=== PATIENT | male | born 1940 | race Caucasian/White ===

== ENCOUNTER 2022-07-08 09:35 | Inpatient (IN) ==
[2022-07-08] MEDS ORDERED: SODIUM CHLORIDE 0.9% 1000ML 500 ML IV STA (10:20)
--- NOTE | 2022-07-08 10:36 | Emergency Department Note ---
Impression & Plan Acute metabolic encephalopathy, Complicated UTI (urinary tract infection), Syncope, Elevated troponin I level ED Provider Note INFORMANT: Patient and ED PROVIDER(S): Hany Linder MD CHIEF COMPLAINT: Illness PLAN: Disposition: Admitted Condition: Good Outpatient prescription management: none Referral: None MEDICAL DECISION MAKING: Patient presented to the emergency department because of of complaints of illness. His history was concerning for recent urologic procedure and UTI. The patient's culture results were obtained and record was reviewed from [facility] outpatient testing. He was found to have a Enterococcus with ampicillin sensitivity as well as vancomycin sensitivity. The patient had blood work, lactate, blood cultures and urinalysis with urine culture ordered here. His CBC did show a leukocytosis. Chemistry panel was unremarkable. Patient did have a mildly elevated troponin. His ECG showed a sinus rhythm without acute ischemia and he had no complaints of chest pain. Due to the syncope issue as well as the transient confusion he did undergo head CT imaging and this was negative. The patient had a benign abdominal examination no CVA tenderness. CT imaging of the abdomen pelvis was deferred. The patient was given IV ampicillin after discussion with the ED pharmacist and culture reviewed. Lactate was negative. Procalcitonin was minimally elevated. The patient was eventually able to produce a urine sample here. This was concerning for infection and in fact did show positive nitrite. Since Enterococcus does not typically produce nitrite his antibiotic coverage was expanded with Rocephin. His case was discussed with the [facility] hospitalist service. We did review the nitrate positive urinalysis and expanded antibiotic coverage as well. The patient was evaluated in the ER and admitted for further management. Patient and were in agreement and pleased with the treatment. After review of the information above and other included data, I feel the patient requires admission. Triage Nursing notes reviewed and agree them. Vital Signs: reviewed and remarkable for no significant abnormalities Prior /Outside records reviewed: Outpatient culture results as noted above. Differential diagnosis: Sepsis, UTI, pneumonia, metabolic, electrolyte abnormalities, cardiac sources, intracerebral event, toxicologic, neurologic, as well as other pathologies. Diagnostics, as interpreted by me: ECG: Twelve-lead ECG reveals a normal sinus rhythm at 91 bpm. Inferior Q waves present. Bifrontal branch block and left anterior fascicular block. No ST elevation. Cardiac Monitoring: Cardiac monitoring ordered by me: The patient was placed on continuous cardiac monitoring and observed. It revealed a normal sinus rhythm at 88 beats per minute without ectopy or evidence of dysrhythmia. Medical decision rules: none Imaging studies: Head CT: A noncontrast CT scan of the head was performed and was negative for tumor, fracture, intracranial hemorrhage, or other acute pathology. HPI: The patient is a 81 year old male with hx of BPH and prostate CA who presents to the Emergency Room with complaints of illness. This started 4 days ago and is worsening. Patient had cysto done last week and did well. Culture revealed enterococcus. The patient also notes the following associated symptoms, chills, confusion, weakness, myalgias, headache.He also had a brief syncopal episode 3 days ago. The patient has been started on macrobid for relieving factors. Current pain is rated as 0/10. Pt denies diaphoresis, visual changes, neck pain, chest pain, breathing difficulties, nausea, vomiting, abdominal pain, back pain, melena, hematochezia, numbness, lymphadenopathy, rash, or other complaints. PAST MEDICAL HISTORY: See Below, BPH, Prostate CA PAST SURGICAL HISTORY: See Below, cysto SOCIAL HISTORY: See Below, retired HOME MEDICATIONS: See Below ALLERGIES: See Below VITALS: See Below PHYSICAL EXAMINATION: GENERAL: Awake, tired-appearing, in no distress HENT: Normocephalic, atraumatic. Oropharynx unremarkable. EYES: Normal conjunctiva. Sclera non-icteric. NECK: Inspection normal. Non-tender. Supple. No nuchal rigidity. FROM. No masses. RESPIRATORY: Clear to auscultation. No wheezes. No rales. Normal respiratory effort. CARDIAC: Normal rate. Normal rhythm. No murmurs. No rubs. Extremities warm and well perfused. Pulses equal. No JVD. GI: Soft, non-distended. No tenderness to palpation. No rebound or guarding. No masses. RECTAL: Deferred. MUSCULOSKELETAL: Atraumatic. Chest examination reveals no tenderness. The back is symmetrical on inspection without obvious abnormality. There is no CVA tenderness to palpation. No joint edema. LOWER EXTREMITIES: Calves are equal size bilaterally and non-tender. No edema. No discoloration. NEURO: Normal sensorium. No sensory or motor deficits noted. SKIN: No rash or jaundice noted. Past Med/Surg History Medical History (Updated 07/08/22 @ 14:36 by Hany Linder MD) Acid reflux CVA (cerebral vascular accident) Per patient was a TIA 6 years ago, had some memory issues that resolved, no deficits GERD (gastroesophageal reflux disease) History of bladder cancer History of recent steroid use On prednisone for headaches for one week, last dose was last Thursday Hyperlipidemia Ischemic heart disease Kidney stone Nephrolithiasis CARMINA (obstructive sleep apnea) Use a dental TAP Pulmonary embolism 2010 after long car ride Right inguinal hernia Surgical History H/O lithotripsy History of biopsy of bladder 07/01/21 History of right knee joint replacement S/P right knee arthroscopy Family History Other Colorectal cancer Heart disease Social History Smoking Status: Former smoker Hx Alcohol Use: Yes Alcohol type: beer Hx Substance Use: No Preferred Language: Icelandic Communication Ability: Effective Safety Lamp Keeper Required: No Beliefs That Will Affect Care: None Current Living Situation: Spouse Feels Safe at Home: Yes Assistive Devices: Glasses Allergies Allergies Allergy/AdvReac Type Severity Reaction Status Date / Time No Known Allergies Allergy Verified 09/04/21 07:53 Home Meds Home Medications Medication Instructions Recorded Confirmed aspirin 81 mg tablet,delayed 2 tabs PO DAILY 02/25/18 07/08/22 release (Jelani Low Dose Aspirin) atorvastatin 40 mg tablet 40 mg PO DAILY 02/25/18 07/08/22 fluticasone propionate 50 2 spray intranasal DAILY PRN 02/25/18 07/08/22 mcg/actuation nasal Congestion spray,suspension multivitamin 1 tab PO DAILY 02/25/18 07/08/22 omeprazole 40 mg capsule,delayed 40 mg PO DAILY 02/25/18 07/08/22 release tamsulosin 0.4 mg capsule (Flomax) 4 mg PO DAILY 04/24/21 07/08/22 Results & Data (ED) Vital Signs Vital Signs - 24 hr 07/08/22 09:40 07/08/22 10:44 07/08/22 11:48 Temperature 36.9 C Temperature Source Temporal Artery Scan Pulse Rate 107 H Pulse Rate [Apical] 88 Respiratory Rate 20 16 Respiratory Effort / Characteristics Non-Labored Spontaneous Non-Labored Spontaneous Respiratory Depth Normal Normal Respiratory Pattern Regular Blood Pressure 113/68 Blood Pressure [Left Arm] 128/74 Blood Pressure Mean 83 Blood Pressure Mean [Left Arm] 92 Pulse Oximetry 96 98 97 Oxygen Delivery Method Room Air Room Air Room Air Sepsis Recent Fever Within 48 Hours No Sepsis New/Unexplained Change in Mental Status No Sepsis Action Taken by Nursing No Action Required 07/08/22 14:34 Temperature Temperature Source Pulse Rate Pulse Rate [Apical] 87 Respiratory Rate 20 Respiratory Effort / Characteristics Non-Labored Spontaneous Respiratory Depth Normal Respiratory Pattern Regular Blood Pressure Blood Pressure [Left Arm] 112/63 Blood Pressure Mean Blood Pressure Mean [Left Arm] 79 Pulse Oximetry 95 Oxygen Delivery Method Room Air Sepsis Recent Fever Within 48 Hours Sepsis New/Unexplained Change in Mental Status Sepsis Action Taken by Nursing Laboratory Data 07/08/22 10:40 07/08/22 10:40 Lab Results 07/08/22 07/08/22 07/08/22 Range/Units 10:40 10:40 10:40 WBC 13.72 H (4.8-10.8) K/ul RBC 5.15 (4.70-6.10) M/uL Hgb 16.0 (14.0-18.0) g/dl Hct 46.1 (42.0-52.0) % MCV 89.5 (80.0-100.0) fL MCH 31.1 (25.0-34.0) pg MCHC 34.7 (32.0-36.0) g/dL RDW Std Deviation 43.3 (36.4-46.3) fL RDW Coeff of Marvin 13.2 (11.5-14.5) % Plt Count 108 L (130-400) K/uL MPV 8.3 L (9.4-12.4) fL Immature Gran % (Auto) 0.4 % Neut % (Auto) 84.4 % Lymph % (Auto) 2.8 % [place] % (Auto) 8.2 % Eos % (Auto) 4.0 % Baso % (Auto) 0.2 % Neut # (Auto) 11.58 H (1.40-6.50) K/uL Lymph # (Auto) 0.38 L (1.2-3.4) K/uL [place] # (Auto) 1.12 H (0.11-0.59) K/uL Eos # (Auto) 0.55 H (0-0.50) K/uL Baso # (Auto) 0.03 (0-0.2) K/uL Immature Gran # (Auto) 0.06 (0.01-0.20) K/uL Sodium 137 (136-145) mmol/L Potassium 3.6 (3.5-5.1) mmol/L Chloride 105 (98-107) mmol/L Carbon Dioxide 25 (21-32) mmol/L Anion Gap 7 (3-11) BUN 23 (6-23) mg/dl Creatinine 1.13 (0.6-1.4) mg/dl Est Cr Clr Drug Dosing 62.9 ml/min Est GFR ( Amer) 71.3 ml/min Est GFR (Non-Af Amer) 61.5 ml/min BUN/Creatinine Ratio 20.4 H (10-20) Glucose 114 H (70-99(Fasting)) mg/dl Lactate (0.4-2.0) mmol/L Calcium 9.3 (8.5-10.1) mg/dl Total Bilirubin 0.8 (0.2-1.0) mg/dl AST 33 (13-39) U/L ALT 39 (7-52) U/L Alkaline Phosphatase 82 (34-104) U/L Troponin I High Sens 31.7 H (0-20) pg/ml Total Protein 5.9 L (6.0-8.3) gm/dl Albumin 3.3 L (3.4-5.0) gm/dl Globulin 2.6 (2.5-4.0) gm/dl Albumin/Globulin Ratio 1.3 (0.9-2) Procalcitonin 0.82 H (0-0.5) ng/ml Urine Color Urine Appearance (Clear) Urine pH (4.5-7.5) Ur Specific [place] (1.000-1.030) Urine Protein (Negative) Urine Glucose (UA) (Negative) Urine Ketones (Negative) Urine Blood (Negative) Urine Nitrite (Negative) Urine Bilirubin (Negative) Urine Urobilinogen (Negative) Ur Leukocyte Esterase (Negative) Urine WBC (Auto) (0-5) /hpf Urine RBC (Auto) (0-4) /hpf U Hyaline Cast (Auto) (0-5) /lpf U Epithel Cells (Auto) (0-5) /lpf Urine Bacteria (Auto) (Negative) Ur Renal Epithelial Cell Urine Mucus (None Prsent) SARS-CoV-2, RNA, NAAT (NEGATIVE) 07/08/22 07/08/22 07/08/22 Range/Units 10:59 11:50 Unknown WBC (4.8-10.8) K/ul RBC (4.70-6.10) M/uL Hgb (14.0-18.0) g/dl Hct (42.0-52.0) % MCV (80.0-100.0) fL MCH (25.0-34.0) pg MCHC (32.0-36.0) g/dL RDW Std Deviation (36.4-46.3) fL RDW Coeff of Marvin (11.5-14.5) % Plt Count (130-400) K/uL MPV (9.4-12.4) fL Immature Gran % (Auto) % Neut % (Auto) % Lymph % (Auto) % [place] % (Auto) % Eos % (Auto) % Baso % (Auto) % Neut # (Auto) (1.40-6.50) K/uL Lymph # (Auto) (1.2-3.4) K/uL [place] # (Auto) (0.11-0.59) K/uL Eos # (Auto) (0-0.50) K/uL Baso # (Auto) (0-0.2) K/uL Immature Gran # (Auto) (0.01-0.20) K/uL Sodium (136-145) mmol/L Potassium (3.5-5.1) mmol/L Chloride (98-107) mmol/L Carbon Dioxide (21-32) mmol/L Anion Gap (3-11) BUN (6-23) mg/dl Creatinine (0.6-1.4) mg/dl Est Cr Clr Drug Dosing ml/min Est GFR ( Amer) ml/min Est GFR (Non-Af Amer) ml/min BUN/Creatinine Ratio (10-20) Glucose (70-99(Fasting)) mg/dl Lactate 1.7 (0.4-2.0) mmol/L Calcium (8.5-10.1) mg/dl Total Bilirubin (0.2-1.0) mg/dl AST (13-39) U/L ALT (7-52) U/L Alkaline Phosphatase (34-104) U/L Troponin I High Sens (0-20) pg/ml Total Protein (6.0-8.3) gm/dl Albumin (3.4-5.0) gm/dl Globulin (2.5-4.0) gm/dl Albumin/Globulin Ratio (0.9-2) Procalcitonin (0-0.5) ng/ml Urine Color [place] Urine Appearance Cloudy A (Clear) Urine pH 5.0 (4.5-7.5) Ur Specific [place] 1.020 (1.000-1.030) Urine Protein 1+ H (Negative) Urine Glucose (UA) Negative (Negative) Urine Ketones Trace H (Negative) Urine Blood Negative (Negative) Urine Nitrite Positive A (Negative) Urine Bilirubin 1+ H (Negative) Urine Urobilinogen Negative (Negative) Ur Leukocyte Esterase 2+ H (Negative) Urine WBC (Auto) >30 H (0-5) /hpf Urine RBC (Auto) 5-10 H (0-4) /hpf U Hyaline Cast (Auto) 1-5 (0-5) /lpf U Epithel Cells (Auto) >30 H (0-5) /lpf Urine Bacteria (Auto) 1+ H (Negative) Ur Renal Epithelial Cell Not Reportable Urine Mucus Present A (None Prsent) SARS-CoV-2, RNA, NAAT NEGATIVE (NEGATIVE) Administered Medications Discontinued Medications Sodium Chloride (Nss 1000ml) 500 mls @ 999 mls/hr IV .Q31M STA Stop: 07/08/22 10:50 Last Infusion: 07/08/22 11:15 Dose: 0 mls/hr Documented By: Admin: 07/08/22 10:43 Dose: 999 mls/hr Documented By: ADRIANA Ampicillin Sodium 2,000 mg/ (Sodium Chloride) 100 mls @ 200 mls/hr IV ONE STA Stop: 07/08/22 11:14 Last Infusion: 07/08/22 12:09 Dose: 0 mls/hr Documented By: Admin: 07/08/22 11:39 Dose: 200 mls/hr Documented By: HS Ceftriaxone Sodium (Rocephin) 2,000 mg in 70 mls @ 140 mls/hr IV NOW STA Stop: 07/08/22 14:00 Last Infusion: 07/08/22 14:32 Dose: 0 mls/hr Documented By: Admin: 07/08/22 13:56 Dose: 140 mls/hr Documented By: HS Imaging Data Radiologist's Impression: Head CT 07/08/22 10:20 CT SCAN OF THE BRAIN WITHOUT IV CONTRAST CLINICAL HISTORY: Syncope. COMPARISON STUDY: CT of the brain dated 07/31/2011. TECHNIQUE: Unenhanced axial CT scan of the brain is performed from the vertex to the skull base. A dose lowering technique was utilized adhering to the principles of ALARA. CT DOSE: 614.27 mGy.cm FINDINGS: Brain parenchyma: There is age-related involutional change noting mild subcortical and periventricular microangiopathic disease. There is no hemorrhage, mass effect, or evidence of acute territorial ischemia by CT criteria. Peguero-white matter differentiation is preserved. No extra-axial fluid collection is seen. There is a small chronic infarct in the left cerebellar hemisphere. Ventricles, sulci, cisterns: Prominent secondary to involutional change. Intracranial vasculature: There is atherosclerotic calcification of the cavernous carotid and vertebral arteries. Calvarium: Unremarkable. Sinuses and mastoids: There is trace mucosal thickening and a 16 mm retention cyst in the left maxillary antrum. Trace mucosal thickening is also seen in the right maxillary sinus. The Remaining paranasal sinuses are clear. The mastoid air cells are well pneumatized. Orbits: The bony orbits are grossly intact. There are bilateral ocular lens implants. IMPRESSION: There is no hemorrhage, mass effect, or evidence of acute territorial ischemia by CT criteria. ACT 112: Negative or not required by law. Electronically signed by: Apolinar House M.D. 07/08/2022 11:15 AM Discharge Plan Visit Data Chief Complaint: Illness Stated Complaint: ANTIBITOIC CAUSING CONFUSION, FEVER, HEADACHE ED Provider: Hany Linder ED Midlevel Provider: Hardy Scales Discharge Problem: Acute metabolic encephalopathy, Complicated UTI (urinary tract infection), Syncope, Elevated troponin I level Forms Stand Alone Forms: My [facility] Prescriptions Prescriptions: No Action multivitamin Tablet 1 tab PO DAILY atorvastatin 40 mg Tablet 40 mg PO DAILY omeprazole 40 mg Capsule,Delayed Release(Dr/Ec) 40 mg PO DAILY aspirin [Jelani Low Dose Aspirin] 81 mg Tablet,Delayed Release (Dr/Ec) 2 tabs PO DAILY fluticasone propionate 50 mcg/actuation [place],Suspension 2 spray INTRANASAL DAILY PRN (Reason: Congestion) tamsulosin [Flomax] 0.4 mg Capsule 4 mg PO DAILY Referrals Referrals: Vahe Sahu MD [Primary Care Provider] -
--- NOTE | 2022-07-08 10:40 | Communication Note ---
Date of Service: July 08, 2022 Resident attestation: I saw the patient and participated in the care with Dr. Linder. Please see attending documentation. Resident Activity Tracking Resident Involvement: Resident Care Provided Care Provided: Adult ED
[2022-07-08] MEDS ORDERED: AMPICILLIN 2,000 MG in SODIUM CHLOR 0.9% AD-VAN 100 ML IV STA (10:45)
[2022-07-08 11:01] LABS: Basophils # (auto) 0.03 K/uL (0-0.2); Basophils % (auto) 0.2 %; Eosinophils # (auto) 0.55 K/uL (0-0.50); Hematocrit (blood only) 46.1 % (42.0-52.0); Immature Granulocytes # (auto) 0.06 K/uL (0.01-0.20); Immature Granulocytes % (auto) 0.4 %; Lymphocytes # (auto) 0.38 K/uL (1.2-3.4); Lymphocytes % (auto) 2.8 %; Mean Corpuscular Hemoglobin 31.1 pg (25.0-34.0); Mean Corpuscular Hgb Conc 34.7 g/dL (32.0-36.0); Mean Corpuscular Volume 89.5 fL (80.0-100.0); Mean Platelet Volume 8.3 fL (9.4-12.4); Monocytes # (auto) 1.12 K/uL (0.11-0.59); Monocytes % (auto) 8.2 %; Neutrophils # (auto) 11.58 K/uL (1.40-6.50); Neutrophils % (auto) 84.4 %; Platelet Count 108 K/uL (130-400); RDW Coefficient of Variation 13.2 % (11.5-14.5); RDW Standard Deviation 43.3 fL (36.4-46.3); Red Blood Count 5.15 M/uL (4.70-6.10); White Blood Count 13.72 K/ul (4.8-10.8)
--- NOTE | 2022-07-08 11:16 | CT Scan Report ---
CT SCAN OF THE BRAIN WITHOUT IV CONTRAST CLINICAL HISTORY: Syncope. COMPARISON STUDY: CT of the brain dated 07/31/2011. TECHNIQUE: Unenhanced axial CT scan of the brain is performed from the vertex to the skull base. A do se lowering technique was utilized adhering to the principles of ALARA. CT DOSE: 614.27 mGy.cm FINDINGS: Brain parenchyma: There is age-related involutional change noting mild subcortical and periventricula r microangiopathic disease. There is no hemorrhage, mass effect, or evidence of acute territorial isc hemia by CT criteria. Peguero-white matter differentiation is preserved. No extra-axial fluid collection is seen. There is a small chronic infarct in the left cerebellar hemisphere. Ventricles, sulci, cisterns: Prominent secondary to involutional change. Intracranial vasculature: There is atherosclerotic calcification of the cavernous carotid and vertebr al arteries. Calvarium: Unremarkable. Sinuses and mastoids: There is trace mucosal thickening and a 16 mm retention cyst in the left maxill elías antrum. Trace mucosal thickening is also seen in the right maxillary sinus. The Remaining paranas al sinuses are clear. The mastoid air cells are well pneumatized. Orbits: The bony orbits are grossly intact. There are bilateral ocular lens implants. IMPRESSION: There is no hemorrhage, mass effect, or evidence of acute territorial ischemia by CT christiano kennedy. ACT 112: Negative or not required by law. Electronically signed by: Apolinar House M.D. 07/08/2022 11:15 AM
[2022-07-08 11:19] LABS: Albumin Globulin Ratio 1.3 (0.9-2); Albumin Level 3.3 gm/dl (3.4-5.0); BUN Creatinine Ratio 20.4 (10-20); Bilirubin,Total 0.8 mg/dl (0.2-1.0); Calcium 9.3 mg/dl (8.5-10.1); Creatinine Clr Calc Pharmacy 62.9 ml/min; Est GFR (African American) 71.3 ml/min; Est GFR (Non-African American) 61.5 ml/min; Globulin 2.6 gm/dl (2.5-4.0); Potassium 3.6 mmol/L (3.5-5.1); Total Protein 5.9 gm/dl (6.0-8.3)
[2022-07-08 11:21] LABS: Troponin I High Sensitivity 31.7 pg/ml (0-20)
[2022-07-08 12:24] LABS: Appearance Urine Cloudy (Clear); Blood Urine Negative (Negative); Color Urine Orange; Epithelial Cell Urine Auto >30 /lpf (0-5); Glucose Urine UA Negative (Negative); Ketones Urine Trace (Negative); Leukocyte Esterase Urine 2+ (Negative); Nitrite Urine Positive (Negative); Protein Urine 1+ (Negative); Urobilinogen Urine Negative (Negative); WBC Urine Automated >30 /hpf (0-5)
[2022-07-08 12:31] LABS: Bilirubin Urine 1+ (Negative)
--- NOTE | 2022-07-08 12:37 | History & Physical Report ---
Date of Service July 08, 2022 Assessment & Plan (1) Acute metabolic encephalopathy: (2) Sepsis: (3) Complicated UTI (urinary tract infection): Plan: This is a 81-year-old male with PMH of bladder cancer (s/p resection and BCG treatment, now on surveillance) following with [facility] urology, interstitial lung disease, history of ischemic heart disease, h/o prostate cancer, abdominal aortic aneurysm without rupture, GERD, BPH, history of CVA, history of PE and other medical problems listed below who presents with ongoing urinary symptoms as well as chills and malaise for the past 4 days. Initial concern for confusion, likely mild metabolic encephalopathy - expect improvement with IV abx. CT head w/o acute abnormality Meeting sepsis criteria with HR 107, WBC 13.72, procal 0.82, abnormal UA and h/o 1/24 urine culture growing enterococcus, recent cystoscopy H/o bladder neck contracture requiring intermittent self cathing On day 4 of Macrobid with fever, chills, weakness 1/24 cx growing pansensitive Enterococcus but UA still abn- will broaden cover age and add Rocephin as well Repeat urine Cx and blood Cx pending Gentle fluids Bladder scan, self cath PRN (4) Elevated troponin I level: Plan: HS trop 31.7, ECG pending. No chest pain. Likely demand ischemia in setting of infection. Monitor on tele, repeat trop x1 ECG with NSR 91, RBBB and LAFB present, no acute changes (5) Syncope: Plan: Occurred in setting of infection with positional change, decreased oral intake of fluids, likely orthostatic Orthostatic vital signs, monitor on tele, 2D echocardiogram (6) History of bladder cancer: Plan: S/p resection and BCG treatment, now on surveillance since December 2021, following with [facility] urology (7) GERD (gastroesophageal reflux disease): Plan: Continue PPI (8) CVA (cerebral vascular accident): Plan: Continue asa, statin (9) Swelling of left lower extremity: Plan: Left leg swelling >R, chronic per patient but h/o PE previously. Left doppler to r/o PE (10) Thrombocytopenia: Plan: Plt 108 (at baseline) DVT Ppx: SCDs for now given thrombocytopenia, infection Code status: FULL PCP: Adelina Dispo: Admitted to [place] [facility] Patient seen in collaboration with Dr. Aggarwal. Please see addendum. A total of 80 minutes were spent with greater than 50% of that time face to face with the patient, personally reviewing all current laboratories, imaging studies, past medication reconciliation, outpatient chart review, and discussion with specialists to collaborate care for the patient with attending and utilization of translation services. Please see attending documentation for corrections and/or additions. History of Present Illness Chief Complaint: Malaise, chills, complicated UTI Primary Care Provider: Vahe Sahu MD This is a 81-year-old male with PMH of bladder cancer (s/p resection and BCG treatment, now on surveillance) following with [facility] urology, interstitial lung disease, history of ischemic heart disease, h/o prostate cancer, abdominal aortic aneurysm without rupture, GERD, BPH, history of CVA, history of PE and other medical problems listed below who presents with ongoing urinary symptoms as well as chills and malaise for the past 4 days. Patient underwent cystoscopy last week due to history of bladder cancer. Had been experiencing urinary hesitancy and decreased flow, but was not sure if that was due to infection or BPH. Had a urine culture on 07/01 which revealed Enterococcus. Has been on Macrobid for 4 days and while urinary symptoms have improved, patient has been having intermittent fevers (T-max 102 F), chills, malaise, muscle aches, generalized weakness, decreased appetite and mental fogginess. He has been taking ibuprofen consistently to help with fever and chills. Was coming back to his bed from the bathroom late Thursday evening and felt weak and lightheaded, with witnessing a brief syncopal event as he made it back to the bed, landing on the mattress. He came to in a few seconds and has not recurred. Denies any chest pain or palpitations. Has not recurred since Thursday night. Denies any vertigo, chest pain, palpitations, nausea, vomiting, abdominal pain, dysuria, diarrhea or constipation. Allergies Allergy/AdvReac Type Severity Reaction Status Date / Time No Known Allergies Allergy Verified 09/04/21 07:53 Home Medications Medication Instructions Recorded Confirmed Type aspirin 81 mg tablet,delayed 2 tabs PO DAILY 02/25/18 07/08/22 History release (Jelani Low Dose Aspirin) atorvastatin 40 mg tablet 40 mg PO DAILY 02/25/18 07/08/22 History fluticasone propionate 50 2 spray intranasal DAILY PRN 02/25/18 07/08/22 History mcg/actuation nasal Congestion spray,suspension multivitamin 1 tab PO DAILY 02/25/18 07/08/22 History omeprazole 40 mg capsule,delayed 40 mg PO DAILY 02/25/18 07/08/22 History release tamsulosin 0.4 mg capsule (Flomax) 4 mg PO DAILY 04/24/21 07/08/22 History Past Med/Surg History Medical History (Updated 07/08/22 @ 14:36 by Hany Linder MD) Acid reflux CVA (cerebral vascular accident) Per patient was a TIA 6 years ago, had some memory issues that resolved, no deficits GERD (gastroesophageal reflux disease) History of bladder cancer History of recent steroid use On prednisone for headaches for one week, last dose was last Thursday Hyperlipidemia Ischemic heart disease Kidney stone Nephrolithiasis CARMINA (obstructive sleep apnea) Use a dental TAP Pulmonary embolism 2010 after long car ride Right inguinal hernia Surgical History H/O lithotripsy History of biopsy of bladder 07/01/21 History of right knee joint replacement S/P right knee arthroscopy Family History Other Colorectal cancer Heart disease Social History Smoking Status: Never smoker Hx Alcohol Use: No Hx Substance Use: No Preferred Language: Estonian Communication Ability: Effective Bridge Manager Required: No Beliefs That Will Affect Care: None Current Living Situation: Spouse Other Information That Helps Us Care for You: No Feels Safe at Home: Yes Assistive Devices: Glasses Review of Systems Review of Systems: At least ten systems reviewed and negative except as noted in the HPI. Physical Exam Physical Exam: General Appearance: WD/WN, vitals as above, NAD, sitting up in bed, pleasant, conversing easily Head: normocephalic, atraumatic Eyes: normal inspection, PERRL, conjunctivae normal, anicteric sclerae ENT: external ear and nose normal, oropharynx normal Neck: normal visual inspection, trachea midline, no thyromegaly Respiratory: normal respiratory effort, lungs clear to auscultation, no wheeze, rales, rhonchi. No accessory muscle use Cardiovascular: regular rate, rhythm, no murmur, normal peripheral pulses, no BLE edema. Vessels: no JVD Chest: normal inspection of chest Abdomen/GI: normal bowel sounds, soft, nontender, no hepatosplenomegaly Extremities/Musculoskeletal: + L leg 1-2+ edema, non-tender. No cyanosis or clu bbing, extremities motor strength 5/5 Neurologic: PERRL, EOMI, accommodation nl, no face palsy, no dysarthria, CN's II-XI intact bilaterally and moves all extremities Psychiatric: A+Ox3, euthymic affect Skin: no rashes, normal color, warm/dry Results & Data Results & Data ([facility]) Vital Signs (Past 12 Hours) Vital Signs Temp Pulse Pulse Resp BP BP Pulse Ox 07/08/22 11:48 88 16 128/74 97 07/08/22 10:44 98 07/08/22 09:40 36.9 C 107 H 20 113/68 96 O2 Del Method 07/08/22 11:48 Room Air 07/08/22 10:44 Room Air 07/08/22 09:40 Room Air Laboratory Results Short CBC 07/08/22 Range/Units 10:40 WBC 13.72 H (4.8-10.8) K/ul Hgb 16.0 (14.0-18.0) g/dl Hct 46.1 (42.0-52.0) % Plt Count 108 L (130-400) K/uL BMP 07/08/22 10:40 Sodium 137 Potassium 3.6 Chloride 105 Carbon Dioxide 25 BUN 23 Creatinine 1.13 Glucose 114 H Calcium 9.3 Liver Function 07/08/22 Range/Units 10:40 Total Bilirubin 0.8 (0.2-1.0) mg/dl AST 33 (13-39) U/L ALT 39 (7-52) U/L Alkaline Phosphatase 82 (34-104) U/L Albumin 3.3 L (3.4-5.0) gm/dl Urine 07/08/22 Range/Units Unknown Urine Color [place] Urine Appearance Cloudy A (Clear) Urine pH 5.0 (4.5-7.5) Ur Specific [place] 1.020 (1.000-1.030) Urine Protein 1+ H (Negative) Urine Glucose (UA) Negative (Negative) Diagnostic Findings Head CT 07/08/22 10:20 CT SCAN OF THE BRAIN WITHOUT IV CONTRAST CLINICAL HISTORY: Syncope. COMPARISON STUDY: CT of the brain dated 07/31/2011. TECHNIQUE: Unenhanced axial CT scan of the brain is performed from the vertex to the skull base. A dose lowering technique was utilized adhering to the principles of ALARA. CT DOSE: 614.27 mGy.cm FINDINGS: Brain parenchyma: There is age-related involutional change noting mild subcortical and periventricular microangiopathic disease. There is no hemorrhage, mass effect, or evidence of acute territorial ischemia by CT criteria. Peguero-white matter differentiation is preserved. No extra-axial fluid collection is seen. There is a small chronic infarct in the left cerebellar hemisphere. Ventricles, sulci, cisterns: Prominent secondary to involutional change. Intracranial vasculature: There is atherosclerotic calcification of the cavernous carotid and vertebral arteries. Calvarium: Unremarkable. Sinuses and mastoids: There is trace mucosal thickening and a 16 mm retention cyst in the left maxillary antrum. Trace mucosal thickening is also seen in the right maxillary sinus. The Remaining paranasal sinuses are clear. The mastoid air cells are well pneumatized. Orbits: The bony orbits are grossly intact. There are bilateral ocular lens implants. IMPRESSION: There is no hemorrhage, mass effect, or evidence of acute territorial ischemia by CT criteria. ACT 112: Negative or not required by law. Electronically signed by: Apolinar House M.D. 07/08/2022 11:15 AM ECG Additional Comments: ECG independently reviewed- ECG with NSR 91, RBBB and LAFB present, no acute changes Code Status & VTE Plan VTE Prophylaxis Plan VTE Prophylaxis will be ordered: Yes Supervising Physician Co-Signing Physician Notes Patient was seen and evaluated independently. Chart reviewed. Case discussed with PASTORA. Agree with assessment and plan as outlined above. Follow up blood culture.
[2022-07-08 12:47] LABS: Mucus Urine Present (None Prsent)
[2022-07-08 12:48] LABS: Bacteria Urine Automated 1+ (Negative)
[2022-07-08] MEDS ORDERED: cefTRIAXone SODIUM 2,000 MG/70 ML BAG IV STA (13:31)
[2022-07-08] MEDS ORDERED: FLUTICASONE PROPIONATE NA SPR 16 GM BTL NAE PRN (15:06)
[2022-07-08] MEDS ORDERED: POLYETHYLENE (MIRALAX) 17 GM PACK PO PRN (15:06)
[2022-07-08] MEDS ORDERED: ACETAMINOPHEN 325 MG TAB PO PRN (15:06)
[2022-07-08] MEDS ORDERED: ONDANSETRON INJ 2 MG/ML 2 ML VIAL IV PRN (15:06)
[2022-07-08] MEDS: TAMSULOSIN HCL 0.4 MG CAP PO SCH (16:15)
--- NOTE | 2022-07-08 16:21 | Ultrasound Report ---
BILATERAL LOWER EXTREMITY VENOUS DOPPLER HISTORY: Leg edema L>R COMPARISON STUDY: Venous Doppler 03/27/2013. FINDINGS: There is normal compressibility, flow, and augmentation within the bilateral lower extremit y deep venous systems. 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 IMPRESSION: 1. No DVT within the right or left lower extremity. 2. 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 Electronically signed by: Rigo Wilson M.D. 07/08/2022 4:19 PM
[2022-07-08] MEDS: AMPICILLIN 2,000 MG in SODIUM CHLOR 0.9% AD-VAN 100 ML IV SCH ×2 (18:44→23:30)
[2022-07-09] MEDS: AMPICILLIN 2,000 MG in SODIUM CHLOR 0.9% AD-VAN 100 ML IV SCH ×3 (05:43→17:31)
[2022-07-09] MEDS: TAMSULOSIN HCL 0.4 MG CAP PO SCH (08:17)
[2022-07-09] MEDS: ASPIRIN 81 MG ECTAB PO SCH (08:17)
[2022-07-09] MEDS: PANTOprazole 40 MG TAB PO SCH (08:17)
[2022-07-09] MEDS: MULTIVITAMIN TAB PO SCH (08:17)
[2022-07-09] MEDS: ATORVASTATIN 40 MG TAB PO SCH (08:17)
[2022-07-09] MEDS ORDERED: cefTRIAXone SODIUM 2,000 MG in DEXTROSE 5% 50 ML IV SCH (09:00)
[2022-07-09 09:11] LABS: Hematocrit (blood only) 41.6 % (42.0-52.0); Hemoglobin 14.5 g/dl (14.0-18.0); Mean Corpuscular Hemoglobin 30.9 pg (25.0-34.0); Mean Corpuscular Hgb Conc 34.9 g/dL (32.0-36.0); Mean Corpuscular Volume 88.7 fL (80.0-100.0); Mean Platelet Volume 8.5 fL (9.4-12.4); Platelet Count 105 K/uL (130-400); RDW Standard Deviation 41.8 fL (36.4-46.3); Red Blood Count 4.69 M/uL (4.70-6.10); White Blood Count 7.51 K/ul (4.8-10.8)
[2022-07-09 09:43] LABS: BUN Creatinine Ratio 21.8 (10-20); Calcium 8.6 mg/dl (8.5-10.1); Creatinine Clr Calc Pharmacy 65.4 ml/min; Est GFR (African American) 73.6 ml/min; Est GFR (Non-African American) 63.5 ml/min; Potassium 3.6 mmol/L (3.5-5.1)
--- NOTE | 2022-07-09 14:04 | Hospitalist Progress Note ---
Date of Service July 09, 2022 Assessment & Plan (1) Acute metabolic encephalopathy: (2) Sepsis: (3) Complicated UTI (urinary tract infection): Plan: Patient is a 81 yr male with H/O Bladder cancer (s/p resection and BCG treatment, now on surveillance) following with [facility] urology, interstitial lung disease, history of ischemic heart disease, h/o prostate cancer, abdominal aortic aneurysm without rupture, GERD, BPH, history of CVA, history of PE and other medical problems listed below who presents with ongoing urinary symptoms as well as chills and malaise for the past 4 days. Complicated urinary tract infection Acute metabolic encephalopathy--Resolved Sepsis --CT Head:There is no hemorrhage, mass effect, or evidence of acute territorial ischemia by CT criteria. Outpatient urine culture grew Enterococcus Failed Macrobid treatment --Blood cultures negative to date --Urine culture negative as well--? Reliability as partially treated prior to admission Bladder scan as needed, self cath as needed Continue ampicillin Received gentle IV fluids (4) Elevated troponin I level: Plan: Likely demand ischemia Troponin trended down Denies chest pain, dyspnea Less likely ACS (5) Syncope: Plan: Secondary to orthostatic hypotension Positive orthostatics ECHO: Mild concentric LVH. Left ventricle wall motion is normal. EF 60 to 65%. Mild tricuspid regurgitation. Borderline to mild pulmonary hypertension is present. The pulmonary artery systolic pressure is estimated to be 38 mmHg. Not on any antihypertensives Received IV fluids Compression stockings (6) History of bladder cancer: Plan: S/p resection and BCG treatment Currently on surveillance since December 2021 Follows with [facility] urology (7) GERD (gastroesophageal reflux disease): Plan: Continue PPI (8) CVA (cerebral vascular accident): Plan: Continue asa, statin (9) Swelling of left lower extremity: Plan: Left leg swelling >Right Venous Doppler:No DVT within the right or left lower extremity. 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 --Needs follow sup as outpatient for further management (10) Thrombocytopenia: Plan: Chronic thrombocytopenia No bleeding issues Monitor DVT Px: SCDs for now Code status: FULL CODE Admission and Anticipated Discharge Date Admission Date: July 08, 2022 Subjective Patient is seen and examined at bedside Confusion resolved States feeling much better today Denies any chest pain, shortness of breath, dizziness, nausea, abdominal pain, dysuria, hematuria No other complaints Review of Systems Review of Systems: All systems reviewed & are unremarkable except as noted in Subjective Physical Exam Constitutional: Physical Exam: Vitals signs as noted above General Appearance:Moderately built and nourished, no apparent distress Head: normocephalic, Atraumatic Eyes: normal inspection, EOMI Neck: supple, Trachea midline Respiratory/Chest: Normal breath sounds, CTA, No accessory muscle use Cardiovascular: S1, S2, No murmur Abdomen/GI:Soft, Non tender, Bowel sounds present Extremities/Musculoskeletal:normal inspection, L> R LE edema--chronic per patient Neurologic/Psych:AAOX3, grossly no focal neurological deficits Skin: normal color, warm Results & Data Results & Data ([facility]) Vital Signs (Past 12 Hours) Vital Signs Temp Pulse Pulse Resp BP Pulse Ox O2 Del Method 07/09/22 11:07 36.7 C 78 18 133/74 96 Room Air 07/09/22 07:25 79 07/09/22 06:21 36.5 C 75 18 117/67 94 Room Air 07/09/22 02:19 36.8 C 82 18 118/61 95 Room Air Laboratory Results Short CBC 07/09/22 Range/Units 08:19 WBC 7.51 (4.8-10.8) K/ul Hgb 14.5 (14.0-18.0) g/dl Hct 41.6 L (42.0-52.0) % Plt Count 105 L (130-400) K/uL BMP 07/09/22 08:19 Sodium 138 Potassium 3.6 Chloride 109 H Carbon Dioxide 24 BUN 24 H Creatinine 1.10 Glucose 136 H Calcium 8.6
--- NOTE | 2022-07-09 15:21 | Electrocardiogram Report ---
Test Reason : Blood Pressure : / mmHG Vent. Rate : 091 BPM Atrial Rate : 091 BPM P-R Int : 206 ms QRS Dur : 138 ms QT Int : 372 ms P-R-T Axes : 037 -52 025 degrees QTc Int : 457 ms Normal sinus rhythm Right bundle branch block Left anterior fascicular block Bifascicular block Abnormal ECG When compared with ECG of 26-FEB-2018 16:31, (RBBB and left anterior fascicular block) is now Present Confirmed by Maged Avendaño ([id number]) on 07/09/2022 3:21:13 PM Referred By: NO PCP Confirmed By:Maged Avendaño
--- NOTE | 2022-07-09 15:32 | Electrocardiogram Report ---
Test Reason : Blood Pressure : / mmHG Vent. Rate : 083 BPM Atrial Rate : 083 BPM P-R Int : 206 ms QRS Dur : 138 ms QT Int : 386 ms P-R-T Axes : 035 -44 020 degrees QTc Int : 453 ms Normal sinus rhythm Left axis deviation Right bundle branch block Abnormal ECG When compared with ECG of 08-JUL-2022 10:30, (unconfirmed) No significant change was found Confirmed by Maged Avendaño ([id number]) on 07/09/2022 3:32:36 PM Referred By: NO PCP Confirmed By:Maged Avendaño
[2022-07-10] MEDS: AMPICILLIN 2,000 MG in SODIUM CHLOR 0.9% AD-VAN 100 ML IV SCH ×3 (00:46→12:24)
[2022-07-10 06:50] LABS: Hematocrit (blood only) 40.1 % (42.0-52.0); Mean Corpuscular Hemoglobin 31.5 pg (25.0-34.0); Mean Corpuscular Hgb Conc 34.9 g/dL (32.0-36.0); Mean Corpuscular Volume 90.3 fL (80.0-100.0); Mean Platelet Volume 8.7 fL (9.4-12.4); Platelet Count 100 K/uL (130-400); RDW Coefficient of Variation 12.9 % (11.5-14.5); RDW Standard Deviation 42.7 fL (36.4-46.3); Red Blood Count 4.44 M/uL (4.70-6.10); White Blood Count 6.41 K/ul (4.8-10.8)
[2022-07-10] MEDS: ATORVASTATIN 40 MG TAB PO SCH (07:58)
[2022-07-10] MEDS: PANTOprazole 40 MG TAB PO SCH (07:58)
[2022-07-10] MEDS: TAMSULOSIN HCL 0.4 MG CAP PO SCH (07:58)
[2022-07-10] MEDS: MULTIVITAMIN TAB PO SCH (07:58)
[2022-07-10] MEDS: ASPIRIN 81 MG ECTAB PO SCH (07:58)
[2022-07-10 08:16] LABS: Anion Gap 4 (3-11); BUN Creatinine Ratio 21.2 (10-20); Blood Urea Nitrogen 22 mg/dl (6-23); Calcium 8.8 mg/dl (8.5-10.1); Carbon Dioxide 29 mmol/L (21-32); Chloride 108 mmol/L (98-107); Est GFR (African American) 78.8 ml/min; Glucose 87 mg/dl (70-99(Fasting)); Magnesium 1.8 mg/dl (1.7-2.4); Sodium 141 mmol/L (136-145)
--- NOTE | 2022-07-10 13:07 | Hospitalist Progress Note ---
Date of Service July 10, 2022 Assessment & Plan (1) Acute metabolic encephalopathy: (2) Sepsis: (3) Complicated UTI (urinary tract infection): Plan: Patient is a 81 yr male with H/O Bladder cancer (s/p resection and BCG treatment, now on surveillance) following with [facility] urology, interstitial lung disease, history of ischemic heart disease, h/o prostate cancer, abdominal aortic aneurysm without rupture, GERD, BPH, history of CVA, history of PE and other medical problems listed below who presents with ongoing urinary symptoms as well as chills and malaise for the past 4 days. Complicated urinary tract infection Acute metabolic encephalopathy--Resolved Sepsis --CT Head:There is no hemorrhage, mass effect, or evidence of acute territorial ischemia by CT criteria. Outpatient urine culture grew Enterococcus Failed Macrobid treatment --Blood cultures: No growth to date --Urine culture negative as well--? Reliability as partially treated prior to admission Bladder scan as needed, self cath as needed Continue ampicillin Received gentle IV fluids Plan to discharge on Amoxicillin to complete the course on discharge (4) Elevated troponin I level: Plan: Likely demand ischemia Troponin trended down Denies chest pain, dyspnea Less likely ACS (5) Syncope: Plan: Secondary to orthostatic hypotension Positive orthostatics ECHO: Mild concentric LVH. Left ventricle wall motion is normal. EF 60 to 65%. Mild tricuspid regurgitation. Borderline to mild pulmonary hypertension is present. The pulmonary artery systolic pressure is estimated to be 38 mmHg. Not on any antihypertensives Received IV fluids Compression stockings (6) History of bladder cancer: Plan: S/p resection and BCG treatment Currently on surveillance since December 2021 Follows with [facility] urology (7) GERD (gastroesophageal reflux disease): Plan: Continue PPI (8) CVA (cerebral vascular accident): Plan: Continue asa, statin (9) Swelling of left lower extremity: Plan: Left leg swelling >Right Venous Doppler:No DVT within the right or left lower extremity. 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 --Advised to follow up with PCP as outpatient for further management (10) Thrombocytopenia: Plan: Chronic thrombocytopenia No bleeding issues Monitor DVT Px: SCDs for now Code status: FULL CODE Disposition Home Admission and Anticipated Discharge Date Admission Date: July 08, 2022 Subjective Patient is seen and examined at bedside States feeling well today No new complaints Eager to be discharged Denies any chest pain, dyspnea, dizziness, nausea, abdominal pain, dysuria, hematuria Plan to discharge home today Review of Systems Review of Systems: All systems reviewed & are unremarkable except as noted in Subjective Physical Exam Physical Exam: Physical Exam: Vitals signs as noted above General Appearance:Moderately built and nourished, no apparent distress Head: normocephalic, Atraumatic Eyes: normal inspection, EOMI Neck: supple, Trachea midline Respiratory/Chest: Normal breath sounds, CTA, No accessory muscle use Cardiovascular: S1, S2, No murmur Abdomen/GI:Soft, Non tender, Bowel sounds present Extremities/Musculoskeletal:normal inspection, L> R LE edema--chronic per patient Neurologic/Psych:AAOX3, grossly no focal neurological deficits Skin: normal color, warm Results & Data Results & Data ([facility]) Vital Signs (Past 12 Hours) Vital Signs Temp Pulse Pulse Resp BP Pulse Ox O2 Del Method 07/10/22 11:28 36.5 C 20 153/84 H 95 Room Air 07/10/22 08:05 36.7 C 73 20 144/79 H 95 Room Air 07/10/22 07:23 69 07/10/22 04:50 36.6 C 78 20 132/62 94 Room Air Laboratory Results Short CBC 07/10/22 Range/Units 06:14 WBC 6.41 (4.8-10.8) K/ul Hgb 14.0 (14.0-18.0) g/dl Hct 40.1 L (42.0-52.0) % Plt Count 100 L (130-400) K/uL BMP 07/10/22 06:14 Sodium 141 Potassium TNP Chloride 108 H Carbon Dioxide 29 BUN 22 Creatinine 1.04 Glucose 87 Calcium 8.8
--- NOTE | 2022-07-10 13:24 | Discharge Summary ---
Date of Service July 10, 2022 Admission HPI Per Admitting Provider This is a 81-year-old male with PMH of bladder cancer (s/p resection and BCG treatment, now on surveillance) following with [facility] urology, interstitial lung disease, history of ischemic heart disease, h/o prostate cancer, abdominal aortic aneurysm without rupture, GERD, BPH, history of CVA, history of PE and other medical problems listed below who presents with ongoing urinary symptoms as well as chills and malaise for the past 4 days. Patient underwent cystoscopy last week due to history of bladder cancer. Had been experiencing urinary hesitancy and decreased flow, but was not sure if that was due to infection or BPH. Had a urine culture on 07/01 which revealed Enterococcus. Has been on Macrobid for 4 days and while urinary symptoms have improved, patient has been having intermittent fevers (T-max 102 F), chills, malaise, muscle aches, generalized weakness, decreased appetite and mental fogginess. He has been taking ibuprofen consistently to help with fever and chills. Was coming back to his bed from the bathroom late Thursday evening and felt weak and lightheaded, with witnessing a brief syncopal event as he made it back to the bed, landing on the mattress. He came to in a few seconds and has not recurred. Denies any chest pain or palpitations. Has not recurred since Thursday night. Denies any vertigo, chest pain, palpitations, nausea, vomiting, abdominal pain, dysuria, diarrhea or constipation. Admission Exam Per Admitting Provider Physical Exam Physical Exam: General Appearance:WD/WN, vitals as above, NAD, sitting up in bed, pleasant, conversing easily Head: normocephalic, atraumatic Eyes:normal inspection, PERRL, conjunctivae normal, anicteric sclerae ENT: external ear and nose normal, oropharynx normal Neck: normal visual inspection, trachea midline, no thyromegaly Respiratory:normal respiratory effort, lungs clear to auscultation, no wheeze, rales, rhonchi. No accessory muscle use Cardiovascular: regular rate, rhythm, no murmur, normal peripheral pulses, no BLE edema. Vessels: no JVD Chest: normal inspection of chest Abdomen/GI: normal bowel sounds, soft, nontender, no hepatosplenomegaly Extremities/Musculoskeletal:+ L leg 1-2+ edema, non-tender. No cyanosis or clubbing, extremities motor strength 5/5 Neurologic: PERRL, EOMI, accommodation nl, no face palsy, no dysarthria, CN's II-XI intact bilaterally and moves all extremities Psychiatric:A+Ox3, euthymic affect Skin: no rashes, normal color, warm/dry Principal Diagnosis Complicated urinary tract infection Acute metabolic encephalopathy Sepsis Syncope Chronic lower extremity edema Discharge Data Allergies Allergy/AdvReac Type Severity Reaction Status Date / Time No Known Allergies Allergy Verified 09/04/21 07:53 Consultations 07/08/22 12:17 ED Decision to Admit Stat Procedures Performed Laboratory Results WBC 6.41 K/ul (4.8-10.8) 07/10/22 06:14 RBC 4.44 M/uL (4.70-6.10) L 07/10/22 06:14 Hgb 14.0 g/dl (14.0-18.0) 07/10/22 06:14 Hct 40.1 % (42.0-52.0) L 07/10/22 06:14 MCV 90.3 fL (80.0-100.0) 07/10/22 06:14 MCH 31.5 pg (25.0-34.0) 07/10/22 06:14 MCHC 34.9 g/dL (32.0-36.0) 07/10/22 06:14 RDW Std Deviation 42.7 fL (36.4-46.3) 07/10/22 06:14 RDW Coeff of Marvin 12.9 % (11.5-14.5) 07/10/22 06:14 Plt Count 100 K/uL (130-400) L 07/10/22 06:14 MPV 8.7 fL (9.4-12.4) L 07/10/22 06:14 Immature Gran % (Auto) 0.4 % 07/08/22 10:40 Neut % (Auto) 84.4 % 07/08/22 10:40 Lymph % (Auto) 2.8 % 07/08/22 10:40 [place] % (Auto) 8.2 % 07/08/22 10:40 Eos % (Auto) 4.0 % 07/08/22 10:40 Baso % (Auto) 0.2 % 07/08/22 10:40 Neut # (Auto) 11.58 K/uL (1.40-6.50) H 07/08/22 10:40 Lymph # (Auto) 0.38 K/uL (1.2-3.4) L 07/08/22 10:40 [place] # (Auto) 1.12 K/uL (0.11-0.59) H 07/08/22 10:40 Eos # (Auto) 0.55 K/uL (0-0.50) H 07/08/22 10:40 Baso # (Auto) 0.03 K/uL (0-0.2) 07/08/22 10:40 Immature Gran # (Auto) 0.06 K/uL (0.01-0.20) 07/08/22 10:40 Sodium 141 mmol/L (136-145) 07/10/22 06:14 Potassium TNP 07/10/22 06:14 Chloride 108 mmol/L (98-107) H 07/10/22 06:14 Carbon Dioxide 29 mmol/L (21-32) 07/10/22 06:14 Anion Gap 4 (3-11) 07/10/22 06:14 BUN 22 mg/dl (6-23) 07/10/22 06:14 Creatinine 1.04 mg/dl (0.6-1.4) 07/10/22 06:14 Est Cr Clr Drug Dosing 69.0 ml/min 07/10/22 06:14 Est GFR ( Amer) 78.8 ml/min 07/10/22 06:14 Est GFR (Non-Af Amer) 68.0 ml/min 07/10/22 06:14 BUN/Creatinine Ratio 21.2 (10-20) H 07/10/22 06:14 Glucose 87 mg/dl (70-99(Fasting)) 07/10/22 06:14 Lactate 1.7 mmol/L (0.4-2.0) 07/08/22 10:59 Calcium 8.8 mg/dl (8.5-10.1) 07/10/22 06:14 Magnesium 1.8 mg/dl (1.7-2.4) 07/10/22 06:14 Total Bilirubin 0.8 mg/dl (0.2-1.0) 07/08/22 10:40 AST 33 U/L (13-39) 07/08/22 10:40 ALT 39 U/L (7-52) 07/08/22 10:40 Alkaline Phosphatase 82 U/L (34-104) 07/08/22 10:40 Troponin I High Sens 19.9 pg/ml (0-20) D 07/08/22 16:18 Total Protein 5.9 gm/dl (6.0-8.3) L 07/08/22 10:40 Albumin 3.3 gm/dl (3.4-5.0) L 07/08/22 10:40 Globulin 2.6 gm/dl (2.5-4.0) 07/08/22 10:40 Albumin/Globulin Ratio 1.3 (0.9-2) 07/08/22 10:40 Procalcitonin 0.82 ng/ml (0-0.5) H 07/08/22 10:40 Urine Color [place] 07/08/22 Unknown Urine Appearance Cloudy (Clear) A 07/08/22 Unknown Urine pH 5.0 (4.5-7.5) 07/08/22 Unknown Ur Specific [place] 1.020 (1.000-1.030) 07/08/22 Unknown Urine Protein 1+ (Negative) H 07/08/22 Unknown Urine Glucose (UA) Negative (Negative) 07/08/22 Unknown Urine Ketones Trace (Negative) H 07/08/22 Unknown Urine Blood Negative (Negative) 07/08/22 Unknown Urine Nitrite Positive (Negative) A 07/08/22 Unknown Urine Bilirubin 1+ (Negative) H 07/08/22 Unknown Urine Urobilinogen Negative (Negative) 07/08/22 Unknown Ur Leukocyte Esterase 2+ (Negative) H 07/08/22 Unknown Urine WBC (Auto) >30 /hpf (0-5) H 07/08/22 Unknown Urine RBC (Auto) 5-10 /hpf (0-4) H 07/08/22 Unknown U Hyaline Cast (Auto) 1-5 /lpf (0-5) 07/08/22 Unknown U Epithel Cells (Auto) >30 /lpf (0-5) H 07/08/22 Unknown Urine Bacteria (Auto) 1+ (Negative) H 07/08/22 Unknown Ur Renal Epithelial Cell Not Reportable 07/08/22 Unknown Urine Mucus Present (None Prsent) A 07/08/22 Unknown SARS-CoV-2, RNA, NAAT NEGATIVE (NEGATIVE) 07/08/22 11:[address] 07/08/22 10:20 CT SCAN OF THE BRAIN WITHOUT IV CONTRAST CLINICAL HISTORY: Syncope. COMPARISON STUDY: CT of the brain dated 07/31/2011. TECHNIQUE: Unenhanced axial CT scan of the brain is performed from the vertex to the skull base. A dose lowering technique was utilized adhering to the principles of ALARA. CT DOSE: 614.27 mGy.cm FINDINGS: Brain parenchyma: There is age-related involutional change noting mild subcortical and periventricular microangiopathic disease. There is no hemorrhage, mass effect, or evidence of acute territorial ischemia by CT criteria. Peguero-white matter differentiation is preserved. No extra-axial fluid collection is seen. There is a small chronic infarct in the left cerebellar hemisphere. Ventricles, sulci, cisterns: Prominent secondary to involutional change. Intracranial vasculature: There is atherosclerotic calcification of the cavernous carotid and vertebral arteries. Calvarium: Unremarkable. Sinuses and mastoids: There is trace mucosal thickening and a 16 mm retention cyst in the left maxillary antrum. Trace mucosal thickening is also seen in the right maxillary sinus. The Remaining paranasal sinuses are clear. The mastoid air cells are well pneumatized. Orbits: The bony orbits are grossly intact. There are bilateral ocular lens implants. IMPRESSION: There is no hemorrhage, mass effect, or evidence of acute territorial ischemia by CT criteria. ACT 112: Negative or not required by law. Electronically signed by: Apolinar House M.D. 07/08/2022 11:15 AM Venous Doppler Study 07/08/22 14:18 BILATERAL LOWER EXTREMITY VENOUS DOPPLER HISTORY: Leg edema L>R COMPARISON STUDY: Venous Doppler 03/27/2013. FINDINGS: There is normal compressibility, flow, and augmentation within the bilateral lower extremity deep venous systems. 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 IMPRESSION: 1. No DVT within the right or left lower extremity. 2. 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 Electronically signed by: Rigo Wilson M.D. 07/08/2022 4:19 PM Ordered Studies 07/08/22 10:20 CT head/brain wo con Urgent 07/08/22 14:18 US venous doppler LE BI Routine Hospital Course (1) Acute metabolic encephalopathy: (2) Sepsis: (3) Complicated UTI (urinary tract infection): Patient is a 81 yr male with H/O Bladder cancer (s/p resection and BCG treatment, now on surveillance) following with [facility] urology, interstitial lung disease, history of ischemic heart disease, h/o prostate cancer, abdominal aortic aneurysm without rupture, GERD, BPH, history of CVA, history of PE and other medical problems listed below who presents with ongoing urinary symptoms as well as chills and malaise for the past 4 days. Complicated urinary tract infection Acute metabolic encephalopathy--Resolved Sepsis --CT Head:There is no hemorrhage, mass effect, or evidence of acute territorial ischemia by CT criteria. Outpatient urine culture grew Enterococcus Failed Macrobid treatment --Blood cultures: No growth to date --Urine culture negative as well--? Reliability as partially treated prior to admission Bladder scan as needed, self cath as needed Continue ampicillin Received gentle IV fluids Plan to discharge on Amoxicillin to complete the course on discharge (4) Elevated troponin I level: Likely demand ischemia Troponin trended down Denies chest pain, dyspnea Less likely ACS (5) Syncope: Secondary to orthostatic hypotension Positive orthostatics ECHO: Mild concentric LVH. Left ventricle wall motion is normal. EF 60 to 65%. Mild tricuspid regurgitation. Borderline to mild pulmonary hypertension is present. The pulmonary artery systolic pressure is estimated to be 38 mmHg. Not on any antihypertensives Received IV fluids Compression stockings (6) History of bladder cancer: S/p resection and BCG treatment Currently on surveillance since December 2021 Follows with [facility] urology (7) GERD (gastroesophageal reflux disease): Continue PPI (8) CVA (cerebral vascular accident): Continue asa, statin (9) Swelling of left lower extremity: Left leg swelling >Right Venous Doppler:No DVT within the right or left lower extremity. 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 --Advised to follow up with PCP as outpatient for further management (10) Thrombocytopenia: Chronic thrombocytopenia No bleeding issues Monitor DVT Px: SCDs for now Code status: FULL CODE Disposition Home Total Time Total Time Spent Total Time Spent (In Minutes): 49 minutes Discharge Plan Discharge Items Patient Disposition: Home - Self-Care Reason For Visit: COMPLICATED UTI, SYNCOPAL EVENT Discharge Diagnosis: Complicated urinary tract infection Acute metabolic encephalopathy Sepsis Syncope Chronic lower extremity edema Activity: Per Instructions section Exercise/Sports: Gradually increase as tolerated Non-emergency contact: Primary Care Provider Call non-emergency contact if: you have any medication questions, your symptoms worsen, your pain is concerning for you and you have a fever Follow-up/Referrals: Vahe Sahu MD [Primary Care Provider] - (Date & Time 07/16/2022 10:40 AM Provider Debra Boykin MD Department General Internal Medicine [facility] ) Roseanne Olivas CRNP [Outside Practitioners] - (Date & Time 07/14/2022 1:30 PM Provider DANO Ramsey Department Pulmonary Medicine, [facility] ) Diet: Regular Diet Texture: Easy to Chew Addtl Attending Provider Instructions: Follow-up with your primary care physician Dr. Sahu on 07/16/2022 10:40 AM Follow-up with the urologist Roseanne MATSON on 07/14/2022 1:30 PM as scheduled --- Complete antibiotic course amoxicillin 500 mg 3 times a day as prescribed. -- Final blood cultures are pending at the time of discharge. Follow-up with your physician for results. --Discussed with your primary care physician for further management of leg edema as advised. Seek immediate medical attention if your symptoms reoccur or worsen Please take all medications as instructed on discharge list below. Please call if you have any questions or problems. You can reach a [facility] hospitalist on duty at [facility] 24 hours a day by calling [phone] Pending Studies at Discharge: Yes Studies:: Blood culture Stand-Alone Forms: My [facility], Smoking Cessation Medications and DC Order Prescriptions: New amoxicillin 500 mg tablet 500 mg PO TID 5 Days Qty: 15 0RF Continued multivitamin Tablet 1 tab PO DAILY atorvastatin 40 mg Tablet 40 mg PO DAILY omeprazole 40 mg Capsule,Delayed Release(Dr/Ec) 40 mg PO DAILY aspirin [Jelani Low Dose Aspirin] 81 mg Tablet,Delayed Release (Dr/Ec) 2 tabs PO DAILY fluticasone propionate 50 mcg/actuation [place],Suspension 2 spray INTRANASAL DAILY PRN (Reason: Congestion) tamsulosin [Flomax] 0.4 mg Capsule 4 mg PO DAILY Discharge Orders: Discharge Order (Routine); Ordered 07/10/22 Ordered By: Harvey Sparrow Admission Data Admit Date/Time: 07/08/22 12:33 Attending Provider: Harvey Sparrow Admit Provider: Zahraa Aggarwal Primary Care Provider: Vahe Sahu Other Providers: Zahraa Aggarwal
== END 2022-07-10 15:58 | disposition home or self-care (01) | DRG 871 ==
LOC: ED 09:35 → SUATTDRO 12:33 → EDINP 12:33 → 2N 15:05

== ENCOUNTER 2023-09-24 21:31 | Inpatient (IN) ==
[2023-09-24 22:12] LABS: Basophils # (auto) 0.04 K/uL (0.00-0.20); Basophils % (auto) 0.3 %; Eosinophils # (auto) 0.34 K/uL (0.00-0.50); Eosinophils % (auto) 2.8 %; Hematocrit (blood only) 48.3 % (42.0-52.0); Hemoglobin 16.3 g/dl (14.0-18.0); Immature Granulocytes # (auto) 0.09 K/uL (0.01-0.20); Immature Granulocytes % (auto) 0.7 %; Lymphocytes # (auto) 1.31 K/uL (1.20-3.40); Lymphocytes % (auto) 10.9 %; Mean Corpuscular Hemoglobin 30.4 pg (25.0-34.0); Mean Corpuscular Hgb Conc 33.7 g/dL (32.0-36.0); Mean Corpuscular Volume 90.1 fL (80.0-100.0); Mean Platelet Volume 8.6 fL (9.4-12.4); Monocytes % (auto) 15.8 %; Neutrophils # (auto) 8.33 K/uL (1.40-6.50); Neutrophils % (auto) 69.5 %; Platelet Count 123 K/uL (130-400); RDW Coefficient of Variation 13.7 % (11.5-14.5); Red Blood Count 5.36 M/uL (4.70-6.10); White Blood Count 12.01 K/ul (4.8-10.8)
--- NOTE | 2023-09-24 22:20 | XRay Report ---
SINGLE VIEW CHEST CLINICAL HISTORY: Atypical chest pain. FINDINGS: A PA chest radiograph is compared to study dated 10/10/2022. The heart is enlarged noting ath erosclerotic calcification of the thoracic aorta. The pulmonary vasculature is noncontrast. Chronic i nterstitial thickening is similar to previous. There is bibasilar airspace consolidation. No large pl eural effusion or pneumothorax is seen. The skeletal structures are osteopenic. The bony thorax is gr ossly intact. IMPRESSION: 1. Cardiomegaly without radiographic evidence of congestive failure. 2. There is bibasilar airspace consolidation. Correlate clinically for evidence of pneumonia/aspirati on pneumonitis. Radiographic follow-up to resolution is recommended. ACT 112: Negative or not required by law. Electronically signed by: Apolinar House M.D. 09/24/2023 10:19 PM
[2023-09-24 22:29] LABS: Albumin Globulin Ratio 1.2 (0.9-2); Albumin Level 3.5 gm/dl (3.4-5.0); BUN Creatinine Ratio 21.1 (10-20); Bilirubin,Total 0.7 mg/dl (0.2-1.0); Calcium 8.8 mg/dl (8.6-10.3); Creatinine Clr Calc Pharmacy 68.1 ml/min; Est GFR (African American) 87.3 ml/min; Est GFR (Non-African American) 75.3 ml/min; Total Protein 6.5 gm/dl (6.0-8.3)
[2023-09-24 22:34] LABS: Troponin I High Sensitivity 12.7 pg/ml (0-20)
[2023-09-24 22:40] LABS: INR 1.1 (0.9-1.1); Partial Thromboplastin Ratio 1.1; Partial Thromboplastin Time 30 Seconds (21-31); Prothrombin Time 12.2 Seconds (9.0-12.0)
[2023-09-24] MEDS: fentaNYL citrate PF 100 MCG/2 ML VIAL IV STA (23:01)
--- NOTE | 2023-09-24 23:14 | Emergency Department Note ---
Impression & Plan Pulmonary emboli, Acute right-sided thoracic back pain, Bilateral pneumonia ED Provider Note HISTORY OF PRESENT ILLNESS: Patient is an 82-year-old male presenting with right-sided chest pain. Patient reports symptoms started yesterday but have gotten progressively worse. He locates the pain to the right mid chest. He states the pain is present when he tries to take a deep breath. Describes it as sharp in nature. 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 He takes 160 mg of aspirin daily. He reports he recently traveled by car to [place]. Denies any recent surgery. He does report a recent cough and had been on prednisone and steroids in the last 2 weeks. He was recently diagnosed with urinary tract infection a few days ago and started on Macrobid. He denies any notable fevers at home. He denies any history of cardiac stents. Denies any nausea or vomiting. ROS: as above PHYSICAL EXAM: Constitutional: Patient appears in no acute distress. HENT: Head: Normocephalic and atraumatic. Eyes: EOMI, PERRL Mouth/Throat: Mucous membranes moist. Neck: Trachea midline. Neck supple. Cardiovascular: RRR, No murmurs, rubs or gallops. Intact distal pulses. Pulmonary/Chest: No respiratory distress. Breath sounds clear and equal bilaterally. No wheezes or rales. Abdominal: Abdomen soft, no tenderness, rebound or guarding. Musculoskeletal: No edema, tenderness or deformity noted. Skin: Warm and dry. No rash, erythema, pallor or cyanosis Psychiatric: Appropriate mood and affect for situation. Neurological: Alert and keenly responsive. CN II-XII grossly intact, moving all extremities equally and fully. MDM: - Vitals signs showed tachycardia - History obtained via patient. History as above. - Chronic conditions affecting care: PE; CVA; HLD; ischemic heart disease - Differential diagnoses include, but are not limited to: Acute coronary syndrome; pulmonary embolism; dissection; tension pneumothorax; esophageal rupture; pneumonia - Order placed for continuous cardiac monitoring. At this time, monitor showed rate of 95 bpm with normal sinus rhythm, per my interpretation. - External medical records reviewed. Discharge summary dated 07/10/2022 was reviewed. Patient was admitted at that time for complicated UTI and acute metabolic encephalopathy and sepsis. - EKG interpreted by myself showed normal sinus rhythm. Rate tachycardic at 104 bpm. QT 334. No acute ischemic changes. - Laboratory workup interpreted by myself showed leukocytosis (WBC 12.01) with left shift; thrombocytopenia (plt 123); normal troponin; stable electrolytes - CXR noted to have bibasilar airspace consolidations, per my interpretation. - Patient given 50 mcg IV fentanyl for pain control. However, his saturations decreased to 89% after fentanyl and was started on 2 L nasal cannula. - Given patient's pleuritic chest pain and history of PE, CT PE was obtained and showed pulmonary emboli to the right lower lobe. Also noted to have some infiltrates within the mid to lower lungs bilaterally consistent with pneumonia or edema. - BNP and blood cultures added to workup. - Heparin drip with no bolus ordered. Discussed initiation of this with hospitalist prior to starting, given patient's thrombocytopenia - Discussion was had with egg caser about patient's case and need for admission - Hospitalist consulted for admission - Patient admitted to [facility] for further evaluation and management. ASSESSMENT AND PLAN: Diagnosis: right-sided chest pain; pulmonary emboli; bilateral pneumonia Plan: admit Past Med/Surg History Medical History Acid reflux CVA (cerebral vascular accident) Per patient was a TIA 6 years ago, had some memory issues that resolved, no deficits Failed total right knee replacement GERD (gastroesophageal reflux disease) History of bladder cancer History of recent steroid use On prednisone for headaches for one week, last dose was last Thursday Hyperlipidemia Ischemic heart disease Kidney stone Nephrolithiasis CARMINA (obstructive sleep apnea) Use a dental TAP Pulmonary embolism 2010 after long car ride Right inguinal hernia Surgical History H/O lithotripsy History of biopsy of bladder 07/01/21 History of right knee joint replacement S/P right knee arthroscopy Family History Other Colorectal cancer Heart disease Social History Smoking Status: Former smoker Hx Alcohol Use: No Hx Substance Use: No Preferred Language: Croatian Communication Ability: Effective Microfiche Duplicator Required: No Beliefs That Will Affect Care: None Current Living Situation: Spouse Feels Safe at Home: Yes Assistive Devices: None Allergies Allergies Allergy/AdvReac Type Severity Reaction Status Date / Time pollen extracts Allergy Intermediate ITCHY Verified 10/10/22 19:12 EYES, SNEEZING, CONGESTION Home Meds Home Medications Medication Instructions Recorded Confirmed aspirin 81 mg tablet,delayed 2 tabs PO DAILY 02/25/18 10/10/22 release (Jelani Low Dose Aspirin) atorvastatin 40 mg tablet 40 mg PO DAILY 02/25/18 10/10/22 fluticasone propionate 50 2 spray intranasal DAILY PRN 02/25/18 10/10/22 mcg/actuation nasal Congestion spray,suspension multivitamin 1 tab PO DAILY 02/25/18 10/10/22 omeprazole 40 mg capsule,delayed 40 mg PO DAILY 02/25/18 10/10/22 release tamsulosin 0.4 mg capsule (Flomax) 4 mg PO DAILY 04/24/21 10/10/22 acetaminophen 500 mg tablet 1,000 mg PO DIRECTED PRN 10/10/22 10/10/22 (Tylenol Extra Strength) PAIN/FEVER ampicillin 500 mg capsule 500 mg PO QID 10/10/22 10/10/22 naproxen sodium 220 mg tablet 220 mg PO BID PRN Pain 10/10/22 10/10/22 nitrofurantoin 100 mg PO BID 10/10/22 10/10/22 monohydrate/macrocrystals 100 mg capsule triamcinolone acetonide 0.1 % 1 applic mucous membrane 10/10/22 10/10/22 dental paste DIRECTED PRN NEEDED trospium 60 mg capsule,extended 60 mg PO DAILY 10/10/22 10/10/22 release 24 hr Results & Data (ED) Vital Signs Vital Signs - 24 hr 09/24/23 21:34 09/24/23 22:18 09/24/23 22:30 Temperature 37.4 C Temperature Source Temporal Artery Scan Pulse Rate 111 H 97 H Pulse Rate [Left Apical] 101 H Pulse Rhythm Regular Pulse Strength Normal Respiratory Rate 18 24 Respiratory Effort / Characteristics Non-Labored Spontaneous Labored Respiratory Depth Normal Respiratory Pattern Regular Blood Pressure 171/74 H Blood Pressure [Right Arm] 125/90 Blood Pressure Mean 106 Blood Pressure Mean [Right Arm] 101 Blood Pressure Position Sitting Pulse Oximetry 92 94 92 Oxygen Delivery Method Room Air Room Air Room Air Sepsis Recent Fever Within 48 Hours No Sepsis New/Unexplained Change in Mental Status N/A Sepsis Action Taken by Nursing No Action Required 09/24/23 23:04 Temperature Temperature Source Pulse Rate Pulse Rate [Left Apical] 96 H Pulse Rhythm Pulse Strength Respiratory Rate 24 Respiratory Effort / Characteristics Labored Respiratory Depth Respiratory Pattern Blood Pressure Blood Pressure [Right Arm] 137/85 Blood Pressure Mean Blood Pressure Mean [Right Arm] 102 Blood Pressure Position Pulse Oximetry 91 Oxygen Delivery Method Room Air Sepsis Recent Fever Within 48 Hours Sepsis New/Unexplained Change in Mental Status Sepsis Action Taken by Nursing Laboratory Data 09/24/23 21:54 09/24/23 21:54 Lab Results 09/24/23 09/25/23 Range/Units 21:54 01:31 WBC 12.01 H (4.8-10.8) K/ul RBC 5.36 (4.70-6.10) M/uL Hgb 16.3 (14.0-18.0) g/dl Hct 48.3 (42.0-52.0) % MCV 90.1 (80.0-100.0) fL MCH 30.4 (25.0-34.0) pg MCHC 33.7 (32.0-36.0) g/dL RDW Std Deviation 45.0 (36.4-46.3) fL RDW Coeff of Marvin 13.7 (11.5-14.5) % Plt Count 123 L (130-400) K/uL MPV 8.6 L (9.4-12.4) fL Immature Gran % (Auto) 0.7 % Neut % (Auto) 69.5 % Lymph % (Auto) 10.9 % [place] % (Auto) 15.8 % Eos % (Auto) 2.8 % Baso % (Auto) 0.3 % Neut # (Auto) 8.33 H (1.40-6.50) K/uL Lymph # (Auto) 1.31 (1.20-3.40) K/uL [place] # (Auto) 1.90 H (0.11-0.59) K/uL Eos # (Auto) 0.34 (0.00-0.50) K/uL Baso # (Auto) 0.04 (0.00-0.20) K/uL Immature Gran # (Auto) 0.09 (0.01-0.20) K/uL PT 12.2 H (9.0-12.0) Seconds INR 1.1 (0.9-1.1) APTT 30 (21-31) Seconds PTT Ratio 1.1 Sodium 135 L (136-145) mmol/L Potassium 4.0 (3.5-5.1) mmol/L Chloride 106 (98-107) mmol/L Carbon Dioxide 23 (21-32) mmol/L Anion Gap 6 (3-11) BUN 20 (6-23) mg/dl Creatinine 0.95 (0.6-1.4) mg/dl Est Cr Clr Drug Dosing 68.1 ml/min Est GFR ( Amer) 87.3 ml/min Est GFR (Non-Af Amer) 75.3 ml/min BUN/Creatinine Ratio 21.1 H (10-20) Glucose 115 H (70-99(Fasting)) mg/dl Calcium 8.8 (8.6-10.3) mg/dl Total Bilirubin 0.7 (0.2-1.0) mg/dl AST 21 (13-39) U/L ALT 25 (7-52) U/L Alkaline Phosphatase 95 (34-104) U/L Troponin I High Sens 12.7 14.3 (0-20) pg/ml Total Protein 6.5 (6.0-8.3) gm/dl Albumin 3.5 (3.4-5.0) gm/dl Globulin 3.0 (2.5-4.0) gm/dl Albumin/Globulin Ratio 1.2 (0.9-2) Administered Medications Discontinued Medications Fentanyl Citrate (Fentanyl Citrate Pf 100 Mcg/2 Ml Vial) 50 mcg IV NOW STA Stop: 09/24/23 22:52 Last Admin: 09/24/23 23:01 Dose: 50 mcg Documented By: [facility] Ioversol (Optiray 320 125ml) 118 ml IV ONCE ONE Stop: 09/25/23 00:15 Last Admin: 09/25/23 00:14 Dose: 118 ml Documented By: [facility] Imaging Data Radiologist's Impression: Chest X-Ray 09/24/23 21:38 SINGLE VIEW CHEST CLINICAL HISTORY: Atypical chest pain. FINDINGS: A PA chest radiograph is compared to study dated 10/10/2022. The heart is enlarged noting atherosclerotic calcification of the thoracic aorta. The pulmonary vasculature is noncontrast. Chronic interstitial thickening is similar to previous. There is bibasilar airspace consolidation. No large pleural effusion or pneumothorax is seen. The skeletal structures are osteopenic. The bony thorax is grossly intact. IMPRESSION: 1. Cardiomegaly without radiographic evidence of congestive failure. 2. There is bibasilar airspace consolidation. Correlate clinically for evidence of pneumonia/aspiration pneumonitis. Radiographic follow-up to resolution is recommended. ACT 112: Negative or not required by law. Electronically signed by: Apolinar House M.D. 09/24/2023 10:19 PM Chest CTA 09/24/23 22:43 CR Exam(s): CTA CHEST IV Amt: 118 cc opit 320 EXAM: CT Angiography Chest With Intravenous Contrast CLINICAL HISTORY: Reason for exam: PE; chest pain; hx of PE. TECHNIQUE: Axial computed tomographic angiography images of the chest with intravenous contrast. CTDI is 25.55 mGy and DLP is 767.61 mGy-cm. Automated exposure control was utilized for the study. A dose lowering technique was utilized adhering to the principles of ALARA. MIP reconstructed images were created and reviewed. COMPARISON: Chest x-ray from September 24, 2023 FINDINGS: Pulmonary arteries: The pulmonary arterial tree is well opacified with contrast. There are filling defects in the lower lobe pulmonary artery branches, mostly on the right consistent with pulmonary emboli, blurred by motion. The clot burden is low. The RV/LV ratio is within normal limits measuring 0.82. Aorta: The thoracic aorta is mildly calcified but nondilated. There is no aneurysm or dissection. Lungs: Reticular and streaky infiltrates throughout the mid to lower lungs bilaterally consistent with pneumonia or edema. No pneumothorax or pleural effusion is seen. No mass. Pleural space: See above. Heart: The heart is mildly enlarged with mild coronary calcification. No pericardial effusion. No evidence of RV dysfunction. Bones/joints: Mild to moderate multilevel degenerative changes throughout the spine. There are several old compression fractures. No acute fracture or spinal stenosis is seen. No dislocation. Soft tissues: Unremarkable. Lymph nodes: Unremarkable. No enlarged lymph nodes. IMPRESSION: 1. The pulmonary arterial tree is well opacified with contrast. There are filling defects in the lower lobe pulmonary artery branches, mostly on the right consistent with pulmonary emboli, blurred by motion. The clot burden is low. The RV/LV ratio is within normal limits measuring 0. 82. 2. Reticular and streaky infiltrates throughout the mid to lower lungs bilaterally consistent with pneumonia or edema. No pneumothorax or pleural effusion is seen. Communications: Call Doctor Pulmonary Embolism Electronically signed by: Jaylen Snyder MD 09/25/23 02:14 AM Discharge Plan Visit Data Chief Complaint: Chest Pain Stated Complaint: CHEST PAIN, RT LUNG PAIN, SOB ED Provider: Fabby Tam Discharge Problem: Pulmonary emboli, Acute right-sided thoracic back pain, Bilateral pneumonia Forms Stand Alone Forms: My [facility] Prescriptions Prescriptions: No Action multivitamin Tablet 1 tab PO DAILY atorvastatin 40 mg Tablet 40 mg PO DAILY omeprazole 40 mg Capsule,Delayed Release(Dr/Ec) 40 mg PO DAILY aspirin [Jelani Low Dose Aspirin] 81 mg Tablet,Delayed Release (Dr/Ec) 2 tabs PO DAILY fluticasone propionate 50 mcg/actuation [place],Suspension 2 spray INTRANASAL DAILY PRN (Reason: Congestion) tamsulosin [Flomax] 0.4 mg Capsule 4 mg PO DAILY ampicillin 500 mg capsule 500 mg PO QID Rx Instructions: STARTED 10/07/22 FOR 7 DAYS acetaminophen [Tylenol Extra Strength] 500 mg Tablet 1,000 mg PO DIRECTED PRN (Reason: PAIN/FEVER) naproxen sodium 220 mg Tablet 220 mg PO BID PRN (Reason: Pain) nitrofurantoin monohyd/m-cryst 100 mg capsule 100 mg PO BID Rx Instructions: STARTED 10/09/22 FOR 7 DAYS trospium 60 mg capsule,extended release 24hr 60 mg PO DAILY triamcinolone acetonide 0.1 % paste 1 applic mucous membrane DIRECTED PRN (Reason: NEEDED) Referrals Referrals: Vahe Sahu MD [Primary Care Provider] -
[2023-09-25] MEDS: OPTIRAY 320 125ml IV ONE (00:14)
[2023-09-25 02:16] LABS: Troponin I High Sensitivity 14.3 pg/ml (0-20)
--- NOTE | 2023-09-25 02:16 | CT Scan Report ---
Exam(s): CTA CHEST IV Amt: 118 cc opit 320 EXAM: CT Angiography Chest With Intravenous Contrast CLINICAL HISTORY: Reason for exam: PE; chest pain; hx of PE. TECHNIQUE: Axial computed tomographic angiography images of the chest with intravenous contrast. CTDI is 25.55 mGy and DLP is 767.61 mGy-cm. Automated exposure control was utilized for the study. A dose lowering technique was utilized adhering to the principles of ALARA. MIP reconstructed images were created and reviewed. COMPARISON: Chest x-ray from September 24, 2023 FINDINGS: Pulmonary arteries: The pulmonary arterial tree is well opacified with contrast. There are filling defects in the lower lobe pulmonary artery branches, mostly on the right consistent with pulmonary emboli, blurred by motion. The clot burden is low. The RV/LV ratio is within normal limits measuring 0.82. Aorta: The thoracic aorta is mildly calcified but nondilated. There is no aneurysm or dissection. Lungs: Reticular and streaky infiltrates throughout the mid to lower lungs bilaterally consistent with pneumonia or edema. No pneumothorax or pleural effusion is seen. No mass. Pleural space: See above. Heart: The heart is mildly enlarged with mild coronary calcification. No pericardial effusion. No evidence of RV dysfunction. Bones/joints: Mild to moderate multilevel degenerative changes throughout the spine. There are several old compression fractures. No acute fracture or spinal stenosis is seen. No dislocation. Soft tissues: Unremarkable. Lymph nodes: Unremarkable. No enlarged lymph nodes. IMPRESSION: 1. The pulmonary arterial tree is well opacified with contrast. There are filling defects in the lower lobe pulmonary artery branches, mostly on the right consistent with pulmonary emboli, blurred by motion. The clot burden is low. The RV/LV ratio is within normal limits measuring 0. 82. 2. Reticular and streaky infiltrates throughout the mid to lower lungs bilaterally consistent with pneumonia or edema. No pneumothorax or pleural effusion is seen. Communications: Call Doctor Pulmonary Embolism Electronically signed by: Jaylen Snyder MD 09/25/23 02:14 AM
[2023-09-25] MEDS ORDERED: Heparin IV Adult Wt-Based Low-Dose *NO* INITIAL Bolus Protocol IV STA (02:20)
[2023-09-25 03:12] LABS: Magnesium 1.7 mg/dl (1.7-2.4)
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
[2023-09-25] MEDS ORDERED: PROMETHAZINE HCL 6.25 MG in SODIUM CHLORIDE 0.9% 50 ML IV PRN (03:57)
[2023-09-25 04:17] LABS: Basophils # (auto) 0.03 K/uL (0.00-0.20); Basophils % (auto) 0.2 %; Eosinophils % (auto) 2.5 %; Hematocrit (blood only) 46.8 % (42.0-52.0); Immature Granulocytes # (auto) 0.11 K/uL (0.01-0.20); Immature Granulocytes % (auto) 0.9 %; Lymphocytes # (auto) 1.39 K/uL (1.20-3.40); Lymphocytes % (auto) 11.5 %; Mean Corpuscular Hemoglobin 30.9 pg (25.0-34.0); Mean Corpuscular Hgb Conc 34.2 g/dL (32.0-36.0); Mean Corpuscular Volume 90.5 fL (80.0-100.0); Mean Platelet Volume 8.8 fL (9.4-12.4); Monocytes # (auto) 1.97 K/uL (0.11-0.59); Monocytes % (auto) 16.3 %; Neutrophils # (auto) 8.31 K/uL (1.40-6.50); Neutrophils % (auto) 68.6 %; Platelet Count 110 K/uL (130-400); RDW Coefficient of Variation 13.7 % (11.5-14.5); RDW Standard Deviation 45.3 fL (36.4-46.3); Red Blood Count 5.17 M/uL (4.70-6.10); White Blood Count 12.11 K/ul (4.8-10.8)
[2023-09-25] MEDS: cefTRIAXone SODIUM 2,000 MG/50 ML BAG IV STA (04:18)
[2023-09-25] MEDS: HEPARIN SODIUM/DEXTROSE 25,000 UNITS/500 ML BAG IV SCH (04:23)
[2023-09-25 04:28] LABS: Calcium 8.8 mg/dl (8.6-10.3); Creatinine Clr Calc Pharmacy 78.9 ml/min; Est GFR (African American) 96.8 ml/min; Est GFR (Non-African American) 83.5 ml/min; Potassium 4.2 mmol/L (3.5-5.1)
[2023-09-25] MEDS ORDERED: ACETAMINOPHEN 325 MG TAB PO PRN (04:30)
[2023-09-25] MEDS: SODIUM CHLORIDE 0.9% 1,000 ML IV ONE (04:56)
[2023-09-25] MEDS: MAGNESIUM SULFATE / D5W 1 GM/100 ML BAG IV SCH (04:56)
[2023-09-25 07:22] LABS: Estimated Average Glucose 123 mg/dl; Hemoglobin A1C 5.9 % (4.5-5.6)
[2023-09-25] MEDS: FLUTICASONE PROPIONATE NA SPR 16 GM BTL SCH (09:36)
[2023-09-25] MEDS: ATORVASTATIN 40 MG TAB PO SCH (09:38)
[2023-09-25] MEDS: MULTIVITAMIN TAB PO SCH (09:38)
[2023-09-25] MEDS: PANTOprazole 40 MG TAB PO SCH (09:38)
[2023-09-25] MEDS: ASPIRIN 81 MG ECTAB PO SCH (09:39)
[2023-09-25] MEDS: NITROFURANTOIN MONOHYDRATE 100 MG CAP PO SCH (09:39)
[2023-09-25 11:14] LABS: ANTI-Xa, UFH(UnfractionatedHep 0.22 IU/ml (0.3-0.7)
--- NOTE | 2023-09-25 12:00 | Ultrasound Report ---
BILATERAL LOWER EXTREMITY VENOUS DOPPLER CLINICAL HISTORY: leg swelling COMPARISON STUDY: Bilateral lower extremity venous Doppler ultrasound July 08, 2022. TECHNIQUE: Sonography of the deep venous system of the bilateral lower extremities was performed. Co mpression and augmentation were evaluated. FINDINGS: There is no deep venous thrombus within the right lower extremity. Nonocclusive deep venous thrombus within the left popliteal vein is present. This was not evident on ultrasound of June. 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 IMPRESSION: 1. Deep venous thrombus within the left popliteal vein. 2. 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 ACT 112: Negative or not required by law. Electronically signed by: Good Nguyen M.D. 09/25/2023 11:57 AM
[2023-09-25] MEDS: OXYBUTYNIN CHLORIDE XL 5 MG TABCR PO SCH (12:18)
[2023-09-25] MEDS: TAMSULOSIN HCL 0.4 MG CAP PO SCH (12:18)
[2023-09-25] MEDS: traMADol HCL 50 MG TABLET PO PRN (12:45)
[2023-09-25] MEDS: MoRPHine SULFATE 2 MG/ML CARP IV PRN (13:04)
--- NOTE | 2023-09-25 15:44 | Hospitalist Progress Note ---
Date of Service September 25, 2023 Assessment & Plan (1) Pulmonary emboli: Plan: Recurrent pulmonary embolism Acute left lower extremity DVT--POA Likely multifactorial--recent travel, COVID-19 infection, H/O malignancy --CTA:The pulmonary arterial tree is well opacified with contrast. There are filling defects in the lower lobe pulmonary artery branches, mostly on the right consistent with pulmonary emboli, blurred by motion. The clot burden is low. The RV/LV ratio is within normal limits measuring 0. 82. Reticular and streaky infiltrates throughout the mid to lower lungs bilaterally consistent with pneumonia or edema. No pneumothorax or pleural effusion is seen. --Venous Doppler:Deep venous thrombus within the left popliteal vein. 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 --ECHO: Left ventricle is normal in size. Mild concentric LVH. Left ventricle wall motion is normal. EF 60 to 65%. Grade 1 diastolic dysfunction. Aortic valve sclerosis mild, without significant stenosis. No significant aortic regurgitation. Mild aortic root dilatation. -- Patient admits to have recent infection and completed antibiotic course and currently denies any cough, fever --Continue IV heparin, transition to Eliquis as able --Supplemental oxygen as needed Pain control Known history of left popliteal artery aneurysm Follows with vascular as outpatient Recent COVID-19 illness S/P Paxlovid 5 day course Recent UTI Complete Macrobid course H/O prostate cancer BPH H/O bladder cancer S/P BCG, surgery Continue home medications Chronic thrombocytopenia Monitor platelet count No acute bleeding issues currently H/O CAD S/P stent PVD/CVA Decrease aspirin to 81 mg daily given patient requirement for anticoagulation Continue atorvastatin H/O DVT, PE Previously on Coumadin Prediabetes HbA1c 5.9 Other chronic conditions: Hypertension hyperlipidemia GERD Past tobacco abuse Continue home medications DVT Px: IV Heparin CODE STATUS Full code Admission and Anticipated Discharge Date Admission Date: September 25, 2023 Subjective Patient is seen and examined at bedside Dyspnea better when compared to yesterday Still has intermittent pleuritic chest discomfort Denies any nausea, vomiting, dizziness, abdominal pain No bleeding issues while on IV heparin No other complaints Saturating low 90s on room air Review of Systems Review of Systems: All systems reviewed & are unremarkable except as noted in Subjective Physical Exam Physical Exam: Physical Exam: Vitals signs as noted above General Appearance:Moderately built and nourished, no apparent distress Head: normocephalic, Atraumatic Eyes: normal inspection, EOMI Neck: supple, Trachea midline Respiratory/Chest: Decreased breath sounds, minimal basal crackles, No accessory muscle use Cardiovascular: S1, S2, No murmur Abdomen/GI:Soft, Non tender, Bowel sounds present Extremities/Musculoskeletal:normal inspection, LE L> R edema Neurologic/Psych:AAOX3, grossly no focal neurological deficits Skin: normal color, warm Results & Data Results & Data Vital Signs (Past 12 Hours) Vital Signs Temp Pulse Pulse Resp BP Pulse Ox O2 Del Method 09/25/23 11:48 37.1 C 93 H 16 152/83 H 93 Room Air 09/25/23 07:30 Room Air 09/25/23 07:30 93 H 09/25/23 06:37 36.4 C L 95 H 17 157/89 H 91 Room Air 09/25/23 06:20 Room Air 09/25/23 05:51 Room Air 09/25/23 05:51 107 H 18 113/79 95 Room Air 09/25/23 04:45 106 H Laboratory Results Short CBC 09/24/23 09/25/23 Range/Units 21:54 03:12 WBC 12.01 H 12.11 H (4.8-10.8) K/ul Hgb 16.3 16.0 (14.0-18.0) g/dl Hct 48.3 46.8 (42.0-52.0) % Plt Count 123 L 110 L (130-400) K/uL BMP 09/24/23 09/25/23 21:54 03:12 Sodium 135 L 135 L Potassium 4.0 4.2 Chloride 106 106 Carbon Dioxide 23 23 BUN 20 18 Creatinine 0.95 0.82 Glucose 115 H 104 H Calcium 8.8 8.8 Liver Function 09/24/23 Range/Units 21:54 Total Bilirubin 0.7 (0.2-1.0) mg/dl AST 21 (13-39) U/L ALT 25 (7-52) U/L Alkaline Phosphatase 95 (34-104) U/L Albumin 3.5 (3.4-5.0) gm/dl
[2023-09-25 18:25] LABS: Partial Thromboplastin Time 57 Seconds (21-31)
[2023-09-25] MEDS: DOCUSATE SODIUM/SENNA 50/8.6MG TAB PO SCH (21:38)
[2023-09-25] MEDS: POLYETHYLENE (MIRALAX) 17 GM PACK PO PRN (21:38)
--- OUTSIDE RECORDS SUMMARY | 2023-09-25 22:24 | External Medical Summary | Summary of Care ---
Author Name Unknown Organization [facility] Address [address] [place] [address] Phone [phone] Care Team Providers Care Electric Frying Pan Repairer Name Role Phone Vahe Sahu MD Primary Care Provider + Reason for Visit * Reason Onset Date Comments Test Results 09/15/2023 Encounter Details Date Type Department Care Team (Late st Contact Info) Description 09/15/2023 Telephone General Internal Medicine [facility] [address] [place] [address] Vahe Sahu MD [address] [place] [address] Test Results Allergies Active Allergy Reactions Criticality Noted Date Comments Pollen Other (Please comment) 11/15/2018 Runny nose documented as of this encounter (statuses as of 09/15/2023) Medications Medication Sig Dispensed Refills Start Date End Date Status MULTIVITAMINS PO CAPS 1 capsule daily 0 4 Active aspirin enteric coated 81 MG TBECIndications:Ischemic heart disease Take 2 tablets daily 30 Tab 5 5 Active Naproxen Sodium 220 MG Oral Tablet Take by mouth 2 times a day as needed for Pain. 2 or 3 times a day with food 60 Tab 5 8 Active fluticasone (FLONASE) 50 MCG/ACT nasal sprayIndications:Runny nose Administer 2 Sprays into each nostril daily. 1 Bottle 3 9 Active Additional Information Patient taking differently:2 [place] Each Nostril Daily(AM),Using as needed, Reported on 06/19/2022 Triamcinolone Acetonide 0.1 % Mouth/Throat Paste (Kenalog In Orabase) 0 2 Active Omeprazole 40 MG Oral Capsule Delayed Release (PriLOSEC)Indications:KAREEM D (gastroesophageal reflux disease) TAKE 1 CAPSULE DAILY 90 Capsule 3 3 Active Atorvastatin Calcium 40 MG Oral Tablet (Lipitor)Indications:Pure hypercholesterolemia Take 1 Tablet by mouth in the morning. 90 Tablet 3 3 Active Tamsulosin HCl 0.4 MG Oral Capsule (Flomax) Take 1 Capsule by mouth in the morning. 90 Capsule 3 3 Active Trospium Chloride ER 60 MG Oral Capsule Extended Release 24 Hour (Sanctura ER) Take 1 Capsule by mouth in the morning. In the morning.. 90 Capsule 3 3 Active Albuterol Sulfate HFA 108 (90 Base) MCG/ACT Inhalation Aerosol SolutionIndications:Bronc hitis due to COVID-19 virus Inhale 2 Puffs by mouth every 4 hours as needed for Cough or Wheezing. 20.1 g 1 4 Active predniSONE 20 MG Oral Tablet (Deltasone)Indications:Br onchitis due to COVID-19 virus Take 2 Tablets by mouth in the morning for 5 days. 10 Tablet 0 4 09/19/19 24 Active Spacer/Aero-Holding Chambers DeviceIndications:Bronchi tis due to COVID-19 virus Use with inhaler. 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),History of pulmonary embolism 2.5 mg NEBULIZER PRN 10/22/2022 10/22/2023 Active Albuterol Sulfate (Proventil) (2.5 MG/3ML) 0.083% inhalation solution 2.5 mgIndications:ILD (interstitial lung disease) (HCC),History of pulmonary embolism 2.5 mg NEBULIZER PRN 10/22/2022 10/22/2023 Act yrn documented as of this encounter (statuses as of 09/15/2023) Active Problems Problem Noted Date Diagnosed Date 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 Malignant neoplasm of prostate 07/19/2021 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 Transitional cell carcinoma of prostate 03/19/20 21 Malignant neoplasm of lateral wall of urinary bl adder 03/19/2021 History of kidney stones 11/20/2020 ILD (interstitial lung disease) 05/29/2020 History of pulmonary embolism 11/18/2019 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 11/15 S/P right inguinal hernia repair 11/15/2018 Abdominal aortic aneurysm (AAA) without rupture 03/03/2018 History of lacunar cerebrovascular accident 11/2017 GERD (gastroesophageal reflux disease) 4 Hyperlipidemia 08/05/2013 Ischemic heart disease 06/13/2013 documented as of this encounter (statuses as of 09/15/2023) Resolved Problems Problem Noted Date Diagnosed Date Resolved Date Thrombocytopenia 03/03/2018 11/18/2019 Right inguinal hernia 11/11/20172018 Pulmonary embolus 06/13/2013 11/10/2016 Dyslipidemia, goal to be determined 06/13/2013 08/05/2013 Edema 06/13/2013 11/15/2018 Lacunar infarction 8 documented as of this encounter (statuses as of 09/15/2023) Immunizations Name Administration Dates Next Due COVID-19 mRNA, LNP-s, No Pre serve, 2-Dose Series (Moderna) 08/09/2020,07/12/2020 COVID-19, mRNA, LNP-s, PF, B ooster, 100mcg/0.5mg (Moderna) 08/09/2021,05/18/2021 Pneumococcal Conjugate Vacc, 13 Valent (Prevnar) 10/23/2014 Pneumococcal Polysaccharide PPV23 (Pneumovax) 08/03/2018,05/09/2008 Season Influenza, Quad, PF, Adjuvanted, 65+ Yrs, IM (FLUAD) 02/16/2020 Seasonal Influenza Virus Vac cine, Unspecified Formulation 03/15/2019,03/08/2018 Seasonal Influenza, PF, 6 M & above, IM , (FluLaval or Fluzone) 03/02/2023,02/16/2020,03/24/2019,03/03 Seasonal Influenza, Quadriva lent Hd (Fluzone Hd) 03/24/2022 Seasonal Influenza, Quadriva lent Hd, 65+ Yrs 02/21/2021 Seasonal Influenza, Split, I IV3, With Preserve, Inj 03/06/2016,02/27/2015,04/10/2014,05/25 Seasonal Influenza, Trivalen t, Adjuvanted, 65+ yrs 03/24/2019 Seasonal Influenza, Trivalen t, High Dose, No Preserve, IM 02/18/2017 TDAP (age 10 and older)(Boostrix) 11/16/2012 Varicella Zoster Vaccine (Adult) 05/21/2010 Zoster Vaccine Recombinant (Shingrix) 03/22/2018 ,11/12/2017 documented as of this encounter Social History Tobacco Use Types Packs/Day Years Used Date Smoking Tobacco: Former Pipe Smokeless Tobacco: Never Comments:2 years pipe tobacc o Alcohol Use Standard Drinks/Week Comments Yes 0 (1 standard drink = 0.6 oz pur e alcohol) Occasional/social PHQ-2 Answer Date Recorded PHQ Adult Total Score 0 03/25/2023 Hunger Vital Sign Answer Date Recorded Within the past 12 months, y ou worried that your food would run out before you got the money to buy more. Never true 07/17/19 23 Within the past 12 months, t he food you bought just didn't last and you didn't have money to get more. Never true 07/17/2022 Sex and Gender Information Value Date Recorded Sex Assigned at Male 11/15/2018 8:54 AM EDT Gender Identity Male 11/15/2018 8:54 AM EDT Sexual Orientation Straight 11/15/2018 8: 54 AM EDT Job Start Date Occupation Industry Not on file Not on file Not on file documented as of this encounter Miscellaneous Notes * Telephone Encounter - Dc Zayas RN - 09/15/2023 10:51 AM EDT Message sent via [employer]. Provider to address: n/a Reason for Call: Test Results Contact: My [facility] Contact Type: Test Results Outcome: See above Face to face time spent with Patient (minutes): 0 Total Time including non face to face (minutes): 10 Dc Zayas RN BSN [facility] Primary Care Nurse Coordinator [facility] (Helping out) * Telephone Encounter - Dc Zayas RN - 09/15/2023 10:50 AM EDT ----- Message from Vahe Sahu MD sent at 09/15/2023 8:18 AM EDT ----- Has a aaa, it is still small, but slightly bigger then last year. Keep vascular visit this week to discuss further . documented in this encounter Plan of Treatment Upcoming Encounters Date Type Department Care Team (Late st Contact Info) Description 09/16/2023 10:15 AM EDT Procedure Only Urology, [facility] [address] [facility] [place] [address] Wilfred Reilly MD [address] [place] [address] [place] [address] 09/16/2023 1:10 PM EDT Office Visit Vascular Surgery, [facility] 132 [facility] [place] [address] Hany Torres MD [address] [place] [address] 10/14/2023 9:15 AM EDT Appointment Radiology, [address] [place] [address] 10/14/2023 10:00 AM EDT PulmDiagnostic Pulmonary Function Lab, [address] [address] Gl, Pulm Function Room [address] [place], [place] [address] [address] 03/22/2024 9:20 AM EDT Office Visit General Internal Medicine [facility] [place] [address] [facility] [place] [address] Vahe Sahu MD [address] [facility] [place] [address] Scheduled Procedures Name Priority Associated Diagnoses Date/Ti me COLONOSCOPY FLEXIBLE PROXIMA L DIAGNOSTIC Recall History of colonic polyps Health Maintenance Due Date Last Done Comments DTaP,Tdap,and Td Vaccines (2 - Td or Tdap) 11/16/2022 11/16/2012 COVID-19 Vaccine (2022- season) 2023 08/09/2021, 05/18/2021, 08/09/2020, Additional history exists Depression Screening 03/25/2024 03/25/2023 COLONOSCOPY-EVERY 5 YRS AGES 18-100 04/17/2026 04/17/2021, 04/17/2021, 02/20/2016, Additional history exists Zoster Vaccines Completed 03/22/2018, 12/2017, 05/21/2010 Pneumococcal Vaccine: 65+ Years Completed 08/03/2018, 10/23/2014, 05/09/2008 Influenza Vaccine (FLU shot) Completed , 03/24/2022, 02/21/2021, Additional history exists GARDASIL-HPV IMMUNIZATION SERIES Aged Out No longer eligible based on patient's age to complete this topic Hepatitis B Aged Out No longer eligi ble based on patient's age to complete this topic MENINGOCOCCAL (MENACTRA/MENVEO) Aged Out No longer eligible based on patient's age to complete this topic documented as of this encounter Medical Devices Implanted Type Area Fire Pilot Device Identifier Shelf Expiration Date Model / Serial / Lot Mesh Preshaped Large - [id number] Implanted:Qty: 1 on 06/15/2018 by Kevin Zee MD at OR [facility] Right: Groin CR BARD : DAVOL 07/05/2020 [id number] / / [id number] Description:13.7cm x 5.9cm Lens Intraoc 16.0 - [id number] - [id number] Implanted:Qty: 1 on 06/19/2020 by Sundeep Rodriguez MD at OR [facility] Left: Eye [employer] 12/05/2024 [id number] / [id number] / Lens Intraoc 15.5 - [id number] - [id number] Implanted:Qty: 1 on 06/26/2020 by Sundeep Rodriguez MD at OR [facility] Right: Eye [employer]OM[employer] 08/05/2024 [id number] / [id number] / [id number] documented as of this encounter Advance Directives Latest Code Status on File Code Status Date Activated Date Inactivated Comments Full Code 07/01/2021 1:12 PM 07/01/2021 6:27 PM This order reflects the patients wishes and were consensually agreed upon. Code Status History Code Status Date Activated Date Inactivated Comments Full Code 07/01/2021 11:53 AM 07/01/2021 1:12 PM This order reflects the patients wishes and were consensually agreed upon. Full Code 02/25/2021 8:38 AM 02/25/2021 2:14 PM This order reflects the patients wishes and were consensually agreed upon. Full Code 02/25/2021 6:41 AM 02/25/2021 8:38 AM This order reflects the patients wishes and were consensually agreed upon. Full Code 04/09/2018 11:45 AM 04/09/2018 6:40 PM This order reflects the patients wishes and were consensually agreed upon. Care Teams Electric Frying Pan Repairer Relationship Specialty Start Date End Date Vahe Sahu MD 200 [place] [address] PCP - General Internal Medicine 11/03/13 documented as of this encounter
--- OUTSIDE RECORDS SUMMARY | 2023-09-25 22:24 | External Medical Summary ---
Author Name Unknown Address Unknown Organization [id number]:[facility] - [address] [facility] [address] Laboratory Report Ordering Provider Test Date Status MARIE CARLSON 09/16/2023 10:40:07 Final Observation Date Value Abnormality Reference (Units ) Status Bacteria identified in Specimen by Culture 09/16/2023 10:40:07 [id number]^ESCHE RICHIA COLI Abnormal Final >100,000 colonies/mL Escheri sunitha coli Performing Location [facility] - [address] [place] [address] Ordering Provider Test Date Status MARIE CARLSON 09/16/2023 10:40:07 Final Observation Date Value Abnormality Reference (Units ) Status Ampicillin 09/16/2023 10:40:07 <=2 Susceptible Final Cefazolin 09/16/2023 10:40:07 <=4 Susceptible Final Cefepime susceptibility 09/16/2023 10:40:07 <=1 Susceptible Final Ceftriaxone suceptibility 09/16/2023 10:40:07 <=1 Susceptible Final Ciprofloxacin 09/16/2023 10:40:07 <=0.25 Susceptible Final Due to serious side effects, the FDA has advised against using Ciprofloxacin to treat uncomplicated UTIs and respiratory tract infections unless there are no alternative treatment options. Gentamicin susceptibility 09/16/2023 10:40:07 <=1 Susc eptible Final Nitrofurantoin susceptibility 09/16/2023 10:40:07 <=16 Susceptible Final Piperacillin + Tazobactamsusceptibility 09/16/2023 10:40:07 <=4 Susceptible Final TMP-SMZ susceptibility 09/16/2023 10:40:07 <=20 Suscept ible Final Test: Culture, Urine, Quanti tative
Specimen Source: Urine, Cystoscopy
Specimen Type: Urine
Specimen Date: 09/16/2023 10:40 AM
Result Date: 09/19/2023 7:22 AM
Result Status: Final result
Abnormal: Yes
Resulting Lab: [facility]
[address]
[facility] [address]

CULTURE

>100,000 colonies/mL Escherichia coli (Abnormal)

SUSCEPTIBILITY

Escherichia coli
METHOD MICROBROTH
DILUTIONS

AMPICILLIN <=2 Susceptible
CEFAZOLIN <=4 Susceptible
CEFEPIME <=1 Susceptible
CEFTRIAXONE <=1 Susceptible
CIPROFLOXACIN <=0.25 Susceptible
GENTAMICIN <=1 Susceptible
NITROFURANTOIN <=16 Susceptible
PIPERACILLIN TAZOBACTAM <=4 Susceptible
TRIMETH/SULFAMETHOXAZOLE <=20 Susceptible

null Performing Location [facility] - [address] [facility] [address]
--- OUTSIDE RECORDS SUMMARY | 2023-09-25 22:24 | External Medical Summary | Summary of Care ---
Author Name Unknown Organization [facility] Address [address] [place] [address] Phone [phone] Care Team Providers Care Molding And Trim Installer Name Role Phone Vahe Sahu MD Primary Care Provider + Reason for Visit * Reason Onset Date Comments Test Results 09/15/2023 Encounter Details Date Type Department Care Team (Late st Contact Info) Description 09/15/2023 Telephone General Internal Medicine [facility] [address] [place] [address] Vahe Sahu MD [address] [place] [address] Test Results Allergies Active Allergy Reactions Criticality [...] 9 Active Additional Information Patient taking differently:2 [place] Each Nostril Daily(AM),Using as needed, Reported on [...] 09/15/2023 10:51 AM EDT Message sent via [employer]. Provider to address: n/a Reason for Call: Test Results Contact: My [facility] Contact Type: Test Results Outcome: See above Face to face time spent with Patient (minutes): 0 Total Time including non face to face (minutes): 10 Dc Zayas RN BSN [facility] Primary Care Nurse Coordinator [facility] [...] 09/16/2023 10:15 AM EDT Procedure Only Urology, [facility] 132 [facility] [place] [address] Wilfred Reilly MD [address] [place] [address] [place] [address] 09/16/2023 1:10 PM EDT Office Visit Vascular Surgery, [facility] 132 [facility] [place] [address] Hany Torres MD 100 [place] [address] 10/14/2023 9:15 AM EDT Appointment Radiology, [address] [place] [address] 10/14/2023 10:00 AM EDT PulmDiagnostic Pulmonary Function Lab, [address] [address] Gl, Pulm Function Room [address] [place], [place] [address] [address] 03/22/2024 9:20 AM EDT Office Visit General Internal Medicine [facility] [place] [address] [facility] [place] [address] Vahe Sahu MD [address] [facility] [place] [address] Scheduled Procedures Name Priority Associated Diagnoses Date/Ti [...] this encounter Medical Devices Implanted Type Area Jet Dyeing Machine Tender Device Identifier Shelf Expiration Date Model / Serial / Lot Mesh Preshaped Large - [id number] Implanted:Qty: 1 on 06/15/2018 by Kevin Zee MD at OR [facility] Right: Groin CR BARD : DAVOL 07/05/2020 [id number] / / [id number] Description:13.7cm x 5.9cm Lens Intraoc 16.0 - [id number] - [id number] Implanted:Qty: 1 on 06/19/2020 by Sundeep Rodriguez MD at OR [facility] Left: Eye [employer]OM[employer] 12/05/2024 [id number] / [id number] / Lens Intraoc 15.5 - [id number] - [id number] Implanted:Qty: 1 on 06/26/2020 by Sundeep Rodriguez MD at OR [facility] Right: Eye BAUSCH [employer] LOMB 08/05/2024 [id number] / [id number] / [id number] documented as of this encounter Advance Directives [...] and were consensually agreed upon. Care Teams Molding And Trim Installer Relationship Specialty Start Date End Date Vahe Sahu MD 200 [place] [address] PCP - General Internal Medicine 11/03/13 documented as of this encounter
--- OUTSIDE RECORDS SUMMARY | 2023-09-25 22:24 | External Medical Summary | Summary of Care ---
Author Name Unknown Organization [facility] Address [address] [place] [address] Phone [phone] Care Team Providers Care Ceramic Capacitor Processor Name Role Phone Vahe Sahu MD Primary Care Provider + Reason for Referral * Precert (Within 10 days (routine)) - Authorized Specialty Diagnoses / Procedures Referred By Nury thomas Referred To Contact Radiology Diagnoses Transitional cell carcinoma of prostate (HCC) Procedures CT UROGRAPHY W WO CONTRAST Wilfred Reilly MD [address] [place] [address] Referral ID Status Reason Start Date Expiration Date V isits Requested Visits Authorized [id number] Authorized 03/17/2024 [id number] Reason for Visit * Reason Comments Cystoscopy Encounter Details Date Type Department Care Team (Latest Contact Info) Description 09/16/2023 10:15 AM EDT Procedure Only Urology, [facility] [address] [facility] [place] [address] Wilfred Reilly MD [address] [place] [address] Transitional cell carcinoma of prostate (HCC)*; Prostate cancer (HCC); Bladder neck contracture; BPH with obstruction/lower urinary tract symptoms; Complex renal cyst; Other abnormal findings in urine Allergies Active Allergy Reactions Criticality Noted Date Comments Pollen Other (Please comment) 11/15/2018 Runny nose documented as of this encounter (statuses as of 09/16/2023) Medications Medication Sig Dispensed Refills Start Date [...] 9 Active Additional Information Patient taking differently:2 [place] Each Nostril Daily(AM),Using as needed, Reported on [...] mg NEBULIZER PRN 10/22/2022 10/22/2023 Act yrn sulfamethoxazole-trimet hoprim DS (Bactrim DS) 800-160 MG 1 TabletIndications:Trans itional cell carcinoma of prostate (HCC) 1 Tablet OR ONCE 09/16/2023 09/16/2023 Ended documented as of this encounter (statuses as of 09/16/2023) Active Problems Problem Noted Date Diagnosed Date [...] as of this encounter (statuses as of 09/16/2023) Resolved Problems Problem Noted Date Diagnosed Date Resolved Date Thrombocytopenia 03/03/2018 11/18/2019 Right inguinal hernia 11/11/20172018 Pulmonary embolus 06/13/2013 11/10/2016 Dyslipidemia, goal to be determined 06/13/2013 08/05/2013 Edema 06/13/2013 11/15/2018 Lacunar infarction 8 documented as of this encounter (statuses as of 09/16/2023) Immunizations Name Administration Dates Next Due COVID-19 [...] on file documented as of this encounter Progress Notes * Wilfred Reilly MD - 09/16/2023 10:15 AM EDT [id number] PCP: VAHE SAHU [place], [place] [id number] Zurdo Mcfarland is a 82 year old male, who presents for Six-month cystoscopy for evaluation of His bladder cancer history. Patient's past notes reviewed. is present for visit today. Patient notes he stopped Flomax for over a week without worsened voiding. He denies recent UTI or bother. Bladder cancer: Presented February 2021. Initial transurethral resection February 2021. CT scan performed March 2021. 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 BCG Apr - May 2021. Rebiopsy Jun 2021 - no urothelial CA, + CAP Yaneth 3+4. Prophylactic BCG early 2021 x3 weeks with severe urinary symptoms. Cystoscopy October 2021: Bladder neck contracture and severe bladder inflammation. Office cystoscopy February 2022: Bladder neck contracture and bladder inflammation, dilated. CT scan January 2022 CT scan Feb 2023: IMPRESSION: 1. No evidence of metastatic disease in the abdomen/pelvis. 2. Underdistended, irregularly-shaped urinary bladder with urinary bladder wall thickening, not significantly changed in appearance compared to the prior exam. 3. Nonobstructing bilateral renal calculi and bilateral renal cysts including a right renal cyst with calcified internal septations, not significantly changed. 4. Fibrotic changes at the bilateral lung bases, not significantly changed. 5. Aneurysmal dilatation of the infrarenal abdominal aorta to 3.3 cm, not significantly changed. Ectasia of the right common iliac artery to 1.9 cm, not significantly changed. Focal aneurysmal dilatation of the right 2.5 cm, not significantly changed. BPH: Patient is being seen for BPH today. He has had the following symptoms: slow stream, inability to urinate, need for catheter placement and incomplete emptying. Severity is moderate. Transitional cell carcinoma the prostate present. He has tried tamsulosin and indwelling medina. He has previously had TURP done. Problem has been present for years. Problem is getting better. Kidney stones: Kidney stones noted on staging CT scan for bladder cancer up to 5 mm in size on right. Prostate cancer: pT1a Yaneth 3 + 4 prostate cancer. Found incidentally at the time of TURP June 2021. PSA Results: Lab Results Component Value Date/Time PSA - [facility] 2.37 01/21/2023 07:53 AM PSA - [facility] 1.84 07/16/2022 11:36 AM PSA - [facility] 1.68 12/23/2021 03:24 PM PSA - [facility] 2.00 11/11/2017 09:23 AM PSA - [facility] 3.39 11/12/2016 10:49 AM PSA SCREENING 0.96 08/05/2013 01:53 PM Current Outpatient Medications Medication Sig Dispense Refill MULTIVITAMINS PO CAPS 1 capsule daily aspirin enteric coated 81 MG TBEC Take 2 tablets daily 30 Tab 5 Naproxen Sodium 220 MG Oral Tablet Take by mouth 2 times a day as needed for Pain. 2 or 3 times a day with food 60 Tab 5 fluticasone (FLONASE) 50 MCG/ACT nasal spray Administer 2 Sprays into each nostril daily. (Patient taking differently: Administer 2 Sprays into each nostril in the morning. Using as needed.) 1 Bottle3 Triamcinolone Acetonide 0.1 % Mouth/Throat Paste (Kenalog In Orabase) Omeprazole 40 MG Oral Capsule Delayed Release (PriLOSEC) TAKE 1 CAPSULE DAILY 90 Capsule 3 Atorvastatin Calcium 40 MG Oral Tablet (Lipitor) Take 1 Tablet by mouth in the morning. 90 Tablet 3 Tamsulosin HCl 0.4 MG Oral Capsule (Flomax) Take 1 Capsule by mouth in the morning. 90 Capsule 3 Trospium Chloride ER 60 MG Oral Capsule Extended Release 24 Hour (Sanctura ER) Take 1 Capsule by mouth in the morning. In the morning.. 90 Capsule 3 Albuterol Sulfate HFA 108 (90 Base) MCG/ACT Inhalation Aerosol Solution Inhale 2 Puffs by mouth every 4 hours as needed for Cough or Wheezing. 20.1 g 1 predniSONE 20 MG Oral Tablet (Deltasone) Take 2 Tablets by mouth in the morning for 5 days. 10 Tablet 0 Spacer/Aero-Holding Chambers Device Use with inhaler. 1 Each 0 Current Facility-Administered Medications Medication Dose Route Frequency Provider Last Rate Last Admin Albuterol Sulfate (Proventil) (5 MG/ML) 0.5% *conc* inhalation solution 2.5 mg 2.5 mg Nebulizer Vincent Olivas MD Albuterol Sulfate (Proventil) (2.5 MG/3ML) 0.083% inhalation solution 2.5 mg 2.5 mg Nebulizer PRN Vincent Brar MD Review of patient's allergies indicates: Allergen Reactions Pollen Other (Please comment) Runny nose Social History: Social History Tobacco Use Smoking status: Former Types: Pipe Smokeless tobacco: Never Tobacco comments: 2 years pipe tobacco Substance Use Topics Alcohol use: Yes Comment: Occasional/social Vaping/E-Cigarette Use Vaping/E-Cigarette Use Never User Vaping/E-Cigarette Substances Vaping/E-Cigarette Devices Past Surgical History: Procedure Laterality Date ARTHROPLASTY KNEE TOTAL Right 08/2014 COLONOSCOPY, DIAGNOSTIC (RECTUM) 02/20/2016 adenomatous polyp, repeat 5 yrs/COLONOSCOPY FLEXIBLE PROXIMAL DIAGNOSTIC performed by Maged Rubio MD at ENDOSCOPY [facility] COLONOSCOPY, DIAGNOSTIC (RECTUM) 04/17/2021 adenomatous polyp, diverticulosis, repeat 5 yrs / COLONOSCOPY FLEXIBLE PROXIMAL DIAGNOSTIC performed by Linda Britt MD at ENDOSCOPY [facility] CYSTO/URETERO W/LITHOTRIPSY Left 04/04/2015 CYSTO/URETERO W/LITHOTRIPSY Left 04/09/2018 CYSTOURETHROSCOPY URETEROSCOPY WITH LITHOTRIPSY AND STENT INSERTION performed by Katherine Eli MD at OR [facility] CYSTOSCOPY/TREAT MINOR LESION(S) N/A 02/25/2021 CYSTOURETHROSCOPY WITH FULGURATION MINOR BLADDER TUMOR performed by Wilfred Reilly MD at OR [facility] CYSTOSCOPY/TREAT MINOR LESION(S) N/A 07/01/2021 CYSTOURETHROSCOPY WITH FULGURATION MINOR BLADDER TUMOR performed by Wilfred Reilly MD at OR [facility] REMOVAL OF KNEE CARTILAGE 1971 left REMOVAL OF PROSTATE (TURP) N/A 02/25/2021 TRANSURETHRAL RESECTION PROSTATE ELECTROSURGICAL performed by Wilfred Reilly MD at OR [facility] REMOVAL OF PROSTATE (TURP) N/A 07/01/2021 TRANSURETHRAL RESECTION PROSTATE ELECTROSURGICAL performed by Wilfred Reilly MD at OR [facility] REMOVE CATARACT, INSERT LENS PROSTH Left 06/19/2020 LEFT EXTRACAPSULAR CATARACT REMOVAL WITH INTRAOCULAR LENS performed by Sundeep Rodriguez MD at OR [facility] REMOVE CATARACT, INSERT LENS PROSTH Right 06/26/2020 RIGHT EXTRACAPSULAR CATARACT REMOVAL WITH INTRAOCULAR LENS performed by Sundeep Rodriguez MD at OR [facility] REPAIR INITIAL INGUINAL HERNIA REDUCIBLE AGE 5 OR MORE Right 06/15/2018 06/15/2018 REPAIR INITIAL INGUINAL HERNIA REDUCIBLE AGE 5 OR MORE performed by Kevin Zee MD at OR [facility] Past Medical History: Diagnosis Date DVT (deep venous thrombosis) ([facility]) Edema 06/13/2013 GERD (gastroesophageal reflux disease) History of lacunar cerebrovascular accident 11/11/2017 History of pulmonary embolism 11/18/2019 Hyperlipidemia 08/05/2013 ILD (interstitial lung disease) ([facility]) 05/29/2020 Inguinal hernia Right Lacunar infarction (HCC) 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 11/15/2018 Pulmonary embolism (HCC) 03/2013 Pulmonary embolus (HCC) 06/13/2013 Renal cyst Thrombocytopenia ([facility]) 03/03/2018 Patient Active Problem List Diagnosis Code Ischemic heart disease I25.9 Hyperlipidemia E78.5 GERD (gastroesophageal reflux disease) K21.9 History of lacunar cerebrovascular accident Z86.73 Abdominal aortic aneurysm (AAA) without rupture (HCC) I71.40 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 Z86.73 S/P right inguinal hernia repair Z98.890, Z87.19 History of pulmonary embolism Z86.711 ILD (interstitial lung disease) (HCC) J84.9 History of kidney stones Z87.442 Transitional cell carcinoma of prostate (HCC) C61 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 Exam conducted with a watershed program manager present. Constitutional: General: He is not in acute distress. Appearance: Normal appearance. He is not toxic-appearing. HENT: Head: Normocephalic and atraumatic. Right Ear: External ear normal. Left Ear: External ear normal. Nose: Nose normal. Mouth/Throat: Mouth: Mucous membranes are moist. Cardiovascular: Pulses: Normal pulses. Pulmonary: Effort: Pulmonary effort is normal. Abdominal: Palpations: Abdomen is soft. Tenderness: There is no abdominal tenderness. Genitourinary: Penis: Normal. Musculoskeletal: Cervical back: Normal range of motion and neck supple. Lymphadenopathy: Cervical: No cervical adenopathy. Skin: Coloration: Skin is not cyanotic or pale. Neurological: Mental Status: He is alert and oriented to person, place, and time. Psychiatric: Attention and Perception: Attention normal. Mood and Affect: Mood and affect normal. Cystoscopy Procedure Note: Patient was properly identified and appropriate consent was confirmed. Risks and benefits of the procedure were reviewed and the patient was prepped and draped in the standard fashion for the procedure. A well lubricated 16 Macedonian flexible cystoscope was introduced through the meatus into the urethra. Urethra demonstrated no abnormalities. Prostatic urethra demonstrated prior TUR defect, bladder neck contracture, and easily passable with scope, open . Bladder neck was visualized and bladder wasentered. Sterile saline irrigation was used to distend the bladder which was noted to have small amounts of mobile debris, mucosal erythema, and diffuse inflammation with no evidence of tumor with grade 3 trabeculation. Findings unchanged from previous, aliquot of urine taken for culture. Bladder was completely inspected including retroflexion of the scope. Ureteral orifices were noted to be in the normal anatomic position bilaterally. After this was completed the cystoscope was removed. Patient tolerated the procedure well without complications or difficulties. Electromechanical Inspector was present for entire procedure. Perioperative Bactrim was provided. Impression/Plan: 82 yo male with CAP, bladder cancer. We are pleased with lack of tumor. Patient is satisfied with his voiding. Will see in 6 months withCT urogram, PSA and cystoscopy. If he remains [facility] will move to yearly visits from there. Can try drug holiday from trospium as well, if no recurrent LUTS can hold meds. Above content is personally reviewed. Patient vocalizes good understanding of the treatment plan. Wilfred Reilly MD 7:49 AM 09/16/2023 documented in this encounter Nursing Notes * Hina Jarrell LPN - 09/16/2023 10:03 AM EDT 6 month repeat cystoscopy Hx urothelial malignancy Patient's skin was prepped with hibiclens, and 2% lidocaine jelly was inserted into urethra for cystoscopy. Patient tolerated well. PSA Results: Lab Results Component Value Date/Time PSA - [facility] 2.37 01/21/2023 07:53 AM PSA - [facility] 1.84 07/16/2022 11:36 AM PSA - [facility] 1.68 12/23/2021 03:24 PM PSA - [facility] 2.00 11/11/2017 09:23 AM PSA - [facility] 3.39 11/12/2016 10:49 AM PSA SCREENING 0.96 08/05/2013 01:53 PM C/o- blood in underwear over past couple of months, denied pain documented in this encounter Plan of Treatment Upcoming Encounters Date Type Department Care Team (Late st Contact Info) Description 09/16/2023 1:10 PM EDT Office Visit Vascular Surgery, [facility] [address] [facility] [place] [address] Hany Torres MD [address] [facility] [address] 10/14/2023 9:15 AM EDT Appointment Radiology, [facility] [address] [facility] [address] 10/14/2023 10:00 AM EDT PulmDiagnostic Pulmonary Function Lab, [facility] [address] [facility] [place] [address] Glh, [facility]m Function [facility] [address] [facility] [address] 03/15/2024 9:00 AM EDT Imaging Radiology [address] [place] [address] 03/22/2024 9:20 AM EDT Office Visit General Internal Medicine [facility] [address] [facility] [place] [address] Vahe Sahu MD [address] [facility] [address] 03/22/2024 10:30 AM EDT Office Visit Urology, [facility] [address] [facility] [place] [address] Wilfred Reilly MD [address] [place] [address] [place] [address] Scheduled Orders Name Type Priority Associated Diagnoses Orde r Schedule CULTURE, URINE, QUANTITATIVE Lab Routine Transitional cell carcinoma of prostate (HCC) Other abnormal findings in urine Expected: 09/16/2023, Expires: 09/15/2024 CYSTOSCOPY Procedures Routine Transitional cell carcinoma of prostate (HCC) Ordered: 09/16/2023 CT UROGRAPHY W WO CONTRAST Medical Imaging Routine Transitional cell carcinoma of prostate (HCC) Expected: 03/17/2024, Expires: 10/15/2024 PSA Lab Routine Prostate cancer (HCC) Expected: 03/17/2024, Expires: 09/15/2024 CREATININE Lab Routine Transitional cell carcinoma of prostate (HCC) Expected: 03/17/2024, Expires: 09/15/2024 Scheduled Procedures Name Priority Associated Diagnoses Date/Ti me COLONOSCOPY FLEXIBLE PROXIMA L DIAGNOSTIC Recall History of colonic polyps Health Maintenance Due Date Last Done Comments DTaP,Tdap,and Td Vaccines (2 - Td or Tdap) 11/16/2022 11/16/2012 COVID-19 Vaccine (5 - 2022- season) 2023 08/09/2021, 05/18/2021, 08/09/2020, Additional history [...] this encounter Medical Devices Implanted Type Area Marketing Segment Manager Device Identifier Shelf Expiration Date Model / Serial / Lot Mesh Preshaped Large - [id number] Implanted:Qty: 1 on 06/15/2018 by Kevin Zee MD at OR [facility] Right: Groin CR BARD : DAVOL 07/05/2020 [id number] / / [id number] Description:13.7cm x 5.9cm Lens Intraoc 16.0 - [id number] - [id number] Implanted:Qty: 1 on 06/19/2020 by Sundeep Rodriguez MD at OR [facility] Left: Eye [employer] 12/05/2024 [id number] / [id number] / Lens Intraoc 15.5 - [id number] - [id number] Implanted:Qty: 1 on 06/26/2020 by Sundeep Rodriguez MD at OR [facility] Right: Eye [employer] 08/05/2024 [id number] / [id number] / [id number] documented as of this encounter Visit Diagnoses Diagnosis Transitional cell carcinoma of prostate (HCC)- Primary Malignant neoplasm of prostate Prostate cancer (HCC) Malignant neoplasm of prostate Bladder neck contracture Bladder neck obstruction BPH with obstruction/lower urinary tract symptoms Hypertrophy of prostate with urinary obstruction and other lower urinary tract symptoms (LUTS) Complex renal cyst Other specified congenital cystic kidney disease Other abnormal findings in urine documented in this encounter Administered Medications Inactive Administered Medications - up to 3 most recent administrations Medication Order MAR Action Action Date Dose Rate Site sulfamethoxazole-trimethoprim DS (Bactrim DS) 800-160 MG 1 Tablet 1 Tablet, Oral, ONCE, On Thu09/16/23 at 1045, For 1 dose Given 09/16/2023 10:34 AM EDT 1 Tablet documented in this encounter Advance Directives Latest Code Status [...] and were consensually agreed upon. Care Teams Ceramic Capacitor Processor Relationship Specialty Start Date End Date Vahe Sahu MD [address] [place] [address], [place] [address] PCP - General Internal Medicine 11/03/13 documented as of this encounter
--- OUTSIDE RECORDS SUMMARY | 2023-09-25 22:24 | External Medical Summary | Summary of Care ---
Author Name Unknown Organization [facility] Address [address] [place] [address] Phone [phone] Care Team Providers Care Traveling Accountant Name Role Phone Vahe Sahu MD Primary Care Provider + Reason for Visit * Reason Onset Date Comments Test Results 09/15/2023 Encounter Details Date Type Department Care Team (Late st Contact Info) Description 09/15/2023 Telephone General Internal Medicine [facility] [address] [place] [address] Vahe Sahu MD [address] [place] [address] Test Results Allergies Active Allergy Reactions Criticality [...] 9 Active Additional Information Patient taking differently:2 [place] Each Nostril Daily(AM),Using as needed, Reported on [...] Miscellaneous Notes * Telephone Encounter - Dc aZyas RN - 09/15/2023 1:25 PM EDT Images from the original note were not included. [employer] User Last Read On Zurdo Mcfarland 09/15/2023 11:12 AM Patient read [employer] message. Closing; inbasket clean-up. Provider to address: n/a Reason for Call: Test Results Contact: [facility] Contact Type: Follow-up Outcome: See above Face to face time spent with Patient (minutes): 0 Total Time including non face to face (minutes): 10 Dc [facility] Primary Care Nurse Coordinator [facility] (Helping out) * Telephone Encounter - Dc Zayas RN - 09/15/2023 10:51 AM EDT Message sent via [employer]. Provider to address: n/a Reason for Call: Test Results Contact: Jessica CrockerYozio Contact Type: Test Results Outcome: See above Face to face time spent with Patient (minutes): 0 Total Time including non face to face (minutes): 10 Dc [facility] Primary Care Nurse Coordinator [facility] (Helping out) * Telephone Encounter - [...] 09/16/2023 10:15 AM EDT Procedure Only Urology, [facility] [address] [facility] [place] [address] Wilfred Reilly MD [address] [facility] [address] [place] [address] 09/16/2023 1:10 PM EDT Office Visit Vascular Surgery, [facility] [address] [facility] [place] [address] Hany Torres MD [address] [place] [address] 10/14/2023 9:15 AM EDT Appointment Radiology, [facility] [address] [place] [address] 10/14/2023 10:00 AM EDT PulmDiagnostic Pulmonary Function Lab, [facility] [address] [place] [address] [facility], Pulm Function Room 2 [address] [place] [address] 03/22/2024 9:20 AM EDT Office Visit General Internal Medicine [facility] [address] [place] [address] Vahe Sahu MD [address] [place] [address] Scheduled Procedures Name Priority Associated Diagnoses Date/Ti me COLONOSCOPY FLEXIBLE PROXIMA L DIAGNOSTIC Recall History of colonic polyps Health Maintenance Due Date Last Done Comments DTaP,Tdap,and Td Vaccines (2 - Td or Tdap) 11/16/2022 11/16/2012 COVID-19 Vaccine ( - 2022- season) 2023 08/09/2021, 05/18/2021, 08/09/2020, [...] this encounter Medical Devices Implanted Type Area High Pressure Cleaner Device Identifier Shelf Expiration Date Model / Serial / Lot Mesh Preshaped Large - [id number] Implanted:Qty: 1 on 06/15/2018 by Kevin Zee MD at OR [facility] Right: Groin CR BARD : DAVOL 07/05/2020 [id number] / / [id number] Description:13.7cm x 5.9cm Lens Intraoc 16.0 - [id number] - [id number] Implanted:Qty: 1 on 06/19/2020 by Sundeep Rodriguez MD at OR [facility] Left: Eye [employer] 12/05/2024 [id number] / [id number] / Lens Intraoc 15.5 - [id number] - [id number] Implanted:Qty: 1 on 06/26/2020 by Sundeep Rodriguez MD at OR [facility] Right: Eye [employer] 08/05/2024 [id number] / [id number] / [id number] documented as of this encounter Advance Directives [...] and were consensually agreed upon. Care Teams Traveling Accountant Relationship Specialty Start Date End Date Vahe Sahu MD [address] [place] [address] PCP - General Internal Medicine 11/03/13 documented as of this encounter
--- OUTSIDE RECORDS SUMMARY | 2023-09-25 22:24 | External Medical Summary | Summary of Care ---
Author Name Unknown Organization [facility] Address [address] [place] [address] Phone [phone] Care Team Providers Care Sleeve Bottom Feller Name Role Phone Vahe Sahu MD Primary Care Provider + Encounter Details Date Type Department Care Team (Late st Contact Info) Description 09/21/2023 Telephone Urology, [facility] 132 [facility] [place] [id number] Wilfred Reilly MD 27 [facility] [address] [place] [address] Allergies Active Allergy Reactions Criticality Noted Date Comments Pollen Other (Please comment) 11/15/2018 Runny nose documented as of this encounter (statuses as of 09/21/2023) Medications Medication Sig Dispensed Refills Start Date [...] 9 Active Additional Information Patient taking differently:2 Imperial Each Nostril Daily(AM),Using as needed, Reported on [...] or Wheezing. 20.1 g 1 4 Active Spacer/Aero-Holding Chambers DeviceIndications:Bronchi tis due to COVID-19 virus Use with inhaler. 1 Each 0 4 Active Nitrofurantoin Monohyd Macro 100 MG Oral Capsule (Macrobid) Take 1 Capsule by mouth in the morning and 1 Capsule before bedtime. With food.. 20 Capsule 0 4 Active Hospital, Clinic, or Other [...] as of this encounter (statuses as of 09/21/2023) Active Problems Problem Noted Date Diagnosed Date [...] as of this encounter (statuses as of 09/21/2023) Resolved Problems Problem Noted Date Diagnosed Date Resolved Date Thrombocytopenia 03/03/2018 11/18/2019 Right inguinal hernia 11/11/20172018 Pulmonary embolus 06/13/2013 11/10/2016 Dyslipidemia, goal to be determined 06/13/2013 08/05/2013 Edema 06/13/2013 11/15/2018 Lacunar infarction 8 documented as of this encounter (statuses as of 09/21/2023) Immunizations Name Administration Dates Next Due COVID-19 [...] encounter Miscellaneous Notes * Telephone Encounter - Hina Jarrell LPN - 09/21/2023 8:06 AM EDT My g sent to pt * Telephone Encounter - Wilfred Reilly MD - 09/21/2023 8:00 AM EDT Positive culture - Rx for Macrobid sent to pharmacy. Kyungx, HM documented in this encounter Plan of Treatment Upcoming Encounters Date Type Department Care Team (Late st Contact Info) Description 10/14/2023 9:15 AM EDT Appointment Radiology, [facility] [address] [place] [address] 10/14/2023 10:00 AM EDT PulmDiagnostic Pulmonary Function Lab, [facility] 400 [place] [address] Gl, Pulm Function Room 2 [address] [place] [address] 03/15/2024 9:00 AM EDT Imaging Radiology [address] [facility] [address] 03/22/2024 9:20 AM EDT Office Visit General Internal Medicine [facility] [address] [place] [address] Vahe Sahu MD 200 [facility] [place] [address] 03/22/2024 10:30 AM EDT Office Visit Urology, [facility] 132 [facility] [place] [address] Wilfred Reilly MD 27 [facility] [address] [place] [address] Scheduled Procedures Name Priority Associated Diagnoses Date/Ti [...] this encounter Medical Devices Implanted Type Area Reports Developer Device Identifier Shelf Expiration Date Model / Serial / Lot Mesh Preshaped Large - [id number] Implanted:Qty: 1 on 06/15/2018 by Kevin Zee MD at OR [facility] Right: Groin CR BARD : DAVOL 07/05/2020 [id number] / / [id number] Description:13.7cm x 5.9cm Lens Intraoc 16.0 - [id number] - [id number] Implanted:Qty: 1 on 06/19/2020 by Sundeep Rodriguez MD at OR [facility] Left: Eye [employer] 12/05/2024 [id number] / [id number] / Lens Intraoc 15.5 - [id number] - [id number] Implanted:Qty: 1 on 06/26/2020 by Sundeep Rodriguez MD at OR [facility] Right: Eye BAUSCH [employer] LOMB 08/05/2024 [id number] / [id number] / [id number] documented as of this encounter Visit Diagnoses Diagnosis History of UTI- Primary Personal history of urinary (tract) infection documented in this encounter Advance Directives Latest [...] and were consensually agreed upon. Care Teams Sleeve Bottom Feller Relationship Specialty Start Date End Date Vahe Sahu MD [address] [place] [address] PCP - General Internal Medicine 11/03/13 documented as of this encounter
--- OUTSIDE RECORDS SUMMARY | 2023-09-25 22:24 | External Medical Summary | Summary of Care ---
Author Name Unknown Organization [facility] Address [address] [place] [address] Phone [phone] Care Team Providers Care Chair Maker Name Role Phone Vahe Sahu MD Primary Care Provider + Reason for Referral * Precert (Within 10 days (routine)) - Authorized Specialty Diagnoses / Procedures Referred By Nury thomas Referred To Contact Radiology Diagnoses 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) Mixed hyperlipidemia Procedures CT ABD/PELVIS WO IV/ORAL CONTRAST Stiven Snowden PA-C [address] [place] [address] Referral ID Status Reason Start Date Expiration Date V isits Requested Visits Authorized [id number] Authorized 09/16/2023 999 999 Reason for Visit * Reason Comments Follow Up Encounter Details Date Type Department Care Team (Latest Contact Info) Description 09/16/2023 1:10 PM EDT Office Visit Vascular Surgery, [facility] 132 [facility] [place] [address] Hany Torres MD [address] [place] [address] 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)*; Popliteal aneurysm (HCC); Mixed hyperlipidemia Allergies Active Allergy Reactions Criticality Noted Date [...] 9 Active Additional Information Patient taking differently:2 [place] Each Nostril Daily(AM),Using as needed, Reported on [...] Smoking Tobacco: Former Pipe Smokeless Tobacco: Never Tobacco Cessation:Counseling Given: No Comments:2 years pipe tobacco Alcohol Use Standard Drinks/Week Comments Yes 0 [...] on file documented as of this encounter Last Filed Vital Signs Vital Sign Reading Time Taken Comments Blood Pressure 122/72 09/16/2023 1:23 PM EDT Pulse 91 09/16/2023 1:23 PM EDT Temperature 35.8 C (96.5 F) 09/16/2023 1:23 PM ED T Respiratory Rate - - Oxygen Saturation - - Inhaled Oxygen Concentration - - Weight 90.1 kg (198 lb 11.2 oz) 09/16/2023 1:23 PM EDT Height - - Body Mass Index 28.11 03/25/2023 9:51 AM EDT documented in this encounter Progress Notes * Stiven Snowden PA-C - 09/16/2023 12:50 PM EDT Date of Service: 09/16/2023 1:28 PM Zurdo Mcfarland is a 82 year old male. Patient being seen in consultation at the request of Vahe Sahu MD Chief Complaint: Return pt, AAA & left popliteal aneurysm Remains asymptomatic from his AAA Dedicated use of compression socks for venous insuff Present with his , Vicky HPI: Long time reformed smoker, referred 2022 for AAA ABDOMINAL AORTIC ANEURYSM: Patient denies any symptoms related to AAA. Patient denies new abdominal pain, flank pain and back pain. Size of aneurysm is 3.2 cm as detected by ultrasound. FAMILY HISTORY: No family history of aortic aneurysms. 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 Past Medical History: Diagnosis Date DVT (deep venous thrombosis) (HCC) Edema 06/13/2013 GERD (gastroesophageal reflux disease) History of lacunar cerebrovascular accident 11/11/2017 History of pulmonary embolism 11/18/2019 Hyperlipidemia 08/05/2013 ILD (interstitial lung disease) (HCC) 05/29/2020 Inguinal hernia Right Lacunar infarction (HCC) 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 11/15/2018 Pulmonary embolism (HCC) 03/2013 Pulmonary embolus (HCC) 06/13/2013 Renal cyst Thrombocytopenia (HCC) 03/03/2018 Past Surgical History: Procedure Laterality Date ARTHROPLASTY KNEE TOTAL Right 08/2014 COLONOSCOPY, DIAGNOSTIC (RECTUM) 02/20/2016 adenomatous polyp, repeat 5 yrs/COLONOSCOPY FLEXIBLE PROXIMAL DIAGNOSTIC performed by Maged Rubio MD at ENDOSCOPY [facility] COLONOSCOPY, DIAGNOSTIC (RECTUM) 04/17/2021 adenomatous polyp, diverticulosis, repeat 5 yrs / COLONOSCOPY FLEXIBLE PROXIMAL DIAGNOSTIC performed by Linda Britt MD at ENDOSCOPY [facility] CYSTO/URETERO W/LITHOTRIPSY Left 04/04/2015 CYSTO/URETERO W/LITHOTRIPSY Left 04/09/2018 CYSTOURETHROSCOPY URETEROSCOPY WITH LITHOTRIPSY AND STENT INSERTION performed by Katherine Eli MD at [facility] CYSTOSCOPY/TREAT MINOR LESION(S) N/A 02/25/2021 CYSTOURETHROSCOPY WITH FULGURATION MINOR BLADDER TUMOR performed by Wilfred Reilly MD at [facility] CYSTOSCOPY/TREAT MINOR LESION(S) N/A 07/01/2021 CYSTOURETHROSCOPY WITH FULGURATION MINOR BLADDER TUMOR performed by Wilfred Reilly MD at OR [facility] REMOVAL OF KNEE CARTILAGE 1971 left REMOVAL OF PROSTATE (TURP) N/A 02/25/2021 TRANSURETHRAL RESECTION PROSTATE ELECTROSURGICAL performed by Wilfred Reilly MD at [facility] REMOVAL OF PROSTATE (TURP) N/A 07/01/2021 TRANSURETHRAL RESECTION PROSTATE ELECTROSURGICAL performed by Wilfred Reilly MD at [facility] REMOVE CATARACT, INSERT LENS PROSTH Left 06/19/2020 LEFT EXTRACAPSULAR CATARACT REMOVAL WITH INTRAOCULAR LENS performed by Sundeep Rodriguez MD at OR [facility] REMOVE CATARACT, INSERT LENS PROSTH Right 06/26/2020 RIGHT EXTRACAPSULAR CATARACT REMOVAL WITH INTRAOCULAR LENS performed by Sundeep Rodriguez MD at OR [facility] REPAIR INITIAL INGUINAL HERNIA REDUCIBLE AGE 5 OR MORE Right 06/15/2018 06/15/2018 REPAIR INITIAL INGUINAL HERNIA REDUCIBLE AGE 5 OR MORE performed by Kevin Zee MD at OR [facility] Family History Problem Relation Age of Onset Heart Disorder Mother [place] Heart attack Mother Cancer Father prostate Heart Disorder Brother Coronary Artery disease Brother CABG x 4, s/p pacemaker Colon cancer Brother Heart Disorder Uncle (Unspecified) GA Social History Socioeconomic History Marital status: Spouse name: Not on file Number of children: 3 Years of education: Not on file Highest education level: Not on file Occupational History Occupation: retired - [employer] Employer: [employer] Occupation: [employer] 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 Tobacco Use Smoking status: Former Types: Pipe Smokeless tobacco: Never Tobacco comments: 2 years pipe tobacco Vaping Use Vaping Use: Never used Substance and Sexual Activity Alcohol use: Yes Comment: Occasional/social Drug use: No Sexual activity: Not Currently Other Topics Concern Not on file Social History Narrative One dog and 2 cats No mold Moon geothermal/heat pump Exposure to agent orange Social Determinants of Health Financial Resource Strain: Not on file Food Insecurity: No Food Insecurity (07/17/2022) Hunger Vital Sign Worried About Running Out of Food in the Last Year: Never true Ran Out of Food in the Last Year: Never true Transportation Needs: Not on file Physical Activity: Not on file Stress: Not on file Social Connections: Not on file Intimate Partner Violence: Not on file Housing Stability: Not on file COMPLETE REVIEW OF SYSTEMS: Cardiovascular: Negative for chest pain, shortness of breath, palpitations, angina or GA. Pulm: ILD, followed by Pulm Med. No FITCH. No need for supplemental O2. Remote DVT & PE w/ chronic swelling both legs, left more than right. Dedicated user of compression stockings. : H/O both bladder and prostate CA Neurological: Negative for TIA, amaurosis fugax. Yes for stroke GENERAL MULTI-SYSTEM PHYSICAL EXAM: VITAL SIGNS: BP 122/72 (BP Site: Left Arm, BP Position: Sitting, BP Cuff Size: Regular) | Pulse 91 | Temp 35.8 C (96.5 F) (Tympanic) | Wt 90.1 kg (198 lb 11.2 oz) | BMI 28.11 kg/m | BSA 2.12 m GENERAL MULTI-SYSTEM PHYSICAL EXAM: GENERAL: Normal grooming habits, no acute distress and appears stated age. NECK: No masses and Normal Thyroid. RESPIRATORY: respiratory effort normal and breath sounds normal. CARDIOVASCULAR: no heart murmurs and yes to BLE edema, below knee, left much more than right. Scattered spider veins B/L ankles GASTROINTESTINAL: no tenderness, protuberant and abdominal aorta not palpable. LYMPHATIC: cervical lymph nodes normal and inguinial lymph nodes normal. SKIN: no ulcers, no rash, no induration, capillary refill normal and no dependent rubor. PSYCHIATRIC: orientation to time, place and person normal and recent and remote memory normal. EYES: conjunctivae normal, eye lids normal, pupils normal and irises normal. NEUROLOGIC: Cranial nerves intact, Motor function intact and Sensory exam intact PULSE SCALE: Carotid Right:----Bruit: No Left:----Bruit: No Radial Right: 3 Left: 3 Femoral Right: 3 Left: 3 Popliteal Right: 4 Left: 2 Dorsalis Pedis Right: 3 Left: 3 Posterior Tibial Right: 2 Left: 2 PULSE SCALE: 4=Aneurysmal; 3=Normal; 2=Diminished; 1=Barely Palpable; 0=Absent DIAGNOSTIC STUDIES: 09/15/23 Abd Aor Duplex: 3.5 cm AAA (mid aorta), CIAs 1.4 cm 09/15/23 BLE Art Duplex: RCFA 1.4 cm, R Pop 1.3 cm, LCFA 1.4 cm, L Pop 2.3 cm The above diagnostic images were directly visualized and independently interpreted by me on 09/16/2023 with results as above 08/26/22 Abd Aortic Duplex: AAA 3.2 cm, CIAs 1.3 cm 08/26/22 BLE Art Duplex: No fem aneurysm. R pop 1.3 cm. 2.2 cm left pop aneurysm 01/07/22 CT Abd/Pelvis: AAA 3.3 cm, RCIAA 2.6 cm 10/10/21 Abd Aortic Duplex: AAA 3.1 cm 10/26/20 Abd Aortic Duplex: AAA 3.0 cm 11/02/19 Abd Aortic Duplex: AAA 3.1 cm 06/13/19 Carotid Duplex: PROSPER 110/25, LICA 70/21, ante verts LABS: Lab Results Component Value Date/Time CREATININE - [facility] 1.1 03/26/2023 09:37 AM CREATININE - [facility] 1.0 01/21/2023 07:53 AM CREATININE - [facility] 0.9 03/25/2022 09:19 AM CREATININE - [facility] 0.9 11/18/2019 09:33 AM CREATININE - [facility] 0.9 11/15/2018 09:34 AM CREATININE - [facility] 1.1 05/20/2018 04:19 PM CREATININE-OUTSIDE LAB 0.9 09/20/2020 12:00 AM CREATININE-OUTSIDE LAB 1.50 (A) 03/07/2015 12:00 AM CREATININE-OUTSIDE LAB 1.50 (A) 03/04/2015 12:00 AM Lab Results Component Value Date/Time LDL (CALCULATED)-OUTSIDE LAB 82 09/20/2020 12:00 AM LDL CHOLESTEROL (CALCULATED) - [facility] 75 03/26/2023 09:37 AM LDL CHOLESTEROL (CALCULATED) - [facility] 61 11/18/2019 09:33 AM LDL [facility]STEROL ([facility] MEASURE) [facility] 11/18/2019 09:33 AM The above clinical labs were reviewed by me on 09/16/23 IMPRESSIONS: 3.5 cm asymptomatic AAA. Remains under threshold for surgery; ~5.5 cm for men 2.6 cm asymptomatic RCIAA by [address] CT scan, 1.4 cm by 2023 duplex 2.3 cm asymptomatic L pop aneurysm, by 2023 duplex Less than 50% B/L carotid stenosis, on 2019 duplex H/O DVT left leg & PE 2010, currently not on systemic anticoagulation H/O lacunar stroke ILD, following up with Pulm Med 09/09/22. No supplemental O2. HLD Thrombocytopenia H/O R TKA H/O bladder CA H/O prostate CA, S/P TURP PLAN: The patient was counseled regarding the pathophysiology and natural history of abdominal aortic aneurysms, as well as the signs of rupture and the need to initiate emergency medical attention in thatsituation. AAA & iliac aneurysm both remain under threshold for surgery. Continue annual surveillance The patient was counseled regarding the pathophysiology and the natural history of venous insufficiency, as well as the interventional and noninterventional treatment options including 20 - 30 mm knee high compression stockings, leg elevation, and a regular walking program. Continue ASA 81 mg for platelet inhibition Continue Lipitor 40 mg for HLD Continue to refrain from all nicotine products Follow yearly (more so due to iliac aneurysm that abd aortic aneurysm) w/ NC CT of abd/pelvis The patient was seen and examined with Richie Torres MD. Stiven Snowden PA-C Section of Vascular [place] [address] [phone] I have reviewed the advanced practitioner documentation and agree. I saw and evaluated the patient on date of service referenced in note and have performed the following medically appropriate historyand/or exam: Pleasant 82 yo gentleman returns for surveillance of small AAA and L Popliteal aneurysm. 09/15/23 Abd Aor Duplex: 3.5 cm AAA (mid aorta), CIAs 1.4 cm 09/15/23 BLE Art Duplex: RCFA 1.4 cm, R Pop 1.3 cm, LCFA 1.4 cm, L Pop 2.3 cm Plan to continue 81 mg ASA and 40 mg Lipitor. Discussed importance of compression therapy for PTS of the LLE (hx of DVT) We discussed signs and symptoms of symtomatic AAA and popliteal artery aneurysm. F/U 1 year with aortic duplex and BLE arterial duplex (fem/pop) Hany Torres MD Vascular Surgeon Department of Vascular Surgery [facility] documented in this encounter Nursing Notes * Yessica Godinez PHARM Tech - 09/16/2023 1:25 PM EDT Reviewed the option of transferring scripts to [facility] pharmacy with patient and / or family. LEANNA Johnson documented in this encounter Plan of Treatment Upcoming Encounters Date Type Department Care Team (Late st Contact Info) Description 10/14/2023 9:15 AM EDT Appointment Radiology, [facility] 400 [facility] [place] [address] 10/14/2023 10:00 AM EDT PulmDiagnostic Pulmonary Function Lab, [facility] [address] [facility] [address] Glh, Pulm Function Room 2 [address] [facility] [address] 03/15/2024 9:00 AM EDT Imaging Radiology [facility] [address] [facility] 132 [facility] [place] [address] 03/22/2024 9:20 AM EDT Office Visit General Internal Medicine [facility] 200 [facility] [place] [address] Vahe Sahu MD 200 [facility] [place] [address] 03/22/2024 10:30 AM EDT Office Visit Urology, [facility] [address] [place] [address] Wilfred Reilly MD [address] [place] [address] [place] [address] Scheduled Orders Name Type Priority Associated Diagnoses Orde r Schedule CT ABD/PELVIS WO IV/ORAL CONTRAST Medical Imaging Routine 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) Mixed hyperlipidemia Ordered: 09/16/2023 Scheduled Procedures Name Priority Associated Diagnoses Date/Ti [...] this encounter Medical Devices Implanted Type Area Histology Technologist Device Identifier Shelf Expiration Date Model / Serial / Lot Mesh Preshaped Large - [id number] Implanted:Qty: 1 on 06/15/2018 by Kevin Zee MD at OR [facility] Right: Groin CR BARD : DAVOL 07/05/2020 [id number] / / [id number] Description:13.7cm x 5.9cm Lens Intraoc 16.0 - [id number] - [id number] Implanted:Qty: 1 on 06/19/2020 by Sundeep Rodriguez MD at OR [facility] Left: Eye [employer]OM[employer] 12/05/2024 [id number] / [id number] / Lens Intraoc 15.5 - [id number] - [id number] Implanted:Qty: 1 on 06/26/2020 by Sundeep Rodriguez MD at OR [facility] Right: Eye [employer]USCH [employer] LOMB 08/05/2024 [id number] / [id number] / [id number] documented as of this encounter Visit Diagnoses Diagnosis 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)- Primary 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 Care Teams Chair Maker Relationship Specialty Start Date End Date Vahe Sahu MD 200 [place] [address] PCP - General Internal Medicine 11/03/13 documented as of this encounter"
--- OUTSIDE RECORDS SUMMARY | 2023-09-25 22:24 | External Medical Summary | Summary of Care ---
Author Name Unknown Organization [facility] Address [address] [place] [address] Phone [phone] Care Team Providers Care Quality Assurance Supervisor Body Name Role Phone Vahe Sahu MD Primary Care Provider + Reason for Visit * Reason Onset Date Comments STAIR AAA 09/16/2023 Encounter Details Date Type Department Care Team (Late st Contact Info) Description 09/16/2023 Telephone STAIR AAA [address] [place] [address] Program, Stair [address] [place] [address] STAIR AAA Allergies Active Allergy Reactions Criticality Noted Date [...] 9 Active Additional Information Patient taking differently:2 [place] Each Nostril Daily(AM),Using as needed, Reported on 06/19/2022 Triamcinolone Acetonide 0.1 % Mouth/Throat Paste (Kenalog In Orabase) 0 2 Active Omeprazole 40 MG Oral Capsule Delayed Release (PriLOSEC)Indications:KAREME D (gastroesophageal reflux disease) TAKE 1 CAPSULE [...] encounter Miscellaneous Notes * Telephone Encounter - Barbara Bae LPN - 09/16/2023 3:06 PM EDT AAA - Clinical Summary Name: Zurdo Mcfarland Age: [age] year old AAA Review: Follow-up Follow-up Encounter Provider: Hany Torres MD Patient Identified by: Problem List Report Imaging Interpretation: Duplex Type of Result: AAA 3.0 to 3.9 cm AAA Care Plan Imaging Recommendation: CT - details below Details: Abdomen/Pelvis in 1 year AAA Care Plan Visit Recommendation: Return visit in Vascular Surgery Details: in 1 year Next steps: No action needed at this time. Patient was seen by vascular surgery today. Next clinic visit with testing prior is due in one year. Will continue to track. Time spent: 10 minutes Barbara Bae LPN Coordinator STAIR (System to Track Abnormalities of Importance Reliably) [facility] A[facility]IC DUPLEX EVAL-COMPLETE 09/14/2023 Narrative VASCULAR LAB RESULTS DATE OF EXAM: 09/14/23 PRESENTING CONDITIONS: f/u AAA This [facility] PHYSICIAN REPORT: Abdominal Aorta Duplex Examination. Immediately before proceeding with the vascular lab procedure reported below, the identity of the patient, the correct exam and the correct procedural site were verified. Peguero scale, color flow and spectral doppler were performed for this examination. Spectral Doppler demonstrates evidence of normal waveforms of the abdominal aorta. Peak systolic velocity measurements of the aorta are 90.4 centimeters per second. The maximum diameter of the proximal abdominal aorta measures 2.4 centimeters by 2.4 centimeters. The maximum diameter of the mid abdominal aorta measures 3.5 centimeters by 3.5 centimeters. The maximum diameter of the distal abdominal aorta measures 1.9 centimeters by 1.9 centimeters. The maximum diameter of the proximal right common iliac artery measures 1.4 centimeters by 1.4 centimeters. The maximum diameter of the proximal left common iliac artery measures 1.4 centimeters by 1.4 centimeters. Impression : There is evidence of a 3.5 cm abdominal aortic aneurysm. Color Doppler imaging demonstrates flow consistent with a patent lumen at and distal to the aortic aneurysm. documented in this encounter Plan of Treatment Upcoming Encounters Date Type Department Care Team (Late st Contact Info) Description 10/14/2023 9:15 AM EDT Appointment Radiology, [facility] 400 [facility] [place] [address] 10/14/2023 10:00 AM EDT PulmDiagnostic Pulmonary Function Lab, [facility] [address] [place] [address] Glh, Pulm Function Room 2 400 [facility] [place] [address] 03/15/2024 9:00 AM EDT Imaging Radiology [facility] [address] [facility] 132 [facility] [place] [address] 03/22/2024 9:20 AM EDT Office Visit General Internal Medicine [facility] 200 [facility] [place] [address] Vahe Sahu MD 200 [facility] [place] [address] 03/22/2024 10:30 AM EDT Office Visit Urology, [facility] 132 [facility] [place] [address] Wilfred Reilly MD [address] [address] [place] [address] Scheduled Procedures Name Priority Associated Diagnoses Date/Ti me COLONOSCOPY FLEXIBLE PROXIMA L DIAGNOSTIC Recall History of colonic polyps Health Maintenance Due Date Last Done Comments DTaP,Tdap,and Td Vaccines (2 - Td or Tdap) 11/16/2022 11/16/2012 COVID-19 Vaccine (2022-24 season) 2023 08/09/2021, 05/18/2021, 08/09/2020, Additional history [...] this encounter Medical Devices Implanted Type Area Public Aid Eligibility Assistant Device Identifier Shelf Expiration Date Model / Serial / Lot Mesh Preshaped Large - [id number] Implanted:Qty: 1 on 06/15/2018 by Kevin Zee MD at OR [facility] Right: Groin CR BARD : DAVOL 07/05/2020 [id number] / / [id number] Description:13.7cm x 5.9cm Lens Intraoc 16.0 - [id number] - [id number] Implanted:Qty: 1 on 06/19/2020 by Sundeep Rodriguez MD at OR [facility] Left: Eye BAUSCH & LOMB 12/05/2024 [id number] / [id number] / Lens Intraoc 15.5 - [id number] - [id number] Implanted:Qty: 1 on 06/26/2020 by Sundeep Rodriguez MD at OR [facility] Right: Eye BAUSCH & LOMB 08/05/2024 [id number] / [id number] / [id number] documented as of this encounter Advance Directives [...] and were consensually agreed upon. Care Teams Quality Assurance Supervisor Body Relationship Specialty Start Date End Date Vahe Sahu MD 200 [facility] [place] [address] PCP - General Internal Medicine 11/03/13 documented as of this encounter
--- OUTSIDE RECORDS SUMMARY | 2023-09-25 22:25 | External Medical Summary | Summary of Care ---
Author Name Unknown Organization [facility] Address [address] [place] [address] Phone [phone] Care Team Providers Care Medicare Compliance Auditor Name Role Phone Vahe Sahu MD Primary Care Provider + Reason for Visit * Reason Onset Date Comments Appointment 06/15/2023 recall Encounter Details Date Type Department Care Team (Late st Contact Info) Description 06/15/2023 Telephone Vascular Surg [facility] [address], [place] [id number] Hany Torres MD [address], [place] [id number] Appointment (recall) Allergies Active Allergy Reactions Criticality Noted Date Comments Pollen Other (Please comment) 11/15/2018 Runny nose documented as of this encounter (statuses as of 06/15/2023) Medications Medication Sig Dispensed Refills Start Date [...] 9 Active Additional Information Patient taking differently:2 [place] Each Nostril Daily(AM),Using as needed, Reported on [...] the morning.. 90 Capsule 3 3 Active Hospital, Clinic, or Other Facility Administered Medication Ordered Dose Route Frequency Start Date End Date Status Albuterol Sulfate (Proventil) (5 MG/ML) 0.5% *conc* inhalation solution 2.5 mgIndications:ILD (interstitial lung disease) (HCC) 2.5 mg NEBULIZER PRN 09/09/2022 09/09/2023 Active Albuterol Sulfate (Proventil) (2.5 MG/3ML) 0.083% inhalation solution 2.5 mgIndications:ILD (interstitial lung disease) (HCC) 2.5 mg NEBULIZER PRN 09/09/2022 09/09/2023 Active Albuterol Sulfate (Proventil) (5 MG/ML) 0.5% *conc* [...] as of this encounter (statuses as of 06/15/2023) Active Problems Problem Noted Date Diagnosed Date [...] as of this encounter (statuses as of 06/15/2023) Resolved Problems Problem Noted Date Diagnosed Date Resolved Date Thrombocytopenia 03/03/2018 11/18/2019 Right inguinal hernia 11/11/20172018 Pulmonary embolus 06/13/2013 11/10/2016 Dyslipidemia, goal to be determined 06/13/2013 08/05/2013 Edema 06/13/2013 11/15/2018 Lacunar infarction 8 documented as of this encounter (statuses as of 06/15/2023) Immunizations Name Administration Dates Next Due COVID-19 [...] Years Used Date Smoking Tobacco: Former Pipe Q uit: 05/18/1965 Smokeless Tobacco: Never Comments:2 years pipe tobacc [...] encounter Miscellaneous Notes * Telephone Encounter - Valeri Howe OSA - 06/15/2023 4:11 PM EST Scheduled * Telephone Encounter - Valeri Howe OSA - 06/15/2023 2:28 PM EST F/U 1 year with aortic duplex and BLE arterial duplex (fem/pop) Called and left message for patient to schedule his year follow up [facility] documented in this encounter Plan of Treatment Upcoming Encounters Date Type Department Care Team (Late st Contact Info) Description 08/20/2023 8:00 AM EDT Office Visit Cardiology, [facility] 132 [facility] [place] [address] Юлия Jennings CRNP 132 [facility] [place] [address] 09/08/2023 9:30 AM EDT Imaging Vascular Lab, [facility] 2nd Floor, [place] 132 [facility] [place] [address] 09/08/2023 10:30 AM EDT Imaging Vascular Lab, [facility] 2nd [facility], [place] 132 [facility] [place] [address] 09/16/2023 10:15 AM EDT Procedure Only Urology, [facility] 132 [facility] [place] [address] Wilfred Reilly MD [address] [place] [address] [place] [address] 09/16/2023 12:50 PM EDT Office Visit Vascular Surgery, [facility] 132 [facility] [place] [address] Hany Torres MD 100 [facility] [address] 10/14/2023 9:15 AM EDT Appointment Radiology, [address] [place] [address] 10/14/2023 10:00 AM EDT PulmDiagnostic Pulmonary Function Lab, [facility] [address] [place] [address] [facility], Pulm Function Room 2 [address] [place] [address] 03/22/2024 9:20 AM EDT Office Visit General Internal Medicine Jena Berry [place] 200 [facility] [place] [address] Vahe Sahu MD 200 [facility] [place] [address] Scheduled Procedures Name Priority Associated Diagnoses Date/Ti me COLONOSCOPY FLEXIBLE PROXIMA L DIAGNOSTIC Recall History of colonic polyps Health Maintenance Due Date Last Done Comments DTaP,Tdap,and Td Vaccines (2 - Td or Tdap) 11/16/2022 11/16/2012 COVID-19 Vaccine ( - season) 2023 08/09/2021, 05/18/2021, 08/09/2020, Additional history [...] this encounter Medical Devices Implanted Type Area Metal Fitters And Machinists Device Identifier Shelf Expiration Date Model / Serial / Lot Mesh Preshaped Large - [id number] Implanted:Qty: 1 on 06/15/2018 by Kevin Zee MD at OR [facility] Right: Braden BANKS BARD : DAVOL 07/05/2020 [id number] / / [id number] Description:13.7cm x 5.9cm Lens Intraoc 16.0 - [id number] - [id number] Implanted:Qty: 1 on 06/19/2020 by Sundeep Rodriguez MD at OR [facility] Left: Eye BAUSCH & LOMB 12/05/2024 [id number] / [id number] / Lens Intraoc 15.5 - [id number] - [id number] Implanted:Qty: 1 on 06/26/2020 by Sundeep Rodriguez MD at OR [facility] Right: Eye BAUSCH & LOMB 08/05/2024 [id number] / [id number] / [id number] documented as of this encounter Advance Directives [...] and were consensually agreed upon. Care Teams Medicare Compliance Auditor Relationship Specialty Start Date End Date Vahe Sahu MD 200 [facility] [place], [place] [address] PCP - General Internal Medicine 11/03/13 documented as of this encounter
--- OUTSIDE RECORDS SUMMARY | 2023-09-25 22:25 | External Medical Summary ---
Author Name Unknown Address Unknown Organization [id number]:[facility] - [address] [place] [address] Laboratory Report Ordering Provider Test Date Status TARI TRIPATHI 06/25/2023 08:35:51 Final Observation Date Value Abnormality Reference (Units ) Status MYCODE SPECIMEN-SST 06/25/2023 08:35:51 Freezing of extracted DNA, whole blood and/or serum. Final Performing Location [facility] - [address] [place] [address]
--- OUTSIDE RECORDS SUMMARY | 2023-09-25 22:25 | External Medical Summary | Summary of Care ---
Author Name Unknown Organization [facility] Address [address] [place] [address] Phone [phone] Care Team Providers Care Credit Or Loans Officer Name Role Phone Vahe Sahu MD Primary Care Provider + Reason for Visit * Reason Onset Date Comments Test Results 03/27/2023 Encounter Details Date Type Department Care Team (Late st Contact Info) Description 03/27/2023 Telephone General Internal Medicine [facility] [address] [place] [address] Vahe Sahu MD 200 [place] [address] Test Results Allergies Active Allergy Reactions Criticality Noted Date Comments Pollen Other (Please comment) 11/15/2018 Runny nose documented as of this encounter (statuses as of 03/31/2023) Medications Medication Sig Dispensed Refills Start Date [...] 9 Active Additional Information Patient taking differently:2 [place] Each Nostril Daily(AM),Using as needed, Reported on 06/19/2022 Triamcinolone Acetonide 0.1 % Mouth/Throat Paste (Kenalog In Orabase) 0 2 Active Atorvastatin Calcium 40 MG Oral Tablet (Lipitor)Indications:Pure hypercholesterolemia TAKE 1 TABLET DAILY 90 Tablet 3 2 Active Tamsulosin HCl 0.4 MG Oral Capsule (Flomax) TAKE 1 CAPSULE DAILY 90 Capsule 3 3 Active Trospium Chloride ER 60 MG Oral Capsule Extended Release 24 Hour (Sanctura ER) TAKE 1 CAPSULE IN THE MORNING 90 Capsule 3 3 Active Omeprazole 40 MG Oral Capsule Delayed Release (PriLOSEC)Indications:KAREEM D (gastroesophageal reflux disease) TAKE 1 CAPSULE DAILY 90 Capsule 3 3 Active Hospital, Clinic, [...] as of this encounter (statuses as of 03/31/2023) Active Problems Problem Noted Date Diagnosed Date [...] as of this encounter (statuses as of 03/31/2023) Resolved Problems Problem Noted Date Diagnosed Date Resolved Date Thrombocytopenia 03/03/2018 11/18/2019 Right inguinal hernia 11/11/20172018 Pulmonary embolus 06/13/2013 11/10/2016 Dyslipidemia, goal to be determined 06/13/2013 08/05/2013 Edema 06/13/2013 11/15/2018 Lacunar infarction 8 documented as of this encounter (statuses as of 03/31/2023) Immunizations Name Administration Dates Next Due COVID-19 mRNA, LNP-s, No Pre serve, 2-Dose Series (Moderna) 08/09/2020,07/12/2020 COVID-19, mRNA, LNP-s, PF, B ooster, 100mcg/0.5mg (Moderna) 08/09/2021,05/18/2021 Pneumococcal Conjugate Vacc, 13 Valent (Prevnar) 10/23/2014 Pneumococcal Polysaccharide PPV23 (Pneumovax) 08/03/2018,05/09/2008 SEASONAL INFLUENZA, PF, 6 M & Above, IM , (FLULAVAL or FLUZONE) 03/02/2023,02/16/2020,03/24/2019,03/03 Season Influenza, Quad, PF, Adjuvanted, 65+ Yrs, IM (FLUAD) 02/16/2020 Seasonal Influenza Virus Vac cine, Unspecified Formulation 03/15/2019,03/08/2018 Seasonal Influenza, Quadriva lent Hd (Fluzone Hd) [...] the money to buy more. Never true 07/12/19 23 Within the past 12 months, t he food you bought just didn't last and you didn't have money to get more. Never true 07/12/2022 Sex and Gender Information Value Date Recorded Sex Assigned at Male 11/15/2018 8:54 AM EDT Gender Identity Male 11/15/2018 8:54 AM EDT Sexual Orientation Straight 11/15/2018 8: 54 AM EDT Job Start Date Occupation Industry Not on file Not on file Not on file documented as of this encounter Miscellaneous Notes * Telephone Encounter - Radha Kumar LPN - 03/31/2023 4:44 PM EDT Patient is aware and verbalizes understanding. Sent [employer] message per request * Telephone Encounter - Anastacia Vargas LPN - 03/31/2023 4:21 PM EDT Left message for pt to call back. * Telephone Encounter - Kale Kelly LPN - 03/27/2023 12:29 PM EDT Left message for patient to return call. * Telephone Encounter - Kale Kelly LPN - 03/27/2023 12:29 PM EDT ----- Message from Vahe Sahu MD sent at 03/27/2023 8:37 AM EDT ----- Labs ok except platelets, which help us clot, borderline low. Monitor for bleeding/bruising, recheck counts 3-4 months to follow documented in this encounter Plan of Treatment Upcoming Encounters Date Type Department Care Team (Late st Contact Info) Description 07/09/2023 11:30 AM EST Office Visit Cardiology, [facility] [address] [place] [address] Tawanda Aguilera O, DO 132 [place] [address] 09/16/2023 10:15 AM EDT Procedure Only Urology, [facility] 132 [place] [address] Wilfred Reilly MD [address] [place] [address] [place] [address] 10/14/2023 9:15 AM EDT Appointment Radiology, [address] [place] [address] 10/14/2023 10:00 AM EDT PulmDiagnostic Pulmonary Function Lab, [facility] [address] [place] [address] [facility], Pulm Function Room 2 400 [place] [address] 03/22/2024 9:20 AM EDT Office Visit General Internal Medicine [place] 200 [facility] [place] [address] Vahe Sahu MD 200 [facility] [place] [address] Scheduled Procedures Name Priority Associated Diagnoses Date/Ti [...] Additional history exists Zoster Vaccines Completed 03/22/2018, 0612/2017, 05/21/2010 Pneumococcal Vaccine: 65+ Years Completed 08/03/2018, [...] this encounter Medical Devices Implanted Type Area Binder And Box Builder Device Identifier Shelf Expiration Date Model / Serial / Lot Mesh Preshaped Large - [id number] Implanted:Qty: 1 on 06/15/2018 by Kevin Zee MD at OR [facility] Right: Braden BANKS BARD : DAVOL 07/05/2020 [id number] / / [id number] Description:13.7cm x 5.9cm Lens Intraoc 16.0 - [id number] - [id number] Implanted:Qty: 1 on 06/19/2020 by Sundeep Rodriguez MD at OR [facility] Left: Eye BAUSCH & LOMB 12/05/2024 [id number] / [id number] / Lens Intraoc 15.5 - [id number] - [id number] Implanted:Qty: 1 on 06/26/2020 by Sundeep Rodriguez MD at OR [facility] Right: Eye BAUSCH & LOMB 08/05/2024 [id number] / [id number] / [id number] documented as of this encounter Advance Directives [...] and were consensually agreed upon. Care Teams Credit Or Loans Officer Relationship Specialty Start Date End Date Vahe Sahu MD 200 [facility] [place] [address] PCP - General Internal Medicine 11/03/13 documented as of this encounter
--- OUTSIDE RECORDS SUMMARY | 2023-09-25 22:25 | External Medical Summary ---
Author Name Unknown Address Unknown Organization K01:[facility] [place] [address] [place] [address] Laboratory Report Ordering Provider Test Date Status TARI TRIPATHI 06/25/2023 08:35:51 Final Observation Date Value Abnormality Reference (Units ) Status MYCODE SPECIMEN-SST 06/25/2023 08:35:51 Freezing of extracted DNA, whole blood and/or serum. Final Performing Location [facility] [place] [address] [place] [address]
--- OUTSIDE RECORDS SUMMARY | 2023-09-25 22:25 | External Medical Summary | Summary of Care ---
Author Name Unknown Organization [facility] Address [address] [place] [address] Phone [phone] Care Team Providers Care Electric Accounting Machine Operator Name Role Phone Vahe Sahu MD Primary Care Provider + Reason for Visit * Reason Onset Date Comments Test Results 03/27/2023 Encounter Details Date Type Department Care Team (Late st Contact Info) Description 03/27/2023 Telephone General Internal Medicine [facility] [address] [place] [address] Vahe Sahu MD 200 [place] [address] Test Results Allergies Active Allergy Reactions Criticality [...] 9 Active Additional Information Patient taking differently:2 [place] Each Nostril Daily(AM),Using as needed, Reported on [...] encounter Miscellaneous Notes * Telephone Encounter - Anastacia Vargas LPN [...] 07/09/2023 11:30 AM EST Office Visit Cardiology, [facility] [address] [place] [address] Tawanda Aguilera DO [address] [place] [address] 09/16/2023 10:15 AM EDT Procedure Only Urology, [facility] [address] [place] [address] Wilfred Reilly MD 27 [facility] [address] [place] [address] 10/14/2023 9:15 AM EDT Appointment Radiology, [facility] 400 [facility] [place] [address] 10/14/2023 10:00 AM EDT PulmDiagnostic Pulmonary Function Lab, [facility] [address] Gl, Pulm Function [facility] 2 400 [facility] [address] 03/22/2024 9:20 AM EDT Office Visit General Internal Medicine [facility] [place] 200 [facility] [place], [place] [address] Vahe Sahu MD 200 [facility] [place] [address] Scheduled Procedures Name Priority Associated Diagnoses Date/Ti [...] this encounter Medical Devices Implanted Type Area Churn Operator Device Identifier Shelf Expiration Date Model / Serial / Lot Mesh Preshaped Large - [id number] Implanted:Qty: 1 on 06/15/2018 by Kevin Zee MD at OR [facility] Right: Groin CR BARD : DAVOL 07/05/2020 [id number] / / [id number] Description:13.7cm x 5.9cm Lens Intraoc 16.0 - [id number] - [id number] Implanted:Qty: 1 on 06/19/2020 by Sundeep Rodriguez MD at OR [facility] Left: Eye BAUSCH & LOMB 12/05/2024 [id number] / [id number] / Lens Intraoc 15.5 - [id number] - [id number] Implanted:Qty: 1 on 06/26/2020 by Sundeep Rodriguez MD at OR [facility] Right: Eye BAUSCH & LOMB 08/05/2024 [id number] / [id number] / [id number] documented as of this encounter Advance Directives [...] were consensually agreed upon. Care Teams Electric Accounting Machine Operator Relationship Specialty Start Date End Date Vahe Sahu MD 200 [place] [address] PCP - General Internal Medicine 11/03/13 documented as of this encounter
--- OUTSIDE RECORDS SUMMARY | 2023-09-25 22:25 | External Medical Summary | Summary of Care ---
Author Name Unknown Organization [facility] Address [address] [place] [address] Phone [phone] Care Team Providers Care Detective Lieutenant Name Role Phone Vahe Sahu MD Primary Care Provider + Reason for Visit * Reason Onset Date Comments Medication Refill 05/06/2023 Encounter Details Date Type Department Care Team (Late st Contact Info) Description 05/06/2023 Refill Urology, [facility] 132 [facility] [place] [address] Wilfred Salazar MD [address] [place] [address] [address] [place] [address] Allergies Active Allergy Reactions Criticality Noted Date Comments Pollen Other (Please comment) 11/15/2018 Runny nose documented as of this encounter (statuses as of 05/06/2023) Medications Medication Sig Dispensed Refills Start Date [...] 9 Active Additional Information Patient taking differently:2 [place] Each Nostril Daily(AM),Using as needed, Reported on 06/19/2022 Triamcinolone Acetonide 0.1 % Mouth/Throat Paste (Kenalog In Orabase) 0 2 Active Atorvastatin Calcium 40 MG Oral Tablet (Lipitor)Indications:Pur e hypercholesterolemia TAKE 1 TABLET DAILY 90 Tablet 3 2 Active Omeprazole 40 MG Oral Capsule Delayed Release (PriLOSEC)Indications:GE RD (gastroesophageal reflux disease) TAKE 1 CAPSULE DAILY 90 Capsule 3 3 Active Tamsulosin HCl 0.4 MG Oral Capsule (Flomax) Take 1 Capsule by mouth in the morning. 90 Capsule 3 3 Active Trospium Chloride ER 60 MG Oral Capsule Extended Release 24 Hour (Sanctura ER) Take 1 Capsule by mouth in the morning. In the morning.. 90 Capsule 3 3 Active Tamsulosin HCl 0.4 MG Oral Capsule (Flomax) TAKE 1 CAPSULE DAILY 90 Capsule 3 3 023 Discontin ued(Refil l) Trospium Chloride ER 60 MG Oral Capsule Extended Release 24 Hour (Sanctura ER) TAKE 1 CAPSULE IN THE MORNING 90 Capsule 3 3 023 Discontin ued(Refil l) Hospital, Clinic, or Other Facility Administered Medication [...] as of this encounter (statuses as of 05/06/2023) Active Problems Problem Noted Date Diagnosed Date [...] as of this encounter (statuses as of 05/06/2023) Resolved Problems Problem Noted Date Diagnosed Date Resolved Date Thrombocytopenia 03/03/2018 11/18/2019 Right inguinal hernia 11/11/20172018 Pulmonary embolus 06/13/2013 11/10/2016 Dyslipidemia, goal to be determined 06/13/2013 08/05/2013 Edema 06/13/2013 11/15/2018 Lacunar infarction 8 documented as of this encounter (statuses as of 05/06/2023) Immunizations Name Administration Dates Next Due COVID-19 [...] encounter Miscellaneous Notes * Telephone Encounter - Wilfred Salazar MD - 05/06/2023 2:37 PM ESTSigned Prescriptions: Disp Refills Tamsulosin HCl 0.4 MG Oral Capsule (Flomax)90 Cap*3 Sig: Take 1 Capsule by mouth in the morning. Authorizing Provider: WILFRED SALAZAR Trospium Chloride ER 60 MG Oral Capsule Ex*90 Cap*3 Sig: Take 1 Capsule by mouth in the morning. In the morning.. Authorizing Provider: WILFRED SALAZAR * Telephone Encounter - Sandy Gayle LPN - 05/06/2023 2:17 PM ESTPending Prescriptions: Disp Refills Tamsulosin HCl 0.4 MG Oral Capsule (Flomax)90 Cap*3 Sig: Take 1 Capsule by mouth in the morning. Trospium Chloride ER 60 MG Oral Capsule Ex*90 Cap*3 Sig: Take 1 Capsule by mouth. In the morning. * Telephone Encounter - Sandy Gayle LPN - 05/06/2023 2:17 PM EST Patient requesting refills of Tamsulosin and Trospium. 02/24/2023 09/16/2023 Review of patient's allergies indicates: Allergen Reactions Pollen Other (Please comment) Runny nose documented in this encounter Plan of Treatment Upcoming Encounters Date Type Department Care Team (Late st Contact Info) Description 07/09/2023 11:30 AM EST Office Visit Cardiology, [facility] 132 [facility] [place] [address] Tawanda Aguilera DO [address] [place] [address] 09/16/2023 10:15 AM EDT Procedure Only Urology, [facility] [address] [place] [address] Wilfred Salazar MD [address] [address] [place] [address] 10/14/2023 9:15 AM EDT Appointment Radiology, [facility] 400 [place] [address] 10/14/2023 10:00 AM EDT PulmDiagnostic Pulmonary Function Lab, [facility] [address] [place] [address] [facility], Pulm Function Room 2 [address] [place] [address] 03/22/2024 9:20 AM EDT Office Visit General Internal Medicine [facility] [place] [address] Vahe Sahu MD 200 [facility] [place] [address] Scheduled Procedures Name Priority Associated Diagnoses Date/Ti me COLONOSCOPY FLEXIBLE PROXIMA L DIAGNOSTIC Recall History of colonic polyps Health Maintenance Due Date Last Done Comments DTaP,Tdap,and Td Vaccines (2 - Td or Tdap) 11/16/2022 11/16/2012 COVID-19 Vaccine ( season) 2023 08/09/2021, 05/18/2021, 08/09/2020, Additional history [...] this encounter Medical Devices Implanted Type Area Director Of Medicare Device Identifier Shelf Expiration Date Model / Serial / Lot Mesh Preshaped Large - [id number] Implanted:Qty: 1 on 06/15/2018 by Kevin Zee MD at OR [facility] Right: Groin CR BARD : DAVOL 07/05/2020 [id number] / / [id number] Description:13.7cm x 5.9cm Lens Intraoc 16.0 - [id number] - [id number] Implanted:Qty: 1 on 06/19/2020 by Sundeep Rodriguez MD at OR [facility] Left: Eye BAUSCH & LOMB 12/05/2024 [id number] / [id number] / Lens Intraoc 15.5 - [id number] - [id number] Implanted:Qty: 1 on 06/26/2020 by Sundeep Rodriguez MD at OR [facility] Right: Eye BAUSCH & LOMB 08/05/2024 [id number] / [id number] / [id number] documented as of this encounter Advance Directives [...] and were consensually agreed upon. Care Teams Detective Lieutenant Relationship Specialty Start Date End Date Vahe Sahu MD [address] [place] [address] PCP - General Internal Medicine 11/03/13 documented as of this encounter
--- OUTSIDE RECORDS SUMMARY | 2023-09-25 22:25 | External Medical Summary | Summary of Care ---
Author Name Unknown Organization [facility] Address [address] [place] [address] Phone [phone] Care Team Providers Care Locomotive Firer/Fireman Name Role Phone Vahe Sahu MD Primary Care Provider + Reason for Visit * Reason Comments Follow Up Encounter Details Date Type Department Care Team (Late st Contact Info) Description 08/20/2023 8:00 AM EDT Office Visit Cardiology, [facility] 132 [place] [address] Юлия Jennings CRNP 132 [place] [address] Abdominal aortic aneurysm (AAA) without rupture, unspecified part (HCC)*; Dyslipidemia, goal LDL below 70; Asymmetric edema of both lower extremities Allergies Active Allergy Reactions Criticality Noted Date Comments Pollen Other (Please comment) 11/15/2018 Runny nose documented as of this encounter (statuses as of 08/20/2023) Medications Medication Sig Dispensed Refills Start Date [...] 9 Active Additional Information Patient taking differently:2 [place] Each Nostril Daily(AM),Using as needed, Reported on [...] as of this encounter (statuses as of 08/20/2023) Active Problems Problem Noted Date Diagnosed Date [...] as of this encounter (statuses as of 08/20/2023) Resolved Problems Problem Noted Date Diagnosed Date Resolved Date Thrombocytopenia 03/03/2018 11/18/2019 Right inguinal hernia 11/11/20172018 Pulmonary embolus 06/13/2013 11/10/2016 Dyslipidemia, goal to be determined 06/13/2013 08/05/2013 Edema 06/13/2013 11/15/2018 Lacunar infarction 8 documented as of this encounter (statuses as of 08/20/2023) Immunizations Name Administration Dates Next Due COVID-19 [...] Sign Reading Time Taken Comments Blood Pressure 126/74 08/20/2023 7:50 AM EDT Pulse 76 08/20/2023 7:50 AM EDT Temperature - - Respiratory Rate 14 08/20/2023 7:50 AM EDT Oxygen Saturation - - Inhaled Oxygen Concentration - - Weight 95.3 kg (210 lb) 08/20/2023 7:50 AM EDT Height - - Body Mass Index 29.71 03/25/2023 9:51 AM EDT documented in this encounter Progress Notes * Юлия Jennings CRNP - 08/20/2023 8:00 AM EDT 08/19/2023 Cardiology Follow Up Primary Shovel Engineer: Dr. Aguilera Cardiac Problems: Abdominal aortic aneursym Provoked PE/DVT 2012; negative hypercoagulable workup Dyslipidemia HPI: Zurdo Mcfarland is a 82 year old male that presents for routine cardiology follow up. Last seen in our office by Dr. Aguilera 06/19/22 feeling well from a cardiovascular perspective at that time. Patient presents today feeling well. Offers no cardiac questions or concerns. He remains active anddenies any change or decline in his functional capacity. Patient is getting ready to leave for a family Trip to [place]. He is always following closely with Dr. Wilfred Reilly, Urology due to a history of bladder cancer BP well controlled. Hx of AAA, last Abdominal duplex October 2021 stable at 3.1cm, due for surveillance scan Most recent lipid panel 03/26/23 which was stable. Typically monitored by PCP in routine labs Reports compliance on all medication therapies with no untoward effects REVIEW OF SYSTEMS: See HPI for pertinent positives. All others negative other than those noted in the HPI. CONSTITUTIONAL: No change in weight, No weakness, No fatigue and No fevers, No sweats or chills. PULMONARY: No cough, sputum, or hemoptysis, No wheezing, No shortness or breath and No recent change in breathing. CARDIOVASCULAR: No chest pain, No dyspnea on exertion, No edema, No palpitations and No syncope. GASTROINTESTINAL: No abdominal pain, No change in bowel habits, No significant heartburn, No nausea, No vomiting, No diarrhea, No constipation, No blood in stools or black tarry stools. No dysphagia. HEMATOLOGIC: No abnormal bleeding and No bruising. NEUROLOGICAL: Normal balance, No headaches and No weakness. Review of patient's allergies indicates: Allergen Reactions Pollen Other (Please comment) Runny nose Current Outpatient Medications Medication Sig Dispense Refill [...] morning. In the morning.. 90 Capsule 3 Current Facility-Administered Medications Medication Dose Route Frequency Provider Last Rate Last Admin Albuterol Sulfate (Proventil) (5 MG/ML) 0.5% *conc* inhalation solution 2.5 mg 2.5 mg Nebulizer PRRoseanne Joiner CRNP 2.5 mg at 10/10/22 0802 Albuterol Sulfate (Proventil) (2.5 MG/3ML) 0.083% inhalation solution 2.5 mg 2.5 mg Nebulizer Roseanne Jacobsen CRNP Albuterol Sulfate (Proventil) (5 MG/ML) 0.5% *conc* inhalation solution 2.5 mg 2.5 mg Nebulizer Vincent Olivas MD Albuterol Sulfate (Proventil) (2.5 MG/3ML) 0.083% inhalation solution 2.5 mg 2.5 mg Nebulizer Vincent Bermudez MD Past Medical History: Diagnosis Date DVT (deep venous thrombosis) ([facility]) Edema 06/13/2013 GERD (gastroesophageal reflux disease) History of lacunar cerebrovascular accident 11/11/2017 History of pulmonary embolism 11/18/2019 Hyperlipidemia 08/05/2013 ILD (interstitial lung disease) (HCC) 05/29/2020 Inguinal hernia Right Lacunar infarction (HCC) 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 11/15/2018 Pulmonary embolism (HCC) 03/2013 Pulmonary embolus (HCC) 06/13/2013 Renal cyst Thrombocytopenia ([facility]) 03/03/2018 Family History Problem Relation Age of Onset Heart Disorder Mother [place] Heart attack Mother Cancer Father prostate Heart Disorder Brother Coronary Artery disease Brother CABG x 4, s/p pacemaker Colon cancer Brother Heart Disorder Uncle (Unspecified) [place] Social History Socioeconomic History Marital status: Number of children: 3 Occupational History Occupation: retired - [employer] Employer: [employer] Occupation: [employer] 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 Tobacco Use Smoking status: Former Types: Pipe Smokeless tobacco: Never Tobacco comments: 2 years pipe tobacco Vaping Use Vaping Use: Never used Substance and Sexual Activity Alcohol use: Yes Comment: Occasional/social Drug use: No Sexual activity: Not Currently Social History Narrative One dog and 2 cats No mold 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 A+Ox3. HEENT: Normocephalic. Atraumatic. PERRL. EOMI. Conjunctiva and sclera clear. NECK: No carotid bruits. No JVD. Carotid upstrokes are brisk. Heart: RRR. S1 and S2 noted. No murmur. No rubs or gallops. PMI non displaced. Lungs: Clear to auscultation. No wheezes.No rhonchi. No rales. Abdomen: Normal bowel sounds. Soft. Nontender. No masses or organomegaly. No abdominal bruits. Extremities: No edema. No clubbing or cyanosis. Pulses: radial=2/4, posterior tibial=2/4, dorsalis pedis = 2/4. NEURO: No focal deficits. PSYCH: Appropriate affect and insight. DATA Labs & Imaging Reviewed Below: EKG 3/14/24: Self reviewed, SR with 1st degree AVB Left axis deviation Right BBB Lower extremity venous duplex report June 11, 2021: Left lower extremity with no evidence of acute deep venous thrombosis. CT of the abdomen and pelvis report summary March 25, 2021: IMPRESSION: 1. Nonspecific hyperattenuating structure in the base of the urinary bladder extending in to what appears to be a TURP defect. A urothelial neoplasm cannot be excluded.. Alternatively, this may represent blood products. Correlate with urinalysis. Recommend Urology consult/follow-up. 2. Enlarged prostate. 3. Diverticulosis. 4. Interstitial lung disease, with interval improvement. 5. Bilateral kidney stones. 6. Aneurysmal dilatation of the distal abdominal aorta, with maximum diameter of 2.9 cm. Follow-up imaging in 5 years is recommended. Abdominal aortic duplex report October 10, 2021: There is evidence of a 3.1 cm abdominal aortic aneurysm. Color Doppler imaging demonstrates flow consistent with a patent lumen at and distal to the aortic aneurysm. Abdominal aortic duplex 10/2019: There is evidence of a 3.1 cm x 3.1 cm abdominal aortic aneurysm. Color Doppler imaging demonstrates flow consistent with a patent lumen at and distal to the aortic aneurysm. Abdominal aortic duplex 09/2018 report: There is evidence of a 3.0 centimeter abdominal aortic aneurysm. Color Doppler imaging demonstratesflow consistent with a patent lumen at and distal to the aortic aneurysm. Since the most proximal aortic measurement above the renal arteries is greater than 3 cm, alternative imaging modality is recommended to exclude a more proximal thoracic aortic aneurysm. Carotid duplex report 06/2019: Right carotid artery duplex examination indicates evidence of less than 50% stenosis of the internal carotid artery. Left carotid artery duplex examination indicates evidence of less than 50% stenosis of the internalcarotid artery. Exercise stress echo report May 27, 2018: The stress echo is negative for inducible ischemia. No arrhythmias. Normal HR and BP response to exercise. Below average exercise tolerance. At rest, normal LV chamber size with mild concentric LVH. Normal LV systolic function without regional wall motion abnormality, EF 55-60%. Grade I diastolic dysfunction. No significant valvular pathology. The aortic root and proximal ascending aorta are borderline enlarged. ASSESSMENT/PLAN: 82 year old year old male 1. Abdominal aortic aneurysm (AAA) without rupture, unspecified part (HCC) -Last duplex 2021, stable. Denies any abdominal pain, back pain or changes in his functional capacity. -Keeping his blood pressure well controlled. -Continue on ASA and Statin therapy as per current regimen. - EKG - VASC AORTIC DUPLEX EVAL-COMPLETE; Future 2. Dyslipidemia, goal LDL below 70 -Most recent lipid panel is stable, repeat yearly -Continue ASA and Statin - EKG 3. Asymmetric edema of both lower extremities -Chronic -Left leg demonstrates trace edema, reports unchanged, does state that he has been watching his salt intake closely, and knows with his upcomming trip to take frequent rest breaks during travel to ambulate and stretch DISPOSITION: Follow up 1 year or if symptoms worsen/fail to improve. All questions were answered to the patients satisfaction. Patient advised to report to ED with any and all emergencies. The patient agrees to the above plan and will call with additional questions or concerns. DANO Aguilera Cardiology, [address] [address] I spent a total of 30 minutes on the date of service in preparation, delivery, and documentation ofthe care provided to Zurdo Mcfarland excluding any time spent in the performance of separately billed services. This chart was completed in part utilizing [employer] ([email or web address]) Speech Voice Recognition Software. Grammatical errors, random word insertions, pronoun errors, and incomplete sentences are an occasional consequence of this system due to software limitations, ambient noise, and hardware issues. Any formal questions or concerns about the content, text, or information contained within the body of this dictation should be directly addressed to the provider for clarification. documented in this encounter Nursing Notes * Lina Clark LPN - 08/20/2023 7:49 AM EDT Examination Room: 2 Name: Zurdo Mcfarland Date of : 1940 Reason for Visit: Follow up Problems/Concerns: denies Interim Hosp(s): denies Chest Pain/SOB: denies MyChart Discussed: ALREADY ACTIVE Patient was instructed to not get up on the exam table until directed and assisted by their provider; patient is to remain seated in the chair/ wheelchair/ exam table for fall prevention and safety reasons. Patient is aware staff will assist stepping down off exam table with personnel. documented in this encounter Plan of Treatment Upcoming Encounters Date Type Department Care Team (Late st Contact Info) Description 09/08/2023 9:30 AM EDT Imaging Vascular Lab, [facility] 2nd Floor, [address] [place] [address] 09/08/2023 10:30 AM EDT Imaging Vascular Lab, [facility] 2nd [facility] [place] 132 [facility] [place] [address] 09/16/2023 10:15 AM EDT Procedure Only Urology, [facility] 132 [facility] [place] [address] Wilfred Reilly MD [address] [place] [address] 09/16/2023 12:50 PM EDT Office Visit Vascular Surgery, [facility] 132 [facility] [place] [address] Hany Torres MD [address] [place] [address] 10/14/2023 9:15 AM EDT Appointment Radiology, [address] [address] 10/14/2023 10:00 AM EDT PulmDiagnostic Pulmonary Function Lab, [address] [place] [address] Gl, Pulm Function Room 2 400 [facility] [place] [address] 03/22/2024 9:20 AM EDT Office Visit General Internal Medicine [facility] 200 [facility] [place] [address] Vahe Sahu MD 200 [facility] [place] [address] Scheduled Orders Name Type Priority Associated Diagnoses Orde r Schedule EKG EKG Routine Abdominal aortic aneurysm (AAA) without rupture, unspecified part (HCC) Dyslipidemia, goal LDL below 70 Ordered: 08/20/2023 VASC AORTIC DUPLEX EVAL-COMPLETE Medical Imaging Routine Abdominal aortic aneurysm (AAA) without rupture, unspecified part (HCC) Expected: 10/07/2023, Expires: 09/19/2024 Scheduled Procedures Name Priority Associated Diagnoses Date/Ti [...] this encounter Medical Devices Implanted Type Area Material Requisitioner Device Identifier Shelf Expiration Date Model / Serial / Lot Mesh Preshaped Large - [id number] Implanted:Qty: 1 on 06/15/2018 by Kevin Zee MD at OR [facility] Right: Groin CR BARD : DAVOL 07/05/2020 [id number] / / [id number] Description:13.7cm x 5.9cm Lens Intraoc 16.0 - [id number] - [id number] Implanted:Qty: 1 on 06/19/2020 by Sundeep Rodriguez MD at OR [facility] Left: Eye BAUSCH [employer] LOMB 12/05/2024 [id number] / [id number] / Lens Intraoc 15.5 - [id number] - [id number] Implanted:Qty: 1 on 06/26/2020 by Sundeep Rodriguez MD at OR [facility] Right: Eye BAUSCH & LOMB 08/05/2024 [id number] / [id number] / [id number] documented as of this encounter Visit Diagnoses Diagnosis Abdominal aortic aneurysm (AAA) without rupture, unspecified part (HCC)- Primary Dyslipidemia, goal LDL below 70 Other and unspecified hyperlipidemia Asymmetric edema of both lower extremities documented in this encounter Advance Directives Latest [...] and were consensually agreed upon. Care Teams Locomotive Firer/Fireman Relationship Specialty Start Date End Date Vahe Sahu MD 200 [facility] [place] [address] PCP - General Internal Medicine 11/03/13 documented as of this encounter"
--- OUTSIDE RECORDS SUMMARY | 2023-09-25 22:25 | External Medical Summary | Summary of Care ---
Author Name Unknown Organization [facility] Address [address] [place] [address] Phone [phone] Care Team Providers Care Dietary Aide Name Role Phone Vahe Sahu MD Primary Care Provider + Encounter Details Date Type Department Care Team (Late st Contact Info) Description 03/31/2023 Orders Only Outcomes Research Department [address] [place], [place] [id number] Amy Simon CHRA MyCHighlighter Research Other*[id number] Allergies Active Allergy Reactions Criticality Noted Date [...] 9 Active Additional Information Patient taking differently:2 [place] Each Nostril Daily(AM),Using as needed, Reported on [...] on file documented as of this encounter Plan of Treatment Upcoming Encounters Date Type Department Care Team (Late st Contact Info) Description 07/09/2023 11:30 AM EST Office Visit Cardiology, [facility] [address] [employer] [place] [address] Tawanda Aguilera, [address] [place] [address] 09/16/2023 10:15 AM EDT Procedure Only Urology, [facility] [address] [employer] [place] [address] Wilfred Reilly MD [address] [facility] [address] [place] [address] 10/14/2023 9:15 AM EDT Appointment Radiology, [facility] 400 [facility], [place] [address] 10/14/2023 10:00 AM EDT PulmDiagnostic Pulmonary Function Lab, [facility] 400 [facility], [place] [address] Gl, Pulm Function Room 2 400 [place] [address] 03/22/2024 9:20 AM EDT Office Visit General Internal Medicine [facility] 200 [facility] [place] [address] Vahe Sahu MD 200 [facility] [place] [address] Scheduled Orders Name Type Priority Associated Diagnoses Orde r Schedule MYCODE SUBSEQUENT ADULT Lab Routine MyCode Research Other*[id number] Every 6 Months for 2 Occurrences starting 03/31/2023 until 04/19/2024 Scheduled Procedures Name Priority Associated Diagnoses Date/Ti [...] this encounter Medical Devices Implanted Type Area Fiberglass Tube Molder Device Identifier Shelf Expiration Date Model / Serial / Lot Mesh Preshaped Large - [id number] Implanted:Qty: 1 on 06/15/2018 by Kevin Zee MD at OR [facility] Right: Groin CR BARD : DAVOL 07/05/2020 [id number] / / [id number] Description:13.7cm x 5.9cm Lens Intraoc 16.0 - [id number] - [id number] Implanted:Qty: 1 on 06/19/2020 by Sundeep Rodriguez MD at OR [facility] Left: Eye BAUSCH [employer] LOMB 12/05/2024 [id number] / [id number] / Lens Intraoc 15.5 - [id number] - [id number] Implanted:Qty: 1 on 06/26/2020 by Sundeep Rodriguez MD at OR [facility] Right: Eye BAUSCH [employer] LOMB 08/05/2024 [id number] / [id number] / [id number] documented as of this encounter Visit Diagnoses Diagnosis MyCode Research Other*[id number] documented in this encounter Advance Directives Latest [...] and were consensually agreed upon. Care Teams Dietary Aide Relationship Specialty Start Date End Date Vahe Sahu MD [address] [place] [address] PCP - General Internal Medicine 11/03/13 documented as of this encounter
--- OUTSIDE RECORDS SUMMARY | 2023-09-25 22:25 | External Medical Summary ---
Author Name Unknown Address Unknown Organization K01:[facility] - [address] [facility] [address] Laboratory Report Ordering Provider Test Date Status NATALYA LADD 06/25/2023 08:35:51 Final Observation Date Value Abnormality Reference (Units ) Status WBC, Total 06/25/2023 08:35:51 8.14 4.00-10.80 (K/uL) Final RBC 06/25/2023 08:35:51 5.13 4.50-5.25 (M/uL) Final Hemoglobin 06/25/2023 08:35:51 15.9 14.0-16.8 (g/dL) Final HCT 06/25/2023 08:35:51 48.1 40.0-48.4 (%) Final MCV 06/25/2023 08:35:51 93.8 82.0-99.5 (fL) Final MCH 06/25/2023 08:35:51 31.0 27.0-34.0 (pg) Final MCHC 06/25/2023 08:35:51 33.1 32.0-36.0 (g/dL) Final RDW 06/25/2023 08:35:51 13.6 11.5-15.5 (%) Final Platelets 06/25/2023 08:35:51 138 Below low normal 140-400 (K/uL) Final MPV 06/25/2023 08:35:51 8.9 6.6-11.1 (fL) Final Nucleated erythrocytes/100 leukocytes [Ratio] in Blood by Automated count 06/25/2023 08:35:51 0 <=0 (/100 WBCs) Final Performing Location [facility] - [address] [place] [address]
--- OUTSIDE RECORDS SUMMARY | 2023-09-25 22:25 | External Medical Summary | Summary of Care ---
Author Name Unknown Organization [facility] Address [address] [place] [address] Phone [phone] Care Team Providers Care Manager Story Name Role Phone Vahe Hoang MD Primary Care Provider + Reason for Visit * Reason Onset Date Comments Medication Refill 05/06/2023 Encounter Details Date Type Department Care Team (Late st Contact Info) Description 05/06/2023 Refill General Internal Medicine [facility] [address] [place] [address] Vahe Hoang MD 200 [place] [address] Pure hypercholesterolemia; GERD (gastroesophageal reflux disease) Allergies Active Allergy Reactions Criticality Noted Date Comments Pollen Other (Please comment) 11/15/2018 Runny nose documented as of this encounter (statuses as of 05/07/2023) Medications Medication Sig Dispensed Refills Start Date [...] 9 Active Additional Information Patient taking differently:2 [place] Each Nostril Daily(AM),Using as needed, Reported on 06/19/2022 Triamcinolone Acetonide 0.1 % Mouth/Throat Paste (Kenalog In Orabase) 0 2 Active Omeprazole 40 MG Oral Capsule Delayed Release (PriLOSEC)Indications:GE RD (gastroesophageal reflux disease) TAKE 1 CAPSULE DAILY 90 Capsule 3 3 Active Atorvastatin Calcium 40 MG Oral Tablet (Lipitor)Indications:Pur e hypercholesterolemia Take 1 Tablet by mouth in the morning. 90 Tablet 3 3 Active Tamsulosin HCl 0.4 MG Oral Capsule (Flomax) Take 1 Capsule by mouth in the morning. 90 Capsule 3 3 Active Trospium Chloride ER 60 MG Oral Capsule Extended Release 24 Hour (Sanctura ER) Take 1 Capsule by mouth in the morning. In the morning.. 90 Capsule 3 3 Active Atorvastatin Calcium 40 MG Oral Tablet (Lipitor)Indications:Pur e hypercholesterolemia TAKE 1 TABLET DAILY 90 Tablet 3 2 023 Discontin ued(Refil l) Hospital, Clinic, or [...] as of this encounter (statuses as of 05/07/2023) Active Problems Problem Noted Date Diagnosed Date [...] as of this encounter (statuses as of 05/07/2023) Resolved Problems Problem Noted Date Diagnosed Date Resolved Date Thrombocytopenia 03/03/2018 11/18/2019 Right inguinal hernia 11/11/20172018 Pulmonary embolus 06/13/2013 11/10/2016 Dyslipidemia, goal to be determined 06/13/2013 08/05/2013 Edema 06/13/2013 11/15/2018 Lacunar infarction 8 documented as of this encounter (statuses as of 05/07/2023) Immunizations Name Administration Dates Next Due COVID-19 [...] encounter Miscellaneous Notes * Telephone Encounter - Coni Alfred, [facility] - 05/07/2023 5:54 AM ESTSigned Prescriptions: Disp Refills Atorvastatin Calcium 40 MG Oral Tablet (Li*90 Tab*3 Sig: Take 1Tablet by mouth in the morning.Authorizing Provider: VAHE HOANG User: CONI ALFREDRefused Prescriptions: Disp Refills Omeprazole 40 MG Oral Capsule Delayed Rele*90 Cap*3 Sig: Take 1 Capsule by mouth in the morning.Refused By: CONI ALFREDasonfor Refusal: Too soon documented in this encounter Plan of Treatment Upcoming Encounters Date Type Department Care Team (Late st Contact Info) Description 07/09/2023 11:30 AM EST Office Visit Cardiology, [facility] [address] [facility] [place] [address] Tawanda Aguilera, [address] [place] [address] 09/16/2023 10:15 AM EDT Procedure Only Urology, [facility] 132 [facility] [place] [address] Wilfred Reilly MD [address] [address] [place] [address] 10/14/2023 9:15 AM EDT Appointment [address]iology, [address] [address] 10/14/2023 10:00 AM EDT PulmDiagnostic Pulmonary Function Lab, [address] [place] [address] [facility], Pulm Function Room 2 [address] [place] [address] 03/22/2024 9:20 AM EDT Office Visit General Internal [facility] [place] 200 [facility] [place] [address] Vahe Hoang MD 200 [facility] [place] [address] Scheduled Procedures Name Priority Associated Diagnoses Date/Ti [...] this encounter Medical Devices Implanted Type Area Microsoft Bi Architect Device Identifier Shelf Expiration Date Model / Serial / Lot Mesh Preshaped Large - [id number] Implanted:Qty: 1 on 06/15/2018 by Kevin Zee MD at OR [facility] Right: Groin CR BARD : DAVOL 07/05/2020 [id number] / / [id number] Description:13.7cm x 5.9cm Lens Intraoc 16.0 - [id number] - [id number] Implanted:Qty: 1 on 06/19/2020 by Sundeep Rodriguez MD at OR [facility] Left: Eye [employer]USCH [employer] LOMB 12/05/2024 [id number] / [id number] / Lens Intraoc 15.5 - [id number] - [id number] Implanted:Qty: 1 on 06/26/2020 by Sundeep Rodriguez MD at OR [facility] Right: Eye BAUSCH & LOMB 08/05/2024 [id number] / [id number] / [id number] documented as of this encounter Visit Diagnoses Diagnosis Pure hypercholesterolemia GERD (gastroesophageal reflux disease) Esophageal reflux documented in this encounter Advance Directives Latest [...] and were consensually agreed upon. Care Teams Manager Story Relationship Specialty Start Date End Date Vahe Hoang MD 200 [facility] [place] [address] PCP - General Internal Medicine 11/03/13 documented as of this encounter
--- OUTSIDE RECORDS SUMMARY | 2023-09-25 22:25 | External Medical Summary ---
Author Name Unknown Address Unknown Organization K01:[facility] - [address] [facility] [address] Laboratory Report Ordering Provider Test Date Status NATALYA LADD 06/25/2023 08:35:51 Final Observation Date Value Abnormality Reference (Units ) Status SYNC LEUKOCYTES IN BLOOD BY AUTOMATED COUNT 06/25/2023 08:35:51 8.14 4.00-10.80 (K/uL) Final Segs 06/25/2023 08:35:51 48.9 40.0-75.0 (%) Final Lymphs % 06/25/2023 08:35:51 35.5 18.0-42.0 (%) Final Monos 06/25/2023 08:35:51 11.5 Above high normal 1.0-11.0 (%) Final Eosinophils 06/25/2023 08:35:51 3.2 0.0-6.0 (%) Final Basos 06/25/2023 08:35:51 0.7 0.0-2.0 (%) Final Immature Granulocyte, Percent 06/25/2023 08:35:51 0.2 0.0-2.0 (%) Final Absolute Segs 06/25/2023 08:35:51 3.97 1.80-7.70 (K/uL) Final Lymphs, absolute 06/25/2023 08:35:51 2.89 1.00-4.80 (K/ul) Final Monos, Abs 06/25/2023 08:35:51 0.94 0.00-1.10 (K/uL) Final Eos, Abs 06/25/2023 08:35:51 0.26 0.00-0.70 (K/uL) Final Basos, Abs 06/25/2023 08:35:51 0.06 0.00-0.20 (K/uL) Final Immature Granulocytes, Number 06/25/2023 08:35:51 0.02 0.00-0.20 (K/uL) Final Performing Location [facility] - [facility] [address] [facility] [address]
--- OUTSIDE RECORDS SUMMARY | 2023-09-25 22:25 | External Medical Summary | Summary of Care ---
Author Name Unknown Organization [facility] Address [address] [place] [address] Phone [phone] Care Team Providers Care Employee Relations Manager Name Role Phone Vahe Sahu MD Primary Care Provider + Reason for Visit * Reason Onset Date Comments Appointment 06/15/2023 recall Encounter Details Date Type Department Care Team (Late st Contact Info) Description 06/15/2023 Telephone Vascular Surg [facility] [address], [place] [phone] Hany Torres MD [address], [place] [phone] Appointment (recall) Allergies Active Allergy Reactions Criticality [...] 9 Active Additional Information Patient taking differently:2 [place] Each Nostril Daily(AM),Using as needed, Reported on [...] patient to schedule his year follow up rrh documented in this encounter Plan of Treatment Upcoming Encounters Date Type Department Care Team (Late st Contact Info) Description 08/20/2023 8:00 AM EDT Office Visit Cardiology, [facility] [place] [address] Юлия Jennings CRNP 132 [facility] [place] [address] 09/08/2023 9:30 AM EDT Imaging Vascular Lab, [facility] 2[facility], [place] 132 [facility] [place] [address] 09/08/2023 10:30 AM EDT Imaging Vascular Lab, [facility] 2nd Floor, [place] 132 [facility] [place] [address] 09/16/2023 10:15 AM EDT Procedure Only Urology, [facility] 132 [facility] [place] [address] Wilfred Reilly MD [address] [place] [address] [place] [address] 10/14/2023 9:15 AM EDT Appointment Radiology, [address] [address] 10/14/2023 10:00 AM EDT PulmDiagnostic Pulmonary Function Lab, [address] [address] Gl, Pulm Function Room 2 400 [facility] [place] [address] 03/22/2024 9:20 AM EDT Office Visit General Internal Medicine [facility] [place] [address] [place] [address] [place] [address] Vahe Sahu MD [address] [place] [address] Scheduled Procedures Name Priority Associated Diagnoses Date/Ti [...] this encounter Medical Devices Implanted Type Area Skip Miner Device Identifier Shelf Expiration Date Model / Serial / Lot Mesh Preshaped Large - [id number] Implanted:Qty: 1 on 06/15/2018 by Kevin Zee MD at OR [facility] Right: Groin CR BARD : DAVOL 07/05/2020 [id number] / / [id number] Description:13.7cm x 5.9cm Lens Intraoc 16.0 - [id number] - [id number] Implanted:Qty: 1 on 06/19/2020 by Sundeep Rodriguez MD at OR [facility] Left: Eye BAUSCH & LOMB 12/05/2024 [id number] / [id number] / Lens Intraoc 15.5 - [id number] - [id number] Implanted:Qty: 1 on 06/26/2020 by Sundeep Rodriguez MD at OR [facility] Right: Eye BAUSCH & LOMB 08/05/2024 [id number] / [id number] / [id number] documented as of this encounter Advance Directives [...] and were consensually agreed upon. Care Teams Employee Relations Manager Relationship Specialty Start Date End Date Vahe Sahu MD 200 [place] [address] PCP - General Internal Medicine 11/03/13 documented as of this encounter
--- OUTSIDE RECORDS SUMMARY | 2023-09-25 22:25 | External Medical Summary | Summary of Care ---
Author Name Unknown Organization [facility] Address [address] [place] [address] Phone [phone] Care Team Providers Care Hydraulic Controls Technician Name Role Phone Vahe Sahu MD Primary Care Provider + Reason for Visit * Reason Comments Outpatient Testing Encounter Details Date Type Department Care Team (Late st Contact Info) Description 06/25/2023 9:40 AM EST Laboratory Laboratory [facility] [address] [place] [id number] [facility] 200 [place] [address] Decreased platelet count (HCC); [employer] Other*[id number] Allergies Active Allergy Reactions Criticality Noted Date Comments Pollen Other (Please comment) 11/15/2018 Runny nose documented as of this encounter (statuses as of 06/25/2023) Medications Medication Sig Dispensed Refills Start Date [...] 9 Active Additional Information Patient taking differently:2 [place] Each Nostril Daily(AM),Using as needed, Reported on [...] as of this encounter (statuses as of 06/25/2023) Active Problems Problem Noted Date Diagnosed Date [...] as of this encounter (statuses as of 06/25/2023) Resolved Problems Problem Noted Date Diagnosed Date Resolved Date Thrombocytopenia 03/03/2018 11/18/2019 Right inguinal hernia 11/11/20172018 Pulmonary embolus 06/13/2013 11/10/2016 Dyslipidemia, goal to be determined 06/13/2013 08/05/2013 Edema 06/13/2013 11/15/2018 Lacunar infarction 8 documented as of this encounter (statuses as of 06/25/2023) Immunizations Name Administration Dates Next Due COVID-19 [...] 08/20/2023 8:00 AM EDT Office Visit Cardiology, [facility] [address] [place] [address] Юлия Jennings CRNP [facility] [place] [address] 09/08/2023 9:30 AM EDT Imaging Vascular Lab, [facility] 2nd Floor, [place] [facility] [place] [address] 09/08/2023 10:30 AM EDT Imaging Vascular Lab, [facility] 2nd [facility] 132 [facility] [place] [address] 09/16/2023 10:15 AM EDT Procedure Only Urology, [facility] 132 [facility] [place] [address] Wilfred Reilly MD [address] [address] 09/16/2023 12:50 PM EDT Office Visit Vascular Surgery, [facility] 132 [facility] [place] [address] Hany Torres MD 100 [place] [address] 10/14/2023 9:15 AM EDT Appointment Radiology, [address] [address] 10/14/2023 10:00 AM EDT PulmDiagnostic Pulmonary Function Lab, [address] [address] Gl, Pulm Function Room [address] [place] [address] 03/22/2024 9:20 AM EDT Office Visit General Internal Medicine [facility] [address] [place] [address] Vahe Sahu MD 200 [facility] [place] [address] Pending Results Name Type Priority Associated Diagnoses Date /Time CBC WITH WBC DIFFERENTIAL Lab Routine Decreased platelet count (HCC) 06/25/2023 8:35 AM EST MYCODE SUBSEQUENT ADULT Lab Routine [employer] Other*[id number] 06/25/2023 8:35 AM EST CBC Lab Routine Decreased platelet count (HCC) 06/25/2023 8:35 AM EST DIFFERENTIAL, AUTOMATED Lab Routine Decreased platelet count (HCC) 06/25/2023 8:35 AM EST MYCODE SST1 Lab Routine [employer] Other*[id number] 06/25/2023 8:35 AM EST MYCODE SST2 Lab Routine [employer] Other*[id number] 06/25/2023 8:35 AM EST Scheduled Procedures Name Priority Associated Diagnoses Date/Ti [...] this encounter Medical Devices Implanted Type Area Buckle Gluer Device Identifier Shelf Expiration Date Model / Serial / Lot Mesh Preshaped Large - [id number] Implanted:Qty: 1 on 06/15/2018 by Kevin Zee MD at OR [facility] Right: Braden BANKS BARD : DAVOL 07/05/2020 [id number] / / [id number] Description:13.7cm x 5.9cm Lens Intraoc 16.0 - [id number] - [id number] Implanted:Qty: 1 on 06/19/2020 by Sundeep Rodriguez MD at OR [facility] Left: Eye BAUSCH & LOMB 12/05/2024 [id number] / [id number] / Lens Intraoc 15.5 - [id number] - [id number] Implanted:Qty: 1 on 06/26/2020 by Sundeep Rodriguez MD at OR [facility] Right: Eye BAUSCH & LOMB 08/05/2024 [id number] / [id number] / [id number] documented as of this encounter Visit Diagnoses Diagnosis Decreased platelet count (HCC) Thrombocytopenia, unspecified [employer] Other*[id number] documented in this encounter Advance Directives Latest [...] and were consensually agreed upon. Care Teams Hydraulic Controls Technician Relationship Specialty Start Date End Date Vahe Sahu MD 200 [facility] [place] [address] PCP - General Internal Medicine 11/03/13 documented as of this encounter
--- OUTSIDE RECORDS SUMMARY | 2023-09-25 23:31 | External Medical Summary | Summary of Care ---
Author Name Unknown Organization [facility] Address [address] [place] [address] Phone [phone] Care Team Providers Care Fisher Dip Net Name Role Phone Vahe Sahu MD Primary Care Provider + Reason for Visit * Reason Comments Congestion Tested positive for covid on 09/07. Completed course of paxlovid on Thursday. He is feeling okay today but is concerned about chest congestion with a productive cough with a little bit of yellow mucus at times. Denies SOB, chest pain, fever. 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 2 or 3 times a day with food 60 Tab 5 02/20/20 18 Active fluticasone (FLONASE) 50 MCG/ACT nasal sprayIndications:Runny nose Administer 2 Sprays into each nostril daily. 1 Bottle 3 09/04/19 19 Active Additional Information Patient taking differently:2 [place] Each Nostril Daily(AM),Using as needed, Reported on 06/19/2022 Triamcinolone Acetonide 0.1 % Mouth/Throat Paste (Kenalog In Orabase) 0 01/24/20 22 Active Omeprazole 40 MG Oral Capsule Delayed Release (PriLOSEC)Indications:G ERD (gastroesophageal reflux disease) TAKE 1 CAPSULE DAILY 90 Capsule 3 03/06/20 23 Active Atorvastatin Calcium 40 MG Oral Tablet (Lipitor)Indications:Pu re hypercholesterolemia Take 1 Tablet by mouth in the morning. 90 Tablet 3 05/07/20 23 Active Tamsulosin HCl 0.4 MG Oral Capsule (Flomax) Take 1 Capsule by mouth in the morning. 90 Capsule 3 05/06/20 23 Active Trospium Chloride ER 60 MG Oral Capsule Extended Release 24 Hour (Sanctura ER) Take 1 Capsule by mouth in the morning. In the morning.. 90 Capsule 3 05/06/20 23 Active Albuterol Sulfate HFA 108 (90 Base) MCG/ACT Inhalation Aerosol SolutionIndications:Bro nchitis due to COVID-19 virus Inhale 2 Puffs by mouth every 4 hours as needed for Cough or Wheezing. 20.1 g 1 09/14/19 24 Active Spacer/Aero-Holding Chambers DeviceIndications:Bronc hitis due to COVID-19 virus Use with inhaler. 1 Each 0 09/14/19 24 Active Nirmatrelvir&Ritonavir 300/100 20 x 150 MG & 10 x 100MG Oral Tablet Therapy Pack (Paxlovid (300/100))Indications:C OVID-19 Take 2 pink tablets of Nirmatrelvir and 1 white tablet of Ritonavir two times a day by mouth. 30 Tablet 0 09/08/19 24 2023 Discontinued predniSONE 20 MG Oral Tablet (Deltasone)Indications: Bronchitis due to COVID-19 virus Take 2 Tablets by mouth in the morning for 5 days. 10 Tablet 0 09/14/19 24 2023 Hospital, Clinic, or Other Facility Administered Medication [...] as of this encounter (statuses as of 09/24/2023) Active Problems Problem Noted Date Diagnosed Date [...] as of this encounter (statuses as of 09/24/2023) Resolved Problems Problem Noted Date Diagnosed Date Resolved Date Thrombocytopenia 03/03/2018 11/18/2019 Right inguinal hernia 11/11/20172018 Pulmonary embolus 06/13/2013 11/10/2016 Dyslipidemia, goal to be determined 06/13/2013 08/05/2013 Edema 06/13/2013 11/15/2018 Lacunar infarction 8 documented as of this encounter (statuses as of 09/24/2023) Immunizations Name Administration Dates Next Due COVID-19 [...] Sign Reading Time Taken Comments Blood Pressure 128/72 09/14/2023 9:00 AM EDT Pulse 86 09/14/2023 9:00 AM EDT Temperature 36.6 C (97.8 F) 09/14/2023 9:00 AM ED T Respiratory Rate - - Oxygen Saturation 97% 09/14/2023 9:00 AM EDT Inhaled Oxygen Concentration - - Weight 89.4 kg (197 lb 1.6 oz) 09/14/2023 9:00 A M EDT Height - - Body Mass Index 27.88 03/25/2023 9:51 AM EDT documented in this encounter Progress Notes * Roseline Montoya MD - 09/14/2023 9:21 AM EDT Images from the original note were not included. History of Present Illness Zurdo Mcfarland is a 82 year old male that presents for Congestion (Tested positive for covid on 09/07. Completed course of paxlovid on Thursday. He is feeling okay today but is concerned about chestcongestion with a productive cough with a little bit of yellow mucus at times. Denies SOB, chest pain, fever. ) 82 year old YOmale with PMH as listed below presents here for evaluation of cough and chest congestion. Duration of illness: 1 week Symptoms present : Tested positive for covid on 09/07. Completed course of paxlovid on Thursday. He is feeling okay today but is concerned about chest congestion with a productive cough with a little bit of yellow mucus at times. Wheezing +ve intermittent and chest tightnes . Denies SOB, chest pain, fever. Symptoms not present: Denies Chest pain, SOB, palpitation. Diarrhea. F/c, change in snout Have same similar thing in past : no Since symptoms started things getting : worse Used anything for this illness: rest, paxlovid Other concerns or issues present : no Physical Exam Vitals: 09/14/23 0900 Temp: 36.6 C (97.8 F) Pulse: 86 SpO2: 97% BP: 128/72 Physical Exam Constitutional: General: He is not in acute distress. Appearance: Normal appearance. HENT: Head: Normocephalic. Right Ear: Ear canal and external ear normal. Left Ear: Ear canal and external ear normal. Nose: Congestion and rhinorrhea present. Mouth/Throat: Mouth: Mucous membranes are moist. Pharynx: Posterior oropharyngeal erythema present. No oropharyngeal exudate. Cardiovascular: Rate and Rhythm: Normal rate and regular rhythm. Heart sounds: No murmur heard. No gallop. Pulmonary: Effort: Pulmonary effort is normal. Breath sounds: No stridor. Wheezing (end exp occ) present. No rhonchi. Chest: Chest wall: No tenderness. Abdominal: General: There is no distension. Palpations: Abdomen is soft. There is no mass. Tenderness: There is no abdominal tenderness. Musculoskeletal: General: No swelling or tenderness. Cervical back: No rigidity or tenderness. Lymphadenopathy: Cervical: No cervical adenopathy. Neurological: Mental Status: He is alert. I have reviewed the following results: Assessment and Plan Bronchitis due to COVID-19 virus Mucinex bid - Albuterol Sulfate HFA 108 (90 Base) MCG/ACT Inhalation Aerosol Solution; Inhale 2 Puffs by mouth every 4 hours as needed for Cough or Wheezing. - predniSONE 20 MG Oral Tablet (Deltasone); Take 2 Tablets by mouth in the morning for 5 days. - Spacer/Aero-Holding Chambers Device; Use with inhaler. 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 documented in this encounter Nursing Notes * Liliya Burrell LPN - 09/14/2023 9:00 AM EDT Chief Complaint Patient presents with Congestion Tested positive for covid on 09/07. Completed course of paxlovid on Thursday. He is feeling okay today but is concerned about chest congestion with a productive cough with a little bit of yellow mucus at times. Denies SOB, chest pain, fever. documented in this encounter Plan of Treatment Upcoming Encounters Date Type Department Care Team (Late st Contact Info) Description 10/14/2023 9:15 AM EDT Appointment Radiology, [address] [address] 10/14/2023 10:00 AM EDT PulmDiagnostic Pulmonary Function Lab, [address] [address] Gl, Pulm Function Room [address] [place] [address] 03/15/2024 9:00 AM EDT Imaging Radiology [facility] [place] [address] [place] [address] 03/22/2024 9:20 AM EDT Office Visit General Internal Medicine [facility] [place] [address] [place] [address] Vahe Sahu MD 200 [facility] [place] [address] 03/22/2024 10:30 AM EDT Office Visit Urology, [facility] [address] [place] [address] Wilfred Reilly MD 27 [facility] [address] [place] [address] Scheduled Procedures Name Priority Associated Diagnoses Date/Ti [...] this encounter Medical Devices Implanted Type Area Avionics Mechanic Device Identifier Shelf Expiration Date Model / Serial / Lot Mesh Preshaped Large - [id number] Implanted:Qty: 1 on 06/15/2018 by Kevin Zee MD at OR [facility] Right: Groin CR BARD : DAVOL 07/05/2020 [id number] / / [id number] Description:13.7cm x 5.9cm Lens Intraoc 16.0 - [id number] - [id number] Implanted:Qty: 1 on 06/19/2020 by Sundeep Rodriguez MD at OR [facility] Left: Eye [employer] 12/05/2024 [id number] / [id number] / Lens Intraoc 15.5 - [id number] - [id number] Implanted:Qty: 1 on 06/26/2020 by Sundeep Rodriguez MD at OR [facility] Right: Eye [employer] 08/05/2024 [id number] / [id number] / [id number] documented as of this encounter Visit Diagnoses Diagnosis Bronchitis due to COVID-19 virus- Primary Transitional cell carcinoma of prostate (HCC) Malignant neoplasm of prostate Malignant neoplasm of prostate (HCC) Malignant neoplasm of prostate History of pulmonary embolism Personal history of pulmonary embolism Gastroesophageal reflux disease without esophagitis Esophageal reflux ILD (interstitial lung disease) (HCC) Postinflammatory pulmonary fibrosis Mixed hyperlipidemia 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 Care Teams Fisher Dip Net Relationship Specialty Start Date End Date Vahe Sahu MD [address] [place] [address], [place] [address] PCP - General Internal Medicine 11/03/13 documented as of this encounter
[2023-09-26 01:00] LABS: ANTI-Xa, UFH(UnfractionatedHep 0.28 IU/ml (0.3-0.7)
--- NOTE | 2023-09-26 06:04 | Electrocardiogram Report ---
Test Reason : Blood Pressure : / mmHG Vent. Rate : 104 BPM Atrial Rate : 104 BPM P-R Int : 198 ms QRS Dur : 092 ms QT Int : 334 ms P-R-T Axes : -17 -44 020 degrees QTc Int : 439 ms Sinus tachycardia with Incomplete right bundle branch block and complete right bundle branch block Left axis deviation Abnormal ECG Confirmed by Ernie Sagastume ([id number]) on 09/26/2023 6:03:29 AM Referred By: REFERRED SELF Confirmed By:Sergio Sagastume
[2023-09-26 07:33] LABS: Hematocrit (blood only) 44.3 % (42.0-52.0); Hemoglobin 14.7 g/dl (14.0-18.0); Mean Corpuscular Hemoglobin 30.3 pg (25.0-34.0); Mean Corpuscular Hgb Conc 33.2 g/dL (32.0-36.0); Mean Corpuscular Volume 91.3 fL (80.0-100.0); Mean Platelet Volume 8.4 fL (9.4-12.4); Platelet Count 102 K/uL (130-400); RDW Coefficient of Variation 13.6 % (11.5-14.5); Red Blood Count 4.85 M/uL (4.70-6.10); White Blood Count 10.07 K/ul (4.8-10.8)
[2023-09-26 07:40] LABS: ANTI-Xa, UFH(UnfractionatedHep 0.36 IU/ml (0.3-0.7)
[2023-09-26 07:47] LABS: Calcium 8.4 mg/dl (8.6-10.3); Est GFR (African American) 95.8 ml/min; Est GFR (Non-African American) 82.7 ml/min; Magnesium 1.8 mg/dl (1.7-2.4)
[2023-09-26] MEDS: TROSPIUM CHLORIDE PO SCH (08:44)
--- NOTE | 2023-09-26 16:54 | Hospitalist Progress Note ---
Date of Service September 26, 2023 Assessment & Plan (1) Pulmonary emboli: Plan: Recurrent pulmonary embolism Acute left lower extremity DVT--POA Likely multifactorial--recent travel, COVID-19 infection, H/O malignancy --CTA:The pulmonary arterial tree is well opacified with contrast. There are filling defects in the lower lobe pulmonary artery branches, mostly on the right consistent with pulmonary emboli, blurred by motion. The clot burden is low. The RV/LV ratio is within normal limits measuring 0. 82. Reticular and streaky infiltrates throughout the mid to lower lungs bilaterally consistent with pneumonia or edema. No pneumothorax or pleural effusion is seen. --Venous Doppler:Deep venous thrombus within the left popliteal vein. 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 --ECHO: Left ventricle is normal in size. Mild concentric LVH. Left ventricle wall motion is normal. EF 60 to 65%. Grade 1 diastolic dysfunction. Aortic valve sclerosis mild, without significant stenosis. No significant aortic regurgitation. Mild aortic root dilatation. -- Patient admits to have recent infection and completed antibiotic course and currently denies any cough, fever --Continue IV heparin, transition to Eliquis as able --Supplemental oxygen as needed Pain control Saturating well on room air Continue current management Constipation Continue bowel regimen Known history of left popliteal artery aneurysm Follows with vascular as outpatient Recent COVID-19 illness S/P Paxlovid 5 day course Recent UTI Complete Macrobid course H/O prostate cancer BPH H/O bladder cancer S/P BCG, surgery Continue home medications Chronic thrombocytopenia Monitor platelet count No acute bleeding issues currently H/O CAD S/P stent PVD/CVA Decrease aspirin to 81 mg daily given patient requirement for anticoagulation Continue atorvastatin H/O DVT, PE Previously on Coumadin Prediabetes HbA1c 5.9 Other chronic conditions: Hypertension hyperlipidemia GERD Past tobacco abuse Continue home medications DVT Px: IV Heparin CODE STATUS Full code Admission and Anticipated Discharge Date Admission Date: September 25, 2023 Subjective Patient is seen and examined at bedside Pleuritic pain much improved Reports constipation Discussed with patient's at bedside Saturating well on room air Denies any bleeding issues while on IV heparin Also denies any nausea, vomiting, abdominal pain No other complaints Review of Systems Review of Systems: All systems reviewed & are unremarkable except as noted in Subjective Physical Exam Physical Exam: Physical Exam: Vitals signs as noted above General Appearance:Moderately built and nourished, no apparent distress Head: normocephalic, Atraumatic Eyes: normal inspection, EOMI Neck: supple, Trachea midline Respiratory/Chest: Decreased breath sounds, minimal basal crackles, No accessory muscle use Cardiovascular: S1, S2, No murmur Abdomen/GI:Soft, Non tender, Bowel sounds present Extremities/Musculoskeletal:normal inspection, LE L> R edema Neurologic/Psych:AAOX3, grossly no focal neurological deficits Skin: normal color, warm Results & Data Results & Data Vital Signs (Past 12 Hours) Vital Signs Temp Pulse Pulse Resp BP Pulse Ox O2 Del Method 09/26/23 16:30 36.8 C 74 16 132/76 94 Room Air 09/26/23 15:33 85 09/26/23 11:42 36.6 C 83 16 128/78 90 Room Air 09/26/23 07:56 36.9 C 89 16 144/76 H 90 Room Air 09/26/23 07:25 90 Laboratory Results Short CBC 09/26/23 Range/Units 06:59 WBC 10.07 (4.8-10.8) K/ul Hgb 14.7 (14.0-18.0) g/dl Hct 44.3 (42.0-52.0) % Plt Count 102 L (130-400) K/uL BMP 09/26/23 06:59 Sodium 132 L Potassium 4.0 Chloride 103 Carbon Dioxide 25 BUN 16 Creatinine 0.84 Glucose 99 Calcium 8.4 L
[2023-09-27] MEDS: POLYETHYLENE (MIRALAX) 17 GM PACK PO SCH (07:34)
[2023-09-27 07:49] LABS: Hematocrit (blood only) 45.7 % (42.0-52.0); Hemoglobin 15.3 g/dl (14.0-18.0); Mean Corpuscular Hemoglobin 30.2 pg (25.0-34.0); Mean Corpuscular Hgb Conc 33.5 g/dL (32.0-36.0); Mean Corpuscular Volume 90.1 fL (80.0-100.0); Mean Platelet Volume 9.1 fL (9.4-12.4); Platelet Count 101 K/uL (130-400); RDW Coefficient of Variation 13.3 % (11.5-14.5); RDW Standard Deviation 43.8 fL (36.4-46.3); Red Blood Count 5.07 M/uL (4.70-6.10); White Blood Count 7.85 K/ul (4.8-10.8)
[2023-09-27 08:04] LABS: BUN Creatinine Ratio 18.2 (10-20); Creatinine Clr Calc Pharmacy 73.5 ml/min; Est GFR (Non-African American) 81.1 ml/min; Potassium 4.2 mmol/L (3.5-5.1)
[2023-09-27 08:08] LABS: ANTI-Xa, UFH(UnfractionatedHep 0.36 IU/ml (0.3-0.7)
[2023-09-27] MEDS: APIXABAN 5 MG TABLET PO SCH (09:54)
--- NOTE | 2023-09-27 12:05 | Hospitalist Progress Note ---
Date of Service September 27, 2023 Assessment & Plan (1) Pulmonary emboli: Plan: Recurrent pulmonary embolism Acute left lower extremity DVT--POA Likely multifactorial--recent travel, COVID-19 infection, H/O malignancy --CTA:The pulmonary arterial tree is well opacified with contrast. There are filling defects in the lower lobe pulmonary artery branches, mostly on the right consistent with pulmonary emboli, blurred by motion. The clot burden is low. The RV/LV ratio is within normal limits measuring 0. 82. Reticular and streaky infiltrates throughout the mid to lower lungs bilaterally consistent with pneumonia or edema. No pneumothorax or pleural effusion is seen. --Venous Doppler:Deep venous thrombus within the left popliteal vein. 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 --ECHO: Left ventricle is normal in size. Mild concentric LVH. Left ventricle wall motion is normal. EF 60 to 65%. Grade 1 diastolic dysfunction. Aortic valve sclerosis mild, without significant stenosis. No significant aortic regurgitation. Mild aortic root dilatation. -- Patient admits to have recent infection and completed antibiotic course and currently denies any cough, fever --Continue IV heparin, transitioned to Eliquis --Supplemental oxygen as needed Pain control Saturating well on room air 2 Step: Did not qualify for oxygen Plan to be discharged home today Constipation Continue bowel regimen Resolved Known history of left popliteal artery aneurysm Follows with vascular as outpatient Recent COVID-19 illness S/P Paxlovid 5 day course Recent UTI Completed Macrobid course H/O prostate cancer BPH H/O bladder cancer S/P BCG, surgery Continue home medications Chronic thrombocytopenia Monitor platelet count No acute bleeding issues currently H/O CAD S/P stent PVD/CVA Decrease aspirin to 81 mg daily given patient requirement for anticoagulation Continue atorvastatin H/O DVT, PE Previously on Coumadin Prediabetes HbA1c 5.9 Other chronic conditions: Hypertension hyperlipidemia GERD Past tobacco abuse Continue home medications DVT Px: Eliquis CODE STATUS Full code Disposition Home Admission and Anticipated Discharge Date Admission Date: September 25, 2023 Subjective Patient is seen and examined at bedside Pleuritic pain resolved No new complaints No bleeding issues while on IV heparin Had 2 step earlier today Plan to be discharged home today Review of Systems Review of Systems: All systems reviewed & are unremarkable except as noted in Subjective Physical Exam Physical Exam: Physical Exam: Vitals signs as noted above General Appearance:Moderately built and nourished, no apparent distress Head: normocephalic, Atraumatic Eyes: normal inspection, EOMI Neck: supple, Trachea midline Respiratory/Chest: Decreased breath sounds, CTA, No accessory muscle use Cardiovascular: S1, S2, No murmur Abdomen/GI:Soft, Non tender, Bowel sounds present Extremities/Musculoskeletal:normal inspection, LE L> R edema Neurologic/Psych:AAOX3, grossly no focal neurological deficits Skin: normal color, warm Results & Data Results & Data Vital Signs (Past 12 Hours) Vital Signs Temp Pulse Pulse Pulse Pulse Pulse Resp 09/27/23 11:35 36.7 C 76 83 17 09/27/23 11:21 76 17 09/27/23 09:20 109 H 88 09/27/23 07:46 36.7 C 79 17 09/27/23 07:00 86 09/27/23 03:06 36.8 C 86 18 Resp Resp BP Pulse Ox Pulse Ox Pulse Ox O2 Del Method 09/27/23 11:35 118/77 93 09/27/23 11:21 118/77 93 Room Air 09/27/23 09:20 17 15 94 92 09/27/23 07:46 121/79 90 Room Air 09/27/23 07:00 09/27/23 03:06 138/77 94 Room Air Laboratory Results Short CBC 09/27/23 Range/Units 06:59 WBC 7.85 (4.8-10.8) K/ul Hgb 15.3 (14.0-18.0) g/dl Hct 45.7 (42.0-52.0) % Plt Count 101 L (130-400) K/uL BMP 09/27/23 06:59 Sodium 133 L Potassium 4.2 Chloride 103 Carbon Dioxide 25 BUN 16 Creatinine 0.88 Glucose 92 Calcium 9.0
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
== END 2023-09-27 13:10 | disposition home or self-care (01) | DRG 176 ==
LOC: ED 21:31 → EDINP 09-25 03:56 → 2S 09-25 06:20 → 2N 09-25 15:18

== ENCOUNTER 2024-07-30 12:01 | Observation (INO) ==
--- OUTSIDE RECORDS SUMMARY | 2024-07-30 12:07 | External Medical Summary | Summary of Care ---
Author Name Unknown Organization 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) Mixed hyperlipidemia Procedures CT ABD/PELVIS WO IV/ORAL CONTRAST Stiven Snowden PA-C [address] [place] [address] Phone: tel: fax: Referral ID Status Reason Start Date Expiration Date V isits Requested Visits Authorized [id number] Authorized 09/16/2023 [id number] Encounter Details Date Type Department Care Team (Latest Contact Info) Description 06/16/2024 2:18 PM EST - 06/16/2024 11:59 PM EST Hospital Encounter Radiology, [address] [address] Arrived Discharge Disposition: Home - Self Care Allergies Active Allergy Reactions Criticality Noted Date Comments Pollen Other (Please comment) 11/15/2018 Runny nose documented as of this encounter (statuses as of 06/17/2024) Medications MULTIVITAMINS PO CAPS 1 capsule daily 11/07 014 Active aspirin enteric coated 81 MG TBECIndications:Ischemi c heart disease Take 2 tablets daily 30 Tab 5 015 Active Additional Information Patient taking differently: 81 mg Oral Daily(AM), (No instructions reported), Reported on 04/19/2024 fluticasone (FLONASE) 50 MCG/ACT nasal sprayIndications:Runny nose Administer 2 Sprays into each nostril daily. 1 Bottle 3 019 Active Additional Information Patient taking differently:2 [place] Each Nostril Daily(AM),Using as needed, Reported on 04/19/2024 Triamcinolone Acetonide 0.1 % Mouth/Throat Paste (Kenalog In Orabase) As needed 022 Active Albuterol Sulfate HFA 108 (90 Base) MCG/ACT Inhalation Aerosol SolutionIndications:Bro nchitis due to COVID-19 virus Inhale 2 Puffs by mouth every 4 hours as needed for Cough or Wheezing. 20.1 g 1 024 Active Spacer/Aero-Holding Chambers DeviceIndications:Bronc hitis due to COVID-19 virus Use with inhaler. 1 Each 024 Active Apixaban 5 MG Oral Tablet (Eliquis)Indications:Ac [place] pulmonary embolism, unspecified pulmonary embolism type, unspecified whether acute cor pulmonale present ([facility]) Take 1 Tablet by mouth in the morning and 1 Tablet before bedtime. 180 Tablet 3 024 Active Trospium Chloride ER 60 MG Oral Capsule Extended Release 24 Hour (Sanctura ER) TAKE 1 CAPSULE IN THE MORNING 90 Capsule 3 024 Active Omeprazole 40 MG Oral Capsule Delayed Release (PriLOSEC)Indications:G ERD (gastroesophageal reflux disease) TAKE 1 CAPSULE DAILY 90 Capsule 3 024 Active Atorvastatin Calcium 40 MG Oral Tablet (Lipitor)Indications:Pu re hypercholesterolemia TAKE 1 TABLET IN THE MORNING 90 Tablet 3 024 Active Hospital, Clinic, or Other Facility Administered Medication Ordered Dose Route Frequency Start Date End Date Status Albuterol Sulfate (Proventil) (2.5 MG/3ML) 0.083% inhalation solution 2.5 mgIndications:ILD (interstitial lung disease) (HCC) 2.5 mg NEBULIZER PRN 11/23/2023 Active Albuterol Sulfate (Proventil) (5 MG/ML) 0.5% *conc* inhalation solution 2.5 mgIndications:ILD (interstitial lung disease) (HCC) 2.5 mg NEBULIZER PRN 11/23/2023 Active documented as of this encounter (statuses as of 06/17/2024) Active Problems Problem Noted Date Diagnosed Date [...] as of this encounter (statuses as of 06/17/2024) Resolved Problems Problem Noted Date Diagnosed Date Resolved Date Thrombocytopenia 03/03/2018 11/18/2019 Right inguinal hernia 11/11/20172018 Pulmonary embolus 06/13/2013 11/10/2016 Dyslipidemia, goal to be determined 06/13/2013 08/05/2013 Edema 06/13/2013 11/15/2018 Lacunar infarction 8 documented as of this encounter (statuses as of 06/17/2024) Immunizations Name Administration Dates Next Due COVID-19 mRNA, LNP-s, No Pre serve, 2-Dose Series (Moderna) 08/09/2020,07/12/2020 COVID-19, mRNA, LNP-s, PF, B ooster, 100mcg/0.5mg (Moderna) 08/09/2021,05/18/2021 Pneumococcal Conjugate Vacc, 13 Valent (Prevnar) 10/23/2014 Pneumococcal Polysaccharide PPV23 (Pneumovax) 08/03/2018,05/09/2008 Season Influenza, Quad, PF, Adjuvanted, 65+ Yrs, IM (FLUAD) 02/16/2020 Seasonal Influenza Vac., MDV , IM, 0.5 mL (Fluzone) 03/06/2016,02/27/2015,04/10/2014,05/25 Seasonal Influenza Virus Vac cine, Unspecified Formulation 03/15/2019,03/08/2018 Seasonal Influenza, High Dos e, Trivalent, PF, IM (Fluzone HD) 03/08/2024,02/18/2017 Seasonal Influenza, PF, 6 M & above, IM , (FluLaval or Fluzone) 03/02/2023,02/16/2020,03/24/2019,03/03 Seasonal Influenza, Quadriva lent Hd (Fluzone Hd) 03/24/2022 Seasonal Influenza, Quadriva lent Hd, 65+ Yrs 02/21/2021 Seasonal Influenza, Trivalen t, Adjuvanted, 65+ YRS, PF, (Fluad) 03/24/2019 TDAP (age 10 and older)(Boostrix) 03/26/2023,04/2013 Varicella Zoster Vaccine (Adult) 05/21/2010 Zoster Vaccine Recombinant (Shingrix) 03/22/2018 ,11/12/2017 documented as of this encounter Social History Tobacco Use Types Packs/Day Years Used Date Smoking Tobacco: Former Pipe 1 962 - 1964 Smokeless Tobacco: Never Comments:2 years pipe tobacc o Alcohol Use Standard Drinks/Week Comments Not Currently 0 (1 standard drink = 0.6 oz [...] Assigned at Male 11/15/2018 8:54 AM EDT Legal Sex Male 5:56 AM EST Gender Identity Male 11/15/2018 8:54 AM EDT Sexual Orientation Straight 11/15/2018 8: 54 AM EDT Occupation Industry Job Start Date Job End Date retired - [employer] Not on file Not on file Not on file [employer]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 [address] [place] [address] Hany Torres MD [address] [place] [address] 09/28/2024 10:30 AM EDT Office Visit Urology, [facility] [address] [place] [address] Wilfred Reilly MD [address] [place] [address] 11/15/2024 12:20 PM EDT Office Visit Pulmonary Medicine, [facility] [address] [place] [address] Vincent Brar MD [address] [place] [place] [id number] 11/23/2024 8:00 AM EDT Telemedicine Neurology In[address] [place] [phone] Lex Kahn MD [address], [place] [id number] 03/22/2025 9:20 AM EDT Office Visit General Internal Medicine [facility] [place] [address] [place] [address] Vahe Sahu MD [address] [facility] [place] [address] Pending Results Name Type Priority Associated Diagnoses Date /Time CT ABD/PELVIS WO IV/ORAL CONTRAST Medical Imaging Routine 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) Mixed hyperlipidemia 06/16/2024 2:37 PM EST Scheduled Procedures Name Priority Associated Diagnoses Date/Ti me COLONOSCOPY FLEXIBLE PROXIMA L DIAGNOSTIC Recall History of colonic polyps Health Maintenance Due Date Last Done Comments Adult Wellness Visit 2008 COVID-19 Vaccine ( season) 2024 08/09/2021, 05/18/2021, 08/09/2020, Additional history exists Depression Screening 03/25/2024 03/25/2023 Colonoscopy 04/17/2026 04/17/2021, 04/08, 02/20/2016, Additional history exists DTap/Tdap Vaccines (3 - Td or Tdap) 03/26/2033 03/26/2023, 11/16/2012 Zoster Vaccines Completed 03/22/2018, 12/2017, 05/21/2010 Pneumococcal Vaccine: 50+ Years Completed 08/03/2018, 10/23/2014, 05/09/2008 RETIRED - COLONOSCOPY-EVERY 5 YRS AGES 18-100 Discontinued 04/17/2021, 04/17/2021, 02/20/2016, Additional history exists Influenza Vaccine (FLU shot) Completed 03/08/2024, 03/02/2023, 03/02/2023, Additional history exists HPV (Gardasil) Vaccine Aged Out No lo nger eligible based on patient's age to complete this topic Hepatitis B Vaccine Aged Out No longe r eligible based on patient's age to complete this topic MENINGOCOCCAL (MENACTRA/MENVEO) Aged Out No longer eligible based on patient's age to complete this topic documented as of this encounter Medical Devices Implanted Type Area Marketing Representative Device Identifier Shelf Expiration Date Model / Serial / Lot Mesh Preshaped Large - [id number] Implanted:Qty: 1 on 06/15/2018 by Kevni Zee MD at OR [facility] Right: Groin CR BARD : DAVOL 07/05/2020 [id number] / / [id number] Description:13.7cm x 5.9cm Lens Intraoc 16.0 - [id number] - [id number] Implanted:Qty: 1 on 06/19/2020 by Sundeep Rodriguez MD at OR [facility] Left: Eye [employer] 12/05/2024 [id number] / [id number] / Lens Intraoc 15.5 - [id number] - [id number] Implanted:Qty: 1 on 06/26/2020 by Sundeep Rodriguez MD at OR [facility] Right: Eye BAUSCH [employer] LOMB 08/05/2024 [id number] / [id number] / [id number] documented as of this encounter Advance Directives * Full Code (Latest Code Status on File) Date Activated Date Inactivated Comments 07/01/2021 1:12 PM 07/01/2021 6:27 PM This order r eflects the patients wishes and were consensually agreed upon. * Full Code Date Activated Date Inactivated Comments 07/01/2021 11:53 AM 07/01/2021 1:12 PM This order reflects the patients wishes and were consensually agreed upon. * Full Code Date Activated Date Inactivated Comments 02/25/2021 8:38 AM 02/25/2021 2:14 PM This order r eflects the patients wishes and were consensually agreed upon. * Full Code Date Activated Date Inactivated Comments 02/25/2021 6:41 AM 02/25/2021 8:38 AM This order r eflects the patients wishes and were consensually agreed upon. * Full Code Date Activated Date Inactivated Comments 04/09/2018 11:45 AM 04/09/2018 6:40 PM This order reflects the patients wishes and were consensually agreed upon. Care Teams Lap Regulator Relationship Specialty Start Date End Date Vahe Sahu MD [address] [place] [place] [address] PCP - General Internal Medicine 03/22/24 documented as of this encounter
--- OUTSIDE RECORDS SUMMARY | 2024-07-30 12:07 | External Medical Summary | Summary of Care ---
Author Name Unknown Organization [facility] Address [address] [place] [address] Phone [phone] Care Team Providers Care Associate Theatre Professor Name Role Phone Vahe Sahu MD Primary Care Provider + Encounter Details Date Type Department Care Team (Late st Contact Info) Description 06/17/2024 Telephone Vascular Surg [facility] [address] [place], [place] [phone] Jamie Snider CRNP [address] [place] [address] Allergies Active Allergy Reactions Criticality Noted Date [...] 019 Active Additional Information Patient taking differently:2 [place] Each Nostril Daily(AM),Using as needed, Reported on [...] Active Apixaban 5 MG Oral Tablet (Eliquis)Indications:Ac [place] pulmonary embolism, unspecified pulmonary embolism type, unspecified whether acute cor pulmonale present (HCC) Take 1 Tablet by mouth in the [...] inhalation solution 2.5 mgIndications:ILD (interstitial lung disease) ([facility]) 2.5 mg NEBULIZER PRN 11/23/2023 Active Albuterol Sulfate (Proventil) (5 MG/ML) 0.5% *conc* inhalation solution 2.5 mgIndications:ILD (interstitial lung disease) ([facility]) 2.5 mg NEBULIZER PRN 11/23/2023 Active documented [...] Smoking Tobacco: Former Pipe 1 962 - 1963 Smokeless Tobacco: Never Comments:2 years pipe tobacc [...] Industry Job Start Date Job End Date [employer] [facility] [employer] Not on file Not on file Not on file [employer]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 Mcfarland is scheduled to be seen by Dr. Torres on 06/22 at [facility]. He is in need of BLE artduplex for surveillance of his L Pop aneurysm. Can we see about getting this completed prior to clinic visit at [facility]. Order placed. Norma Ayala documented in this encounter Plan of Treatment Upcoming Encounters Date Type Department Care Team (Late st Contact Info) Description 06/21/2024 1:00 PM EST Imaging Vascular Lab, [facility] II 2nd Floor, [place] [address] [facility] [place] [address] 06/22/2024 12:30 PM EST Office Visit Vascular Surgery, [facility] [address] [facility] [place] [address] Hany Torres MD [address] [place] [facility] [place] [address] 09/28/2024 10:30 AM EDT Office Visit Urology, [facility] [address] [facility] [place] [address] Wilfred Reilly MD [address] [place] [address] 11/15/2024 12:20 PM EDT Office Visit Pulmonary Medicine, [facility] [address] [facility] [place] [address] Vincent Brar MD [address] [place] [address] 11/23/2024 8:00 AM EDT Telemedicine Neurology Inderjit Munoz [address] [place], [place] [phone] Lex Kahn MD [address] [facility] [place] [id number] 03/22/2025 9:20 AM EDT Office Visit General Internal Medicine [facility] [address] [facility] [place] [address] Vahe Sahu MD [address] [facility] [place] [address] Scheduled Orders Name Type Priority Associated Diagnoses Orde r Schedule [facility] ART DUP BILAT LE Medical Imaging Routine Popliteal artery aneurysm (HCC) Ordered: 06/17/2024 Scheduled Procedures Name Priority Associated Diagnoses Date/Ti [...] this encounter Medical Devices Implanted Type Area Color Specialist Device Identifier Shelf Expiration Date Model / Serial / Lot Mesh Preshaped Large - [id number] Implanted:Qty: 1 on 06/15/2018 by Kevin Zee MD at OR [facility] Right: Groin CR BARD : DAVOL 07/05/2020 [id number] / / [id number] Description:13.7cm x 5.9cm Lens Intraoc 16.0 - [id number] - [id number] Implanted:Qty: 1 on 06/19/2020 by Sundeep Rodriguez MD at OR [facility] Left: Eye BAUSCH [employer] LOMB 12/05/2024 [id number] / [id number] / Lens Intraoc 15.5 - [id number] - [id number] Implanted:Qty: 1 on 06/26/2020 by Sundeep Rodriguez MD at OR [facility] Right: Eye BAUSCH & LOMB 08/05/2024 [id number] / [id number] / [id number] documented as of this encounter Visit Diagnoses Diagnosis 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 Care Teams Associate Theatre Professor Relationship Specialty Start Date End Date Vahe Sahu MD [address] [place] [address] PCP - General Internal Medicine 03/22/24 documented as of this encounter
--- OUTSIDE RECORDS SUMMARY | 2024-07-30 12:07 | External Medical Summary | Summary of Care ---
Author Name Unknown Organization [facility] Address [address] [place] [address] Phone [phone] Care Team Providers Care Vehicle Detailer Name Role Phone Vahe Sahu MD Primary Care Provider + Reason for Visit * Reason Onset Date Comments Test Results 03/25/2024 Encounter Details Date Type Department Care Team (Late st Contact Info) Description 03/25/2024 Telephone Urology [place] [address] [facility] [address] [place] [address] Wilfred Reilly MD [address] [place] [phone] Test Results Allergies Active Allergy Reactions Criticality Noted Date Comments Pollen Other (Please comment) 11/15/2018 Runny nose documented as of this encounter (statuses as of 05/13/2024) Medications MULTIVITAMINS PO CAPS 1 capsule daily 2013 Active aspirin enteric coated 81 MG TBECIndications:Ischem ic heart disease Take 2 tablets daily 30 Tab 5 2014 Active Additional Information Patient taking differently: 81 mg Oral Daily(AM), (No instructions reported), Reported on 04/19/2024 fluticasone (FLONASE) 50 MCG/ACT nasal sprayIndications:Runny nose Administer 2 Sprays into each nostril daily. 1 Bottle 3 2018 Active Additional Information Patient taking differently:2 [place] Each Nostril Daily(AM),Using as needed, Reported on 04/19/2024 Triamcinolone Acetonide 0.1 % Mouth/Throat Paste (Kenalog In Orabase) As needed 2021 Active Albuterol Sulfate HFA 108 (90 Base) MCG/ACT Inhalation Aerosol SolutionIndications:Br onchitis due to COVID-19 virus Inhale 2 Puffs by mouth every 4 hours as needed for Cough or Wheezing. 20.1 g 1 2023 Active Spacer/Aero-Holding Chambers DeviceIndications:Bron chitis due to COVID-19 virus Use with inhaler. 1 Each 2023 Active Apixaban 5 MG Oral Tablet (Eliquis)Indications:A cute pulmonary embolism, unspecified pulmonary embolism type, unspecified whether acute cor pulmonale present (HCC) Take 1 Tablet by mouth in the morning and 1 Tablet before bedtime. 180 Tablet 3 2023 Active Trospium Chloride ER 60 MG Oral Capsule Extended Release 24 Hour (Sanctura ER) TAKE 1 CAPSULE IN THE MORNING 90 Capsule 3 2023 Active Omeprazole 40 MG Oral Capsule Delayed Release (PriLOSEC)Indications: GERD (gastroesophageal reflux disease) TAKE 1 CAPSULE DAILY 90 Capsule 3 2023 Active Atorvastatin Calcium 40 MG Oral Tablet (Lipitor)Indications:P ure hypercholesterolemia Take 1 Tablet by mouth in the morning. 90 Tablet 3 05/03 Discontinued Hospital, Clinic, or Other Facility Administered Medication [...] as of this encounter (statuses as of 05/13/2024) Active Problems Problem Noted Date Diagnosed Date [...] as of this encounter (statuses as of 05/13/2024) Resolved Problems Problem Noted Date Diagnosed Date Resolved Date Thrombocytopenia 03/03/2018 11/18/2019 Right inguinal hernia 11/11/20172018 Pulmonary embolus 06/13/2013 11/10/2016 Dyslipidemia, goal to be determined 06/13/2013 08/05/2013 Edema 06/13/2013 11/15/2018 Lacunar infarction 8 documented as of this encounter (statuses as of 05/13/2024) Immunizations Name Administration Dates Next Due COVID-19 [...] Start Date Job End Date retired - [employer] Not on file Not on file Not on file [employer]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 Thanks, HM documented in this encounter Plan of Treatment Upcoming Encounters Date Type Department Care Team (Late st Contact Info) Description 06/13/2024 10:45 AM EST Appointment Radiology, [address] [address] 06/22/2024 12:30 PM EST Office Visit Vascular Surgery, [facility] [address] [facility] [place] [address] Hany Torres MD [address] [place] [address] 09/28/2024 10:30 AM EDT Office Visit Urology, [facility] [address] [facility] [place] [address] Wilfred Reilly MD [address] [place], [place] [address] [place] [address] 11/15/2024 12:20 PM EDT Office Visit Pulmonary Medicine, [facility] [address] [facility] [place] [address] Vincent Brar MD [address] [facility] [place] [address] 11/23/2024 8:00 AM EDT Telemedicine Neurology Inder[address] [place], [place] [phone] Lex Kahn MD [address] [facility] [place] [id number] 03/22/2025 9:20 AM EDT Office Visit General Internal Medicine [facility] [address] [place] [address] Vahe Sahu MD [address] [facility] [place] [address] Scheduled Procedures Name Priority Associated Diagnoses Date/Ti [...] Vaccine: 65+ Years Completed 08/03/2018, 10/23/2014, 05/09/2008 RETIRED - [...] this encounter Medical Devices Implanted Type Area White Goods Appliance Tech Device Identifier Shelf Expiration Date Model / Serial / Lot Mesh Preshaped Large - [id number] Implanted:Qty: 1 on 06/15/2018 by Kevin Zee MD at OR [facility] Right: Groin CR BARD : DAVOL 07/05/2020 [id number] / / [id number] Description:13.7cm x 5.9cm Lens Intraoc 16.0 - [id number] - [id number] Implanted:Qty: 1 on 06/19/2020 by Sundeep Rodriguez MD at OR [facility] Left: Eye BAUSCH & LOMB 12/05/2024 [id number] / [id number] / Lens Intraoc 15.5 - [id number] - [id number] Implanted:Qty: 1 on 06/26/2020 by Sundeep Rodriguez MD at OR [facility] Right: Eye BAUSCH & LOMB 08/05/2024 [id number] / [id number] / [id number] documented as of this encounter Advance Directives [...] and were consensually agreed upon. Care Teams Vehicle Detailer Relationship Specialty Start Date End Date Vahe Sahu MD 200 [facility], [place] [phone] PCP - General Internal Medicine 03/22/24 documented as of this encounter
--- OUTSIDE RECORDS SUMMARY | 2024-07-30 12:07 | External Medical Summary | Summary of Care ---
Author Name Unknown Organization [facility] Address [address] [place] [address] Phone [phone] Care Team Providers Care Edge Blacker Name Role Phone Vahe Sahu MD Primary Care Provider + Encounter Details Date Type Department Care Team (Late st Contact Info) Description 06/17/2024 Telephone Vascular Surg [facility] [address] [place], [place] [id number] Jamie Snider CRNP [address] [place] [address] Allergies Active Allergy Reactions Criticality [...] 019 Active Additional Information Patient taking differently:2 [place] Each Nostril Daily(AM),Using as needed, Reported on [...] inhalation solution 2.5 mgIndications:ILD (interstitial lung disease) ([facility]) 2.5 mg NEBULIZER PRN 11/23/2023 Active Albuterol Sulfate (Proventil) (5 MG/ML) 0.5% *conc* inhalation solution 2.5 mgIndications:ILD (interstitial lung disease) ([facility]) 2.5 mg NEBULIZER PRN 11/23/2023 Active documented [...] Industry Job Start Date Job End Date [facility] [employer] [employer] Not on file Not on file Not on file [employer]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 Mcfarland is scheduled to be seen by Dr. Torres on 06/22 at [facility]. He is in need of BLE artduplex for surveillance of his L Pop aneurysm. Can we see about getting this completed prior to clinic visit at [facility]. Order placed. Norma Ayala documented in this encounter Plan of Treatment Upcoming Encounters Date Type Department Care Team (Late st Contact Info) Description 06/21/2024 1:00 PM EST Imaging Vascular Lab, [facility] II 2nd Floor, [place] [address] [facility] [place] [address] 06/22/2024 12:30 PM EST Office Visit Vascular Surgery, [facility] [address] [facility] [place] [address] Hany Torres MD [address] [facility] [address] 09/28/2024 10:30 AM EDT Office Visit Urology, [facility] [address] [facility] [place] [address] Wilfred Reilly MD [address] [place] [address] 11/15/2024 12:20 PM EDT Office Visit Pulmonary Medicine, [facility] [address] [facility] [place] [address] Vincent Brar MD [address] [place] [address] 11/23/2024 8:00 AM EDT Telemedicine Neurology In[address]it [address] [place], [place] [id number] Lex Kahn MD [address] [facility] [place] [id number] 03/22/2025 9:20 AM EDT Office Visit General Internal Medicine [facility] [address] [facility] [place] [address] Vahe Sahu MD [address] [facility] [place] [address] Scheduled Orders Name Type Priority Associated Diagnoses Orde r Schedule VASC [place] ART DUP BILAT LE Medical Imaging Routine [...] Medical Devices Implanted Type Area Director Of Business Continuity Device Identifier Shelf Expiration Date Model / Serial / Lot Mesh Preshaped Large - [id number] Implanted:Qty: 1 on 06/15/2018 by Kevin Zee MD at OR [facility] Right: Groin CR BARD : DAVOL 07/05/2020 [id number] / / [id number] Description:13.7cm x 5.9cm Lens Intraoc 16.0 - [id number] - [id number] Implanted:Qty: 1 on 06/19/2020 by Sundeep Rodriguez MD at OR [facility] Left: Eye BAUSCH & LOMB 12/05/2024 [id number] / [id number] / Lens Intraoc 15.5 - [id number] - [id number] Implanted:Qty: 1 on 06/26/2020 by Sundeep Rodriguez MD at OR [facility] Right: Eye BAUSCH & LOMB 08/05/2024 [id number] / [id number] / [id number] documented as of this encounter Visit Diagnoses [...] and were consensually agreed upon. Care Teams Edge Blacker Relationship Specialty Start Date End Date Vahe Sahu MD [address] [place] [address] PCP - General Internal Medicine 03/22/24 documented as of this encounter
--- OUTSIDE RECORDS SUMMARY | 2024-07-30 12:07 | External Medical Summary | Summary of Care ---
Author Name Unknown Organization [facility] Address [address] [place] [address] Phone [phone] Care Team Providers Care Forepart Rasper Name Role Phone Vahe Sahu MD Primary Care Provider + Encounter Details Date Type Department Care Team (Late st Contact Info) Description 06/30/2024 Population Health External Data Unspecified Department Allergies Active Allergy Reactions Criticality Noted Date Comments Pollen Other (Please comment) 11/15/2018 Runny nose documented as of this encounter (statuses as of 06/30/2024) Medications MULTIVITAMINS PO CAPS 1 capsule daily 11/07 014 Active aspirin enteric coated 81 MG TBECIndications:Ischemi c heart disease Take 2 tablets daily 30 Tab 5 015 Active Additional Information Patient taking differently: 81 mg Oral Daily(AM), (No instructions reported), Reported on 06/22/2024 fluticasone (FLONASE) 50 MCG/ACT nasal sprayIndications:Runny nose Administer 2 Sprays into each nostril daily. 1 Bottle 3 019 Active Additional Information Patient taking differently:2 [place] Each Nostril Daily(AM),Using as needed, Reported on 06/22/2024 Triamcinolone Acetonide 0.1 % Mouth/Throat Paste (Kenalog In Orabase) As needed 08/18/2 022 Active Albuterol Sulfate HFA 108 (90 Base) MCG/ACT Inhalation Aerosol SolutionIndications:Bro nchitis due to COVID-19 virus Inhale 2 Puffs by mouth every 4 hours as needed for Cough or Wheezing. 20.1 g 1 024 Active Spacer/Aero-Holding Chambers DeviceIndications:Bronc hitis due to COVID-19 virus Use with inhaler. 1 Each 024 Active Apixaban 5 MG Oral Tablet (Eliquis)Indications:Ac [place] pulmonary embolism, unspecified pulmonary embolism type, unspecified [...] as of this encounter (statuses as of 06/30/2024) Active Problems Problem Noted Date Diagnosed Date [...] as of this encounter (statuses as of 06/30/2024) Resolved Problems Problem Noted Date Diagnosed Date Resolved Date Thrombocytopenia 03/03/2018 11/18/2019 Right inguinal hernia 11/11/20172018 Pulmonary embolus 06/13/2013 11/10/2016 Dyslipidemia, goal to be determined 06/13/2013 08/05/2013 Edema 06/13/2013 11/15/2018 Lacunar infarction 8 documented as of this encounter (statuses as of 06/30/2024) Immunizations Name Administration Dates Next Due COVID-19 [...] Industry Job Start Date Job End Date [employer] [facility] [facility] - [employer] Not on file Not on file Not on file [employer]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 [place] [address] Wilfred Reilly MD [address] [place] [address] 11/15/2024 12:20 PM EDT Office Visit Pulmonary Medicine, [facility] 132 [facility] [place] [address] Vincent Brar MD [address] [place] [address] 03/22/2025 9:20 AM EDT Office Visit General Internal Medicine [facility] 200 [facility] [place] [address] Vahe Sahu MD 200 [facility] [place] [address] Scheduled Procedures Name Priority Associated Diagnoses Date/Ti [...] this encounter Medical Devices Implanted Type Area Nail Specialist Device Identifier Shelf Expiration Date Model / Serial / Lot Mesh Preshaped Large - [id number] Implanted:Qty: 1 on 06/15/2018 by Kevin Zee MD at OR [facility] Right: Braden BANKS BARD : DAVOL 07/05/2020 [id number] / / [id number] Description:13.7cm x 5.9cm Lens Intraoc 16.0 - [id number] - [id number] Implanted:Qty: 1 on 06/19/2020 by Sundeep Rodriguez MD at OR [facility] Left: Eye BAUSCH & LOMB 12/05/2024 [id number] / [id number] / Lens Intraoc 15.5 - [id number] - [id number] Implanted:Qty: 1 on 06/26/2020 by Sundeep Rodriguez MD at OR [facility] Right: Eye BAUSCH & LOMB 08/05/2024 [id number] / [id number] / [id number] documented as of this encounter Advance Directives [...] and were consensually agreed upon. Care Teams Forepart Rasper Relationship Specialty Start Date End Date Vahe Sahu MD [address] [place] [address], [place] [id number] PCP - General Internal Medicine 03/22/24 documented as of this encounter
--- OUTSIDE RECORDS SUMMARY | 2024-07-30 12:07 | External Medical Summary | Summary of Care ---
Author Name Unknown Organization [facility] Address [address] [place] [address] Phone [phone] Care Team Providers Care Orthotic/Prosthetic Practitioner Name Role Phone Vahe Sahu MD Primary Care Provider + Reason for Visit * Reason Onset Date Comments Fax 04/07/2024 Encounter Details Date Type Department Care Team (Late st Contact Info) Description 04/07/2024 Telephone General Internal Medicine [facility] [address] [place] [address] Vahe Sahu MD [address] [place] [address] Fax Allergies Active Allergy Reactions Criticality Noted Date Comments Pollen Other (Please comment) 11/15/2018 Runny nose documented as of this encounter (statuses as of 07/08/2024) Medications MULTIVITAMINS PO CAPS 1 capsule daily 4 Active aspirin enteric coated 81 MG TBECIndications :Ischemic heart disease Take 2 tablets daily 30 Tab 5 5 Active Additional Information Patient taking differently: 81 mg Oral Daily(AM), (No instructions reported), Reported on 06/22/2024 fluticasone (FLONASE) 50 MCG/ACT nasal sprayIndication s:Runny nose Administer 2 Sprays into each nostril daily. 1 Bottle 3 9 Active Additional Information Patient taking differently:2 [place] Each Nostril Daily(AM),Using as needed, Reported on 06/22/2024 Triamcinolone Acetonide 0.1 % Mouth/Throat Paste (Kenalog In Orabase) As needed 2 Active Albuterol Sulfate HFA 108 (90 Base) MCG/ACT Inhalation Aerosol SolutionIndicat ions:Bronchitis due to COVID-19 virus Inhale 2 Puffs by mouth every 4 hours as needed for Cough or Wheezing. 20.1 g 1 4 Active Spacer/Aero-Hol ding Chambers DeviceIndicatio ns:Bronchitis due to COVID-19 virus Use with inhaler. 1 Each 4 Active Apixaban 5 MG Oral Tablet (Eliquis)Indica tions:Acute pulmonary embolism, unspecified pulmonary embolism type, unspecified whether acute cor pulmonale present (HCC) Take 1 Tablet by mouth in the morning and 1 Tablet before bedtime. 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 [...] as of this encounter (statuses as of 07/08/2024) Resolved Problems Problem Noted Date Diagnosed Date Resolved Date Thrombocytopenia 03/03/2018 11/18/2019 Right inguinal hernia 11/11/20172018 Pulmonary embolus 06/13/2013 11/10/2016 Dyslipidemia, goal to be determined 06/13/2013 08/05/2013 Edema 06/13/2013 11/15/2018 Lacunar infarction 8 documented as of this encounter (statuses as of 07/08/2024) Immunizations Name Administration Dates Next Due COVID-19 [...] Industry Job Start Date Job End Date [facility] [employer] Not on file Not on file Not on file [employer]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 file Not o n file documented as of this encounter Miscellaneous Notes * Telephone Encounter - MiguelSeptember, - 04/07/2024 11:59 AM EDT Caller requesting the following information to be faxed: Name/Company of caller: [employer] Information requested to be faxed: Hysical Therapy referral Fax number: [phone] Attention to Name/Company: [employer] Any additional information?: pt was already seeing on 04.05.24 documented in this encounter Plan of Treatment Upcoming Encounters Date Type Department Care Team (Late st Contact Info) Description 09/28/2024 10:30 AM EDT Office Visit Urology, [facility] 132 [facility] [address] Wilfred Reilly MD [address] [place] [address] 11/15/2024 12:20 PM EDT Office Visit Pulmonary Medicine, [facility] 132 [facility] [place] [address] Vincent Brar MD [address] [place] [address] 03/22/2025 9:20 AM EDT Office Visit General Internal Medicine [facility] 200 [place] [address] Vahe Sahu MD 200 [facility] [place] [address] Scheduled Procedures Name Priority Associated Diagnoses Date/Ti [...] this encounter Medical Devices Implanted Type Area Stone Polisher Device Identifier Shelf Expiration Date Model / Serial / Lot Mesh Preshaped Large - [id number] Implanted:Qty: 1 on 06/15/2018 by Kevin Zee MD at OR [facility] Right: Groin CR BARD : DAVOL 07/05/2020 [id number] / / [id number] Description:13.7cm x 5.9cm Lens Intraoc 16.0 - [id number] - [id number] Implanted:Qty: 1 on 06/19/2020 by Sundeep Rodriguez MD at OR [facility] Left: Eye BAUSCH & LOMB 12/05/2024 [id number] / [id number] / Lens Intraoc 15.5 - [id number] - [id number] Implanted:Qty: 1 on 06/26/2020 by Sundeep Rodriguez MD at OR [facility] Right: Eye BAUSCH & LOMB 08/05/2024 [id number] / [id number] / [id number] documented as of this encounter Advance Directives [...] and were consensually agreed upon. Care Teams Orthotic/Prosthetic Practitioner Relationship Specialty Start Date End Date Vahe Sahu MD [address] [place] [address], [place] [address] PCP - General Internal Medicine 03/22/24 documented as of this encounter
--- OUTSIDE RECORDS SUMMARY | 2024-07-30 12:07 | External Medical Summary | Summary of Care ---
Author Name Unknown Organization [facility] Address [address] [place] [address] Phone [phone] Care Team Providers Care Continuous Miner Operator Helper Name Role Phone Vahe Sauh MD Primary Care Provider + Reason for Visit * Reason Onset Date Comments ST[facility]IR [facility] 07/18/2024 Encounter Details Date Type Department Care Team (Late st Contact Info) Description 07/18/2024 Telephone [facility] [address] [place] [address] Program, Stair [address] [place] [address] [facility] Allergies Active Allergy Reactions Criticality Noted Date Comments Pollen Other (Please comment) 11/15/2018 Runny nose documented as of this encounter (statuses as of 07/18/2024) Medications MULTIVITAMINS PO CAPS 1 capsule daily [...] 019 Active Additional Information Patient taking differently:2 [place] Each Nostril Daily(AM),Using as needed, Reported on [...] as of this encounter (statuses as of 07/18/2024) Active Problems Problem Noted Date Diagnosed Date [...] as of this encounter (statuses as of 07/18/2024) Resolved Problems Problem Noted Date Diagnosed Date Resolved Date Thrombocytopenia 03/03/2018 11/18/2019 Right inguinal hernia 11/11/20172018 Pulmonary embolus 06/13/2013 11/10/2016 Dyslipidemia, goal to be determined 06/13/2013 08/05/2013 Edema 06/13/2013 11/15/2018 Lacunar infarction 8 documented as of this encounter (statuses as of 07/18/2024) Immunizations Name Administration Dates Next Due COVID-19 [...] Used Date Smoking Tobacco: Former Pipe 1 96 - 1963 Smokeless Tobacco: Never Comments:2 years [...] Industry Job Start Date Job End Date [facility] [employer] Not on file Not on file Not on file [employer]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 Patient was seen by vascular surgery last month. Next clinic visit with testing prior is due in one year. Will continue to track. Time spent: 10 minutes Barbara Bae LPN Coordinator LIZA (System to Track Abnormalities of Importance Reliably) CT ABD/PELVIS WO IV/ORAL CONTRAST 06/16/2024 Narrative EXAM EXAM: CT ABD/PELVIS WO IV/ORAL CONTRAST DATE and TIME: 06/16/2024 2:37 pm HISTORY CLINICAL INFORMATION: AAA surveillance TECHNIQUE CT examination of the abdomen and pelvis was performed without IV contrast. COMPARISON Prior CT examination dated March 15, 2024 FINDINGS LINES AND DEVICES: None LOWER CHEST: HEART: Normal size. Coronary artery calcifications and aortic valvular calcifications apparent. No pericardial fluid. LUNG BASES: Essentially clear with no significant infiltrates or effusions. ABDOMEN/PELVIS: LIVER: Unchanged from prior exam. BILE DUCTS: Unremarkable GALLBLADDER: Unremarkable PANCREAS: Unremarkable SPLEEN: Unremarkable ADRENALS: Unremarkable KIDNEYS/URETERS: Stable appearance of multiple bilateral renal cysts with very large septated cyst arising from the right kidney appearing essentially unchanged. BLADDER: Grossly unremarkable. BOWEL: Unremarkable LYMPH NODES: No significant adenopathy identified in the abdomen or pelvis. 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 Extensive atherosclerotic vascular calcifications again apparent. REPRODUCTIVE ORGANS: Unremarkable PERITONEUM/RETROPERITONEUM: Unremarkable ABDOMINAL WALL/SOFT TISSUES: Unremarkable BONES: Degenerative changes. No acute osseous abnormalities identified. Impression IMPRESSION 1. 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 2. 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 3. Other findings and limitations are discussed above. Clinical correlation required. documented in this encounter Plan of Treatment Upcoming Encounters Date Type Department Care Team (Late st Contact Info) Description 09/28/2024 10:30 AM EDT Office Visit Urology, [facility] 132 [facility] [place] [address] Wilfred Reilly MD [address] [place] [address] 12/06/2024 11:30 AM EDT Office Visit Pulmonary Medicine, [facility] [address] [facility] [place] [address] Vincent Brar MD [address] [place] [id number] 03/22/2025 9:20 AM EDT Office Visit General Internal Medicine [facility] 200 [facility] [place] [address] Vahe Sahu MD 200 [place] [address] Scheduled Procedures Name Priority Associated Diagnoses Date/Ti [...] this encounter Medical Devices Implanted Type Area Tray Setter Device Identifier Shelf Expiration Date Model / Serial / Lot Mesh Preshaped Large - [id number] Implanted:Qty: 1 on 06/15/2018 by Kevin Zee MD at OR [facility] Right: Groin CR BARD : DAVOL 07/05/2020 [id number] / / [id number] Description:13.7cm x 5.9cm Lens Intraoc 16.0 - [id number] - [id number] Implanted:Qty: 1 on 06/19/2020 by Sundeep Rodriguez MD at OR [facility] Left: Eye BAUSCH & LOMB 12/05/2024 [id number] / [id number] / Lens Intraoc 15.5 - [id number] - [id number] Implanted:Qty: 1 on 06/26/2020 by Sundeep Rodriguez MD at OR [facility] Right: Eye BAUSCH & LOMB 08/05/2024 [id number] / [id number] / [id number] documented as of this encounter Advance Directives [...] and were consensually agreed upon. Care Teams Continuous Miner Operator Helper Relationship Specialty Start Date End Date Vahe Sahu MD 200 [place] [address] PCP - General Internal Medicine 03/22/24 documented as of this encounter
--- OUTSIDE RECORDS SUMMARY | 2024-07-30 12:07 | External Medical Summary | Summary of Care ---
Author Name Unknown Organization [facility] Address [address] [place] [address] Phone [phone] Care Team Providers Care Plow Holder Name Role Phone Vahe Sahu MD Primary Care Provider + Reason for Visit * Reason Comments Follow Up * Evaluate & Treat - Unlimited Visits (Within 30 days (routine)) - Authorized Specialty Diagnoses / Procedures Referred By Contact Referred To Contact Vascular Surgery / Cardiovascular Surgery Diagnoses Aneurysm of right iliac artery (HCC) Vahe Sahu MD [address] [place] [address] Phone: tel: fax: Referral ID Status Reason Start Date Expiration Date Visits Requested Visits Authorized [id number] Authorized Specialty Services Required [phone] Encounter Details Date Type Department Care Team (Latest Contact Info) Description 06/22/2024 12:30 PM EST Office Visit Vascular Surgery, [facility] [address] [place] [address] Hany Torres MD [address] [place] [address] 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)*; Popliteal aneurysm (HCC); ILD (interstitial lung disease) (HCC); Transitional cell carcinoma of prostate (HCC); Mixed hyperlipidemia; History of lacunar cerebrovascular accident; History of pulmonary embolism Allergies Active Allergy Reactions Criticality Noted Date Comments Pollen Other (Please comment) 11/15/2018 Runny nose documented as of this encounter (statuses as of 06/22/2024) Medications MULTIVITAMINS PO CAPS 1 capsule daily [...] 019 Active Additional Information Patient taking differently:2 Ecru Each Nostril Daily(AM),Using as needed, Reported on [...] Active Apixaban 5 MG Oral Tablet (Eliquis)Indications:Ac telida pulmonary embolism, unspecified pulmonary embolism type, unspecified [...] as of this encounter (statuses as of 06/22/2024) Active Problems Problem Noted Date Diagnosed Date [...] as of this encounter (statuses as of 06/22/2024) Resolved Problems Problem Noted Date Diagnosed Date Resolved Date Thrombocytopenia 03/03/2018 11/18/2019 Right inguinal hernia 11/11/20172018 Pulmonary embolus 06/13/2013 11/10/2016 Dyslipidemia, goal to be determined 06/13/2013 08/05/2013 Edema 06/13/2013 11/15/2018 Lacunar infarction 8 documented as of this encounter (statuses as of 06/22/2024) Immunizations Name Administration Dates Next Due COVID-19 [...] 1 962 - 1964 Smokeless Tobacco: Never Tobacco Cessation:Counseling Given: No Comments:2 years pipe tobacco Alcohol Use Standard Drinks/Week Comments Not Currently [...] Start Date Job End Date retired - [employer] Not on file Not on file Not on file [employer]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 Patient being seen in consultation at the request of Vahe Sahu MD Chief Complaint: Mr. Mcfarland returns to clinic for routine surveillance of AAA & left popliteal aneurysm Accompanied by spouse. Hospitalized on 09/25/2023 . He was found to have bilateral smaller branch arterial PE and left leg DVT. Established on anticoagulation. Presented to ER 04/07/24 for severe headache as well as some expressive aphasia. Was doing lawn clean up 04/05, loud noise (used protection) and severe vibration on tractor. CT obtained which demonstrated moderate focal stenosis at the origin of the left vertebral artery and < 50% bilateral carotid stenosis. HPI: Long time reformed smoker, referred 2022 for AAA ABDOMINAL AORTIC AND POPLITEAL ARTERY ANEURYSM: Patient denies any symptoms related to aneurysms. Patient denies new abdominal pain, flank pain and back pain. Patient denies any LLE claudication or embolic symptoms. FAMILY HISTORY: No family history of aortic aneurysms. Current Outpatient Medications Medication Sig Dispense Refill MULTIVITAMINS PO CAPS 1 capsule daily aspirin enteric coated 81 MG TBEC Take 2 tablets daily (Patient taking differently: Take 1 Tablet by mouth in the morning.) 30 Tab 5 fluticasone (FLONASE) 50 MCG/ACT nasal spray Administer 2 Sprays into each nostril daily. (Patient taking differently: Administer 2 Sprays into each nostril in the morning. Using as needed.) 1 Bottle3 Triamcinolone Acetonide 0.1 % Mouth/Throat Paste (Kenalog In Orabase) As needed Albuterol Sulfate HFA 108 (90 Base) MCG/ACT Inhalation Aerosol Solution Inhale 2 Puffs by mouth every 4 hours as needed for Cough or Wheezing. 20.1 g 1 Spacer/Aero-Holding Chambers Device Use with inhaler. 1 Each 0 Apixaban 5 MG Oral Tablet (Eliquis) Take 1 Tablet by mouth in the morning and 1 Tablet before bedtime. 180 Tablet 3 Trospium Chloride ER 60 MG Oral Capsule Extended Release 24 Hour (Sanctura ER) TAKE 1 CAPSULE IN THE MORNING 90 Capsule 3 Omeprazole 40 MG Oral Capsule Delayed Release (PriLOSEC) TAKE 1 CAPSULE DAILY 90 Capsule 3 Atorvastatin Calcium 40 MG Oral Tablet (Lipitor) TAKE 1 TABLET IN THE MORNING 90 Tablet 3 Current Facility-Administered Medications Medication Dose Route Frequency Provider Last Rate Last Admin Albuterol Sulfate (Proventil) (2.5 MG/3ML) 0.083% inhalation solution 2.5 mg 2.5 mg Nebulizer PRN 2.5 mg at 11/26/23 1014 Albuterol Sulfate (Proventil) (5 MG/ML) 0.5% *conc* inhalation solution 2.5 mg 2.5 mg Nebulizer PRN Review of patient's allergies indicates: Allergen Reactions Pollen Other (Please comment) Runny nose Patient Active Problem List Diagnosis Ischemic heart disease Hyperlipidemia GERD (gastroesophageal reflux disease) History of lacunar cerebrovascular accident Abdominal aortic aneurysm (AAA) without rupture (HCC) 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 S/P right inguinal hernia repair History of pulmonary embolism ILD (interstitial lung disease) (HCC) History of kidney stones 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) Malignant neoplasm of prostate (HCC) Complex renal cyst Popliteal aneurysm (HCC) Past Medical History: Diagnosis Date DVT (deep [...] performed by Maged Rubio MD at ENDOSCOPY [facility] COLONOSCOPY, DIAGNOSTIC (RECTUM) 04/17/2021 adenomatous polyp, diverticulosis, repeat 5 yrs / COLONOSCOPY FLEXIBLE PROXIMAL DIAGNOSTIC performed by Linda Britt MD at ENDOSCOPY [facility] CYSTO/URETERO W/LITHOTRIPSY Left 04/04/2015 CYSTO/URETERO W/LITHOTRIPSY Left 04/09/2018 CYSTOURETHROSCOPY URETEROSCOPY WITH LITHOTRIPSY AND STENT INSERTION performed by Katherine Eli MD at OR [facility] CYSTOSCOPY/TREAT MINOR LESION(S) N/A 02/25/2021 CYSTOURETHROSCOPY WITH FULGURATION MINOR BLADDER TUMOR performed by Wilfred Reilly MD at [facility] CYSTOSCOPY/TREAT MINOR LESION(S) N/A 07/01/2021 CYSTOURETHROSCOPY WITH FULGURATION MINOR BLADDER TUMOR performed by Wilfred Reilly MD at [facility] REMOVAL OF KNEE CARTILAGE 1971 left REMOVAL OF PROSTATE (TURP) N/A 02/25/2021 TRANSURETHRAL RESECTION PROSTATE ELECTROSURGICAL performed by Wilfred Reilly MD at [facility] REMOVAL OF PROSTATE (TURP) N/A 07/01/2021 TRANSURETHRAL RESECTION PROSTATE ELECTROSURGICAL performed by Wilfred Reilly MD at [facility] REMOVE CATARACT, INSERT LENS PROSTH Left 06/19/2020 LEFT EXTRACAPSULAR CATARACT REMOVAL WITH INTRAOCULAR LENS performed by Sundeep Rodriguez MD at [facility] REMOVE CATARACT, INSERT LENS PROSTH Right 06/26/2020 RIGHT EXTRACAPSULAR CATARACT REMOVAL WITH INTRAOCULAR LENS performed by Sundeep Rodriguez MD at [facility] REPAIR INITIAL INGUINAL HERNIA REDUCIBLE AGE 5 OR MORE Right 06/15/2018 06/15/2018 REPAIR INITIAL INGUINAL HERNIA REDUCIBLE AGE 5 OR MORE performed by Kevin Zee MD at OR [facility] Family History Problem Relation Name Age of Onset Heart Disorder Mother Sabrina Owusu [place] Heart attack Mother Sabrina Owusu Cancer Father Zurdo Mcfarland Sr. 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 Tobacco Use Smoking status: Former Types: Pipe Start date: 1961 Quit date: 1963 Years since quittin.0 Smokeless tobacco: Never Tobacco comments: 2 years pipe tobacco Vaping Use Vaping status: Never Used Substance and Sexual Activity Alcohol use: Not Currently Comment: Occasional/social Drug use: No Sexual activity: Not Currently Other Topics Concern Not on file Social History Narrative One dog and 2 cats No mold [place] 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 Pulm: ILD, followed by Pulm Med. No FITCH. No need for supplemental O2. Remote DVT & PE w/ chronic swelling both legs, left more than right. Dedicated user of compression stockings. : H/O both bladder and prostate CA Neurological: Negative for TIA, amaurosis fugax. Yes for stroke GENERAL MULTI-SYSTEM PHYSICAL EXAM: VITAL SIGNS: BP 128/74 (BP Site: Left Arm, BP Position: Sitting, BP Cuff Size: Regular) | Pulse 80 | Wt 88.5 kg (195 lb) | BMI 27.98 kg/m | BSA 2.09 m GENERAL MULTI-SYSTEM PHYSICAL EXAM: GENERAL: Normal grooming habits, no acute distress and appears stated age. NECK: No masses. RESPIRATORY: respiratory effort normal and breath sounds [...] 3=Normal; 2=Diminished; 1=Barely Palpable; 0=Absent DIAGNOSTIC STUDIES: 06/21/2024 BLE Art Duplex: R DISTRICT SALES LEADER 1.3 cm, R pop 1.1 cm, L DISTRICT SALES LEADER 1.4 cm and L Pop 2.4 cm. Date: 06/16/2024; Location of Study: [facility]; Modality: CT w/o contrast; bilobed AAA measures 3.5 cm in greatest transverse dimension with inferiorly adjacent saccular degeneration of posterior wall (diameter 3.1 cm, width 2.2 cm, depth 9.8 mm). Distal R BRANDO with 2.4 cm aneurysm and proximal R IIA 3 cm. The above diagnostic images were directly visualized and independently interpreted by me on 06/22/2024 with results as above 09/15/23 Abd Aor Duplex: 3.5 cm AAA (mid aorta), CIAs 1.4 cm 09/15/23 BLE Art Duplex: RCFA 1.4 cm, R Pop 1.3 cm, LCFA 1.4 cm, L Pop 2.3 cm 08/26/22 Abd Aortic Duplex: AAA 3.2 cm, [...] Results Component Value Date/Time CREATININE - [facility] 1.0 04/19/2024 10:02 AM CREATININE - [facility] 1.0 03/22/2024 11:01 AM CREATININE - [facility] 1.0 03/15/2024 09:58 AM CREATININE - [facility] 0.9 09/20/2020 12:00 AM CREATININE - [facility] 0.9 11/18/2019 09:33 AM CREATININE - [facility] 0.9 11/15/2018 09:34 AM CREATININE - [facility] 1.1 05/20/2018 04:19 PM Lab Results Component Value Date/Time LDL (CALCULATED)-OUTSIDE LAB 82 09/20/2020 12:00 AM LDL CHOLESTEROL (CALCULATED) - [facility] 74 03/22/2024 11:01 AM LDL CHOLESTEROL (CALCULATED) - [facility] 61 11/18/2019 09:33 AM LDL CHOLESTEROL (DIRECT MEASURE) - [facility] NOT APPLICABLE 11/18/2019 09:33 AM Hemoglobin Results: Lab Results Component Value Date/Time HGB 15.0 10/12/2023 09:25 AM HGB 15.9 06/25/2023 08:35 AM HGB 15.8 03/26/2023 09:37 AM HGB 16.4 09/20/2020 12:00 AM HGB 15.7 06/11/2020 02:20 PM HGB 16.1 11/18/2019 09:33 AM HGB 16.0 05/23/2019 11:10 AM Hemoglobin AIC Results: No results found for: "HEMOGLOBIN A1C" The above clinical labs were reviewed by me on 06/22/2024. IMPRESSIONS: Sable bilobed 3.5 cm AAA, asymptomatic AAA.Remains under threshold for surgery; ~5.5 cm for men Asymptomatic distal 2.4 cm R BRANDO and proximal R IIA 3 cm aneurysm by 06/16/2024 CT w/o contrast. 2.4 cm asymptomatic L pop aneurysm. Less than 50% B/L carotid stenosis, on 2019 duplex Dyslipidemia, on statin. Reformed smoker. ILD, following up with Pulm Med 09/09/22. No supplemental O2. H/O DVT left leg & PE 2010 and again 2023, on Eliquis. H/O lacunar stroke H/O R TKA H/O bladder CA H/O prostate CA, S/P TURP Thrombocytopenia PLAN: The patient was counseled regarding the pathophysiology and natural history of aneurysms, as well as the signs of rupture/occlusion/embolization and the need to initiate emergency medical attention in that situation. AAA & iliac aneurysms remain relatively stable in size, below threshold for surgery. Continue continue medical management and routine surveillance. The patient was counseled regarding the pathophysiology and the natural history of venous insufficiency, as well as the interventional and noninterventional treatment options including 20 - 30 mm knee high compression stockings, leg elevation, and a regular walking program. Continue ASA 81 mg for platelet inhibition On Eliquis for recurrent DVT/PE. Continue Lipitor 40 mg for HLD and pleiotropic effects. F/U in [address] Torres at [facility], or sooner prn. Will need aortic duplex and BLE art duplex completed at [facility] 1 week prior to clinic visit. The patient was seen and examined with Richie Torres MD. Randell Sandhu, HEALTH EDUCATION DIRECTOR Section of Vascular and [place] [address] [phone] I have reviewed the advanced practitioner's documentation on the date of service referenced in note, and I agree with, and take responsibility for the plan of care. Mr. Mcfarland is a pleasant 82 yo gentleman returns for surveillance of small AAA and L Popliteal aneurysm. The aorta is heavily diseased with a LORETO in the mid infrarenal aorta with saccular outpouching posteriorly. Fortunately its size and morphology haven't changed. The L popliteal artery has grown slightly. He has palpable pedal pulses and no IC or tissue loss. He is on asa 81 mg and Eliquis (DVT/PE) 06/21/2024 BLE Art Duplex: R DISTRICT SALES LEADER 1.3 cm, R pop 1.1 cm, L DISTRICT SALES LEADER 1.4 cm and L Pop 2.4 cm. Date: 06/16/2024; Location of Study: [facility]; Modality: CT w/o contrast; bilobed AAA measures 3.5 cm in greatest transverse dimension with inferiorly adjacent saccular degeneration of posterior wall (diameter 3.1 cm, width 2.2 cm, depth 9.8 mm). Distal R BRANDO with 2.4 cm aneurysm and proximal R IIA 3 cm. 09/15/23 Abd Aor Duplex: 3.5 cm AAA [...] MD Vascular Surgeon Department of Vascular Surgery [facility] documented in this encounter Nursing Notes * Yessica Godinez CMA - 06/22/2024 12:24 PM EST Reviewed the option of transferring scripts to [facility] pharmacy with patient and / or family. Patient stated no change in medications, Yessica Godinez CMA documented in this encounter Plan of Treatment Upcoming Encounters Date Type Department Care Team (Late st Contact Info) Description 09/28/2024 10:30 AM EDT Office Visit Urology, [facility] [address] [place] [address] Wilfred Reilly MD [address] [place] [address] 11/15/2024 12:20 PM EDT Office Visit Pulmonary Medicine, [facility] [address] [facility] [place] [address] Vincent Brar MD [address] [place] [facility] [place] [address] 11/23/2024 8:00 AM EDT Telemedicine Neurology [address] [place] [address] Lex Kahn MD [address] 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) Expected: 06/22/2025 (Approximate), Expires: 07/23/2026 VASC OHOGAMIUT ART DUP BILAT LE Medical Imaging Routine Popliteal aneurysm (HCC) Expected: 06/22/2025 (Approximate), Expires: 07/23/2026 Scheduled Procedures Name Priority Associated Diagnoses Date/Ti [...] this encounter Medical Devices Implanted Type Area Therapy Technician Device Identifier Shelf Expiration Date Model / Serial / Lot Mesh Preshaped Large - [id number] Implanted:Qty: 1 on 06/15/2018 by Kevin Zee MD at OR [facility] Right: Groin CR BARD : DAVOL 07/05/2020 [id number] / / [id number] Description:13.7cm x 5.9cm Lens Intraoc 16.0 - [id number] - [id number] Implanted:Qty: 1 on 06/19/2020 by Sundeep Rodriguez MD at OR [facility] Left: Eye BAUSCH & LOMB 12/05/2024 [id number] / [id number] / Lens Intraoc 15.5 - [id number] - [id number] Implanted:Qty: 1 on 06/26/2020 by Sundeep Rodriguez MD at OR [facility] Right: Eye BAUSCH & LOMB 08/05/2024 [id number] / [id number] / [id number] documented as of this encounter Visit Diagnoses Diagnosis 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 Care Teams Plow Holder Relationship Specialty Start Date End Date Vahe Sahu MD [address] [facility], [place] [address] PCP - General Internal Medicine 03/22/24 documented as of this encounter
--- OUTSIDE RECORDS SUMMARY | 2024-07-30 12:07 | External Medical Summary | Summary of Care ---
Author Name Unknown Organization [facility] Address [address] [place] [address] Phone [phone] Care Team Providers Care Technician Automated Equipment Name Role Phone Vahe Hoang MD Primary Care Provider + Reason for Visit * Reason Comments eRx-Medication Refill Encounter Details Date Type Department Care Team (Late st Contact Info) Description 05/02/2024 Refill General Internal Medicine [facility] [address] [facility] [place] [address] Vahe Hoang MD [address] [place] [address] Pure hypercholesterolemia Allergies Active Allergy Reactions Criticality Noted Date Comments Pollen Other (Please comment) 11/15/2018 Runny nose documented as of this encounter (statuses as of 05/03/2024) Medications MULTIVITAMINS PO CAPS 1 capsule daily [...] 2018 Active Additional Information Patient taking differently:2 [place] Each Nostril Daily(AM),Using as needed, Reported on [...] 40 MG Oral Tablet (Lipitor)Indications:P ure hypercholesterolemia TAKE 1 TABLET IN THE MORNING 90 Tablet 3 2023 Active Atorvastatin Calcium 40 MG Oral Tablet (Lipitor)Indications:P ure hypercholesterolemia Take 1 Tablet by mouth in the morning. 90 Tablet 3 05/03 Discontinued Hospital, Clinic, or Other Facility Administered Medication Ordered Dose Route Frequency Start Date End Date Status Albuterol Sulfate (Proventil) (2.5 MG/3ML) 0.083% inhalation solution 2.5 mgIndications:ILD (interstitial lung disease) ([facility]) 2.5 mg NEBULIZER PRN 11/23/2023 Active Albuterol Sulfate (Proventil) (5 MG/ML) 0.5% *conc* inhalation solution 2.5 mgIndications:ILD (interstitial lung disease) ([facility]) 2.5 mg NEBULIZER PRN 11/23/2023 Active documented as of this encounter (statuses as of 05/03/2024) Active Problems Problem Noted Date Diagnosed Date [...] as of this encounter (statuses as of 05/03/2024) Resolved Problems Problem Noted Date Diagnosed Date Resolved Date Thrombocytopenia 03/03/2018 11/18/2019 Right inguinal hernia 11/11/20172018 Pulmonary embolus 06/13/2013 11/10/2016 Dyslipidemia, goal to be determined 06/13/2013 08/05/2013 Edema 06/13/2013 11/15/2018 Lacunar infarction 8 documented as of this encounter (statuses as of 05/03/2024) Immunizations Name Administration Dates Next Due COVID-19 [...] Industry Job Start Date Job End Date [employer] Not on file Not on file Not on file [employer]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 file Not o n file documented as of this encounter Miscellaneous Notes * Telephone Encounter - Ernie Puri, [facility] - 05/03/2024 9:51 AM EST Signed Prescriptions: Disp Refills Atorvastatin Calcium 40 MG Oral Tablet (Li*90 Tab*3 Sig: TAKE 1 TABLET IN THE MORNINGAuthorizing Provider: VAHE HOANG User: ERNIE PURI documented in this encounter Plan of Treatment Upcoming Encounters Date Type Department Care Team (Late st Contact Info) Description 06/22/2024 12:30 PM EST Office Visit Vascular Surgery, [facility] [address] [place] [address] Hany Torres MD [address] [place] [address] 09/28/2024 10:30 AM EDT Office Visit Urology, [facility] [address] [place] [address] Wilfred Reilly MD [address] [place] [address] 11/15/2024 12:20 PM EDT Office Visit Pulmonary Medicine, [facility] [address] [place] [address] Vincent Brar MD [address] [place], [place] [id number] 11/23/2024 8:00 AM EDT Telemedicine Neurology [address] [place] [address] Lex Kahn MD [address] [place] [address] 03/22/2025 9:20 AM EDT Office Visit General Internal Medicine [facility] [place] [address] [facility] [place] [address] Vahe Hoang MD [address] [facility] [place] [address] Scheduled Procedures Name Priority Associated Diagnoses Date/Ti [...] this encounter Medical Devices Implanted Type Area Manager It Security Device Identifier Shelf Expiration Date Model / Serial / Lot Mesh Preshaped Large - [id number] Implanted:Qty: 1 on 06/15/2018 by Kevin Zee MD at OR [facility] Right: Groin CR BARD : DAVOL 07/05/2020 [id number] / / [id number] Description:13.7cm x 5.9cm Lens Intraoc 16.0 - [id number] - [id number] Implanted:Qty: 1 on 06/19/2020 by Sundeep Rodriguez MD at OR [facility] Left: Eye BAUSCH & LOMB 12/05/2024 [id number] / [id number] / Lens Intraoc 15.5 - [id number] - [id number] Implanted:Qty: 1 on 06/26/2020 by Sundeep Rodriguez MD at OR [facility] Right: Eye BAUSCH & LOMB 08/05/2024 [id number] / [id number] / [id number] documented as of this encounter Visit Diagnoses Diagnosis Pure hypercholesterolemia documented in this encounter Advance Directives * [...] and were consensually agreed upon. Care Teams Technician Automated Equipment Relationship Specialty Start Date End Date Vahe Hoang MD [address] [facility] [place] [place] [address] PCP - General Internal Medicine 03/22/24 documented as of this encounter
--- OUTSIDE RECORDS SUMMARY | 2024-07-30 12:08 | External Medical Summary | Summary of Care ---
Author Name Unknown Organization [facility] Address [address] [place] [address] Phone [phone] Care Team Providers Care Molder Name Role Phone Vahe Sahu MD Primary Care Provider + Encounter Details Date Type Department Care Team (Late st Contact Info) Description 04/25/2024 Orders Only Outcomes Research Department [address], [place] [id number] Amy Simon CHRA MyCode Research Other*[id number] Allergies Active Allergy Reactions Criticality Noted Date Comments Pollen Other (Please comment) 11/15/2018 Runny nose documented as of this encounter (statuses as of 04/25/2024) Medications MULTIVITAMINS PO CAPS 1 capsule daily [...] 019 Active Additional Information Patient taking differently:2 [place] Each Nostril Daily(AM),Using as needed, Reported on 04/19/2024 Triamcinolone Acetonide 0.1 % Mouth/Throat Paste (Kenalog In Orabase) As needed 022 Active Atorvastatin Calcium 40 MG Oral Tablet (Lipitor)Indications:Pu re hypercholesterolemia Take 1 Tablet by mouth in the morning. 90 Tablet 3 023 Active Albuterol Sulfate HFA 108 (90 Base) MCG/ACT Inhalation Aerosol SolutionIndications:Bro nchitis due to COVID-19 virus Inhale 2 Puffs by mouth every 4 hours as needed for Cough or Wheezing. 20.1 g 1 024 Active Spacer/Aero-Holding Chambers DeviceIndications:Bronc hitis due to COVID-19 virus Use with inhaler. 1 Each 024 Active Apixaban 5 MG Oral Tablet (Eliquis)Indications:Ac [place] pulmonary embolism, unspecified pulmonary embolism type, unspecified [...] CAPSULE DAILY 90 Capsule 3 024 Active Hospital, Clinic, or Other [...] as of this encounter (statuses as of 04/25/2024) Active Problems Problem Noted Date Diagnosed Date [...] as of this encounter (statuses as of 04/25/2024) Resolved Problems Problem Noted Date Diagnosed Date Resolved Date Thrombocytopenia 03/03/2018 11/18/2019 Right inguinal hernia 11/11/20172018 Pulmonary embolus 06/13/2013 11/10/2016 Dyslipidemia, goal to be determined 06/13/2013 08/05/2013 Edema 06/13/2013 11/15/2018 Lacunar infarction 8 documented as of this encounter (statuses as of 04/25/2024) Immunizations Name Administration Dates Next Due COVID-19 [...] Job End Date [employer] Not on file Not on file Not on file [employer]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 file Not o n file documented as of this encounter Plan of Treatment Upcoming Encounters Date Type Department Care Team (Late st Contact Info) Description 06/22/2024 12:30 PM EST Office Visit Vascular Surgery, [facility] [address] [facility] [place] [address] Hany Torres [facility] [address] [facility] [address] 09/28/2024 10:30 AM EDT Office Visit Urology, [facility] 132 [place] [address] Wilfred Reilly MD [address] [place] [id number] 11/15/2024 12:20 PM EDT Office Visit Pulmonary Medicine, [facility] [address] [facility] [place] [address] Vincent Brar MD [address] [place] [address] 11/23/2024 8:00 AM EDT Telemedicine Neurology [address] [address] [place] [address] Lex Kahn MD [address] [place], [place] [id number] 03/22/2025 9:20 AM EDT Office Visit General Internal [facility] [address] [facility] [place] [address] Vahe Sahu MD [address] [place] [address] Scheduled Orders Name Type Priority Associated Diagnoses Orde r Schedule MYCODE SUBSEQUENT ADULT Lab Routine MyCode Research Other*[id number] Every 6 Months for 2 Occurrences starting 04/25/2024 until 05/15/2025 Scheduled Procedures Name Priority Associated Diagnoses Date/Ti [...] this encounter Medical Devices Implanted Type Area [employer] Device Identifier Shelf Expiration Date Model / Serial / Lot Mesh Preshaped Large - [id number] Implanted:Qty: 1 on 06/15/2018 by Kevin Zee MD at OR [facility] Right: Groin CR BARD : DAVOL 07/05/2020 [id number] / / [id number] Description:13.7cm x 5.9cm Lens Intraoc 16.0 - [id number] - [id number] Implanted:Qty: 1 on 06/19/2020 by Sundeep Rodriguez MD at OR [facility] Left: Eye [employer] 12/05/2024 [id number] / [id number] / Lens Intraoc 15.5 - [id number] - [id number] Implanted:Qty: 1 on 06/26/2020 by Sundeep Rodriguez MD at OR [facility] Right: Eye [employer]OM[employer] 08/05/2024 [id number] / [id number] / [id number] documented as of this encounter Visit Diagnoses Diagnosis MyCode Research Other*[id number] documented in this encounter Advance Directives * [...] and were consensually agreed upon. Care Teams Molder Relationship Specialty Start Date End Date Vahe Sahu MD [address] [place] [address] PCP - General Internal Medicine 03/22/24 documented as of this encounter
--- OUTSIDE RECORDS SUMMARY | 2024-07-30 12:08 | External Medical Summary ---
Author Name Unknown Address Unknown Organization K09:[facility] [address] [place] [address] Laboratory Report Ordering Provider Test Date Status NATALYA LADD 04/19/2024 10:02:15 Final Observation Date Value Abnormality Reference (Units ) Status BUN 04/19/2024 10:02:15 21 Above high normal 6-20 (mg/dL) Final Creatinine 04/19/2024 10:02:15 1.0 0.6-1.2 (mg/dL) Final Glomerular filtration rate/1.73 sq M.predicted [Volume Rate/Area] in Serum, Plasma or Blood by Creatinine-based formula (CKD-EPI) 04/19/2024 10:02:15 77 >=60 (mL/min) Final eGFR is calculated based on the CKD-EPI 2020 equation. Sodium 04/19/2024 10:02:15 139 135-146 (m mol/L) Final Potassium 04/19/2024 10:02:15 4.2 3.5-5.1 (m mol/L) Final Cl 04/19/2024 10:02:15 105 98-107 (mm ol/L) Final CO2 04/19/2024 10:02:15 25 22-32 (mmo l/L) Final Anion gap 04/19/2024 10:02:15 9 7-15 (mmol /L) Final Glucose 04/19/2024 10:02:15 66 Below low normal 70- 120 (mg/dL) Final Albumin 04/19/2024 10:02:15 4.0 3.8-5.0 (g /dL) Final AST (Aspartate aminotransferase) 04/19/2024 10:02:15 22 10-50 (U/L) Fin al Alk Phos 04/19/2024 10:02:15 122 35-130 (U/ L) Final Bilirubin, Total 04/19/2024 10:02:15 0.5 <=1 .2 (mg/dL) Final Calcium 04/19/2024 10:02:15 9.6 8.4-10.2 ( mg/dL) Final Protein 04/19/2024 10:02:15 6.3 6.0-8.3 (g /dL) Final ALT (Alanine aminotransferase) 04/19/2024 10:02:15 21 10-50 (U/L) Michele fuller Performing Location [facility] [address] [place] [address]
--- OUTSIDE RECORDS SUMMARY | 2024-07-30 12:08 | External Medical Summary | Summary of Care ---
Author Name Unknown Organization [facility] Address [address] [place] [address] Phone [phone] Care Team Providers Care Rn Residential Name Role Phone Vahe Sahu MD Primary Care Provider + Reason for Visit * Reason Onset Date Comments Appointment 04/15/2024 Encounter Details Date Type Department Care Team (Late st Contact Info) Description 04/15/2024 Telephone Vascular Surgery, [facility] [address] [facility] [place] [address] Stiven Snowden PA-C [address] [place] [address] Appointment Allergies Active Allergy Reactions Criticality Noted Date Comments Pollen Other (Please comment) 11/15/2018 Runny nose documented as of this encounter (statuses as of 04/15/2024) Medications MULTIVITAMINS PO CAPS 1 capsule daily 11/07 014 Active aspirin enteric coated 81 MG TBECIndications:Ischemi c heart disease Take 2 tablets daily 30 Tab 5 015 Active Additional Information Patient taking differently: 81 mg Oral Daily(AM), (No instructions reported), Reported on 10/02/2023 fluticasone (FLONASE) 50 MCG/ACT nasal sprayIndications:Runny nose Administer 2 Sprays into each nostril daily. 1 Bottle 3 019 Active Additional Information Patient taking differently:2 [place] Each Nostril Daily(AM),Using as needed, Reported on [...] Active Apixaban 5 MG Oral Tablet (Eliquis)Indications:Ac [place] pulmonary embolism, unspecified pulmonary embolism type, unspecified [...] as of this encounter (statuses as of 04/15/2024) Active Problems Problem Noted Date Diagnosed Date [...] as of this encounter (statuses as of 04/15/2024) Resolved Problems Problem Noted Date Diagnosed Date Resolved Date Thrombocytopenia 03/03/2018 11/18/2019 Right inguinal hernia 11/11/20172018 Pulmonary embolus 06/13/2013 11/10/2016 Dyslipidemia, goal to be determined 06/13/2013 08/05/2013 Edema 06/13/2013 11/15/2018 Lacunar infarction 8 documented as of this encounter (statuses as of 04/15/2024) Immunizations Name Administration Dates Next Due COVID-19 [...] money to get more. Never true 07/17/2022 Utilities Answer Date Recorded Do you have trouble paying y our heating, water, or electric bill? (Adult - for ages 18 years and over) Not on file 11/24/2023 Is your family able to pay t he heat, water, or electric bill? (Household - for ages 0-17 years) Not on file 11/24/2023 Does your family have access to good internet? (Household - for ages 0-17 years) Not on file 11/24/2023 Social Connections Answer Date Recorded How often do you feel lonely or isolated from those around you? 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 Mcfarland is scheduled to see Dr. 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 PCP orderedVascular Consult without realizing that pt is already established Please cancel 04/27 [facility] visit with Jeanette Please schedule pt with Dr. Torres [facility], 06/22/24 Thank you LEONIDAS documented in this encounter Plan of Treatment Upcoming Encounters Date Type Department Care Team (Late st Contact Info) Description 04/19/2024 9:40 AM EST Office Visit General Internal Medicine [facility] [address] [place] [address] Vahe Sahu MD [address] [facility] [place] [address] 04/27/2024 9:50 AM EST Office Visit Vascular Surgery, [facility] 132 [facility] [place] [address] Irwin Reid MD [address] [place] [place] [address] 09/28/2024 10:30 AM EDT Office Visit Urology, [facility] [address] [facility] [place] [address] Wilfred Reilly MD [address] [place] [address] 11/15/2024 12:20 PM EDT Office Visit Pulmonary Medicine, [facility] [address] [place] [address] Vincent Brar MD [address] [facility] [place] [address] 03/22/2025 9:20 AM EDT Office Visit General Internal Medicine [facility] [address] [place] [address] Vahe Sahu MD [address] [place] [address] Scheduled Procedures Name Priority Associated Diagnoses Date/Ti [...] this encounter Medical Devices Implanted Type Area Neighborhood Coordinator Device Identifier Shelf Expiration Date Model / Serial / Lot Mesh Preshaped Large - [id number] Implanted:Qty: 1 on 06/15/2018 by Kevin Zee MD at OR [facility] Right: Groin CR BARD : DAVOL 07/05/2020 [id number] / / [id number] Description:13.7cm x 5.9cm Lens Intraoc 16.0 - [id number] - [id number] Implanted:Qty: 1 on 06/19/2020 by Sundeep Rodriguez MD at OR [facility] Left: Eye [employer] 12/05/2024 [id number] / [id number] / Lens Intraoc 15.5 - [id number] - [id number] Implanted:Qty: 1 on 06/26/2020 by Sundeep Rodriguez MD at OR [facility] Right: Eye [employer]OM[employer] 08/05/2024 [id number] / [id number] / [id number] documented as of this encounter Advance Directives [...] and were consensually agreed upon. Care Teams Rn Residential Relationship Specialty Start Date End Date Vahe Sahu MD [address] [facility] [place] [address] PCP - General Internal Medicine 03/22/24 documented as of this encounter
--- OUTSIDE RECORDS SUMMARY | 2024-07-30 12:08 | External Medical Summary | Summary of Care ---
Author Name Unknown Organization [facility] Address [address] [place] [address] Phone [phone] Care Team Providers Care Shower Screen Installer Name Role Phone Vahe Sahu MD Primary Care Provider + Reason for Visit * Reason Onset Date Comments Appointment 04/15/2024 Encounter Details Date Type Department Care Team (Late st Contact Info) Description 04/15/2024 Telephone Vascular Surgery, [facility] [address] [facility] [place] [place] [address] Stiven Snowden PA-C [address] [place] [address] Appointment Allergies Active Allergy Reactions [...] 019 Active Additional Information Patient taking differently:2 [place] Each Nostril Daily(AM),Using as needed, Reported on [...] Active Apixaban 5 MG Oral Tablet (Eliquis)Indications:Ac [place] pulmonary embolism, unspecified pulmonary embolism type, unspecified [...] Start Date Job End Date retired - [employer] Not on file Not on file Not on file [employer]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 Reid. He already follows with Dr. Torres and is due in Jun 2024. He is scheduled from 06/22/24 at 12:30 pm. Left detailed message for patient regarding appts. Adelita Sandy LPN 04/15/2024 2:13 PM * Telephone Encounter - Stiven Snowden PA-C - 04/15/2024 10:29 AM EST Adelita/Sandy/Antolin- Mr. Mcfarland is scheduled to see Dr. 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 PCP orderedVascular Consult without realizing that pt is already established Please cancel 04/27 [facility] visit with Jeanette Please schedule pt with Dr. Torres [facility], 06/22/24 Thank you LEONIDAS documented in this encounter Plan of Treatment Upcoming Encounters Date Type Department Care Team (Late st Contact Info) Description 04/19/2024 9:40 AM EST Office Visit General Internal Medicine [facility] [address] [place] [address] Vahe Sahu MD [address] [place] [address] 06/22/2024 12:30 PM EST Office Visit Vascular Surgery, [facility] [address] [place] [address] Hany Torres MD [address] [place] [address] 09/28/2024 10:30 AM EDT Office Visit Urology, [facility] [address] [place] [address] Wilfred Reilly MD [address] [place] [id number] 11/15/2024 12:20 PM EDT Office Visit Pulmonary Medicine, [facility] 132 [place] [address] Vincent Brar MD [address] [place] [address] 03/22/2025 9:20 AM EDT Office Visit General Internal Medicine [facility] 200 [facility] [place] [address] Vahe Sahu MD [address] [facility] [place] [address] Scheduled Procedures Name Priority Associated Diagnoses Date/Ti [...] this encounter Medical Devices Implanted Type Area Client Solutions Specialist Device Identifier Shelf Expiration Date Model / Serial / Lot Mesh Preshaped Large - [id number] Implanted:Qty: 1 on 06/15/2018 by Kevin Zee MD at OR [facility] Right: Groin CR BARD : DAVOL 07/05/2020 [id number] / / [id number] Description:13.7cm x 5.9cm Lens Intraoc 16.0 - [id number] - [id number] Implanted:Qty: 1 on 06/19/2020 by Sundeep Rodriguez MD at OR [facility] Left: Eye [employer]OM[employer] 12/05/2024 [id number] / [id number] / Lens Intraoc 15.5 - [id number] - [id number] Implanted:Qty: 1 on 06/26/2020 by Sundeep Rodriguez MD at OR [facility] Right: Eye [employer]OM[employer] 08/05/2024 [id number] / [id number] / [id number] documented as of this encounter Advance Directives [...] and were consensually agreed upon. Care Teams Shower Screen Installer Relationship Specialty Start Date End Date Vahe Sahu MD 200 [place] [address] PCP - General Internal Medicine 03/22/24 documented as of this encounter
--- OUTSIDE RECORDS SUMMARY | 2024-07-30 12:08 | External Medical Summary | Summary of Care ---
Author Name Unknown Organization [facility] Address [address] [place] [address] Phone [phone] Care Team Providers Care Allied Health Teacher Name Role Phone Vahe Sahu MD Primary Care Provider + Reason for Referral * Evaluate & Treat - Unlimited Visits (Within 30 days (routine)) - Authorized Specialty Diagnoses / Procedures Referred By Contac t Referred To Contact Neurology Diagnoses Acute nonintractable headache, unspecified headache type History of TIA (transient ischemic attack) Vahe Sahu MD [address] [place] [id number] Phone: tel: fax: Referral ID Status Reason Start Date Expiration Date Visits Requested Visits Authorized [id number] Authorized Specialty Services Required 4 [phone] Question Answer Referral Priority Within 30 days (routine) Where should this appointment be scheduled? [facility] Is this referral being placed for insurance purposes ONLY No, patient needs appointment [facility] NEUROLOGY REFERRAL QUESTIONS Stroke Reason for Visit * Reason Comments Emergency Department Follow-Up Patient i s here today for an ED follow up. Patient states he was in the ED for a severe headache. Patient states he has been feeling much better and has been headache free. Patient states he feels that loud machinery caused the headache. Encounter Details Date Type Department Care Team (Latest Contact Info) Description 04/19/2024 9:40 AM EST Office Visit General Internal Medicine [facility] [place] [address] [facility] [place] [address] Vahe Sahu MD [address] [facility] [place] [address] Acute nonintractable headache, unspecified headache type*; History of TIA (transient ischemic attack); Stenosis of left vertebral artery Allergies Active Allergy Reactions Criticality Noted Date Comments Pollen Other (Please comment) 11/15/2018 Runny nose documented as of this encounter (statuses as of 04/19/2024) Medications MULTIVITAMINS PO CAPS 1 capsule daily [...] 019 Active Additional Information Patient taking differently:2 [place] Each Nostril Daily(AM),Using as needed, Reported on [...] Active Apixaban 5 MG Oral Tablet (Eliquis)Indications:Ac [place] pulmonary embolism, unspecified pulmonary embolism type, unspecified [...] solution 2.5 mgIndications:ILD (interstitial lung disease) ([facility]) 2.5 mg NEBULIZER PRN 11/23/2023 Active Albuterol Sulfate (Proventil) (5 MG/ML) 0.5% *conc* inhalation solution 2.5 mgIndications:ILD (interstitial lung disease) ([facility]) 2.5 mg NEBULIZER PRN 11/23/2023 Active documented as of this encounter (statuses as of 04/19/2024) Active Problems Problem Noted Date Diagnosed Date [...] as of this encounter (statuses as of 04/19/2024) Resolved Problems Problem Noted Date Diagnosed Date Resolved Date Thrombocytopenia 03/03/2018 11/18/2019 Right inguinal hernia 11/11/20172018 Pulmonary embolus 06/13/2013 11/10/2016 Dyslipidemia, goal to be determined 06/13/2013 08/05/2013 Edema 06/13/2013 11/15/2018 Lacunar infarction 8 documented as of this encounter (statuses as of 04/19/2024) Immunizations Name Administration Dates Next Due COVID-19 [...] Industry Job Start Date Job End Date [employer] Not on file Not on file Not on file [employer]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 file Not o n file documented as of this encounter Last Filed Vital Signs Vital Sign Reading Time Taken Comments Blood Pressure 104/68 04/19/2024 9:28 AM EST Pulse 88 04/19/2024 9:28 AM EST Temperature 36.2 C (97.2 F) 04/19/2024 9:28 AM ES T Respiratory Rate 16 04/19/2024 9:28 AM EST Oxygen Saturation 98% 04/19/2024 9:28 AM EST Inhaled Oxygen Concentration - - Weight 87.7 kg (193 lb 6.4 oz) 04/19/2024 9:28 A M EST Height 177.8 cm (5' 10") 04/19/2024 9:28 AM EST Body Mass Index 27.75 04/19/2024 9:28 AM EST documented in this encounter Progress Notes * Vahe Sahu MD - 04/19/2024 9:44 AM EST Chief Complaint Patient presents with Emergency Department Follow-Up Patient is here today for an ED follow up. Patient states he was in the ED for a severe headache. Patient states he has been feeling much better and has been headache free. Patient states he feels that loud machinery caused the headache. SUBJECTIVE: Zurdo Mcfarland is a 83 year old male with PMH as below who presents for ER follow up 04/07/24 for severe headache. Was doing lawn clean up 04/05, loud noise (used protection) and severe vibration on tractor. Started with severe headache after, last Thu into , had minutes where couldn't think of word "leaf" despite knowing it. Went to ER, had CT, labs, headache resolved, sent home. No issues since, feels fine. No cp, sob, joyce, headache or vision issues. Has f/u vascular 06/2024. Patient Active Problem List Diagnosis Ischemic heart [...] (HCC) Complex renal cyst Popliteal aneurysm (HCC) Current Outpatient Medications Medication Sig Dispense Refill [...] Mouth/Throat Paste (Kenalog In Orabase) As needed Atorvastatin Calcium 40 MG Oral Tablet (Lipitor) Take 1 Tablet by mouth in the morning. 90 Tablet 3 Apixaban 5 MG Oral Tablet (Eliquis) Take 1 Tablet by mouth in the morning and 1 Tablet before bedtime. 180 Tablet 3 Trospium Chloride ER 60 MG Oral Capsule Extended Release 24 Hour (Sanctura ER) TAKE 1 CAPSULE IN THE MORNING 90 Capsule 3 Omeprazole 40 MG Oral Capsule Delayed Release (PriLOSEC) TAKE 1 CAPSULE DAILY 90 Capsule 3 Albuterol Sulfate HFA 108 [...] Reactions Pollen Other (Please comment) Runny nose Health Maintenance Due Topic Date Due Adult Wellness Visit Never done COVID-19 Vaccine ( season) 2024 Depression Screening 03/25/2024 ROS: CONSTITUTIONAL: No change in weight, No weakness, and No fevers, sweats, or chills PULMONARY: No cough, sputum, or hemoptysis, No wheezing, No rales, No shortness of breath, and No recent change in breathing CARDIOVASCULAR: No chest pain, No shortness of breath, No dyspnea on exertion, No orthopnea, No paroxysmal nocturnal dyspnea, No edema, No palpitations, and No syncope ALL OTHER SYSTEMS NEGATIVE I reviewed social, PMH, PSH, and family history and updated where needed. Social History Socioeconomic History Marital status: Spouse name: Not on file Number of children: 3 Years of education: Not on file Highest education level: Not on file Occupational History Occupation: retired - 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 Tobacco Use Smoking status: Former Types: Pipe Start date: 1961 Quit date: 1963 Years since quittin.9 Smokeless tobacco: Never Tobacco comments: 2 years pipe tobacco Vaping Use Vaping status: Never Used Substance and Sexual Activity Alcohol use: Not Currently Comment: Occasional/social Drug use: No Sexual activity: Not Currently Other Topics Concern Not on file Social History Narrative One dog and 2 cats No mold [place] [employer] Exposure to agent orange Social Needs Financial Resource Strain: Not on file Food Insecurity: No Food Insecurity (07/17/2022) Hunger Vital Sign Worried About Running Out of Food in the Last Year: Never true Ran Out of Food in the Last Year: Never true Transportation Needs: Not on file Social Connections: Unknown (11/24/2023) Social Connections How often do you feel lonely or isolated from those around you? (Adult - for ages 18 years and over): Not on file Housing Stability: Not on file Past Medical History: Diagnosis Date DVT (deep [...] performed by Maged Rubio MD at ENDOSCOPY [facility] COLONOSCOPY, DIAGNOSTIC (RECTUM) 04/17/2021 adenomatous polyp, diverticulosis, repeat 5 yrs / COLONOSCOPY FLEXIBLE PROXIMAL DIAGNOSTIC performed by Linda Britt MD at ENDOSCOPY [facility] CYSTO/URETERO W/LITHOTRIPSY Left 04/04/2015 CYSTO/URETERO W/LITHOTRIPSY Left 04/09/2018 CYSTOURETHROSCOPY URETEROSCOPY WITH LITHOTRIPSY AND STENT INSERTION performed by Katherine Eli MD at OR [facility] CYSTOSCOPY/TREAT MINOR LESION(S) N/A 02/25/2021 CYSTOURETHROSCOPY WITH FULGURATION MINOR BLADDER TUMOR performed by Wilfred Reilly MD at [facility] CYSTOSCOPY/TREAT MINOR LESION(S) N/A 07/01/2021 CYSTOURETHROSCOPY WITH FULGURATION MINOR BLADDER TUMOR performed by Wilfred Reilly MD at OR [facility] REMOVAL OF KNEE CARTILAGE 1971 left REMOVAL OF PROSTATE (TURP) N/A 02/25/2021 TRANSURETHRAL RESECTION PROSTATE ELECTROSURGICAL performed by Wilfred Reilly MD at [facility] REMOVAL OF PROSTATE (TURP) N/A 07/01/2021 TRANSURETHRAL RESECTION PROSTATE ELECTROSURGICAL performed by Wilfred Reilly MD at OR [facility] REMOVE CATARACT, INSERT LENS PROSTH Left 06/19/2020 LEFT EXTRACAPSULAR CATARACT REMOVAL WITH INTRAOCULAR LENS performed by Sundeep Rodriguez MD at OR [facility] REMOVE CATARACT, INSERT LENS PROSTH Right 06/26/2020 RIGHT EXTRACAPSULAR CATARACT REMOVAL WITH INTRAOCULAR LENS performed by Sundeep Rodriguez MD at OR [facility] REPAIR INITIAL INGUINAL HERNIA REDUCIBLE AGE 5 OR MORE Right 06/15/2018 06/15/2018 REPAIR INITIAL INGUINAL HERNIA REDUCIBLE AGE 5 OR MORE performed by Kevin Zee MD at OR [facility] Family History Problem Relation Name Age of Onset Heart Disorder Mother Sabrina Owusu [place] Heart attack Mother Sabrina Owusu Cancer Father Zurdo Mcfarland Sr. prostate Heart Disorder Brother AntwanVishal Mcfarland Coronary Artery disease Brother AntwanVishal Mcfarland CABG x 4, s/p pacemaker Colon cancer Brother AntwanVishal Mcfarland Heart Disorder Uncle (Unspecified) [place] OBJECTIVE: PHYSICAL EXAM: BP 104/68 (BP Site: Left Arm, BP Position: Sitting, BP Cuff Size: Regular) | Pulse 88 | Temp 36.2 C (97.2 F) (Tympanic) | Resp 16 | Ht 1.778 m (5' 10") | Wt 87.7 kg (193 lb 6.4 oz) | SpO2 98% | BMI 27.75 kg/m | BSA 2.08 m General: alert, healthy, and no distress Head: Normocephalic, No masses, lesions, or abnormalities Eye Exam: conjunctiva are pink and non-injected, sclera clear Heart: regular rate & rhythm, no murmur, no gallops, PMI non-displaced, S-1 normal, and S-2 normal Lungs: normal respiratory rate and rhythm, lungs clear to auscultation Neuro Exam: alert with fluent speech, gait normal CN intact Psych: normal affect, no flight of ideas or tangential thought, good eye contact, no pressured speech CT neck: 1. There is moderate focal stenosis at the origin of the left vertebral artery. 2. Atherosclerotic plaque is seen in the carotid bulbs, and causes less than 50% stenosis of the proximal left internal carotid artery. 3. There is no evidence of hemodynamically significant carotid artery stenosis. CT A head: 1. There is no evidence of hemorrhage, mass effect, or acute territorial ischemia noting angiographic phase technique. 2. Unremarkable CT angiogram of the brain. ER notes: Patient presents due to concern for headache. The patient states that his headache woke him up fromsleep around 2 AM Thursday. The patient states that has been intermittent although was more constant today and thus presented here for further evaluation treatment. Patient has been taking some Tylenol but without significant improvement although it mildly helps. The patient is had nausea but without vomiting. Patient reports that he did have some confusion yesterday lasting about 30 to 45 minutes. He reportedly could not name any relief and then subsequently cannot answer questions appropriately i.e. knew what words that he wanted to say but was unable to articulate them. Patient den ies any falls or trauma. He does take aspirin and Eliquis. Patient does report a prior stroke about10 years ago. Patient's headache is left supraorbital area. He describes it currently as a 7 or 8 out of 10. 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 No prior intervention per patient. Patient presents due to concern for headache as well as expressive aphasia that lasted 30 to 45 minutes yesterday. IV was established and blood work was obtained along with CT head and CT angiographyof the head and neck and EKG. Patient was treated symptomatically for his headache with IV Zofran and IV Tylenol. Upon reassessment the patient was feeling improved. The patient's blood work showed a normal white count hemoglobin and platelet count. The patient's kidney function was unremarkable. Patient did have CT of the head and CT angiography of the head and neck performed which showed moderate focal stenosis of the origin of left vertebral artery as well as less than 50% stenosis of the proximal left ICA. I did inform the patient of these findings. The patient already takes an aspirin and statin as well as Eliquis medications. I did state that given his likely TIA episode if he is already anticoagulated and echo may not be of great benefit as this tends to look for embolic source. I also stated that given that the patient has no symptoms currently an MRI of the right of the brain even with a stroke shown is unlikely to filter changer at this time. The patient does have a vascular surgeon for follow-up I did give the patient copies of his reports for follow-up purposes that he may discuss at his follow-up appointment. I did consider escalation of care and offered admission for the stroke workup. The patient declinedand will follow-up as an outpatient which I think is unreasonable given the after mentioned. Patient was out without any symptoms at this time and does feel improved with [place] headache. After review of the information above and other included data, I feel the patient may be discharged home. Patient was given strict follow-up, discharge, and return precautions. All questions were answered. Patient was deemed suitable for outpatient follow-up at this time. Patient agreed with the plan of care and was discharged home. ASSESSMENT: (R51.9) Acute nonintractable headache, unspecified headache type (primary encounter diagnosis) (Z86.73) History of TIA (transient ischemic attack) (I65.02) Stenosis of left vertebral artery PLAN: Acute nonintractable headache, unspecified headache type (Primary) - COMPREHENSIVE METABOLIC PANEL; Future; Expected date: 04/19/2024 - LYME DISEASE ANTIBODY SCREEN WITH REFLEX TO CONFIRMATION; Future; Expected date: 04/19/2024 - ADULT NEUROLOGY REFERRAL OP Resolved. Possible due to exertion and trauma vibration from tractor. Will check labs History of TIA (transient ischemic attack) - ADULT NEUROLOGY REFERRAL OP Possible vs headache issue. Will ask neurology aid to see if further work up needed Cont statin, asa, and eliquis Stenosis of left vertebral artery Message to vascular by me to see if sooner f/u needed Follow Up: Return if symptoms worsen or fail to improve and as scheduled., for Labs Today. | For: Labs Today Vahe Sahu MD documented in this encounter Nursing Notes * Bruna Ellis LPN - 04/19/2024 9:32 AM EST The patient has been properly identified by confirmation of name and date of . Chief Complaint Patient presents with Emergency Department Follow-Up Patient is here today for an ED follow up. Patient states he was in the ED for a severe headache. Patient states he has been feeling much better and has been headache free. Patient states he feels that loud machinery caused the headache. documented in this encounter Plan of Treatment Upcoming Encounters Date Type Department Care Team (Late st Contact Info) Description 06/22/2024 12:30 PM EST Office Visit Vascular Surgery, [facility] [address] [place] [id number] Hany Torres MD [address] [place] [address] 09/28/2024 10:30 AM EDT Office Visit Urology, [facility] [address] [place] [address] Wilfred Reilly MD [address] [place], [place] [id number] 11/15/2024 12:20 PM EDT Office Visit Pulmonary Medicine, [facility] [address] [place] [address] Vincent Brar MD [address] [place] [address] 03/22/2025 9:20 AM EDT Office Visit General Internal Medicine [facility] [address] [facility] [place] [address] Vahe Sahu MD [address] [facility] [place] [address] Pending Results Name Type Priority Associated Diagnoses Date /Time COMPREHENSIVE METABOLIC PANEL Lab Routine Acute nonintractable headache, unspecified headache type 04/19/2024 10:02 AM EST LYME DISEASE ANTIBODY SCREEN WITH REFLEX TO CONFIRMATION Lab Routine Acute nonintractable headache, unspecified headache type 04/19/2024 10:02 AM EST Scheduled Orders Name Type Priority Associated Diagnoses Orde r Schedule COMPREHENSIVE METABOLIC PANEL Lab Routine Acute nonintractable headache, unspecified headache type Expected: 04/19/2024 (Approximate), Expires: 04/19/2025 LYME DISEASE ANTIBODY SCREEN WITH REFLEX TO CONFIRMATION Lab Routine Acute nonintractable headache, unspecified headache type Expected: 04/19/2024 (Approximate), Expires: 04/19/2025 Scheduled Procedures Name Priority Associated Diagnoses Date/Ti me COLONOSCOPY FLEXIBLE PROXIMA L DIAGNOSTIC Recall History of colonic polyps Scheduled Referrals Name Type Priority Associated Diagnoses Orde r Schedule ADULT NEUROLOGY REFERRAL OP Referral Within 30 days (routine) Acute nonintractable headache, unspecified headache type History of TIA (transient ischemic attack) Ordered: 04/19/2024 Health Maintenance Due Date Last Done Comments [...] this encounter Medical Devices Implanted Type Area Spring Up Supervisor Device Identifier Shelf Expiration Date Model / Serial / Lot Mesh Preshaped Large - [id number] Implanted:Qty: 1 on 06/15/2018 by Kevin Zee MD at OR [facility] Right: Groboris CR BARD : DAVOL 07/05/2020 [id number] / / [id number] Description:13.7cm x 5.9cm Lens Intraoc 16.0 - [id number] - [id number] Implanted:Qty: 1 on 06/19/2020 by Sundeep Rodriguez MD at OR [facility] Left: Eye BAUSCH & LOMB 12/05/2024 [id number] / [id number] / Lens Intraoc 15.5 - [id number] - [id number] Implanted:Qty: 1 on 06/26/2020 by Sundeep Rodriguez MD at OR [facility] Right: Eye BAUSCH & LOMB 08/05/2024 [id number] / [id number] / [id number] documented as of this encounter Visit Diagnoses Diagnosis Acute nonintractable headache, unspecified headache type- Primary History of TIA (transient ischemic attack) Transient ischemic attack (TIA), and cerebral infarction without residual deficits Stenosis of left vertebral artery documented in this encounter Advance Directives * [...] and were consensually agreed upon. Care Teams Allied Health Teacher Relationship Specialty Start Date End Date Vahe Sahu MD [address] [place] [address], [place] [address] PCP - General Internal Medicine 03/22/24 documented as of this encounter
--- OUTSIDE RECORDS SUMMARY | 2024-07-30 12:08 | External Medical Summary ---
Author Name Unknown Address Unknown Organization K01:[facility] [place] [address] [place] [address] Laboratory Report Ordering Provider Test Date Status NATALYA LADD 04/19/2024 10:02:15 Final Observation Date Value Abnormality Reference (Units ) Status Borrelia burgdorferi IgG and IgM [Interpretation] in Serum by Immunoassay 04/19/2024 10:02:15 Negative Negative Final Performing Location [facility] [place] [address] [place] [address]
--- OUTSIDE RECORDS SUMMARY | 2024-07-30 12:08 | External Medical Summary | Summary of Care ---
Author Name Unknown Organization [facility] Address [address] [place] [address] Phone [phone] Care Team Providers Care Archival Records Clerk Name Role Phone Vahe Sahu MD Primary Care Provider + Reason for Visit * Reason Onset Date Comments Appointment 04/15/2024 Encounter Details Date Type Department Care Team (Late st Contact Info) Description 04/15/2024 Telephone Vascular Surgery, [facility] [address] [facility] [place] [place] [address] Stiven Snowden PA-C [address] [place] [address] Appointment Allergies Active Allergy Reactions [...] 019 Active Additional Information Patient taking differently:2 [place] Each Nostril Daily(AM),Using as needed, Reported on [...] Active Apixaban 5 MG Oral Tablet (Eliquis)Indications:Ac [place] pulmonary embolism, unspecified pulmonary embolism type, unspecified [...] Industry Job Start Date Job End Date [employer] Not on file Not on [...] is scheduled to see Dr. Reid @ [facility] on 04/27 Patient is a Brian pt, last seen 09/16/23 for AAA and iliac aneurysm Patient seen by PCP 03/22/24, noted a CT that "revealed" right internal iliac aneurysm. PCP orderedVascular Consult without realizing that pt is already established Please cancel 04/27 [facility] visit with Jeanette Please schedule pt with Dr. Torres [facility], 06/22/24 Thank you LEONIDAS documented in this encounter Plan of Treatment Upcoming Encounters Date Type Department Care Team (Late st Contact Info) Description 04/19/2024 9:40 AM EST Office Visit General Internal Medicine [facility] [address] [facility] [place] [address] Vahe Sahu MD [address] [facility] [place] [address] 04/27/2024 9:50 AM EST Office Visit Vascular Surgery, [facility] [address] [facility] [place] [address] Irwin Reid MD [address] [place] [facility] [place] [address] 09/28/2024 10:30 AM EDT Office Visit Urology, [facility] [address] [facility] [place] [address] Wilfred Reilly MD [address] [place] [address] 11/15/2024 12:20 PM EDT Office Visit Pulmonary Medicine, [facility] [address] [place] [address] Vincent Brar MD [address] [facility] [place] [address] 03/22/2025 9:20 AM EDT Office Visit General Internal Medicine [facility] [address] [facility] [place] [address] Vahe Sahu MD [address] [facility] [place] [address] Scheduled Procedures Name Priority Associated Diagnoses Date/Ti [...] this encounter Medical Devices Implanted Type Area Store Team Leader Device Identifier Shelf Expiration Date Model / Serial / Lot Mesh Preshaped Large - [id number] Implanted:Qty: 1 on 06/15/2018 by Kevin Zee MD at OR [facility] Right: Groin CR BARD : DAVOL 07/05/2020 [id number] / / [id number] Description:13.7cm x 5.9cm Lens Intraoc 16.0 - [id number] - [id number] Implanted:Qty: 1 on 06/19/2020 by Sundeep Rodriguez MD at OR [facility] Left: Eye [employer]USCH [employer] LOMB 12/05/2024 [id number] / [id number] / Lens Intraoc 15.5 - [id number] - [id number] Implanted:Qty: 1 on 06/26/2020 by Sundeep Rodriguez MD at OR [facility] Right: Eye BAUSCH [employer] LOMB 08/05/2024 [id number] / [id number] / [id number] documented as of this encounter Advance Directives [...] and were consensually agreed upon. Care Teams Archival Records Clerk Relationship Specialty Start Date End Date Vahe Sahu MD [address] [facility] [place] [address] PCP - General Internal Medicine 03/22/24 documented as of this encounter
--- OUTSIDE RECORDS SUMMARY | 2024-07-30 12:08 | External Medical Summary | Summary of Care ---
Author Name Unknown Organization [facility] Address [address] [place] [address] Phone [phone] Care Team Providers Care Commercial Field Inspector Name Role Phone Vahe Sahu MD Primary Care Provider + Reason for Visit * Reason Comments Outpatient Testing Encounter Details Date Type Department Care Team (Late st Contact Info) Description 04/19/2024 10:00 AM EST Laboratory Laboratory [facility] [address] [place] [id number] [facility] [address] [facility] [place] [address] Acute nonintractable headache, unspecified headache type Allergies Active Allergy Reactions Criticality Noted Date [...] 019 Active Additional Information Patient taking differently:2 [place] Each Nostril Daily(AM),Using as needed, Reported on [...] 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 Not on file Not on file [employer]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 file Not o n file documented as of this encounter Plan of Treatment Upcoming Encounters Date Type Department Care Team (Late st Contact Info) Description 06/22/2024 12:30 PM EST Office Visit Vascular Surgery, [facility] [address] [place] [address] Hany Torres MD [address] [place] [facility] [place] [address] 09/28/2024 10:30 AM EDT Office Visit Urology, [facility] [address] [place] [address] Wilfred Reilly MD [address] [place] [phone] 11/15/2024 12:20 PM EDT Office Visit Pulmonary Medicine, [facility] [address] [place] [address] Vincent Brar MD [address] [facility] [place] [address] 03/22/2025 9:20 AM EDT Office Visit [facility] [place] [address] [facility] [place] [address] Vahe Sahu MD [address] [place] [address] Pending Results Name Type Priority Associated Diagnoses Date /Time COMPREHENSIVE METABOLIC PANEL Lab Routine Acute nonintractable headache, unspecified headache type 04/19/2024 10:02 AM EST LYME DISEASE ANTIBODY SCREEN WITH REFLEX TO CONFIRMATION Lab Routine Acute nonintractable headache, unspecified headache type 04/19/2024 10:02 AM EST LYME DISEASE ANTIBODY SCREEN Lab Routine Acute nonintractable headache, unspecified headache type 04/19/2024 10:02 AM EST Scheduled Procedures Name Priority Associated [...] this encounter Medical Devices Implanted Type Area Licensed Therapist Device Identifier Shelf Expiration Date Model / Serial / Lot Mesh Preshaped Large - [id number] Implanted:Qty: 1 on 06/15/2018 by Kevin Zee MD at OR [facility] Right: Groin CR BARD : DAVOL 07/05/2020 [id number] / / [id number] Description:13.7cm x 5.9cm Lens Intraoc 16.0 - [id number] - [id number] Implanted:Qty: 1 on 06/19/2020 by Sundeep Rodriguez MD at OR [facility] Left: Eye [employer] 12/05/2024 [id number] / [id number] / Lens Intraoc 15.5 - [id number] - [id number] Implanted:Qty: 1 on 06/26/2020 by Sundeep Rodriguez MD at OR [facility] Right: Eye [employer] 08/05/2024 [id number] / [id number] / [id number] documented as of this encounter Visit Diagnoses Diagnosis Acute nonintractable headache, unspecified headache type documented in this encounter Advance Directives * [...] and were consensually agreed upon. Care Teams Commercial Field Inspector Relationship Specialty Start Date End Date Vahe Sahu MD [address] [facility], [place] [address] PCP - General Internal Medicine 03/22/24 documented as of this encounter
[2024-07-30 12:36] LABS: Basophils # (auto) 0.03 K/uL (0.00-0.20); Basophils % (auto) 0.5 %; Eosinophils # (auto) 0.15 K/uL (0.00-0.50); Eosinophils % (auto) 2.3 %; Hematocrit (blood only) 45.3 % (42.0-52.0); Hemoglobin 15.5 g/dl (14.0-18.0); Immature Granulocytes # (auto) 0.01 K/uL (0.01-0.20); Immature Granulocytes % (auto) 0.2 %; Lymphocytes # (auto) 1.57 K/uL (1.20-3.40); Lymphocytes % (auto) 23.8 %; Mean Corpuscular Hemoglobin 31.3 pg (25.0-34.0); Mean Corpuscular Hgb Conc 34.2 g/dL (32.0-36.0); Mean Corpuscular Volume 91.3 fL (80.0-100.0); Mean Platelet Volume 8.6 fL (9.4-12.4); Monocytes # (auto) 0.81 K/uL (0.11-0.59); Monocytes % (auto) 12.3 %; Neutrophils # (auto) 4.02 K/uL (1.40-6.50); Neutrophils % (auto) 60.9 %; Platelet Count 128 K/uL (130-400); RDW Standard Deviation 43.3 fL (36.4-46.3); Red Blood Count 4.96 M/uL (4.70-6.10); White Blood Count 6.59 K/ul (4.8-10.8)
[2024-07-30 12:40] LABS: iSTAT Creatinine 0.9 mg/dl (0.6-1.3); iSTAT Hemoglobin 15.6 g/dl (14.0-18.0); iSTAT Ionized Calcium 1.16 mmol/l (1.12-1.32); iSTAT Potassium 4.4 mmol/L (3.3-5.0)
[2024-07-30] MEDS: OPTIRAY 320 125ml IV ONE (12:44)
[2024-07-30 12:52] LABS: Albumin Globulin Ratio 1.3 (0.9-2); Albumin Level 3.7 gm/dl (3.4-5.0); Bilirubin,Total 0.7 mg/dl (0.2-1.0); Creatinine Clr Calc Pharmacy 73.1 ml/min; Globulin 2.9 gm/dl (2.5-4.0); Magnesium 1.8 mg/dl (1.7-2.4); Potassium 3.9 mmol/L (3.5-5.1); Total Protein 6.6 gm/dl (6.0-8.3)
--- NOTE | 2024-07-30 12:53 | XRay Report ---
EXAM: Radiograph of the Chest 1 View INDICATION: Neurologic deficit TECHNIQUE: Frontal view of the chest. COMPARISON: No relevant prior studies available. FINDINGS: Lungs and pleural spaces: There is mild atelectasis in the lower lungs. No consolidation or pulmonary edema. No pleural effusion or pneumothorax. Heart: Prominent cardiac shadow accentuated by technique. Mediastinum: Normal contour. Bones/joints: No fracture, erosion or dislocation. Soft tissues: No abnormality noted. No radiopaque foreign body noted. Vasculature: Ectatic aorta with arch calcification. Upper abdomen: No abnormality noted. IMPRESSION: No significant acute cardiopulmonary disease. ACT 112: Negative or not required by law. Electronically signed by Mary Jo Del Castillo 07-30-2024 12:52 PM
[2024-07-30 12:59] LABS: Troponin I High Sensitivity 6.3 pg/ml (0-20)
--- NOTE | 2024-07-30 12:59 | CT Scan Report ---
EXAM: CT Head Without Intravenous Contrast INDICATION: Blurred vision and slurred speech TECHNIQUE: Axial computed tomography images of the head/brain without intravenous contrast. Sagittal and/or coronal reformats are provided. Sagittal and coronal reformatted images were created and reviewed. This CT exam was performed using one or more of the following dose reduction techniques: automated exposure control, adjustment of the mA and/or kV according to patient size, and/or use of iterative reconstruction technique. COMPARISON: No relevant prior studies available. FINDINGS: Limitations: None. Brain and extra-axial spaces: There is age appropriate cortical atrophy and chronic ischemic periventricular white matter hypodensity. No acute infarct, hemorrhage or mass noted. Bones/joints: No acute changes. Soft tissues: No significant abnormality noted. Vasculature: There is moderate to severe atherosclerotic calcification of the intracranial vertebral and carotid arteries. There is likely significant stenosis of the left vertebral artery. Sinuses: No layering fluid in the visualized portions of the paranasal sinuses. Mastoid air cells: No mastoid effusion. Orbits: No significant abnormality noted. IMPRESSION: 1. Cerebral atrophy. No acute changes. 2. 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 ACT 112: Negative or not required by law. Electronically signed by Mary Jo Del Castillo 07-30-2024 12:57 PM
--- NOTE | 2024-07-30 13:02 | CT Scan Report ---
EXAM: CT Angiography Head With Intravenous Contrast INDICATION: TECHNIQUE: Axial computed tomographic angiography images of the head with intravenous contrast. Sagittal and coronal reformatted images were created and reviewed. This CT exam was performed using one or more of the following dose reduction techniques: automated exposure control, adjustment of the mA and/or kV according to patient size, and/or use of iterative reconstruction technique. MIP reconstructed images were created and reviewed. CONTRAST: 119ml of Optiray 320 was administered intravenously. COMPARISON: No relevant prior studies available. FINDINGS: Right internal carotid artery: Moderate calcific plaque intracranial right internal carotid artery without stenosis, occlusion or dissection. No aneurysm. Right anterior cerebral artery: No abnormality noted. No occlusion or significant stenosis. No aneurysm. Right middle cerebral artery: No abnormality noted. No occlusion or significant stenosis. No aneurysm. Right posterior cerebral artery: No abnormality noted. No occlusion or significant stenosis. No aneurysm. Right vertebral artery: There is calcific plaque with high-grade stenosis of the right intracranial vertebral artery which is codominant. No occlusion. Left internal carotid artery: Moderate calcific plaque intracranial left internal carotid artery without stenosis, occlusion or dissection. No aneurysm. Left anterior cerebral artery: No abnormality noted. No occlusion or significant stenosis. No aneurysm. Left middle cerebral artery: No abnormality noted. No occlusion or significant stenosis. No aneurysm. Left posterior cerebral artery: No abnormality noted. No occlusion or significant stenosis. No aneurysm. Left vertebral artery: There is dense calcification of the left intracranial vertebral artery. There is up to 70% long segment stenosis. No occlusion. Basilar artery: No abnormality noted. No occlusion or significant stenosis. No aneurysm. Other vasculature: There is normal enhancement and symmetrical appearance of the ophthalmic arteries. Patent dural venous sinuses. Sinuses: There is a small retention cyst or polyp in the left maxillary sinus. No sinus fluid. IMPRESSION: 1. 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 2. Anterior circulation without stenosis, occlusion, aneurysm or dissection. ACT 112: Negative or not required by law. Electronically signed by Mary Jo Del Castillo 07-30-2024 13:01 PM
[2024-07-30 13:04] LABS: INR 1.1 (0.9-1.1); Partial Thromboplastin Ratio 1.1; Partial Thromboplastin Time 30 Seconds (21-31); Prothrombin Time 11.5 Seconds (9.0-12.0)
--- NOTE | 2024-07-30 13:06 | CT Scan Report ---
EXAM: CT Angiography Neck With Intravenous Contrast INDICATION: Blurred vision. TECHNIQUE: Routine carotid CT angiography protocol was performed with intravenous contrast. NASCET criteria using the distal ICAs for comparison were used for evaluation of stenoses. Sagittal and coronal reformatted images were created and reviewed. This CT exam was performed using one or more of the following dose reduction techniques: automated exposure control, adjustment of the mA and/or kV according to patient size, and/or use of iterative reconstruction technique. MIP reconstructed images were created and reviewed. CONTRAST: 119ml of Optiray 320 was administered intravenously. COMPARISON: None. FINDINGS: VASCULATURE: Right common carotid artery: No abnormality noted. No occlusion or significant stenosis. No dissection. Right internal carotid artery: There is mild to moderate mixed plaque right cervical internal carotid bulb and proximal segment with less than 25% stenosis. No dissection, aneurysm or occlusion. Right external carotid artery: No abnormality noted. No occlusion. Right vertebral artery: No abnormality noted. No occlusion or significant stenosis. No dissection. Left common carotid artery: There is moderate calcification at the origin of the left common carotid artery. There is minimal mixed plaque distally. No stenosis, aneurysm, dissection or occlusion. Left internal carotid artery: There is severe mixed plaque of the left cervical internal carotid bulb and proximal segment with approximately 50% proximal stenosis. No dissection, aneurysm or occlusion. Left external carotid artery: No abnormality noted. No occlusion. Left vertebral artery: No abnormality noted. No occlusion or significant stenosis. No dissection. Brachiocephalic and subclavian arteries: There is mixed plaque at the origin of both subclavian arteries without stenosis, dissection or aneurysm. Aorta: There is mixed plaque partially imaged in the arch of the aorta. NECK: Bones/joints: There is mild narrowing of the left cervical vertebral artery by hypertrophic facets and narrowing of the transverse foramen at C5-C6. No occlusion, dissection or aneurysm. Soft tissues: No abnormality noted. Lung apices: Clear. CAROTID STENOSIS REFERENCE USING NASCET CRITERIA: % ICA stenosis = (1 - narrowest ICA diameter/diameter of distal cervical ICA) x 100. Mild - <50% stenosis. Moderate - 50-69% stenosis. Severe - 70-94% stenosis. Near occlusion - 95-99% stenosis. Occluded - 100% stenosis. IMPRESSION: 1. There is atherosclerosis with approximate 50% left cervical proximal internal carotid stenosis and less than 25% right proximal cervical internal carotid stenosis. 2. There is slight narrowing of the left cervical vertebral artery due to bony hypertrophy of the left transverse foramen at C5-C6. No occlusion. ACT 112: Negative or not required by law. Electronically signed by Mary Jo Del Castillo 07-30-2024 13:06 PM
[2024-07-30] MEDS: ASPIRIN 81 MG CHEW PO STA (13:31)
--- NOTE | 2024-07-30 14:05 | History & Physical Report ---
Date of Service July 30, 2024 Assessment & Plan (1) Brain TIA: (2) Ischemic heart disease: (3) GERD (gastroesophageal reflux disease): (4) History of bladder cancer: Plan Acute blurred vision and slurred speech, sx resolved Hx Left cerebellar hemisphere CVA in ~2010 - Admit to PCU for observation - Stroke order set completed, no indication for thrombolytic - CT head reviewed and is negative - MRI brain wo contrast ordered - Previously followed with Dr. Holliday and neurology in 2018 his last visit, had old CVA preexist's from admission for TIA in 2011, has hypokinetic IV segment only on baby aspirin. Retention cyst in maxillary of no concern. - Tele-neurology contacted by the ER- Recs aspirin and plavix - Will allow permissive hypertension with SBP 140-170 - Consider Neurology consultation pending MRI results - PT/OT consults place - pt finished 12 wks outpt therapy 2 weeks ago in beginning of July. May warrant addition PT. - Pt passed bedside swallow eval - Continue asa 81 mg daily, atorvastatin 80 mg for plaque stabilization Hx DVT/PE September 2023 -Anticoagulated on Eliquis BID - Chronic left lower ext edema from such, monitor, unlikely that venous doppler would yeild with already being anticoagulated. Pt denies missing doses. 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 Torres DVT ppx: teds, scds, eliquis, aspirin Lines: PIV x 1 FEN/GI: Heart healthy CODE: Full code Dispo: From home, likely to remain in the hospital x 1-2 days I spent a total of 75 minutes with greater than 50% of that time face to face with the patient, personally reviewing all current laboratories, imaging studies, past medication reconciliation, outpatient chart review, and discussion with specialists to collaborate care for the patient excluding time spent in the performance of separately billed services or time spent by another provider/[facility]. Please see attending documentation for corrections and/or additions. History of Present Illness Chief Complaint: Stroke like symptoms Primary Care Provider: Vahe Sahu MD This is a 83 yo M with PMHx of left cerebellar hemisphere CVA in 2010, ischemic heart disease, AAA, left popliteal aneurysm, elevated troponin, pulm embolism and DVT September 2023 on Eliquis, GERD, CARMINA, hx of upper respiratory symptoms in May 2024 a has had a residual cough since that time. Patient presents this morning to the ER after calling 911 when his was at home with him noticed slurred speech this morning around 10:45 AM. This is similar to previous CVA with aphasia that he experienced in 2009. He also developed blurred vision which lasted approximately 3 to 4 minutes, unsure if it was both or only one eye, and slurred speech lasting about 10 to 15 minutes. All symptoms nearly resolved by the time he arrived here at the ER. He denies any other symptoms such as unilateral weakness, motor defects, ability to recall events. Patient is already taking atorvastatin 40 mg daily, baby aspirin daily, and Eliquis BID which he did so this morning earlier. Last time he ate was breakfast today. Patient typically ambulates without any assistive devices. He has been recently discharged from physical therapy about 2 weeks ago for issues with the left lower extremity weakness status post DVT/left popliteal aneurysm. He completed 12 weeks of PT as outpatient. He denies any recent falls. Chronically the patient experiences lower extremity edema, worse in the left compared to the right. CT imaging of the head and neck is negative this morning. He will be admitted under observation with TIA symptoms. MRI of the brain has been ordered. Blood pressure is slightly elevated. No significant lab abnormalities noted on admission. Allergies Allergy/AdvReac Type Severity Reaction Status Date / Time pollen extracts Allergy Intermediate ITCHY Verified 04/07/24 19:50 EYES, SNEEZING, CONGESTION Home Medications Medication Instructions Recorded Confirmed Type atorvastatin 40 mg tablet 40 mg PO QAM 02/25/18 07/30/24 History multivitamin 1 tab PO DAILY 02/25/18 07/30/24 History omeprazole 40 mg capsule,delayed 40 mg PO DAILY 02/25/18 07/30/24 History release trospium 60 mg capsule,extended 60 mg PO QAM 10/10/22 07/30/24 History release 24 hr albuterol sulfate 90 mcg/actuation 2 puff inhalation Q4 PRN cough or 09/25/23 07/30/24 History aerosol inhaler wheeze aspirin 81 mg tablet,delayed 81 mg PO DAILY #1 tab 09/27/23 07/30/24 Rx release (Jelani Low Dose Aspirin) apixaban 5 mg (74 tabs) tablets in 5 mg PO BID 07/30/24 07/30/24 History a dose pack Past Med/Surg History Problem List (Updated 07/30/24 @ 18:10 by Mateo Davis MD) Brain TIA (Acute) Bilateral pneumonia (Acute) Acute right-sided thoracic back pain (Acute) Pulmonary emboli (Acute) Failed total right knee replacement Swelling of left lower extremity Elevated troponin I level (Acute) Sepsis Acute metabolic encephalopathy (Acute) CVA (cerebral vascular accident) Per patient was a TIA 6 years ago, had some memory issues that resolved, no deficits GERD (gastroesophageal reflux disease) Syncope (Acute) History of bladder cancer Complicated UTI (urinary tract infection) (Acute) Ischemic heart disease Kidney stone on left side (Acute) Thrombocytopenia Medical History History of recent steroid use On prednisone for headaches for one week, last dose was last Thursday CARMINA (obstructive sleep apnea) Use a dental TAP Hyperlipidemia Right inguinal hernia Nephrolithiasis Acid reflux Pulmonary embolism 2010 after long car ride Kidney stone Surgical History History of biopsy of bladder 07/01/21 S/P right knee arthroscopy H/O lithotripsy History of right knee joint replacement Family History Other Colorectal cancer Heart disease Social History Smoking Status: Unknown if ever smoked Second Hand Exposure: No; Do You Dip or Chew Tobacco: No; Hx Alcohol Use: No Hx Substance Use: No Preferred Language: Moroccan Communication Ability: Effective [employer] Hand Required: No Beliefs That Will Affect Care: None Current Living Situation: Alone Feels Safe at Home: Yes Safety Concerns: Feels Safe At This Time Assistive Devices: None Review of Systems Review of Systems: Constitutional: No fever, sweats or chills Eyes: + Blurred vision as per HPI, no diplopia, no worsening ENT: normal hearing, no trouble swallowing Respiratory: + Chronic dry cough, no sputum, dyspnea at rest or on exertion Cardiovascular: No chest pain, tightness or palpitations Abdomen: No pain, nausea, vomiting, diarrhea or constipation Musculoskeletal: No joint pain, calf pain, + bilateral lower extremity swelling, worse in left compared to right Neurologic: + Slurred speech as per HPI, no weakness, numbness/tingling, or balance problems Psychiatric: No anxiety or depression Skin: No rash or itch Physical Exam Physical Exam: General: awake, alert, no apparent distress, elderly white male Head: Normocephalic, atraumatic ENT: PERRL, EOMI, no pharyngeal exudate, mucous membranes moist Chest: Clear to auscultation, on room air, no adventitious breath sounds Cardiac: Regular rate and rhythm, no murmur, no JVD, normal peripheral pulses, good capillary refill Abdominal: NABS x 4 quadrants, soft, nondistended, nontender to palpation, no rebound or guarding Extremities: Normal inspection, +2 peripheral edema L> R pitting edema, no erythema, calfs nontender to palpation Psych: Normal mood and affect Neuro: AAO x 3, cranial nerves II through XII tested and are intact, negative pronator drift, can perform rapid alternating movements without difficulty, follows all commands, speech is not slurred, speech intact, answers all orientation questions correctly, strength intact bilaterally and rated 5/5 in upper extremities, strength in left leg hip flexion is slightly decreased compared to the right patient reports this is chronic, no gross motor deficits, speech is clear, no peripheral sensory deficits. Results & Data Results & Data Vital Signs (Past 12 Hours) Vital Signs Temp Pulse Pulse Resp BP BP Pulse Ox 07/30/24 12:27 81 18 155/95 H 98 07/30/24 12:17 36.7 C 82 16 175/103 H 97 O2 Del Method 07/30/24 12:27 Room Air 07/30/24 12:17 Room Air Laboratory Results 07/30/24 07/30/24 12:25 12:18 WBC 6.59 RBC 4.96 Hgb 15.5 POC Hgb 15.6 Hct 45.3 POC Hct 46 MCV 91.3 MCH 31.3 MCHC 34.2 RDW Std Deviation 43.3 RDW Coeff of Marvin 13.0 Plt Count 128 L MPV 8.6 L Immature Gran % (Auto) 0.2 Neut % (Auto) 60.9 Lymph % (Auto) 23.8 [place] % (Auto) 12.3 Eos % (Auto) 2.3 Baso % (Auto) 0.5 Neut # (Auto) 4.02 Lymph # (Auto) 1.57 [place] # (Auto) 0.81 H Eos # (Auto) 0.15 Baso # (Auto) 0.03 Immature Gran # (Auto) 0.01 PT 11.5 INR 1.1 APTT 30 PTT Ratio 1.1 POC Sodium 139 Sodium 137 POC Potassium 4.4 Potassium 3.9 POC Chloride 104 Chloride 105 Carbon Dioxide 28 POC Total CO2 26 Anion Gap 4 POC Anion Gap 14.0 L POC BUN 26 H BUN 20 Creatinine 0.87 POC Creatinine 0.9 Est Cr Clr Drug Dosing 73.1 eGFR 86.69 BUN/Creatinine Ratio 23.0 H Glucose 87 POC Glucose (other) 83 Calcium 9.0 POC Ioniz Calcium Hunter 1.16 Magnesium 1.8 Total Bilirubin 0.7 AST 24 ALT 16 Alkaline Phosphatase 90 Troponin I High Sens 6.3 Total Protein 6.6 Albumin 3.7 Globulin 2.9 Albumin/Globulin Ratio 1.3 Blood Type O Positive Antibody Screen NEGATIVE Diagnostic Findings Chest X-Ray 07/30/24 12:15 EXAM: Radiograph of the Chest 1 View INDICATION: Neurologic deficit TECHNIQUE: Frontal view of the chest. COMPARISON: No relevant prior studies available. FINDINGS: Lungs and pleural spaces: There is mild atelectasis in the lower lungs. No consolidation or pulmonary edema. No pleural effusion or pneumothorax. Heart: Prominent cardiac shadow accentuated by technique. Mediastinum: Normal contour. Bones/joints: No fracture, erosion or dislocation. Soft tissues: No abnormality noted. No radiopaque foreign body noted. Vasculature: Ectatic aorta with arch calcification. Upper abdomen: No abnormality noted. IMPRESSION: No significant acute cardiopulmonary disease. ACT 112: Negative or not required by law. Electronically signed by Mary Jo Del Castillo 07-30-2024 12:[address] 07/30/24 12:15 EXAM: CT Head Without Intravenous Contrast INDICATION: Blurred vision and slurred speech TECHNIQUE: Axial computed tomography images of the head/brain without intravenous contrast. Sagittal and/or coronal reformats are provided. Sagittal and coronal reformatted images were created and reviewed. This CT exam was performed using one or more of the following dose reduction techniques: automated exposure control, adjustment of the mA and/or kV according to patient size, and/or use of iterative reconstruction technique. COMPARISON: No relevant prior studies available. FINDINGS: Limitations: None. Brain and extra-axial spaces: There is age appropriate cortical atrophy and chronic ischemic periventricular white matter hypodensity. No acute infarct, hemorrhage or mass noted. Bones/joints: No acute changes. Soft tissues: No significant abnormality noted. Vasculature: There is moderate to severe atherosclerotic calcification of the intracranial vertebral and carotid arteries. There is likely significant stenosis of the left vertebral artery. Sinuses: No layering fluid in the visualized portions of the paranasal sinuses. Mastoid air cells: No mastoid effusion. Orbits: No significant abnormality noted. IMPRESSION: 1. Cerebral atrophy. No acute changes. 2. 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 ACT 112: Negative or not required by law. Electronically signed by Mary Jo Del Castillo 07-30-2024 12:57 PM Head CTA 07/30/24 12:15 EXAM: CT Angiography Head With Intravenous Contrast INDICATION: TECHNIQUE: Axial computed tomographic angiography images of the head with intravenous contrast. Sagittal and coronal reformatted images were created and reviewed. This CT exam was performed using one or more of the following dose reduction techniques: automated exposure control, adjustment of the mA and/or kV according to patient size, and/or use of iterative reconstruction technique. MIP reconstructed images were created and reviewed. CONTRAST: 119ml of Optiray 320 was administered intravenously. COMPARISON: No relevant prior studies available. FINDINGS: Right internal carotid artery: Moderate calcific plaque intracranial right internal carotid artery without stenosis, occlusion or dissection. No aneurysm. Right anterior cerebral artery: No abnormality noted. No occlusion or significant stenosis. No aneurysm. Right middle cerebral artery: No abnormality noted. No occlusion or significant stenosis. No aneurysm. Right posterior cerebral artery: No abnormality noted. No occlusion or significant stenosis. No aneurysm. Right vertebral artery: There is calcific plaque with high-grade stenosis of the right intracranial vertebral artery which is codominant. No occlusion. Left internal carotid artery: Moderate calcific plaque intracranial left internal carotid artery without stenosis, occlusion or dissection. No aneurysm. Left anterior cerebral artery: No abnormality noted. No occlusion or significant stenosis. No aneurysm. Left middle cerebral artery: No abnormality noted. No occlusion or significant stenosis. No aneurysm. Left posterior cerebral artery: No abnormality noted. No occlusion or significant stenosis. No aneurysm. Left vertebral artery: There is dense calcification of the left intracranial vertebral artery. There is up to 70% long segment stenosis. No occlusion. Basilar artery: No abnormality noted. No occlusion or significant stenosis. No aneurysm. Other vasculature: There is normal enhancement and symmetrical appearance of the ophthalmic arteries. Patent dural venous sinuses. Sinuses: There is a small retention cyst or polyp in the left maxillary sinus. No sinus fluid. IMPRESSION: 1. 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 2. Anterior circulation without stenosis, occlusion, aneurysm or dissection. ACT 112: Negative or not required by law. Electronically signed by Mary Jo Del Castillo 07-30-2024 13:01 PM Neck CTA 07/30/24 12:15 EXAM: CT Angiography Neck With Intravenous Contrast INDICATION: Blurred vision. TECHNIQUE: Routine carotid CT angiography protocol was performed with intravenous contrast. NASCET criteria using the distal ICAs for comparison were used for evaluation of stenoses. Sagittal and coronal reformatted images were created and reviewed. This CT exam was performed using one or more of the following dose reduction techniques: automated exposure control, adjustment of the mA and/or kV according to patient size, and/or use of iterative reconstruction technique. MIP reconstructed images were created and reviewed. CONTRAST: 119ml of Optiray 320 was administered intravenously. COMPARISON: None. FINDINGS: VASCULATURE: Right common carotid artery: No abnormality noted. No occlusion or significant stenosis. No dissection. Right internal carotid artery: There is mild to moderate mixed plaque right cervical internal carotid bulb and proximal segment with less than 25% stenosis. No dissection, aneurysm or occlusion. Right external carotid artery: No abnormality noted. No occlusion. Right vertebral artery: No abnormality noted. No occlusion or significant stenosis. No dissection. Left common carotid artery: There is moderate calcification at the origin of the left common carotid artery. There is minimal mixed plaque distally. No stenosis, aneurysm, dissection or occlusion. Left internal carotid artery: There is severe mixed plaque of the left cervical internal carotid bulb and proximal segment with approximately 50% proximal stenosis. No dissection, aneurysm or occlusion. Left external carotid artery: No abnormality noted. No occlusion. Left vertebral artery: No abnormality noted. No occlusion or significant stenosis. No dissection. Brachiocephalic and subclavian arteries: There is mixed plaque at the origin of both subclavian arteries without stenosis, dissection or aneurysm. Aorta: There is mixed plaque partially imaged in the arch of the aorta. NECK: Bones/joints: There is mild narrowing of the left cervical vertebral artery by hypertrophic facets and narrowing of the transverse foramen at C5-C6. No occlusion, dissection or aneurysm. Soft tissues: No abnormality noted. Lung apices: Clear. CAROTID STENOSIS REFERENCE USING NASCET CRITERIA: % ICA stenosis = (1 - narrowest ICA diameter/diameter of distal cervical ICA) x 100. Mild - <50% stenosis. Moderate - 50-69% stenosis. Severe - 70-94% stenosis. Near occlusion - 95-99% stenosis. Occluded - 100% stenosis. IMPRESSION: 1. There is atherosclerosis with approximate 50% left cervical proximal internal carotid stenosis and less than 25% right proximal cervical internal carotid stenosis. 2. There is slight narrowing of the left cervical vertebral artery due to bony hypertrophy of the left transverse foramen at C5-C6. No occlusion. ACT 112: Negative or not required by law. Electronically signed by Mary Jo Del Castillo 07-30-2024 13:06 PM Code Status & VTE Plan Code Status Full code-discussed with patient and his at bedside Supervising Physician Co-Signing Physician Notes Pt seen and examined by me, care coordinated w/ Brigitte Grewal PA-C, pls refer to her note above for further detail. Pt is 83 yo M w/left cerebellar hemisphere CVA in 2010, ischemic heart disease, AAA, left popliteal aneurysm, elevated troponin, pulm embolism and DVT September 2023 on Eliquis, GERD, CARMINA, hx of upper respiratory symptoms in May 2024 and has had a residual cough since that time, now presents with slurred speech and blurred vision that lasted several minutes, resolved prior to coming to ED. Currently pt is lying in bed in NAD, comfortable, pt's present at the bedside. Denies any symptoms. lungs w/ minimal rhonchi, heart sounds regular, abdomen soft, nontender. Speech clear, no facial asymmetry, moves extremities, no weakness noted. Patient is already taking atorvastatin 40 mg daily, baby aspirin daily, and Eliquis BID. CT imaging of the head and neck is negative. He will be admitted under observation with TIA symptoms. MRI of the brain has been ordered. Will further discuss / [facility] neurology. MD Hiram
[2024-07-30] MEDS: ATORVASTATIN 40 MG TAB PO STA (15:54)
--- NOTE | 2024-07-30 16:18 | Magnetic Resonance Report ---
MRI of the brain performed without IV contrast History: Headache. Blurred vision Comparison: None Technique: Sagittal T1-weighted and axial T2-weighted, T2/FLAIR and diffusion-weighted with ADC map images of the brain were obtained without IV contrast. Findings: No evidence for intracranial mass lesion, mass-effect, midline shift, or abnormal extra-axial fluid collection. The ventricles and sulci are within normal limits for age. No abnormally reduced diffusion or evidence for acute infarct. Chronic small infarct in the left cerebellar hemisphere. Moderate to marked generalized cerebral atrophy. Mild scattered high signal intensity foci throughout the white matter on T2/FLAIR, most consistent with chronic small vessel ischemic disease. Normal intravascular flow voids. Bilateral pseudophakia. Impression: Age-related changes without acute intracranial pathology Electronically signed by Ernie Carpenter 07-30-2024 4:17 PM
[2024-07-30] MEDS ORDERED: PHARMACIST DISCHARGE MED REC CONSULT PRN (16:49)
[2024-07-30] MEDS ORDERED: ACETAMINOPHEN 325 MG TAB PO PRN (16:49)
[2024-07-30] MEDS ORDERED: ONDANSETRON INJ 2 MG/ML 2 ML VIAL IV PRN (16:49)
--- NOTE | 2024-07-30 17:12 | Emergency Department Note ---
History of Present Illness General Chief complaint: TIA Symptoms Time Seen by Provider: 07/30/24 12:09 History of Present Illness Provider complaint: Stroke symptoms 83-year-old male presents emergency department for stroke symptoms. Patient states at 10:45 AM he started being unable to speak and slurring his speech and then started noticing some changes in visions. Patient reports his symptoms resolved by 11:15 AM. Patient denies any falls or traumas. Patient is on Eliquis. He denies any headache. No seizures. No numbness or tingling. Home Medications Medication Instructions Recorded Confirmed Type atorvastatin 40 mg tablet 40 mg PO QAM 02/25/18 07/30/24 History multivitamin 1 tab PO DAILY 02/25/18 07/30/24 History omeprazole 40 mg capsule,delayed 40 mg PO DAILY 02/25/18 07/30/24 History release trospium 60 mg capsule,extended 60 mg PO QAM 10/10/22 07/30/24 History release 24 hr albuterol sulfate 90 mcg/actuation 2 puff inhalation Q4 PRN cough or 09/25/23 07/30/24 History aerosol inhaler wheeze aspirin 81 mg tablet,delayed 81 mg PO DAILY #1 tab 09/27/23 07/30/24 Rx release (Jelani Low Dose Aspirin) apixaban 5 mg (74 tabs) tablets in 5 mg PO BID 07/30/24 07/30/24 History a dose pack Allergies Allergy/AdvReac Type Severity Reaction Status Date / Time pollen extracts Allergy Intermediate ITCHY Verified 04/07/24 19:50 EYES, SNEEZING, CONGESTION Past Med/Surg History Problem List (Updated 07/30/24 @ 18:10 by Mateo Davis MD) Brain TIA (Acute) Bilateral pneumonia (Acute) Acute right-sided thoracic back pain (Acute) Pulmonary emboli (Acute) Failed total right knee replacement Swelling of left lower extremity Elevated troponin I level (Acute) Sepsis Acute metabolic encephalopathy (Acute) CVA (cerebral vascular accident) Per patient was a TIA 6 years ago, had some memory issues that resolved, no deficits GERD (gastroesophageal reflux disease) Syncope (Acute) History of bladder cancer Complicated UTI (urinary tract infection) (Acute) Ischemic heart disease Kidney stone on left side (Acute) Thrombocytopenia Medical History History of recent steroid use On prednisone for headaches for one week, last dose was last Thursday CARMINA (obstructive sleep apnea) Use a dental TAP Hyperlipidemia Right inguinal hernia Nephrolithiasis Acid reflux Pulmonary embolism 2010 after long car ride Kidney stone Surgical History History of biopsy of bladder 07/01/21 S/P right knee arthroscopy H/O lithotripsy History of right knee joint replacement Family History Other Colorectal cancer Heart disease Social History Smoking Status: Unknown if ever smoked Second Hand Exposure: No; Do You Dip or Chew Tobacco: No; Hx Alcohol Use: No Hx Substance Use: No Preferred Language: [place] Communication Ability: Effective Auto [employer] Driver Required: No Beliefs That Will Affect Care: None Current Living Situation: Alone Feels Safe at Home: Yes Safety Concerns: Feels Safe At This Time Assistive Devices: None Physical Exam Vital Signs Vital Signs - 24 hr 07/30/24 12:17 07/30/24 12:27 07/30/24 14:00 Temperature 36.7 C Temperature Source Oral Pulse Rate 82 Pulse Rate [Apical] 81 85 Pulse Rhythm [Apical] Regular Pulse Strength [Apical] Normal Respiratory Rate 16 18 17 Respiratory Effort / Characteristics Non-Labored Respiratory Depth Normal Respiratory Pattern Regular Blood Pressure 175/103 H Blood Pressure [Right Arm] 155/95 H 177/99 H Blood Pressure Mean 127 Blood Pressure Mean [Right Arm] 115 125 Blood Pressure Position [Right Arm] Lying Pulse Oximetry 97 98 96 Oxygen Delivery Method Room Air Room Air Room Air Sepsis Recent Fever Within 48 Hours No Sepsis New/Unexplained Change in Mental Status N/A Sepsis Action Taken by Nursing No Action Required 07/30/24 14:02 Temperature Temperature Source Pulse Rate 92 H Pulse Rate [Apical] Pulse Rhythm [Apical] Pulse Strength [Apical] Respiratory Rate 20 Respiratory Effort / Characteristics Respiratory Depth Respiratory Pattern Blood Pressure 177/99 H Blood Pressure [Right Arm] Blood Pressure Mean 125 Blood Pressure Mean [Right Arm] Blood Pressure Position [Right Arm] Pulse Oximetry 98 Oxygen Delivery Method Room Air Sepsis Recent Fever Within 48 Hours Sepsis New/Unexplained Change in Mental Status Sepsis Action Taken by Nursing Physical Exam HENT: Exam performed. -Head: Normocephalic and atraumatic. -Right Ear: External ear normal. No mastoid erythema -Left Ear: External ear normal. No mastoid erythema -Mouth/Throat: The oropharynx is clear and moist. No trismus in the jaw. No dental abscesses or uvula swelling. No oropharyngeal exudate or tonsillar abscesses. EYES: Conjunctivae and EOM are normal. Pupils are equal, round, and reactive to light. Right eye exhibits no discharge. Left eye exhibits no discharge. No scleral icterus. NECK: Normal range of motion. Neck supple. No JVD present. No rigidity. No tracheal deviation and normal range of motion present. CV: Normal rate, regular rhythm, normal heart sounds and intact distal pulses. There is no peripheral edema. Palpable radial pulses bue. PULM/CHEST: Effort normal and breath sounds normal. No respiratory distress. No stridor. no wheezes. no rales. MUSC/SKEL: Normal range of motion. There is no peripheral edema, tenderness or deformity. NEURO: alert and oriented to person, place, and time. normal strength. No cranial nerve deficit or sensory deficit. Coordination and gait normal. GCS eye subscore is 4. GCS verbal subscore is 5. GCS motor subscore is 6. Cerebellar tests wnl. No clonus. NIHSS: 0 SKIN: Skin is warm and dry. not diaphoretic. PSYCH:normal mood and affect. Behavior is normal. Judgment and thought content normal. Course Course 1209: The patient was evaluated in room D3. A complete history and physical exam was performed Cardiac monitoring: An order was placed for continuous cardiac monitoring. The monitor shows a rate of 90 with sinus rhythm interpreted by mt 1330: Vital signs stable. Labs are unremarkable. Imaging shows no ICH but shows high-grade stenosis of the bilateral intracranial vertebral arteries. Patient be admitted to the hospital service for TIA. Aspirin ordered for the patient. Administered Medications Discontinued Medications Aspirin (Aspirin 81 Mg Chew) 324 mg PO NOW STA Stop: 07/30/24 13:29 Last Admin: 07/30/24 13:31 Dose: 324 mg Documented By: ALEXANDRA Atorvastatin Calcium (Atorvastatin 40 Mg Tab) 40 mg PO ONCE STA Stop: 07/30/24 15:03 Last Admin: 07/30/24 15:54 Dose: 40 mg Documented By: LEIGH ANN Ioversol (Optiray 320 125ml) 119 ml IV ONCE ONE Stop: 07/30/24 12:45 Last Admin: 07/30/24 12:44 Dose: 119 ml Documented By: AIDAN Medical Decision Making Laboratory Data Attestation: I reviewed the patient's lab results. 07/30/24 12:18 07/30/24 12:18 Lab Results 07/30/24 07/30/24 Range/Units 12:18 12:25 WBC 6.59 (4.8-10.8) K/ul RBC 4.96 (4.70-6.10) M/uL Hgb 15.5 (14.0-18.0) g/dl POC Hgb 15.6 (14.0-18.0) g/dl Hct 45.3 (42.0-52.0) % POC Hct 46 (42-52) % MCV 91.3 (80.0-100.0) fL MCH 31.3 (25.0-34.0) pg MCHC 34.2 (32.0-36.0) g/dL RDW Std Deviation 43.3 (36.4-46.3) fL RDW Coeff of Marvin 13.0 (11.5-14.5) % Plt Count 128 L (130-400) K/uL MPV 8.6 L (9.4-12.4) fL Immature Gran % (Auto) 0.2 % Neut % (Auto) 60.9 % Lymph % (Auto) 23.8 % Butler % (Auto) 12.3 % Eos % (Auto) 2.3 % Baso % (Auto) 0.5 % Neut # (Auto) 4.02 (1.40-6.50) K/uL Lymph # (Auto) 1.57 (1.20-3.40) K/uL Butler # (Auto) 0.81 H (0.11-0.59) K/uL Eos # (Auto) 0.15 (0.00-0.50) K/uL Baso # (Auto) 0.03 (0.00-0.20) K/uL Immature Gran # (Auto) 0.01 (0.01-0.20) K/uL PT 11.5 (9.0-12.0) Seconds INR 1.1 (0.9-1.1) APTT 30 (21-31) Seconds PTT Ratio 1.1 POC Sodium 139 (135-144) mmol/L Sodium 137 (136-145) mmol/L POC Potassium 4.4 (3.3-5.0) mmol/L Potassium 3.9 (3.5-5.1) mmol/L POC Chloride 104 (101-112) mmol/L Chloride 105 (98-107) mmol/L Carbon Dioxide 28 (21-32) mmol/L POC Total CO2 26 (24-31) mmol/L Anion Gap 4 (3-11) POC Anion Gap 14.0 L (16-25) mmol/L POC BUN 26 H (7-18) mg/dl BUN 20 (6-23) mg/dl Creatinine 0.87 (0.6-1.4) mg/dl POC Creatinine 0.9 (0.6-1.3) mg/dl Est Cr Clr Drug Dosing 73.1 ml/min eGFR 86.69 BUN/Creatinine Ratio 23.0 H (10-20) Glucose 87 (70-99(Fasting)) mg/dl POC Glucose (other) 83 (70-99) mg/dl Calcium 9.0 (8.6-10.3) mg/dl POC Ioniz Calcium Hunter 1.16 (1.12-1.32) mmol/l Magnesium 1.8 (1.7-2.4) mg/dl Total Bilirubin 0.7 (0.2-1.0) mg/dl AST 24 (13-39) U/L ALT 16 (7-52) U/L Alkaline Phosphatase 90 (34-104) U/L Troponin I High Sens 6.3 (0-20) pg/ml Total Protein 6.6 (6.0-8.3) gm/dl Albumin 3.7 (3.4-5.0) gm/dl Globulin 2.9 (2.5-4.0) gm/dl Albumin/Globulin Ratio 1.3 (0.9-2) Blood Type O Positive Antibody Screen NEGATIVE Imaging Data Attestation: I personally reviewed and interpreted this imaging study as follows: My Impression: CT head: No ICH Radiologist's Impression: Chest X-Ray 07/30/24 12:15 EXAM: Radiograph of the Chest 1 View INDICATION: Neurologic deficit TECHNIQUE: Frontal view of the chest. COMPARISON: No relevant prior studies available. FINDINGS: Lungs and pleural spaces: There is mild atelectasis in the lower lungs. No consolidation or pulmonary edema. No pleural effusion or pneumothorax. Heart: Prominent cardiac shadow accentuated by technique. Mediastinum: Normal contour. Bones/joints: No fracture, erosion or dislocation. Soft tissues: No abnormality noted. No radiopaque foreign body noted. Vasculature: Ectatic aorta with arch calcification. Upper abdomen: No abnormality noted. IMPRESSION: No significant acute cardiopulmonary disease. ACT 112: Negative or not required by law. Electronically signed by Mary Jo Del Castillo 07-30-2024 12:[address] 07/30/24 12:15 EXAM: CT Head Without Intravenous Contrast INDICATION: Blurred vision and slurred speech TECHNIQUE: Axial computed tomography images of the head/brain without intravenous contrast. Sagittal and/or coronal reformats are provided. Sagittal and coronal reformatted images were created and reviewed. This CT exam was performed using one or more of the following dose reduction techniques: automated exposure control, adjustment of the mA and/or kV according to patient size, and/or use of iterative reconstruction technique. COMPARISON: No relevant prior studies available. FINDINGS: Limitations: None. Brain and extra-axial spaces: There is age appropriate cortical atrophy and chronic ischemic periventricular white matter hypodensity. No acute infarct, hemorrhage or mass noted. Bones/joints: No acute changes. Soft tissues: No significant abnormality noted. Vasculature: There is moderate to severe atherosclerotic calcification of the intracranial vertebral and carotid arteries. There is likely significant stenosis of the left vertebral artery. Sinuses: No layering fluid in the visualized portions of the paranasal sinuses. Mastoid air cells: No mastoid effusion. Orbits: No significant abnormality noted. IMPRESSION: 1. Cerebral atrophy. No acute changes. 2. 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 ACT 112: Negative or not required by law. Electronically signed by Mary Jo Del Castillo 07-30-2024 12:57 PM Head CTA 07/30/24 12:15 EXAM: CT Angiography Head With Intravenous Contrast INDICATION: TECHNIQUE: Axial computed tomographic angiography images of the head with intravenous contrast. Sagittal and coronal reformatted images were created and reviewed. This CT exam was performed using one or more of the following dose reduction techniques: automated exposure control, adjustment of the mA and/or kV according to patient size, and/or use of iterative reconstruction technique. MIP reconstructed images were created and reviewed. CONTRAST: 119ml of Optiray 320 was administered intravenously. COMPARISON: No relevant prior studies available. FINDINGS: Right internal carotid artery: Moderate calcific plaque intracranial right internal carotid artery without stenosis, occlusion or dissection. No aneurysm. Right anterior cerebral artery: No abnormality noted. No occlusion or significant stenosis. No aneurysm. Right middle cerebral artery: No abnormality noted. No occlusion or significant stenosis. No aneurysm. Right posterior cerebral artery: No abnormality noted. No occlusion or significant stenosis. No aneurysm. Right vertebral artery: There is calcific plaque with high-grade stenosis of the right intracranial vertebral artery which is codominant. No occlusion. Left internal carotid artery: Moderate calcific plaque intracranial left internal carotid artery without stenosis, occlusion or dissection. No aneurysm. Left anterior cerebral artery: No abnormality noted. No occlusion or significant stenosis. No aneurysm. Left middle cerebral artery: No abnormality noted. No occlusion or significant stenosis. No aneurysm. Left posterior cerebral artery: No abnormality noted. No occlusion or significant stenosis. No aneurysm. Left vertebral artery: There is dense calcification of the left intracranial vertebral artery. There is up to 70% long segment stenosis. No occlusion. Basilar artery: No abnormality noted. No occlusion or significant stenosis. No aneurysm. Other vasculature: There is normal enhancement and symmetrical appearance of the ophthalmic arteries. Patent dural venous sinuses. Sinuses: There is a small retention cyst or polyp in the left maxillary sinus. No sinus fluid. IMPRESSION: 1. 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 2. Anterior circulation without stenosis, occlusion, aneurysm or dissection. ACT 112: Negative or not required by law. Electronically signed by Mary Jo Del Castillo 07-30-2024 13:01 PM Neck CTA 07/30/24 12:15 EXAM: CT Angiography Neck With Intravenous Contrast INDICATION: Blurred vision. TECHNIQUE: Routine carotid CT angiography protocol was performed with intravenous contrast. NASCET criteria using the distal ICAs for comparison were used for evaluation of stenoses. Sagittal and coronal reformatted images were created and reviewed. This CT exam was performed using one or more of the following dose reduction techniques: automated exposure control, adjustment of the mA and/or kV according to patient size, and/or use of iterative reconstruction technique. MIP reconstructed images were created and reviewed. CONTRAST: 119ml of Optiray 320 was administered intravenously. COMPARISON: None. FINDINGS: VASCULATURE: Right common carotid artery: No abnormality noted. No occlusion or significant stenosis. No dissection. Right internal carotid artery: There is mild to moderate mixed plaque right cervical internal carotid bulb and proximal segment with less than 25% stenosis. No dissection, aneurysm or occlusion. Right external carotid artery: No abnormality noted. No occlusion. Right vertebral artery: No abnormality noted. No occlusion or significant stenosis. No dissection. Left common carotid artery: There is moderate calcification at the origin of the left common carotid artery. There is minimal mixed plaque distally. No stenosis, aneurysm, dissection or occlusion. Left internal carotid artery: There is severe mixed plaque of the left cervical internal carotid bulb and proximal segment with approximately 50% proximal stenosis. No dissection, aneurysm or occlusion. Left external carotid artery: No abnormality noted. No occlusion. Left vertebral artery: No abnormality noted. No occlusion or significant stenosis. No dissection. Brachiocephalic and subclavian arteries: There is mixed plaque at the origin of both subclavian arteries without stenosis, dissection or aneurysm. Aorta: There is mixed plaque partially imaged in the arch of the aorta. NECK: Bones/joints: There is mild narrowing of the left cervical vertebral artery by hypertrophic facets and narrowing of the transverse foramen at C5-C6. No occlusion, dissection or aneurysm. Soft tissues: No abnormality noted. Lung apices: Clear. CAROTID STENOSIS REFERENCE USING NASCET CRITERIA: % ICA stenosis = (1 - narrowest ICA diameter/diameter of distal cervical ICA) x 100. Mild - <50% stenosis. Moderate - 50-69% stenosis. Severe - 70-94% stenosis. Near occlusion - 95-99% stenosis. Occluded - 100% stenosis. IMPRESSION: 1. There is atherosclerosis with approximate 50% left cervical proximal internal carotid stenosis and less than 25% right proximal cervical internal carotid stenosis. 2. There is slight narrowing of the left cervical vertebral artery due to bony hypertrophy of the left transverse foramen at C5-C6. No occlusion. ACT 112: Negative or not required by law. Electronically signed by Mary Jo Del Castillo 07-30-2024 13:06 PM ECG Data Attestation: I personally reviewed and interpreted this ECG as follows: Rate (beats per minute): 80 Rhythm: + normal sinus ECG Intervals/blocks: + First degree AV block, + Normal QRS and + Normal QT-c ECG ST segments: + Normal ST segments MDM Narrative 1209: The patient was evaluated in room D3. A complete history and physical exam was performed Cardiac monitoring: An order was placed for continuous cardiac monitoring. The monitor shows a rate of 90 with sinus rhythm interpreted by me 1330: Vital signs stable. Labs are unremarkable. Imaging shows no ICH but shows high-grade stenosis of the bilateral intracranial vertebral arteries. Patient be admitted to the hospital service for TIA. Aspirin ordered for the patient. Impression & Plan Brain TIA Discharge Plan Visit Data Chief Complaint: TIA Symptoms ED Provider: Mateo Davis Discharge Problem: Brain TIA Patient Disposition: Admitted As Inpatient Discharge Instructions Interventions: ED Discharge Assessment Last Done: 07/30/24 16:15
[2024-07-30] MEDS: APIXABAN 5 MG TABLET PO SCH (20:25)
[2024-07-31 06:35] LABS: Basophils # (auto) 0.05 K/uL (0.00-0.20); Basophils % (auto) 0.6 %; Eosinophils # (auto) 0.28 K/uL (0.00-0.50); Eosinophils % (auto) 3.6 %; Hematocrit (blood only) 45.8 % (42.0-52.0); Hemoglobin 15.6 g/dl (14.0-18.0); Immature Granulocytes # (auto) 0.02 K/uL (0.01-0.20); Immature Granulocytes % (auto) 0.3 %; Lymphocytes # (auto) 1.57 K/uL (1.20-3.40); Lymphocytes % (auto) 20.2 %; Mean Corpuscular Hemoglobin 30.8 pg (25.0-34.0); Mean Corpuscular Hgb Conc 34.1 g/dL (32.0-36.0); Mean Corpuscular Volume 90.3 fL (80.0-100.0); Mean Platelet Volume 8.9 fL (9.4-12.4); Monocytes # (auto) 0.99 K/uL (0.11-0.59); Monocytes % (auto) 12.7 %; Neutrophils # (auto) 4.88 K/uL (1.40-6.50); Neutrophils % (auto) 62.6 %; Platelet Count 136 K/uL (130-400); RDW Coefficient of Variation 13.1 % (11.5-14.5); RDW Standard Deviation 42.8 fL (36.4-46.3); Red Blood Count 5.07 M/uL (4.70-6.10); White Blood Count 7.79 K/ul (4.8-10.8)
[2024-07-31 07:05] LABS: BUN Creatinine Ratio 17.2 (10-20); Calcium 9.3 mg/dl (8.6-10.3); Chol HDL Ratio 2.9 (0-5); Creatinine Clr Calc Pharmacy 68.4 ml/min; Potassium 4.4 mmol/L (3.5-5.1)
[2024-07-31 07:43] VITALS: RESP 20; TEMP 97.9; O2SAT 93
[2024-07-31 08:25] LABS: Estimated Average Glucose 111 mg/dl; Hemoglobin A1C 5.5 % (4.5-5.6)
[2024-07-31] MEDS ORDERED: ASPIRIN 81 MG ECTAB PO SCH (09:00)
[2024-07-31] MEDS: ASPIRIN 81 MG ECTAB PO SCH (09:14)
[2024-07-31] MEDS: ATORVASTATIN 40 MG TAB PO SCH (09:14)
[2024-07-31] MEDS: MULTIVITAMIN TAB PO SCH (09:15)
[2024-07-31] MEDS: OXYBUTYNIN CHLORIDE XL 5 MG TABCR PO SCH (09:15)
[2024-07-31] MEDS: PANTOprazole 40 MG TAB PO SCH (09:16)
--- NOTE | 2024-07-31 10:20 | Electrocardiogram Report ---
Test Reason : Blood Pressure : */* mmHG Vent. Rate : 80 BPM Atrial Rate : 80 BPM P-R Int : 234 ms QRS Dur : 108 ms QT Int : 372 ms P-R-T Axes : 53 -40 45 degrees QTcB Int : 429 ms Sinus rhythm with 1st degree A-V block Left axis deviation Incomplete right bundle branch block Abnormal ECG When compared with ECG of 07-Apr-2024 19:00, Incomplete right bundle branch block is now Present Minimal criteria for Anterior infarct are no longer Present Confirmed by Maged Avendaño ([id number]) on 07/31/2024 10:20:46 AM Referred By: Confirmed By: Maged Avendaño
--- NOTE | 2024-07-31 10:35 | Electrocardiogram Report ---
Test Reason : Blood Pressure : */* mmHG Vent. Rate : 74 BPM Atrial Rate : 74 BPM P-R Int : 222 ms QRS Dur : 108 ms QT Int : 398 ms P-R-T Axes : 33 -50 21 degrees QTcB Int : 441 ms Sinus rhythm with 1st degree A-V block Left anterior fascicular block Abnormal ECG When compared with ECG of 30-Jul-2024 12:26, (unconfirmed) Incomplete right bundle branch block is no longer Present Confirmed by Maged Avendaño ([id number]) on 07/31/2024 10:34:43 AM Referred By: REFERRED SELF Confirmed By: Maged Avendaño
--- NOTE | 2024-07-31 11:09 | Neurology Consultation ---
Date of Consultation July 31, 2024 Assessment & Plan (1) Brain TIA: Differential diagnosis includes a TIA versus a hemodynamic event, dehydration, anxiety Reviewed MRI of the brain and CTA with no acute ischemia no significant stenosis Plan Continue with Eliquis and aspirin for stroke prevention. Continue with statins. Echocardiogram will not change the management from neurology standpoint. No further recommendations. Telehealth Consultation Telehealth Information Telehealth Information: I performed this visit using a real-time telehealth connection between my location and the patients location ([facility]). After connecting through interactive tele-video, patient was identified by name and date of and/or wristband check.Patient (or authorized healthcare resources representative) was informed that this was a telemedicine visit and it was being conducted confidentially over secure lines. My office door was closed and no one else was present in the room with me.Patient (or authorized healthcare resources representative) provided consent to proceed with the visit, expressed an understanding of privacy and security of the telemedicine visit, and gave permission to have a hospital resources representative in the room in order to assist with the visit and to conduct portions of the visit, as needed. I informed the patient (or authorized healthcare resources representative) that I reviewed their record and presented the opportunity for them to ask any questions regarding the visit today. The patient agreed to participate. History of Present Illness Reason for Consultation: TIA Requesting Physician: Kurt Retana MD Attending Physician: Mazin Hicks MD History of Present Illness 83-year-old male patient with PMH of pulmonary embolism and DVT in 2023, maintained on Eliquis, CARMINA, GERD, history of an ischemic stroke in 2010 with residual aphasia, The patient was brought to the hospital with slurred speech that was noticed by his when he was standing in the kitchen slicing meat. The patient reports that he had slurred speech and also was speaking in incomplete sentences he panicked, however did not have any dizziness or heart racing or palpitations. He denies any lightheadedness any motor deficits any loss of balance. They called 911 immediately and by the time the patient arrived to the emergency room his symptoms have subsided. He is currently with no focal neurological deficits has been ambulatory and with no neurological concerns. Allergies Allergy/AdvReac Type Severity Reaction Status Date / Time pollen extracts Allergy Intermediate ITCHY Verified 04/07/24 19:50 EYES, SNEEZING, CONGESTION Home Medications Medication Instructions Recorded Confirmed Type atorvastatin 40 mg tablet 40 mg PO QAM 02/25/18 07/30/24 History multivitamin 1 tab PO DAILY 02/25/18 07/30/24 History omeprazole 40 mg capsule,delayed 40 mg PO DAILY 02/25/18 07/30/24 History release trospium 60 mg capsule,extended 60 mg PO QAM 10/10/22 07/30/24 History release 24 hr albuterol sulfate 90 mcg/actuation 2 puff inhalation Q4 PRN cough or 09/25/23 07/30/24 History aerosol inhaler wheeze aspirin 81 mg tablet,delayed 81 mg PO DAILY #1 tab 09/27/23 07/30/24 Rx release (Jelani Low Dose Aspirin) apixaban 5 mg (74 tabs) tablets in 5 mg PO BID 07/30/24 07/30/24 History a dose pack Patient History Medical History History of recent steroid use On prednisone for headaches for one week, last dose was last Thursday CARMINA (obstructive sleep apnea) Use a dental TAP Hyperlipidemia Right inguinal hernia Nephrolithiasis Acid reflux Pulmonary embolism 2010 after long car ride Kidney stone Surgical History History of biopsy of bladder 07/01/21 S/P right knee arthroscopy H/O lithotripsy History of right knee joint replacement Family History Other Colorectal cancer Heart disease Social History Smoking Status: Unknown if ever smoked Second Hand Exposure: No; Do You Dip or Chew Tobacco: No; Hx Alcohol Use: No Hx Substance Use: No Preferred Language: Niuean Communication Ability: Effective D[employer]end [employer]osit Entry Clerk Required: No Beliefs That Will Affect Care: None Current Living Situation: Alone Feels Safe at Home: Yes Safety Concerns: Feels Safe At This Time Assistive Devices: None Review of Systems Constitutional: Patient denies weight loss, fever, chills, and night sweats Eyes: Patient denies change in vision, tearing, pain, and redness ENT: Patient denies pain, bleeding, rhinorrhea, and dysphagia Cardiovascular: Patient denies chest pain, palpitation, dyspnea at rest, and dyspnea with exertion Respiratory: Patient denies shortness of breath, cough, wheezing, and productive cough GI: Patient denies reflux, pain, constipation, and diarrhea Skin: Patient denies rash, dryness, and itching Allergies/Immune System: Patient denies rhinorrhea, seasonal allergies, reaction to current MEDS, and joint swelling Endocrine: Patient denies weight loss, weight gain, temperature intolerance, and excessive thirst Neurological: All negative unless mentioned in the HPI Physical Exam General Constitutional: Appearance normally developed Head and face: normocephalic and atraumatic Eyes: no ptosis, no anisocoria, and no dysconjugate gaze Respiratory: normal effort Cardiovascular: regular rhythm and regular rate Abdomen: non distended Skin: no rashes, lesions, or ulcers noted Psychiatric: normal judgement and insight, normal mood, and normal affect NEUROLOGIC EXAMINATION: Mental Status:alert, oriented to time, place, person, normal recent memory, normal remote memory, normal attention span, normal concentration, normal language and normal fund of knowledge Cranial Nerves: CN 2 - no visual defect on confrontation and pupils round, equal, reactive to light CN 3, 4, 6 - extra-ocular movements intact and no nystagmus CN 5 - facial sensation intact CN 7 - no facial asymmetry CN 8 - intact hearing CN 9, 10 - palate symmetric, normal gag CN 11 - good shoulder shrug CN 12 - tongue midline MOTOR: Strength was at least antigravity throughout, Pronator drift was absent and There were no abnormal movements SENSATION: intact and symmetric to pinprick, light touch, vibration and joint position GAIT: stable, no ataxia and can perform tandem walking COORDINATION: no ataxia with finger to nose testing and heel to mahmood testing REFLEXES: cannot assess over telemedicine NIH Stroke Scale: 1a. Level of Consciousness: alert = 0 1b. LOC Questions: (month, age): both correct = 0 1c. LOC Commands (open and close eyes, make fist and let go using non-paretic hand): obeys both correctly = 0 2. Best Gaze (eyes open and patient follows examiner's finger or face): normal = 0 3. Visual (visual threat or finger counting in each quadrant): no loss = 0 4. Facial Palsy (show teeth, raise eye brows and squeeze eyes shut, or grimace symmetry in a comatose patient): normal = 0 5a. Motor Arm (extend arm (palms down) to 90 degrees and score drift/movement (10 seconds) - Left: no drift = 0 5b. Motor Arm: (extend arm (palms down) to 90 degrees and score drift/movement (10 seconds) - Right: no drift = 0 6a. Motor Leg (elevate leg 30 degrees and score drift/ movement (5 seconds) - Left: no drift = 0 6b. Motor Leg (elevate leg 30 degrees and score drift/ movement (5 seconds) - Right: no drift = 0 7. Limb Ataxia (finger to nose, heel down mahmood): absent = 0 8. Sensory (pin prick to face, arm, trunk and leg, compare side to side): normal = 0 9. Best Language: no aphasia = 0 10. Dysarthria (evaluate speech clarity by patient repeating listed words): normal articulation = 0 11. Extinction and Inattention: no neglect = 0 Total: 0 Results & Data Vital Signs (Past 12 Hours) Vital Signs Temp Pulse Pulse Resp BP Pulse Ox O2 Del Method 07/31/24 10:47 77 07/31/24 08:12 Room Air 07/31/24 07:42 36.6 C 75 20 163/93 H 93 Room Air 07/31/24 02:45 36.8 C 83 18 142/75 H 97 Room Air 07/30/24 23:55 36.8 C 78 17 136/77 95 Room Air Laboratory Results Laboratory Results - last 24 hr 07/30/24 07/30/24 07/31/24 12:18 12:25 06:16 WBC 6.59 7.79 RBC 4.96 5.07 Hgb 15.5 15.6 POC Hgb 15.6 Hct 45.3 45.8 POC Hct 46 MCV 91.3 90.3 MCH 31.3 30.8 MCHC 34.2 34.1 RDW Std Deviation 43.3 42.8 RDW Coeff of Marvin 13.0 13.1 Plt Count 128 L 136 MPV 8.6 L 8.9 L Immature Gran % (Auto) 0.2 0.3 Neut % (Auto) 60.9 62.6 Lymph % (Auto) 23.8 20.2 [place] % (Auto) 12.3 12.7 Eos % (Auto) 2.3 3.6 Baso % (Auto) 0.5 0.6 Neut # (Auto) 4.02 4.88 Lymph # (Auto) 1.57 1.57 [place] # (Auto) 0.81 H 0.99 H Eos # (Auto) 0.15 0.28 Baso # (Auto) 0.03 0.05 Immature Gran # (Auto) 0.01 0.02 PT 11.5 INR 1.1 APTT 30 PTT Ratio 1.1 POC Sodium 139 Sodium 137 139 POC Potassium 4.4 Potassium 3.9 4.4 POC Chloride 104 Chloride 105 105 Carbon Dioxide 28 30 POC Total CO2 26 Anion Gap 4 4 POC Anion Gap 14.0 L POC BUN 26 H BUN 20 16 Creatinine 0.87 0.93 POC Creatinine 0.9 Est Cr Clr Drug Dosing 73.1 68.4 eGFR 86.69 82.49 BUN/Creatinine Ratio 23.0 H 17.2 Glucose 87 88 POC Glucose (other) 83 Estimat Average Glucose 111 Hemoglobin A1c 5.5 Calcium 9.0 9.3 POC Ioniz Calcium Hunter 1.16 Magnesium 1.8 Total Bilirubin 0.7 AST 24 ALT 16 Alkaline Phosphatase 90 Troponin I High Sens 6.3 Total Protein 6.6 Albumin 3.7 Globulin 2.9 Albumin/Globulin Ratio 1.3 Triglycerides 76 Cholesterol 112 LDL Cholesterol, Calc 59 VLDL Cholesterol, Calc 15 HDL Cholesterol 38 Cholesterol/HDL Ratio 2.9 Blood Type O Positive Antibody Screen NEGATIVE Diagnostic Findings Chest X-Ray 07/30/24 12:15 EXAM: Radiograph of the Chest 1 View INDICATION: Neurologic deficit TECHNIQUE: Frontal view of the chest. COMPARISON: No relevant prior studies available. FINDINGS: Lungs and pleural spaces: There is mild atelectasis in the lower lungs. No consolidation or pulmonary edema. No pleural effusion or pneumothorax. Heart: Prominent cardiac shadow accentuated by technique. Mediastinum: Normal contour. Bones/joints: No fracture, erosion or dislocation. Soft tissues: No abnormality noted. No radiopaque foreign body noted. Vasculature: Ectatic aorta with arch calcification. Upper abdomen: No abnormality noted. IMPRESSION: No significant acute cardiopulmonary disease. ACT 112: Negative or not required by law. Electronically signed by Mary Jo Del Castillo 07-30-2024 12:[address] 07/30/24 12:15 EXAM: CT Head Without Intravenous Contrast INDICATION: Blurred vision and slurred speech TECHNIQUE: Axial computed tomography images of the head/brain without intravenous contrast. Sagittal and/or coronal reformats are provided. Sagittal and coronal reformatted images were created and reviewed. This CT exam was performed using one or more of the following dose reduction techniques: automated exposure control, adjustment of the mA and/or kV according to patient size, and/or use of iterative reconstruction technique. COMPARISON: No relevant prior studies available. FINDINGS: Limitations: None. Brain and extra-axial spaces: There is age appropriate cortical atrophy and chronic ischemic periventricular white matter hypodensity. No acute infarct, hemorrhage or mass noted. Bones/joints: No acute changes. Soft tissues: No significant abnormality noted. Vasculature: There is moderate to severe atherosclerotic calcification of the intracranial vertebral and carotid arteries. There is likely significant stenosis of the left vertebral artery. Sinuses: No layering fluid in the visualized portions of the paranasal sinuses. Mastoid air cells: No mastoid effusion. Orbits: No significant abnormality noted. IMPRESSION: 1. Cerebral atrophy. No acute changes. 2. 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 ACT 112: Negative or not required by law. Electronically signed by Mary Jo Del Castillo 07-30-2024 12:57 PM Head CTA 07/30/24 12:15 EXAM: CT Angiography Head With Intravenous Contrast INDICATION: TECHNIQUE: Axial computed tomographic angiography images of the head with intravenous contrast. Sagittal and coronal reformatted images were created and reviewed. This CT exam was performed using one or more of the following dose reduction techniques: automated exposure control, adjustment of the mA and/or kV according to patient size, and/or use of iterative reconstruction technique. MIP reconstructed images were created and reviewed. CONTRAST: 119ml of Optiray 320 was administered intravenously. COMPARISON: No relevant prior studies available. FINDINGS: Right internal carotid artery: Moderate calcific plaque intracranial right internal carotid artery without stenosis, occlusion or dissection. No aneurysm. Right anterior cerebral artery: No abnormality noted. No occlusion or significant stenosis. No aneurysm. Right middle cerebral artery: No abnormality noted. No occlusion or significant stenosis. No aneurysm. Right posterior cerebral artery: No abnormality noted. No occlusion or significant stenosis. No aneurysm. Right vertebral artery: There is calcific plaque with high-grade stenosis of the right intracranial vertebral artery which is codominant. No occlusion. Left internal carotid artery: Moderate calcific plaque intracranial left internal carotid artery without stenosis, occlusion or dissection. No aneurysm. Left anterior cerebral artery: No abnormality noted. No occlusion or significant stenosis. No aneurysm. Left middle cerebral artery: No abnormality noted. No occlusion or significant stenosis. No aneurysm. Left posterior cerebral artery: No abnormality noted. No occlusion or significant stenosis. No aneurysm. Left vertebral artery: There is dense calcification of the left intracranial vertebral artery. There is up to 70% long segment stenosis. No occlusion. Basilar artery: No abnormality noted. No occlusion or significant stenosis. No aneurysm. Other vasculature: There is normal enhancement and symmetrical appearance of the ophthalmic arteries. Patent dural venous sinuses. Sinuses: There is a small retention cyst or polyp in the left maxillary sinus. No sinus fluid. IMPRESSION: 1. 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 2. Anterior circulation without stenosis, occlusion, aneurysm or dissection. ACT 112: Negative or not required by law. Electronically signed by Mary Jo Del Castillo 07-30-2024 13:01 PM Neck CTA 07/30/24 12:15 EXAM: CT Angiography Neck With Intravenous Contrast INDICATION: Blurred vision. TECHNIQUE: Routine carotid CT angiography protocol was performed with intravenous contrast. NASCET criteria using the distal ICAs for comparison were used for evaluation of stenoses. Sagittal and coronal reformatted images were created and reviewed. This CT exam was performed using one or more of the following dose reduction techniques: automated exposure control, adjustment of the mA and/or kV according to patient size, and/or use of iterative reconstruction technique. MIP reconstructed images were created and reviewed. CONTRAST: 119ml of Optiray 320 was administered intravenously. COMPARISON: None. FINDINGS: VASCULATURE: Right common carotid artery: No abnormality noted. No occlusion or significant stenosis. No dissection. Right internal carotid artery: There is mild to moderate mixed plaque right cervical internal carotid bulb and proximal segment with less than 25% stenosis. No dissection, aneurysm or occlusion. Right external carotid artery: No abnormality noted. No occlusion. Right vertebral artery: No abnormality noted. No occlusion or significant stenosis. No dissection. Left common carotid artery: There is moderate calcification at the origin of the left common carotid artery. There is minimal mixed plaque distally. No stenosis, aneurysm, dissection or occlusion. Left internal carotid artery: There is severe mixed plaque of the left cervical internal carotid bulb and proximal segment with approximately 50% proximal stenosis. No dissection, aneurysm or occlusion. Left external carotid artery: No abnormality noted. No occlusion. Left vertebral artery: No abnormality noted. No occlusion or significant stenosis. No dissection. Brachiocephalic and subclavian arteries: There is mixed plaque at the origin of both subclavian arteries without stenosis, dissection or aneurysm. Aorta: There is mixed plaque partially imaged in the arch of the aorta. NECK: Bones/joints: There is mild narrowing of the left cervical vertebral artery by hypertrophic facets and narrowing of the transverse foramen at C5-C6. No occlusion, dissection or aneurysm. Soft tissues: No abnormality noted. Lung apices: Clear. CAROTID STENOSIS REFERENCE USING NASCET CRITERIA: % ICA stenosis = (1 - narrowest ICA diameter/diameter of distal cervical ICA) x 100. Mild - <50% stenosis. Moderate - 50-69% stenosis. Severe - 70-94% stenosis. Near occlusion - 95-99% stenosis. Occluded - 100% stenosis. IMPRESSION: 1. There is atherosclerosis with approximate 50% left cervical proximal internal carotid stenosis and less than 25% right proximal cervical internal carotid stenosis. 2. There is slight narrowing of the left cervical vertebral artery due to bony hypertrophy of the left transverse foramen at C5-C6. No occlusion. ACT 112: Negative or not required by law. Electronically signed by Mary Jo Del Castillo 07-30-2024 13:06 PM Brain MRI 07/30/24 14:19 MRI of the brain performed without IV contrast History: Headache. Blurred vision Comparison: None Technique: Sagittal T1-weighted and axial T2-weighted, T2/FLAIR and diffusion-weighted with ADC map images of the brain were obtained without IV contrast. Findings: No evidence for intracranial mass lesion, mass-effect, midline shift, or abnormal extra-axial fluid collection. The ventricles and sulci are within normal limits for age. No abnormally reduced diffusion or evidence for acute infarct. Chronic small infarct in the left cerebellar hemisphere. Moderate to marked generalized cerebral atrophy. Mild scattered high signal intensity foci throughout the white matter on T2/FLAIR, most consistent with chronic small vessel ischemic disease. Normal intravascular flow voids. Bilateral pseudophakia. Impression: Age-related changes without acute intracranial pathology Electronically signed by Ernie Carpenter 07-30-2024 4:17 PM Medications Administered Home Medications Medication Instructions Recorded Confirmed Last Taken atorvastatin 40 mg tablet 40 mg PO QAM 02/25/18 07/30/24 07/30/24 multivitamin 1 tab PO DAILY 02/25/18 07/30/24 07/30/24 omeprazole 40 mg capsule,delayed 40 mg PO DAILY 02/25/18 07/30/24 07/30/24 release trospium 60 mg capsule,extended 60 mg PO QAM 10/10/22 07/30/24 07/30/24 release 24 hr albuterol sulfate 90 mcg/actuation 2 puff inhalation Q4 PRN cough or 09/25/23 07/30/24 Unknown aerosol inhaler wheeze aspirin 81 mg tablet,delayed 81 mg PO DAILY #1 tab 09/27/23 07/30/24 07/30/24 release (Jelani Low Dose Aspirin) apixaban 5 mg (74 tabs) tablets in 5 mg PO BID 07/30/24 07/30/24 07/30/24 a dose pack Active Medications Generic Name Dose Route Start Last Admin Trade Name Freq PRN Reason Stop Dose Admin Apixaban 5 mg 07/30/24 21:00 07/31/24 09:13 Apixaban 5 Mg Tablet PO 08/29/24 20:59 5 mg BID RICHARD Administration Aspirin 81 mg 07/31/24 09:00 07/31/24 09:14 Aspirin 81 Mg Ectab PO 08/30/24 08:59 81 mg QAM RICHARD Administration Atorvastatin Calcium 80 mg 07/31/24 09:00 07/31/24 09:14 Atorvastatin 40 Mg Tab PO 08/30/24 08:59 80 mg QAM RICHARD Administration Multivitamins 1 tab 07/31/24 09:00 07/31/24 09:15 Multivitamin Tab PO 08/30/24 08:59 1 tab QAM RICHARD Administration Oxybutynin Chloride 5 mg 07/31/24 09:00 07/31/24 09:15 Oxybutynin Chloride Xl 5 Mg Tabcr PO 08/30/24 08:59 5 mg QAM RICHARD Administration Protocol Pantoprazole Sodium 40 mg 07/31/24 09:00 07/31/24 09:16 Pantoprazole 40 Mg Tab PO 08/30/24 08:59 40 mg DAILY RICHARD Administration Protocol ECG Additional Comments: Sinus rhythm with 1st degree A-V block
[2024-07-31] MEDS ORDERED: STROKE PATIENT DISCHARGE STA (11:46)
--- NOTE | 2024-07-31 11:50 | Discharge Summary ---
Date of Service July 31, 2024 Admission HPI Per Admitting Provider This is a 83 yo M with PMHx of left cerebellar hemisphere CVA in 2010, ischemic heart disease, AAA, left popliteal aneurysm, elevated troponin, pulm embolism and DVT September 2023 on Eliquis, GERD, CARMINA, hx of upper respiratory symptoms in May 2024 a has had a residual cough since that time. Patient presents this morning to the ER after calling 911 when his was at home with him noticed slurred speech this morning around 10:45 AM. This is similar to previous CVA with aphasia that he experienced in 2009. He also developed blurred vision which lasted approximately 3 to 4 minutes, unsure if it was both or only one eye, and slurred speech lasting about 10 to 15 minutes. All symptoms nearly resolved by the time he arrived here at the ER. He denies any other symptoms such as unilateral weakness, motor defects, ability to recall events. Patient is already taking atorvastatin 40 mg daily, baby aspirin daily, and Eliquis BID which he did so this morning earlier. Last time he ate was breakfast today. Patient typically ambulates without any assistive devices. He has been recently discharged from physical therapy about 2 weeks ago for issues with the left lower extremity weakness status post DVT/left popliteal aneurysm. He completed 12 weeks of PT as outpatient. He denies any recent falls. Chronically the patient experiences lower extremity edema, worse in the left compared to the right. CT imaging of the head and neck is negative this morning. He will be admitted under observation with TIA symptoms. MRI of the brain has been ordered. Blood pressure is slightly elevated. No significant lab abnormalities noted on admission. Admission Exam Per Admitting Provider General: awake, alert, no apparent distress, elderly white male Head: Normocephalic, atraumatic ENT: PERRL, EOMI, no pharyngeal exudate, mucous membranes moist Chest: Clear to auscultation, on room air, no adventitious breath sounds Cardiac: Regular rate and rhythm, no murmur, no JVD, normal peripheral pulses, good capillary refill Abdominal: NABS x 4 quadrants, soft, nondistended, nontender to palpation, no rebound or guarding Extremities: Normal inspection, +2 peripheral edema L> R pitting edema, no erythema, calfs nontender to palpation Psych: Normal mood and affect Neuro: AAO x 3, cranial nerves II through XII tested and are intact, negative pronator drift, can perform rapid alternating movements without difficulty, follows all commands, speech is not slurred, speech intact, answers all orientation questions correctly, strength intact bilaterally and rated 5/5 in upper extremities, strength in left leg hip flexion is slightly decreased compared to the right patient reports this is chronic, no gross motor deficits, speech is clear, no peripheral sensory deficits. Principal Diagnosis TIA Hx Left cerebellar hemisphere CVA in ~2010 Discharge Exam General: awake, alert, no apparent distress, elderly white male Head: Normocephalic, atraumatic ENT: PERRL, EOMI, no pharyngeal exudate, mucous membranes moist Chest: Clear to auscultation, on room air, no adventitious breath sounds Cardiac: Regular rate and rhythm, no murmur, no JVD, normal peripheral pulses, good capillary refill Abdominal: NABS x 4 quadrants, soft, nondistended, nontender to palpation, no rebound or guarding Extremities: Normal inspection, BLE pitting edema L> R 1/2+, no erythema, calfs nontender to palpation Psych: Normal mood and affect Neuro: AAO x 3, No facial droop. Speech is clear. Obeys simple commands. Moves extremities. Discharge Data Allergies Allergy/AdvReac Type Severity Reaction Status Date / Time pollen extracts Allergy Intermediate ITCHY Verified 04/07/24 19:50 EYES, SNEEZING, CONGESTION Consultations 07/30/24 13:28 ED Decision to Admit Stat 07/30/24 18:11 Consult Neurology Routine Ordered Studies 07/30/24 12:15 CT angio head w con Stat CT angio neck with con Stat CT head/brain wo con Stat 07/30/24 14:19 MR brain wo con Routine Hospital Course (1) Brain TIA: (2) Ischemic heart disease: (3) GERD (gastroesophageal reflux disease): (4) History of bladder cancer: Plan Per prior attending w/ addendum: Acute blurred vision and slurred speech, sx resolved Hx Left cerebellar hemisphere CVA in ~2010 - Admit to PCU for observation - Stroke order set completed, no indication for thrombolytic - CT head reviewed and is negative - MRI brain wo contrast ordered - Previously followed with Dr. Holliday and neurology in 2018 his last visit, had old CVA preexist's from admission for TIA in 2011, has hypokinetic IV segment only on baby aspirin. Retention cyst in maxillary of no concern. - Tele-neurology contacted by the ER- Recs aspirin and plavix - Will allow permissive hypertension with SBP 140-170 - Consider Neurology consultation pending MRI results - PT/OT consults place - pt finished 12 wks outpt therapy 2 weeks ago in beginning of July. May warrant addition PT. - Pt passed bedside swallow eval - Continue asa 81 mg daily, atorvastatin 80 mg for plaque stabilization Hx DVT/PE September 2023 -Anticoagulated on Eliquis BID - Chronic left lower ext edema from such, monitor, unlikely that venous doppler would yeild with already being anticoagulated. Pt denies missing doses. 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 DVT ppx: teds, scds, eliquis, aspirin Lines: PIV x 1 FEN/GI: Heart healthy CODE: Full code Dispo: From home, likely to remain in the hospital x 1-2 days Addendum: 07/31/24: Patient was seen and examined at bedside. Patient with no further neurological signs or symptoms. Case was discussed with neurology. Patient is okay to be discharged on Eliquis and aspirin. Patient's was given a phone call and updated on plan of care. She voiced understanding. Patient is being discharged to home with following instructions at the point of discharge: Follow-up with your primary care physician within a week time and likely you will need labs CBC/CMP/magnesium/phosphorus. Neurology evaluated you while inpatient, follow-up with neurology in 2 to 4 weeks time upon discharge. Your atorvastatin dose has been increased to 80 mg daily. Take your medications as prescribed. Please make sure that you are able to get your medications today by calling your pharmacy before you leave the hospital so that your treatment continuity is not broken. Home Health Attestation I certify that this patient is under my care and that I, or a physicians periodicals library assistant working with me, had a face to-face encounter that meets the home health [id number] encounter requirements with this patient. The encounter with the patient was in whole, or in part, for the following medical condition, which is the primary reason for home health care (list medical condition): I certify that, based on my findings, the following services are medically necessary home health services: My clinical findings support the need for the above services because: Further, I certify that my clinical findings support that this patient is homebound (i.e. absences from home require considerable and taxing effort and are for medical reasons or zoroastrianism services or infrequently or of short duration when for other reasons) because: Certification for Home Health Services: Based on the above findings, I certify that this patient is confined to the home and needs intermittent fpc care, physical therapy and/or speech therapy or continues to need occupational therapy. The patient is under my care, and I have initiated the establishment of the plan of care. This patient will be followed by a physician who will periodically review the plan of care. Total Time Total Time Spent Total Time Spent (In Minutes): 35 Discharge Plan Discharge Items Patient Disposition: Home - Self-Care Reason For Visit: TIA Discharge Diagnosis: TIA Hx Left cerebellar hemisphere CVA in ~2010 Activity: Resume your previous activity Non-emergency contact: Primary Care Provider Call non-emergency contact if: you have any medication questions and your symptoms worsen Follow-up/Referrals: Vahe Sahu MD [Primary Care Provider] - Diet: Heart Healthy Addtl Attending Provider Instructions: Follow-up with your primary care physician within a week time and likely you will need labs CBC/CMP/magnesium/phosphorus. Neurology evaluated you while inpatient, follow-up with neurology in 2 to 4 weeks time upon discharge. Your atorvastatin dose has been increased to 80 mg daily. Take your medications as prescribed. Please make sure that you are able to get your medications today by calling your pharmacy before you leave the hospital so that your treatment continuity is not broken. Pending Studies at Discharge: No Stand-Alone Forms: My [employer], Smoking Cessation Medications and DC Order Prescriptions: New atorvastatin 80 mg tablet 80 mg PO DAILY Qty: 30 0RF Continued multivitamin Tablet 1 tab PO DAILY omeprazole 40 mg Capsule,Delayed Release(Dr/Ec) 40 mg PO DAILY trospium 60 mg capsule,extended release 24hr 60 mg PO QAM albuterol sulfate 90 mcg/actuation HFA aerosol inhaler 2 puff INHALATION Q4 PRN (Reason: cough or wheeze) aspirin [Jelani Low Dose Aspirin] 81 mg Tablet,Delayed Release (Dr/Ec) 81 mg PO DAILY Qty: 1 0RF apixaban 5 mg (74 tabs) tablets,dose pack 5 mg PO BID Rx Instructions: Start taking Eliquis 10 mg twice a day for 1 week, then take 5 mg twice a day Discontinued atorvastatin 40 mg Tablet 40 mg PO QAM Discharge Orders: Discharge Order (Routine); Ordered 07/31/24 Ordered By: Mazin Hicks Admission Data Admit Date/Time: 07/30/24 14:19 Attending Provider: Mazin Hicks Admit Provider: Harvey Sparrow Primary Care Provider: Vahe Sahu Other Providers: Marcel Gandhi; Annette Torrez
[2024-07-31 12:18] VITALS: BP 132/80; PULSE 91
--- NOTE | 2024-08-02 13:23 | Pharmacy Report ---
Pharmacist Stroke Counseling - Date of Service August 02, 2024 - Scope: Pharmacy has been consulted to provide medication discharge counseling for this patient admitted with [ischemic stroke] [hemorrhagic stroke] [transient ischemic attack] as per the Pharmacist Discharge Counseling for Stroke Patients [employer]. - Medications on Discharge: Home Medications Medication Instructions Recorded Confirmed multivitamin 1 tab PO DAILY 02/25/18 07/30/24 omeprazole 40 mg capsule,delayed 40 mg PO DAILY 02/25/18 07/30/24 release trospium 60 mg capsule,extended 60 mg PO QAM 10/10/22 07/30/24 release 24 hr albuterol sulfate 90 mcg/actuation 2 puff inhalation Q4 PRN cough or 09/25/23 07/30/24 aerosol inhaler wheeze apixaban 5 mg (74 tabs) tablets in 5 mg PO BID 07/30/24 07/30/24 a dose pack New Rx's Medication Instructions Recorded aspirin 81 mg tablet,delayed 81 mg PO DAILY #1 tab 09/27/23 release (Jelani Low Dose Aspirin) atorvastatin 80 mg tablet 80 mg PO DAILY #30 tabs 07/31/24 - Action: The above medications, specifically ones for stroke treatment/prophylaxis, have been reviewed in detail with the patient and/or patient account retention representative(s) prior to discharge. This includes indication, common adverse reactions, drug interactions, and medication administration. Medication counseling has been employed using the teach-back method to ensure understanding. - Outcome: The patient and/or patient account retention representative(s) have demonstrated understanding of the medications. Additional comments: - Reviewed side effects of stain medications. Patient reports taking atorvastatin for > 10 years and tolerates the medication. Patient did question the benefit of increasing his dose from 40 mg to 80 mg. Of note, most recent labs indicate a total cholesterol of 112 and LDL 59. Patient is to have Neurology follow up in the next 2-4 weeks (per discharge recs). Advised patient to discuss statin dose with Neurology. -Patient denies questions related to Apixaban and ASA. Reports taking these medications for quite some time. Thank you for allowing pharmacy to be involved in the care of this patient. Please call [phone] with any additional questions
== END 2024-07-31 13:16 | disposition home or self-care (01) ==
LOC: ED 12:01 → 2S 12:01 → SUATTDRO 14:19 → 2S 16:15